=== PATIENT | male | born 1945 | race Caucasian/White ===

== ENCOUNTER → 2020-08-20 | Outpatient (CLI) | payer OTHER ==
[~2020-08-20] MED LIST: BAMLANIVIMAB (EUA) 700 MG, ETESEVIMAB (EUA) 1,400 MG in SODIUM CHLORIDE 0.9% 50 ML IVPB ONE; SODIUM CHLORIDE 0.9% 50 ML IVPB ONE; predniSONE 20 MG TAB PO STA
[2020-08-20 09:00] VITALS: RESP 18
--- NOTE | 2020-08-20 09:52 | XR ---
EXAMINATION TYPE: XR chest 2V DATE OF EXAM: 08/20/2020 COMPARISON: Chest x-ray November 02, 2014 HISTORY: Shortness of breath and fever. TECHNIQUE: Frontal and lateral views of the chest are obtained. FINDINGS: Partial visualization of surgical change in the cervical spine similar to prior. Cardiac s ilhouette size stable and within normal limits. New multifocal opacities bilaterally. IMPRESSION: New bilateral multifocal peripheral opacities suspicious for covid-19 infection in curr ent environment.
--- NOTE | 2020-08-20 11:39 | ED ---
General Adult HPI - General Chief complaint: Upper Respiratory Infection Stated complaint: fever/SOB Source: patient Mode of arrival: ambulatory Limitations: no limitations - History of Present Illness Initial comments: Study 5-year-old male past history of asthma who presents emergency department with reported shortness of breath. Patient states he awoke this morning feeling short of breath with a fever. He attempted to his nebulizer without improvement in his symptoms. 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 Denies any chest pain. No nausea, vomiting or diarrhea. Patient has never been hospitalized for his asthma. No history of heart disease. No lower externally swelling. No history of DVT or PE. 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 ROS Other: All systems not noted in ROS Statement are negative. Past Medical History Past Medical History: Asthma, Hypertension, Prostate Disorder Additional Past Medical History / Comment(s): allergies History of Any Multi-Drug Resistant Organisms: None Reported Past Surgical History: Appendectomy, Back Surgery, Tonsillectomy Additional Past Surgical History / Comment(s): cervical Past Psychological History: No Psychological Hx Reported Smoking Status: Former smoker Past Alcohol Use History: None Reported Past Drug Use History: None Reported General Exam Limitations: no limitations Course Vital Signs 08/20/20 08/20/20 08:55 10:00 Temperature 98.2 F 97.8 F Pulse Rate 97 87 Respiratory 18 18 Rate Blood Pressure 142/80 135/70 O2 Sat by Pulse 94 L 95 Oximetry Medical Decision Making - Medical Decision Making Upon arrival patient is placed into room 30. Thorough history and physical exam was performed. Patient does have mild conversational dyspnea. Saturating 94- 95% on room air. Patient is swabbed for Covid which is positive. Chest x-ray was performed which demonstrates new bilateral multifocal peripheral opacities. Results are discussed with the patient. I did recommend treatment with monoclonal antibodies for which the patient did agree to. Patient was taken up to the infusion center at this time. He was given a dose of steroids in the emergency department due to his history of asthma with active wheezing. Patient will be placed on an additional 5 day course of steroids. He is to use his inhaler every 4 hours. Return to the emergency room for any new or worsening symptoms. Follow up with primary care doctor to 4 days per patient was discharged home in stable condition - Lab Data Lab Results 08/20/20 Range/Units 09:05 Coronavirus (PCR) Detected A (Not Detectd) Disposition Condition: Stable Is patient prescribed a controlled substance at d/c from ED?: No Time of Disposition: 11:39
[2020-08-20 13:11] VITALS: BP 142/67; PULSE 93; TEMP 98
== END ==
LOC: PROCWHC3 08:54 → EC 08:54 → EDSTATUS 12:39
PROVIDERS: ATTEND Emergency Medicine
DX: U07.1 COVID-19 (principal); J45.909 Unspecified asthma, uncomplicated; I10 Essential (primary) hypertension; Z87.891 Personal history of nicotine dependence
CPT/HCPCS: 99285 ×2; 96365; 87635; 71046; J7512; Q0245; M0245

== ENCOUNTER 2021-04-25 09:21 | Inpatient (IN) | payer OTHER, MEDICARE ==
[2021-04-25] MEDS ORDERED: methylPREDNISolone SOD SUCCI 125 MG/2 ML VIAL IV STA (09:41)
[2021-04-25] MEDS ORDERED: ALBUTEROL NEBULIZED 2.5 MG/3 ML INHALATION STA (09:41)
[2021-04-25] MEDS ORDERED: IPRATROPIUM 0.5 MG/2.5 ML NEBU INHALATION STA (09:41)
[2021-04-25 10:02] LABS: Basophils % (A) 0 %; Eosinophils # (A) 0.1 k/uL (0-0.7); Eosinophils % (A) 1 %; HGB 18.2 gm/dL (13.0-17.5); Lymphocytes # (A) 0.6 k/uL (1.0-4.8); Lymphocytes % (A) 3 %; MCHC 33.7 g/dL (31.0-37.0); MCV 86.1 fL (80.0-100.0); Mean Platelet Volume 8.7; Monocytes % (A) 6 %; Neutrophils # (A) 15.8 k/uL (1.3-7.7); Neutrophils % (A) 89 %; Platelet Count 272 k/uL (150-450); RBC 6.27 m/uL (4.30-5.90); RDW 14.6 % (11.5-15.5); WBC 17.7 k/uL (3.8-10.6)
[2021-04-25 10:20] LABS: Partial Thromboplastin Time 23.9 sec (22.0-30.0); Prothrombin Time 11.1 sec (9.0-12.0)
--- NOTE | 2021-04-25 10:28 | XR ---
EXAMINATION TYPE: XR chest 1V portable DATE OF EXAM: 04/25/2021 COMPARISON: 08/20/2020 HISTORY: Cough TECHNIQUE: Single frontal view of the chest is obtained. FINDINGS: There are patchy bilateral infiltrates. Granuloma right upper lobe. Subsegmental bilateral lower lobe infiltrate and small effusion. No pneumothorax. Postsurgical change overlying the cervica l spine. IMPRESSION: Bilateral infiltrate correlate for pneumonia.
--- NOTE | 2021-04-25 10:45 | ED ---
General Adult HPI - General Chief complaint: Shortness of Breath Stated complaint: low O2, weakness, cough Time Seen by Provider: 04/25/21 09:30 Source: patient, RN notes reviewed, old records reviewed Mode of arrival: wheelchair Limitations: no limitations - History of Present Illness Initial comments: 75-year-old male presenting with cough and dyspnea. Patient's symptoms have been present for the past several days. He states he did have coronavirus in the spring of this year. He has not been vaccinated. He had contact with his grandson who had a viral gastrointestinal illness. He denies any vomiting or diarrhea but states that after this contact he did have development of a productive cough, and fever up to 101. - Related Data Previous Rx's Medication Instructions Recorded Dexamethasone [Decadron] 6 mg PO DAILY #5 tablet 08/20/20 Allergies Allergy/AdvReac Type Severity Reaction Status Date / Time Influenza Virus Vaccines Allergy Unknown Verified 04/25/21 09:28 Review of Systems ROS Statement: Those systems with pertinent positive or pertinent negative responses have been documented in the HPI. ROS Other: All systems not noted in ROS Statement are negative. Past Medical History Past Medical History: Asthma, Hypertension, Prostate Disorder Additional Past Medical History / Comment(s): allergies History of Any Multi-Drug Resistant Organisms: None Reported Past Surgical History: Appendectomy, Back Surgery, Tonsillectomy Additional Past Surgical History / Comment(s): cervical Past Psychological History: No Psychological Hx Reported Smoking Status: Former smoker Past Alcohol Use History: None Reported Past Drug Use History: None Reported General Exam Limitations: no limitations General appearance: alert, in no apparent distress Head exam: Present: atraumatic, normocephalic Eye exam: Present: normal appearance, PERRL ENT exam: Present: mucous membranes dry Neck exam: Present: normal inspection. Absent: meningismus Respiratory exam: Present: respiratory distress, wheezes, rhonchi, decreased breath sounds Cardiovascular Exam: Present: normal rhythm, tachycardia GI/Abdominal exam: Present: soft. Absent: distended, tenderness, guarding, rebound Extremities exam: Present: normal inspection, normal capillary refill. Absent: pedal edema Neurological exam: Present: alert, oriented X3, CN II-XII intact. Absent: motor sensory deficit Psychiatric exam: Present: normal affect, normal mood Skin exam: Present: warm, dry, intact. Absent: cyanosis, diaphoretic Course Vital Signs 04/25/21 04/25/21 04/25/21 09:24 09:37 11:12 Temperature 98.8 F Pulse Rate 122 H 118 H Respiratory 20 20 Rate Blood Pressure 131/73 O2 Sat by Pulse 90 L Oximetry 04/25/21 11:30 Temperature Pulse Rate 125 H Respiratory Rate Blood Pressure O2 Sat by Pulse Oximetry EKG Findings - EKG Comments: EKG Findings:: EKG: Sinus tachycardia rate of 123, SD interval 142, QRS duration 86, QTC 432, no ST segment elevation. Medical Decision Making - Medical Decision Making 75-year-old male presenting with cough and fever. Patient has chest x-ray showing bilateral pneumonia. He has previously had coronavirus. He has fever in the emergency department. He has leukocytosis of 17. Normal kidney function, normal lactic acid. He started on antibiotics as well as treatment for COPD exacerbation. He will be admitted to Dr. Cantrell who is aware. - Lab Data Result diagrams: 04/25/21 09:49 04/25/21 11:15 Lab Results 04/25/21 04/25/21 04/25/21 Range/Units 09:49 09:49 10:11 WBC 17.7 H (3.8-10.6) k/uL RBC 6.27 H (4.30-5.90) m/uL Hgb 18.2 H (13.0-17.5) gm/dL Hct 54.0 H (39.0-53.0) % MCV 86.1 (80.0-100.0) fL MCH 29.0 (25.0-35.0) pg MCHC 33.7 (31.0-37.0) g/dL RDW 14.6 (11.5-15.5) % Plt Count 272 (150-450) k/uL MPV 8.7 Neutrophils % 89 % Lymphocytes % 3 % Monocytes % 6 % Eosinophils % 1 % Basophils % 0 % Neutrophils # 15.8 H (1.3-7.7) k/uL Lymphocytes # 0.6 L (1.0-4.8) k/uL Monocytes # 1.0 (0-1.0) k/uL Eosinophils # 0.1 (0-0.7) k/uL Basophils # 0.0 (0-0.2) k/uL PT 11.1 (9.0-12.0) sec INR 1.0 (<1.2) APTT 23.9 (22.0-30.0) sec Sodium (137-145) mmol/L Potassium (3.5-5.1) mmol/L Chloride (98-107) mmol/L Carbon Dioxide (22-30) mmol/L Anion Gap mmol/L BUN (9-20) mg/dL Creatinine (0.66-1.25) mg/dL Est GFR (CKD-EPI)AfAm (>60 ml/min/1.73 sqM) Est GFR (CKD-EPI)NonAf (>60 ml/min/1.73 sqM) Glucose (74-99) mg/dL Plasma Lactic Acid Mello (0.7-2.0) mmol/L Calcium (8.4-10.2) mg/dL Magnesium (1.6-2.3) mg/dL Total Bilirubin (0.2-1.3) mg/dL AST (17-59) U/L ALT (4-49) U/L Alkaline Phosphatase (38-126) U/L Total Protein (6.3-8.2) g/dL Albumin (3.5-5.0) g/dL Coronavirus (PCR) Not Detected (Not Detectd) Influenza Type A RNA (Not Detectd) Influenza Type B (PCR) (Not Detectd) 04/25/21 04/25/21 04/25/21 Range/Units 10:11 11:15 11:15 WBC (3.8-10.6) k/uL RBC (4.30-5.90) m/uL Hgb (13.0-17.5) gm/dL Hct (39.0-53.0) % MCV (80.0-100.0) fL MCH (25.0-35.0) pg MCHC (31.0-37.0) g/dL RDW (11.5-15.5) % Plt Count (150-450) k/uL MPV Neutrophils % % Lymphocytes % % Monocytes % % Eosinophils % % Basophils % % Neutrophils # (1.3-7.7) k/uL Lymphocytes # (1.0-4.8) k/uL Monocytes # (0-1.0) k/uL Eosinophils # (0-0.7) k/uL Basophils # (0-0.2) k/uL PT (9.0-12.0) sec INR (<1.2) APTT (22.0-30.0) sec Sodium 135 L (137-145) mmol/L Potassium 3.9 (3.5-5.1) mmol/L Chloride 97 L (98-107) mmol/L Carbon Dioxide 27 (22-30) mmol/L Anion Gap 11 mmol/L BUN 24 H (9-20) mg/dL Creatinine 0.72 (0.66-1.25) mg/dL Est GFR (CKD-EPI)AfAm >90 (>60 ml/min/1.73 sqM) Est GFR (CKD-EPI)NonAf 90 (>60 ml/min/1.73 sqM) Glucose 175 H (74-99) mg/dL Plasma Lactic Acid Mello 1.3 (0.7-2.0) mmol/L Calcium 8.8 (8.4-10.2) mg/dL Magnesium 2.0 (1.6-2.3) mg/dL Total Bilirubin 2.2 H (0.2-1.3) mg/dL AST 132 H (17-59) U/L ALT 85 H (4-49) U/L Alkaline Phosphatase 70 (38-126) U/L Total Protein 7.5 (6.3-8.2) g/dL Albumin 3.9 (3.5-5.0) g/dL Coronavirus (PCR) (Not Detectd) Influenza Type A RNA Not Detected (Not Detectd) Influenza Type B (PCR) Not Detected (Not Detectd) Disposition Clinical Impression: Community acquired pneumonia, Acute exacerbation of chronic obstructive pulmonary disease Disposition: ADMITTED IP TO THIS [facility] Condition: Stable Is patient prescribed a controlled substance at d/c from ED?: No Referrals: [facility] [Primary Care Provider] - 1-2 days Decision to Admit Reason: Admit from EC Decision Date: 04/18/21 Decision Time: 12:15
[2021-04-25] MEDS ORDERED: cefTRIAXone IN SWFI 1,000 MG/10 ML SYRINGE IVP STA (10:54)
[2021-04-25] MEDS ORDERED: AZITHROMYCIN 500 MG in SODIUM CHLORIDE 0.9% 250 ML IVPB STA (10:54)
[2021-04-25] MEDS ORDERED: SODIUM CHLORIDE 0.9% 500 ML 500 ML IV ONE (11:30)
[2021-04-25 11:49] LABS: ALT 85 U/L (4-49); African American GFR (CKD) >90 (>60 ml/min/1.73 sqM); Anion Gap 11 mmol/L; Blood Urea Nitrogen 24 mg/dL (9-20); Calcium 8.8 mg/dL (8.4-10.2); Carbon Dioxide 27 mmol/L (22-30); Chloride 97 mmol/L (98-107); Glucose 175 mg/dL (74-99); Non-African American GFR(CKD) 90 (>60 ml/min/1.73 sqM); Sodium 135 mmol/L (137-145); Total Bilirubin 2.2 mg/dL (0.2-1.3)
[2021-04-25 11:51] LABS: AST 132 U/L (17-59); Albumin 3.9 g/dL (3.5-5.0); Alkaline Phosphatase 70 U/L (38-126); Potassium 3.9 mmol/L (3.5-5.1); Total Protein 7.5 g/dL (6.3-8.2)
[2021-04-25] MEDS ORDERED: IPRATROPIUM-ALBUTEROL 3 ML NEB INHALATION PRN (12:12)
[2021-04-25] MEDS ORDERED: ASPIRIN 325 MG TAB PO STA (12:28)
[2021-04-25] MEDS ORDERED: HEPARIN SODIUM 1,000 UN/ML (10ML VL) IV ONE (12:28)
--- NOTE | 2021-04-25 13:06 | CT ---
EXAMINATION TYPE: CT angio chest DATE OF EXAM: 04/25/2021 COMPARISON: Chest x-ray from earlier today and told her x-ray August 20, 2020 HISTORY: SOB, cough, pneumonia CT DLP: 209.3 mGycm. Automated Exposure Control for Dose Reduction was Utilized. CONTRAST: CTA scan of the thorax is performed with IV Contrast, patient injected with 78 mL of Isovue 370, pulm onary embolism protocol. MIP Images are created on CT scanner and reviewed. FINDINGS: LUNGS: Exam suboptimal as patient unable to hold breath. Focal consolidation retrocardiac region left lower lobe is present. Smaller focal area of groundglass opacity medial right lower lobe axial image 99. There is 7 mm calcified right lower lobe nodule laterally axial image 74. Mild reticulation or i nterstitial edema. No pleural effusion or pneumothorax seen. MEDIASTINUM: There is a suboptimal study with fecal contrast in the SVC and aorta versus pulmonary ar teries. Some heterogeneity in the periphery but no CT evidence for acute pulmonary embolism. There ar e no greater than 1 cm noncalcified hilar or mediastinal lymph nodes. Prominent calcified subcarinal and right hilar lymph nodes. No cardiomegaly or pericardial effusion is seen. Coronary calcification is present. No thoracic aortic aneurysm or dissection. OTHER: Exaggerated thoracic kyphosis upper thoracic spine. Scoliotic curvature on coronal images. Ant erior fusion plate lower cervical spine partially imaged. IMPRESSION: No CT evidence for acute pulmonary embolism. Masslike consolidation in the left lower lob e suspicious for focal pneumonia. Correlate clinically. Follow-up to resolution advised. Smaller focu s groundglass opacity medial right lower lobe could reflect second acute developing infectious proces s.
--- NOTE | 2021-04-25 13:22 | P.CRDCN ---
History of Present Illness History of present illness: HISTORY OF PRESENTING ILLNESS This is a pleasant 75-year-old male past medical history significant for hypertension, asthma, Covid-19 in July 2020. 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 Ram. We have been asked to see in consultation for elevated troponin. Patient presents to the emergency department with complaints of cough and worsening shortness of breath for the past several days. He was hypoxic on presentation and placed on 5L nasal cannula. He denies any chest pain, palpitations, lightheadedness, dizziness or syncope. On admission, patient's chest xray revealed bilateral infiltrate correlate for pneumonia. EKG revealed sinus tachycardia, rate 123, no significant ST-T wave abnormalities. On telemetry he is in sinus tachycardic HR 120s. Troponin was elevated at 1.1. He denies history of CAD, [place], Stroke, or diabetes. He denies diagnosis of COPD. He is a non-smoker, quit 50+ years ago. DIAGNOSTICS Chest CT revealed no evidence of pulmonary embolism, mass like consolidation in the left lower lobe suspicious for focal pneumonia. Smaller focus groundglass opacities medial right lower lobe Laboratory reviewed, WBC 17, Hgb 18, Plt 272, Sodium 135, K 3.9, BUN 24, sCr 0.72, Mag 2.0, Trop 1.1, covid pcr negative, influenza pcr negative Current home medications include Decadron REVIEW OF SYSTEMS At the time of my exam: CONSTITUTIONAL: Denies fever or chills. CARDIOVASCULAR: +shortness of breath Denies chest pain, orthopnea, PND or palpitations. RESPIRATORY: +cough. GASTROINTESTINAL: Denies abdominal pain, diarrhea, constipation, nausea or vomiting. MUSCULOSKELETAL: Denies myalgias. NEUROLOGIC: Denies numbness, tingling, headacbe or weakness. ENDOCRINE: Denies fatigue, weight change, polydipsia or polyurina. GENITOURINARY: Denies burning, hematuria or urgency with micturation. HEMATOLOGIC: Denies history of anemia or bleeding. PHYSICAL EXAMINATION Blood pressure 131/73 HR 122, afebrile CONSTITUTIONAL: No apparent distress. HEENT: Head is normocephalic. Pupils are equal, round. Sclerae anicteric. Mucous membranes of the mouth are moist. No JVD. No carotid bruit. CHEST EXAMINATION: Lungs are bilateral rhonci with wheezes noted to auscultation. No chest wall tenderness is noted on palpation or with deep breathing. HEART EXAMINATION: Regular tachycardic rate and rhythm. S1, S2 heard. No murmurs, gallops or rub. ABDOMEN: Soft, nontender. Positive bowel sounds. EXTREMITIES: 2+ peripheral pulses, no lower extremity edema and no calf tenderness. NEUROLOGIC EXAMINATION: Patient is awake, alert and oriented x3. ASSESSMENT Shortness of breath, cough Acute asthma/copd exacerbation Elevated troponin, likely related to hypoxia and infection Pneumonia PLAN Recommend consult pulmonary We will start aspirin and continue IV heparin at this time Obtain 2D echocardiogram Based on patient's course further recommendations will be made Nurse Practitioner note has been reviewed, I agree with a documented findings and plan of care. Patient was seen and examined. Past Medical History Past Medical History: Asthma, Hypertension, Prostate Disorder Additional Past Medical History / Comment(s): allergies History of Any Multi-Drug Resistant Organisms: None Reported Past Surgical History: Appendectomy, Back Surgery, Tonsillectomy Additional Past Surgical History / Comment(s): cervical Past Psychological History: No Psychological Hx Reported Smoking Status: Former smoker Past Alcohol Use History: None Reported Past Drug Use History: None Reported Medications and Allergies Home Medications Medication Instructions Recorded Confirmed Type Dexamethasone [Decadron] 6 mg PO DAILY #5 tablet 08/20/20 Rx Allergies Allergy/AdvReac Type Severity Reaction Status Date / Time Influenza Virus Vaccines Allergy Unknown Verified 04/25/21 09:28 Physical Exam Vitals: Vital Signs Temp Pulse Resp BP Pulse Ox 04/25/21 11:30 125 H 04/25/21 11:12 118 H 04/25/21 09:37 20 04/25/21 09:24 98.8 F 122 H 20 131/73 90 L Intake and Output 04/24/21 04/25/21 04/25/21 22:59 06:59 14:59 Other: Weight 63.503 kg Results 04/25/21 09:49 04/25/21 11:15 Cardiac Enzymes 04/25/21 04/25/21 Range/Units 11:15 11:15 AST 132 H (17-59) U/L Troponin I 1.170 H* (0.000-0.034) ng/mL Coagulation 04/25/21 Range/Units 09:49 PT 11.1 (9.0-12.0) sec APTT 23.9 (22.0-30.0) sec CBC 04/25/21 Range/Units 09:49 WBC 17.7 H (3.8-10.6) k/uL RBC 6.27 H (4.30-5.90) m/uL Hgb 18.2 H (13.0-17.5) gm/dL Hct 54.0 H (39.0-53.0) % Plt Count 272 (150-450) k/uL Comprehensive Metabolic Panel 04/25/21 Range/Units 11:15 Sodium 135 L (137-145) mmol/L Potassium 3.9 (3.5-5.1) mmol/L Chloride 97 L (98-107) mmol/L Carbon Dioxide 27 (22-30) mmol/L BUN 24 H (9-20) mg/dL Creatinine 0.72 (0.66-1.25) mg/dL Glucose 175 H (74-99) mg/dL Calcium 8.8 (8.4-10.2) mg/dL AST 132 H (17-59) U/L ALT 85 H (4-49) U/L Alkaline Phosphatase 70 (38-126) U/L Total Protein 7.5 (6.3-8.2) g/dL Albumin 3.9 (3.5-5.0) g/dL Current Medications Generic Name Dose Route Start Last Admin Trade Name Freq PRN Reason Stop Dose Admin Albuterol/Ipratropium 3 ml 04/25/21 12:12 Ipratropium-Albuterol 3 Ml Neb INHALATION RT-Q4H PRN Shortness Of Breath Or Wheezing Albuterol/Ipratropium 3 ml 04/25/21 16:00 Ipratropium-Albuterol 3 Ml Neb INHALATION RT-QID [facility] Heparin Sodium (Porcine) 0 unit 04/25/21 12:28 Heparin Sodium 1,000 Un/Ml (10ml Vl) IV PER PROTOCOL PRN Low PTT Protocol Sodium Chloride 1,000 mls @ 130 mls/hr 04/25/21 11:30 Saline 0.9% IV .[id number] [facility] Heparin Sodium/Sodium Chloride 250 mls @ 7.62 mls/hr 04/25/21 12:30 25,000 unit/ Sodium Chloride IV .Q24H [facility]ART[facility]N Protocol 12 UNITS/KG/HR Methylprednisolone Sodium Succinate 60 mg 04/25/21 18:00 Methylprednisolone Sod Succi 125 Mg/2 Ml Vial IV Q6HR MART[facility]N Intake and Output 04/24/21 04/25/21 04/25/21 22:59 06:59 14:59 Other: Weight 63.503 kg Patient Weight 04/26/21 06:59 Weight 63.503 kg 04/25/21 09:49 04/25/21 11:15
[2021-04-25] MEDS: HEPARIN SOD,PORK IN 0.45% NACL 25,000 UNIT in 0.45% NACL 1 250ML.BAG IV SCH (13:40)
[2021-04-25] MEDS: SODIUM CHLORIDE 0.9% 1,000 ML IV SCH (14:06)
[2021-04-25] MEDS: IPRATROPIUM-ALBUTEROL 3 ML NEB INHALATION SCH ×2 (15:52→18:44)
--- NOTE | 2021-04-25 16:00 | P.CNPUL ---
History of Present Illness Consult date: 04/25/21 Reason for consult: dyspnea, cough, hypoxemia Chief complaint: Shortness of breath with fever started 2 days ago History of present illness: Patient is a 75-year-old with a remote history of smoking prior history of COPD lately have been more short of breath congested recently seen in the office for the first time preliminary workup including PFTs labs and x-rays have been ordered, patient was complaining of shortness of breath and was hypoxic patient has recently placed on home oxygen, chest for the last 2 days started getting more shortness of breath cough congestion and fever up to 101, patient has not vaccinated for COVID-19 pneumonia, prior history of asthma hypertension prostate problem enlargement, on arrival patient was tachypneic. Cardiac with low oxygen saturation of 90% blood pressure was 122/73, heart rate is 120, respiratory rate 20,Shortness breath patient is a 75-year-old male with the history of hypoxic, patient does have a history of Crohn enteritis pneumonia infection before she this admission white cell count 70,700 hemoglobin and hematocrit is 24/7.7 to hemoglobin is 18, influenza A and B both negative: Negative, troponin elevated 1.1, computed tomography scan of the chest negative for pulmonary embolism however masslike consolidation left lower lobe is present consistent with focal pneumonia she infiltrated right lower lobe Review of Systems All systems: negative Past Medical History Past Medical History: Asthma, Hypertension, Prostate Disorder Additional Past Medical History / Comment(s): allergies History of Any Multi-Drug Resistant Organisms: None Reported Past Surgical History: Appendectomy, Back Surgery, Tonsillectomy Additional Past Surgical History / Comment(s): cervical Past Anesthesia/Blood Transfusion Reactions: No Reported Reaction Additional Past Anesthesia/Blood Transfusion Reaction / Comment(s): Pt is clausterphobic. Past Psychological History: No Psychological Hx Reported Smoking Status: Former smoker Past Alcohol Use History: None Reported Past Drug Use History: None Reported - Past Family History Mother Family Medical History: No Reported History Additional Family Medical History / Comment(s): Mother was healthy and lived to be 92 yrs old. Father History Unknown: Yes Additional Family Medical History / Comment(s): Father at the age of 68yrs, pt unable to say from what. Medications and Allergies Home Medications Medication Instructions Recorded Confirmed Type Albuterol Inhaler [Ventolin Hfa 2 puff INHALATION RT-QID PRN 04/25/21 04/25/21 History Inhaler] Albuterol Nebulized [Ventolin 2.5 mg INHALATION RT-Q4H PRN 04/25/21 04/25/21 History Nebulized] Ammonium Lactate Lotion 1 applic TOPICAL DAILY PRN 04/25/21 04/25/21 History [Lac-Hydrin 12% Lotion] Cetirizine HCl [Zyrtec] 10 mg PO DAILY PRN 04/25/21 04/25/21 History Diclofenac 1% Top Gel 1 applic TOPICAL BID 04/25/21 04/25/21 History Finasteride [Proscar] 5 mg PO HS 04/25/21 04/25/21 History Fluticasone Nasal Kimberly [Flonase 2 spray EA NOSTRIL DAILY 04/25/21 04/25/21 History Nasal Kimberly] Fluticasone/Salmeterol [Advair 1 puff INHALATION RT-BID 04/25/21 04/25/21 History 250-50 Diskus] Lidocaine 5% Patch [Lidoderm] 1 patch TOPICAL DAILY 04/25/21 04/25/21 History Meloxicam [Mobic] 7.5 mg PO DAILY PRN 04/25/21 04/25/21 History Polyvinyl Alcohol/Povidone 1 drop BOTH EYES TID 04/25/21 04/25/21 History [Freshkote Eye Drop] Pravastatin Sodium [Pravachol] 20 mg PO HS 04/25/21 04/25/21 History Triamcinolone 0.1% Cream [Kenalog 1 applicatio TOPICAL BID PRN 04/25/21 04/25/21 History 0.1% Cream] amLODIPine [Norvasc] 10 mg PO HS 04/25/21 04/25/21 History hydroCHLOROthiazide [Hydrodiuril] 25 mg PO DAILY 04/25/21 04/25/21 History Allergies Allergy/AdvReac Type Severity Reaction Status Date / Time Influenza Virus Vaccines Allergy Unknown Verified 04/25/21 14:27 Physical Exam Vitals: Vital Signs Temp Pulse Resp BP Pulse Ox 04/25/21 14:00 111 H 18 110/68 90 L 04/25/21 13:31 97.4 F L 122 H 20 126/76 89 L 04/25/21 11:30 125 H 04/25/21 11:12 118 H 04/25/21 09:37 20 04/25/21 09:24 98.8 F 122 H 20 131/73 90 L Intake and Output 04/25/21 04/25/21 04/25/21 06:59 14:59 22:59 Other: Weight 63.503 kg - Constitutional General appearance: average body habitus, cooperative, disheveled, mild distress - EENT Eyes: PERRLA Ears: bilateral: normal - Neck Neck: normal ROM Carotids: bilateral: upstroke normal - Respiratory Respiratory: bilateral: diminished, wheezing - Cardiovascular Rhythm: regular Heart sounds: normal: S1, S2 - Gastrointestinal General gastrointestinal: distended, normal bowel sounds - Integumentary Integumentary: normal turgor - Neurologic Neurologic: CNII-XII intact, focal deficits - Musculoskeletal Musculoskeletal: gait normal, generalized weakness, strength equal bilaterally - Psychiatric Psychiatric: A&O x's 3, appropriate affect, intact judgment & insight Results - Laboratory Findings CBC and BMP: 04/25/21 09:49 04/25/21 11:15 PT/INR, D-dimer PT 11.1 sec (9.0-12.0) 04/25/21 09:49 INR 1.0 (<1.2) 04/25/21 09:49 Abnormal lab findings: Abnormal Labs 04/25/21 04/25/21 04/25/21 09:49 11:15 11:15 WBC 17.7 H RBC 6.27 H Hgb 18.2 H Hct 54.0 H Neutrophils # 15.8 H Lymphocytes # 0.6 L Sodium 135 L Chloride 97 L BUN 24 H Glucose 175 H Total Bilirubin 2.2 H AST 132 H ALT 85 H Troponin I 1.170 H* - Diagnostic Findings Chest x-ray: report reviewed, image reviewed CT scan - chest: report reviewed, image reviewed (Finding as noted above) Assessment and Plan Assessment: Left lower lobe community-acquired pneumonia also involving the right lower lobe Masslike process of the left lower lobe cannot be excluded, patient will need further radiographs to document resolution in 8-12 weeks Acute hypoxic respiratory failure Elevated troponin History of COVID-19 pneumonia History of COPD Plan: Broad-spectrum IV antibiotics with Rocephin and Zithromax Bronchodilators IV steroids Supplemental oxygen with slow tapering IV heparin per cardiovascular services Follow up radiographic studies the outpatient Further plan of care and recommendation as per clinical response of the patient Time with Patient: Greater than 30
[2021-04-25] MEDS ORDERED: LORATADINE 10 MG TAB PO PRN (16:24)
[2021-04-25] MEDS ORDERED: HYDROcodone/APAP 5-325MG 1 EACH TAB PO PRN (16:32)
[2021-04-25] MEDS ORDERED: ALPRAZolam 0.25 MG TAB PO PRN (16:32)
--- NOTE | 2021-04-25 17:35 | ECHOF ---
Referral Reason: MEASUREMENTS -------- HEIGHT: 175.3 cm WEIGHT: 63.5 kg BP: 131/73 RVIDd: 3.7 cm (< 3.3) IVSd: 1.0 cm (0.6 - 1.1) LVIDd: 4.1 cm (3.9 - 5.3) LVPWd: 0.9 cm (0.6 - 1.1) IVSs: 1.4 cm LVIDs: 2.5 cm LVPWs: 1.2 cm LAESV Index (A-L): 25.54 ml/m Ao Diam: 2.7 cm (2.0 - 3.7) AV Cusp: 1.5 cm (1.5 - 2.6) LA Diam: 3.1 cm (2.7 - 3.8) MV EXCURSION: 21.946 mm (> 18.000) MV EF SLOPE: 247 mm/s (70 - 150) EPSS: 0.5 cm RAP: 5.00 mmHg RVSP: 20.52 mmHg FINDINGS -------- This was a technically difficult study with suboptimal views. The left ventricular size is normal. Left ventricular wall thickness is normal. Overall left vent ricular systolic function is moderately impaired with, an EF between 35 - 40 %. Mid anterior LV wal l motion is hypokinetic. Mid lateral LV wall motion is hypokinetic. Mid anteroseptal LV wall mo tion is hypokinetic. Apical anterior LV wall motion is hypokinetic. Apical lateral LV wall aroldo on is hypokinetic. Apical inferior LV wall motion is hypokinetic. Apical septum LV wall motion is hypokinetic. The right ventricle is mildly enlarged. Normal LA size by volume 22+/-6 ml/m2. The right atrial size is normal. 3.0mg of Lumason was utilized for enhancement of images Interatrial and interventricular septum intact. There is no evidence of aortic regurgitation. There is no evidence of aortic stenosis. Mild mitral regurgitation is present. Mild tricuspid regurgitation present. There is no evidence of pulmonary hypertension. The right v entricular systolic pressure, as measured by Doppler, is 20.52mmHg. Trace/mild (physiologic) pulmonic regurgitation. The aortic root size is normal. IVC Not well visulized. There is no pericardial effusion. CONCLUSIONS -------- 1. The left ventricular size is normal. 2. Left ventricular wall thickness is normal. 3. Overall left ventricular systolic function is moderately impaired with, an EF between 35 - 40 %. 4. Mid anterior LV wall motion is hypokinetic. 5. Mid lateral LV wall motion is hypokinetic. 6. Mid anteroseptal LV wall motion is hypokinetic. 7. Apical anterior LV wall motion is hypokinetic. 8. Apical lateral LV wall motion is hypokinetic. 9. Apical inferior LV wall motion is hypokinetic. 10. Apical septum LV wall motion is hypokinetic. 11. The right ventricle is mildly enlarged. 12. Mild mitral regurgitation is present. 13. Mild tricuspid regurgitation present. 14. Trace/mild (physiologic) pulmonic regurgitation. ANESTHESIA ASSISTANT: Sherrill Deras RDCS
--- NOTE | 2021-04-25 18:24 | HP ---
HISTORY AND PHYSICAL DATE OF SERVICE: 04/25/2021 CHIEF COMPLAINTS: Shortness of breath and weakness and cough. HISTORY OF PRESENT ILLNESS: This 75-year-old gentleman with a past medical history of asthma, hypertension, history of prostate disorder, history of appendectomy, back surgery, being followed by [facility] and Dr. Lizama in the outpatient setting, was complaining of weakness and shortness of breath for the past several days. The patient had a COVID-19 infection earlier this year in August, from which the patient improved significantly, but the patient had contact with his grandson, who has viral gastrointestinal illness, and the patient was admitted for evaluation and treatment. Chest x-ray showed bilateral pneumonia which was confirmed by CTA chest also. CTA is reported as showing no evidence of pulmonary embolism; masslike consolidation in the left lower lobe suspicious for focal pneumonia was considered, and pulmonary consultation with Dr. Ram is in progress at this time. There is no history of any rigors or chills at this time. PAST MEDICAL HISTORY: History of asthma, hypertension, history of prostate disorder, appendectomy. HOME MEDICATIONS: HydroDIURIL, Norvasc, Kenalog, Pravachol, Mobic, Advair, Flonase. Doses and other medications are reviewed. ALLERGIES: INFLUENZA VIRUS VACCINE. FAMILY HISTORY: No history of heart disease or strokes in the family. SOCIAL HISTORY: Previous history of smoking. No history of alcohol intake. REVIEW OF SYSTEMS: ENT: Diminished hearing. Diminished vision. CARDIOVASCULAR SYSTEM: As mentioned earlier. RESPIRATORY SYSTEM: As mentioned earlier. GI: No nausea, vomiting, diarrhea. : No dysuria. NERVOUS SYSTEM: No numbness, weakness. ALLERGY/IMMUNOLOGY: No asthma or hay fever. MUSCULOSKELETAL: As mentioned earlier. HEMATOLOGY/ONCOLOGY: No history of anemia. ENDOCRINE: No history of diabetes or hypothyroidism. CONSTITUTIONAL: As mentioned earlier. DERMATOLOGY: Negative. RHEUMATOLOGY: Negative. PSYCHIATRY: As mentioned earlier. PHYSICAL EXAMINATION: Patient is alert, oriented x3. Pulse is 113, blood pressure 110/60, respiration 18, temperature 97.4, pulse ox 89% on 5 L. HEENT: Conjunctivae normal. NECK: No jugular venous distention. CARDIOVASCULAR: S1, S2 muffled. RESPIRATION: Breath sounds diminished at the bases. A few scattered rhonchi and crackles. ABDOMEN: Soft, nontender. No mass palpable. LEGS: No edema. No swelling. NERVOUS SYSTEM: Higher functions as mentioned earlier. Moves all 4 limbs. No focal motor or sensory deficit. LYMPHATICS: No lymph node palpable in neck, axillae or groin. SKIN: No ulcer, rash, bleeding. JOINTS: No active deforming arthropathy. LABS: Labs at this time show WBC , hemoglobin is 8.2, sodium 134, potassium 3.8. Other labs are noted. ASSESSMENT: 1. Acute bilateral pneumonia, left more than the right, possibly community- acquired, possibly Gram-negative with sepsis and acute hypoxic respiratory failure, present on admission. 2. Asthma, chronic obstructive pulmonary disease, acute exacerbation. 3. Increased white count. 4. Hyponatremia. 5. Elevated random glucose. 6. Elevated bilirubin, AST, ALT, possibly hepatitis of undetermined etiology. 7. Troponin 1.170, possible type 2 myocardial infarction. 8. Hypertension. 9. History of prostate disorder. 10.History of appendectomy. 11.History of back surgery, degenerative joint disease. 12.FULL CODE. RECOMMENDATIONS AND DISCUSSION: In this 75-year-old gentleman who presented with multiple complex medical issues, we will monitor the patient closely, continue the current medications, continue symptomatic treatment. Will initiate empiric antibiotics, broad-spectrum antibiotics cardiology and pulmonology consultations. IV steroids. Prognosis guarded because of multiple complex medical issues. Further recommendations to follow. A copy of this dictation is being forwarded to Dr. Lizama in [facility]. CHARLI / ASIM: [id number] / MTDD
[2021-04-25] MEDS: FORMOTEROL FUMARATE 20 MCG/2 ML NEBU INHALATION SCH (18:44)
[2021-04-25] MEDS: BUDESONIDE 1 MG/2 ML NEBU INHALATION SCH (18:44)
[2021-04-25 18:57] LABS: Glucose,Whole Blood 204 mg/dL (75-99)
[2021-04-25] MEDS: INSULIN ASPART (NovoLOG) 100 UNIT/ML VIAL SQ SCH ×2 (19:04→21:48)
[2021-04-25] MEDS: methylPREDNISolone SOD SUCCI 125 MG/2 ML VIAL IV SCH (20:20)
[2021-04-25] MEDS: FINASTERIDE 5 MG TAB PO SCH (20:21)
[2021-04-25] MEDS: PRAVASTATIN SODIUM 20 MG TAB PO SCH (20:21)
[2021-04-25] MEDS: amLODIPine 10 MG TAB PO SCH (20:21)
[2021-04-25] MEDS: DOXYCYCLINE 100 MG CAP PO SCH (20:21)
[2021-04-25] MEDS: HEPARIN SODIUM 1,000 UN/ML (10ML VL) IV PRN (20:31)
[2021-04-25 21:11] LABS: Glucose,Whole Blood 252 mg/dL (75-99)
[2021-04-26] MEDS: ARTIFICIAL TEARS-HYPROMELLOSE DROPS 15 ML BTL BOTH EYES SCH ×4 (00:33→22:33)
[2021-04-26] MEDS: DICLOFENAC SODIUM GEL 100 GM TUBE TOPICAL SCH ×3 (00:33→22:33)
[2021-04-26] MEDS: methylPREDNISolone SOD SUCCI 125 MG/2 ML VIAL IV SCH ×4 (00:46→17:57)
[2021-04-26] MEDS: SODIUM CHLORIDE 0.9% 1,000 ML IV SCH ×4 (00:46→18:02)
[2021-04-26 05:50] LABS: Basophils % (A) 0 %; Eosinophils % (A) 0 %; HCT 51.4 % (39.0-53.0); HGB 16.6 gm/dL (13.0-17.5); Lymphocytes # (A) 0.4 k/uL (1.0-4.8); Lymphocytes % (A) 3 %; MCH 28.1 pg (25.0-35.0); MCHC 32.3 g/dL (31.0-37.0); MCV 87.1 fL (80.0-100.0); Mean Platelet Volume 8.7; Monocytes # (A) 0.6 k/uL (0-1.0); Monocytes % (A) 4 %; Neutrophils # (A) 15.3 k/uL (1.3-7.7); Neutrophils % (A) 93 %; Platelet Count 267 k/uL (150-450); RDW 14.7 % (11.5-15.5); WBC 16.4 k/uL (3.8-10.6)
[2021-04-26 06:36] LABS: Partial Thromboplastin Time 28.9 sec (22.0-30.0); Prothrombin Time 11.1 sec (9.0-12.0)
[2021-04-26 07:26] LABS: Mycoplasma IgG Antibody (EIA) 1.65 INDEX (<=0.90); Mycoplasma IgM Antibody 0.43 INDEX (<=0.90)
[2021-04-26 07:29] LABS: Glucose,Whole Blood 173 mg/dL (75-99)
[2021-04-26] MEDS: BUDESONIDE 1 MG/2 ML NEBU INHALATION SCH ×2 (08:56→19:50)
[2021-04-26] MEDS: FORMOTEROL FUMARATE 20 MCG/2 ML NEBU INHALATION SCH ×2 (08:56→19:50)
[2021-04-26] MEDS: IPRATROPIUM-ALBUTEROL 3 ML NEB INHALATION SCH ×4 (08:56→19:50)
[2021-04-26] MEDS: HEPARIN SODIUM 1,000 UN/ML (10ML VL) IV PRN ×3 (09:41→23:59)
[2021-04-26] MEDS: MULTIVITAMINS, THERA 1 EACH TAB PO SCH (09:43)
[2021-04-26] MEDS: DOXYCYCLINE 100 MG CAP PO SCH ×2 (09:43→22:30)
[2021-04-26] MEDS: hydroCHLOROthiazide 25 MG TAB PO SCH (09:43)
[2021-04-26] MEDS: ASPIRIN 81 MG PO SCH (09:43)
[2021-04-26] MEDS: THIAMINE 100 MG TAB PO SCH (09:43)
[2021-04-26] MEDS: FOLIC ACID 1 MG TAB PO SCH (09:43)
[2021-04-26] MEDS: INSULIN ASPART (NovoLOG) 100 UNIT/ML VIAL SQ SCH ×4 (09:44→22:32)
[2021-04-26] MEDS: AZITHROMYCIN 500 MG in SODIUM CHLORIDE 0.9% 250 ML IVPB SCH (09:59)
[2021-04-26 10:14] LABS: African American GFR (CKD) 99.9 (60.0-200.0); Anion Gap 15.8 mmol/L (10.00-18.00); BUN/Creat Ratio 22.5 Ratio (12.00-20.00); Calcium 8.2 mg/dL (8.7-10.3); Carbon Dioxide 21.2 mmol/L (20.0-27.5); Non-African American GFR(CKD) 86.2 (60.0-200.0); Potassium 3.3 mmol/L (3.5-5.5)
[2021-04-26] MEDS: MELOXICAM 7.5 MG TAB PO PRN (10:19)
--- NOTE | 2021-04-26 11:33 | P.PN ---
Subjective Progress Note Date: 04/26/21 HISTORY OF PRESENT ILLNESS: This is a pleasant 75-year-old male past medical history significant for hypertension, asthma, Covid-19 in July 2020. He does not follow with a cardiolo gist. 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 Ram. We have been asked to see in consultation for elevated troponin. Patient presents to the emergency department with complaints of cough and worsening shortness of breath for the past several days. He was hypoxic on presentation and placed on 5L nasal cannula. He denies any chest pain, palpitations, lightheadedness, dizziness or syncope. On admission, patient's chest xray revealed bilateral infiltrate correlate for pneumonia. EKG revealed sinus tachycardia, rate 123, no significant ST-T wave abnormalities. On telemetry he is in sinus tachycardic HR 120s. Troponin was elevated at 1.1. He denies history of CAD, NH, Stroke, or diabetes. He denies diagnosis of COPD. He is a non-smoker, quit 50+ years ago. DIAGNOSTICS Chest CT revealed no evidence of pulmonary embolism, mass like consolidation in the left lower lobe suspicious for focal pneumonia. Smaller focus groundglass opacities medial right lower lobe Laboratory reviewed, WBC 17, Hgb 18, Plt 272, Sodium 135, K 3.9, BUN 24, sCr 0.72, Mag 2.0, Trop 1.1, covid pcr negative, influenza pcr negative Current home medications include Decadron 04/26/2021 Patient examined this morning at the bedside. Patient denies any chest pain or pressure. Patient denies having any chest pain prior to coming to the hospital. He does report mild shortness of breath. He remains on 5 L nasal cannula. Patient is tachycardic this morning with a heart rate around 110. Blood pressure 125/75. Echocardiogram completed revealing ejection fraction 35-40%, mid anterior, mid lateral, mid anterior septal, apical anterior, apical lateral, apical inferior, and apical septal LV wall hypokinesis, mild mitral regurgitation, and mild tricuspid regurgitation. There is no prior echocardiogram available for review. Upon questioning the patient further, he denies any known history of cardiomyopathy. PHYSICAL EXAM: VITAL SIGNS: Reviewed. GENERAL: Well-developed in no acute distress. NECK: Supple. No JVD or thyromegaly LUNGS: Respirations even and unlabored. Lungs diminished with wheezing and rhonchi noted. HEART: Regular rate and rhythm. S1 and S2 heard. EXTREMITIES: Normal range of motion. No clubbing or cyanosis. Peripheral pulses intact. No lower extremity edema ASSESSMENT: Shortness of breath Acute asthma/COPD exacerbation Non-STEMI Pneumonia New onset cardiomyopathy, etiology unclear Former nicotine dependence PLAN: Continue IV heparin for an additional 24 hours Continue aspirin and statin Begin lisinopril 5mg daily Begin Metoprolol succinate 25mg daily Patient will require cardiac cath in the future when his acute pulmonary conditions have resolved and he is able to lay flat due to new onset cardiom yopathy to rule out CAD Further recommendations pending patient's course Nurse practitioner note has been reviewed by physician. Signing provider agrees with the documented findings, assessment, and plan of care. Objective - Vital Signs Vital signs: Vital Signs Temp 98.5 F 04/26/21 05:00 Pulse 114 H 04/26/21 09:19 Resp 18 04/26/21 05:00 BP 125/75 04/26/21 05:00 Pulse Ox 93 L 04/26/21 05:00 Intake & Output 04/25/21 04/26/21 04/26/21 18:59 06:59 18:59 Intake Total 52.197 116.163 Balance 52.197 116.163 Weight 63.503 kg Intake: Intake, IV Titration 52.197 116.163 Amount Heparin Sod,Pork in 0.45% 52.197 116.163 NaCl 25,000 unit In 0.45 % NaCl 1 250ml.bag @ 12 UNITS/KG/HR 7.62 mls/hr IV .Q24H MARTÍN Rx#: [id number] Other: Voiding Method Urinal # Voids 3 - Labs CBC & Chem 7: 04/26/21 04:55 04/26/21 04:55 Labs: Abnormal Lab Results - Last 24 Hours (Table) 04/25/21 04/25/21 04/25/21 Range/Units 11:15 11:15 17:29 WBC (3.8-10.6) k/uL Neutrophils # (1.3-7.7) k/uL Lymphocytes # (1.0-4.8) k/uL APTT 35.6 H (22.0-30.0) sec Sodium 135 L (137-145) mmol/L Potassium (3.5-5.5) mmol/L Chloride 97 L (98-107) mmol/L BUN 24 H (9-20) mg/dL BUN/Creatinine Ratio (12.00-20.00) Ratio Glucose 175 H (74-99) mg/dL POC Glucose (mg/dL) (75-99) mg/dL Calcium (8.7-10.3) mg/dL Total Bilirubin 2.2 H (0.2-1.3) mg/dL AST 132 H (17-59) U/L ALT 85 H (4-49) U/L Troponin I 1.170 H* (0.000-0.034) ng/mL Mycoplasma pneumon IgG (<=0.90) INDEX 04/25/21 04/25/21 04/25/21 Range/Units 17:29 18:54 20:10 WBC (3.8-10.6) k/uL Neutrophils # (1.3-7.7) k/uL Lymphocytes # (1.0-4.8) k/uL APTT (22.0-30.0) sec Sodium (137-145) mmol/L Potassium (3.5-5.5) mmol/L Chloride (98-107) mmol/L BUN (9-20) mg/dL BUN/Creatinine Ratio (12.00-20.00) Ratio Glucose (74-99) mg/dL POC Glucose (mg/dL) 204 H (75-99) mg/dL Calcium (8.7-10.3) mg/dL Total Bilirubin (0.2-1.3) mg/dL AST (17-59) U/L ALT (4-49) U/L Troponin I 3.240 H* (0.000-0.034) ng/mL Mycoplasma pneumon IgG 1.65 H (<=0.90) INDEX 04/25/21 04/25/21 04/26/21 Range/Units 21:09 22:38 04:55 WBC 16.4 H (3.8-10.6) k/uL Neutrophils # 15.3 H (1.3-7.7) k/uL Lymphocytes # 0.4 L (1.0-4.8) k/uL APTT 42.3 H (22.0-30.0) sec Sodium (137-145) mmol/L Potassium (3.5-5.5) mmol/L Chloride (98-107) mmol/L BUN (9-20) mg/dL BUN/Creatinine Ratio (12.00-20.00) Ratio Glucose (74-99) mg/dL POC Glucose (mg/dL) 252 H (75-99) mg/dL Calcium (8.7-10.3) mg/dL Total Bilirubin (0.2-1.3) mg/dL AST (17-59) U/L ALT (4-49) U/L Troponin I (0.000-0.034) ng/mL Mycoplasma pneumon IgG (<=0.90) INDEX 04/26/21 04/26/21 Range/Units 04:55 07:28 WBC (3.8-10.6) k/uL Neutrophils # (1.3-7.7) k/uL Lymphocytes # (1.0-4.8) k/uL APTT (22.0-30.0) sec Sodium (137-145) mmol/L Potassium 3.3 L (3.5-5.5) mmol/L Chloride (98-107) mmol/L BUN (9-20) mg/dL BUN/Creatinine Ratio 22.50 H (12.00-20.00) Ratio Glucose 181 H (74-99) mg/dL POC Glucose (mg/dL) 173 H (75-99) mg/dL Calcium 8.2 L (8.7-10.3) mg/dL Total Bilirubin (0.2-1.3) mg/dL AST (17-59) U/L ALT (4-49) U/L Troponin I (0.000-0.034) ng/mL Mycoplasma pneumon IgG (<=0.90) INDEX
[2021-04-26 12:38] LABS: Glucose,Whole Blood 170 mg/dL (75-99)
[2021-04-26] MEDS: FLUTICASONE 50MCG/SPRAY NASAL 16GM EA NOSTRIL SCH (14:43)
[2021-04-26] MEDS: METOPROLOL SUCCINATE (ER) 25 MG TAB.ER.24H PO SCH (14:43)
[2021-04-26] MEDS: lisinopriL 5 MG TAB PO SCH (14:43)
[2021-04-26] MEDS: HEPARIN SOD,PORK IN 0.45% NACL 25,000 UNIT in 0.45% NACL 1 250ML.BAG IV SCH (16:08)
[2021-04-26 17:44] LABS: Glucose,Whole Blood 222 mg/dL (75-99)
[2021-04-26 20:10] LABS: Glucose,Whole Blood 221 mg/dL (75-99)
--- NOTE | 2021-04-26 21:19 | PN ---
PROGRESS NOTE DATE OF SERVICE: 04/26/2021 This 75-year-old gentleman who was admitted with acute bilateral pneumonia, left more than the right with possible community-acquired also had a gram-negative pneumonia with possible sepsis. The patient is on antibiotics, steroids, bronchodilators, multiple consultants are following the patient closely. No chest pain. No palpitations. No fever. A 2D echo with Doppler was done which showed ejection fraction about 35-40 percent and multiple wall abnormalities as well indicating possibly new onset cardiomyopathy. Past medical history reviewed. REVIEW OF SYSTEMS: CARDIOVASCULAR system is as mentioned earlier. Respiratory: As mentioned earlier. GI: As mentioned earlier. : No dysuria. Nervous system: No focal deficits. CURRENT MEDICATIONS: Reviewed and include: [place], DuoNeb, Xanax Pulmicort, folic acid, rest of medications noted. PHYSICAL EXAMINATION: Patient is alert, oriented x2. Pulse is 110, blood pressure is 118/60, respiration 18, temperature 98.4, pulse ox 98% on 6 L. HEENT: Conjunctivae normal. NECK: No JVD. CARDIOVASCULAR: S1, S2 muffled. RESPIRATORY: Breath sounds diminished in the bases. A few scattered rhonchi. ABDOMEN: Soft, nontender. LEGS: No edema. No swelling. NERVOUS SYSTEM: No focal deficits. LABS: Accu-Cheks noted. Other labs are noted. ASSESSMENT: 1. Acute bilateral pneumonia, left more than the right, possibly community-acquired, with possibly gram-negative with sepsis with acute hypoxic respiratory failure, present on admission. 2. Asthma, chronic obstructive pulmonary disease acute exacerbation, present on admission. 3. Possible congestive heart failure, acute exacerbation, acute on chronic systolic dysfunction, ejection fraction 35-40 percent. 4. Increased WBC. 5. Hyponatremia. 6. Elevated random glucose. 7. Elevated bilirubin, AST, ALT, possibly hepatitis of undetermined etiology. 8. Troponin 1.170, possible type 2 myocardial infarction. 9. Hypertension. 10.History of prostate disorder. 11.History of appendectomy. 12.History of back surgery, degenerative joint disease. 13.FULL CODE. RECOMMENDATIONS AND DISCUSSION: Recommend to continue current medications, monitor and symptomatic treatment. Otherwise the Covid 19 is negative. Mycoplasma IgM is also negative. I would recommend Covid 19 send out also to complete the workup. Repeat labs will be ordered. Overall prognosis guarded because of multiple complex medical issues. We will initiate a small dose of diuretics. Further recommendations to follow. MMODL / IJN: [id number] /
[2021-04-26] MEDS: amLODIPine 10 MG TAB PO SCH (21:35)
[2021-04-26] MEDS: FINASTERIDE 5 MG TAB PO SCH (22:31)
[2021-04-26] MEDS: PRAVASTATIN SODIUM 20 MG TAB PO SCH (22:31)
[2021-04-26] MEDS: FUROSEMIDE 10 MG/ML 4 ML VIAL IV SCH (22:34)
[2021-04-27] MEDS: methylPREDNISolone SOD SUCCI 125 MG/2 ML VIAL IV SCH ×5 (00:01→23:17)
[2021-04-27] MEDS: SODIUM CHLORIDE 0.9% 1,000 ML IV SCH ×3 (01:00→17:04)
[2021-04-27 06:34] LABS: Basophils % (A) 0 %; Eosinophils % (A) 0 %; HCT 50.9 % (39.0-53.0); HGB 16.4 gm/dL (13.0-17.5); Lymphocytes # (A) 0.3 k/uL (1.0-4.8); Lymphocytes % (A) 2 %; MCH 27.8 pg (25.0-35.0); MCHC 32.3 g/dL (31.0-37.0); MCV 86.2 fL (80.0-100.0); Mean Platelet Volume 9.8; Monocytes # (A) 0.9 k/uL (0-1.0); Monocytes % (A) 5 %; Neutrophils # (A) 17.5 k/uL (1.3-7.7); Neutrophils % (A) 93 %; Platelet Count 280 k/uL (150-450); RBC 5.91 m/uL (4.30-5.90); RDW 14.6 % (11.5-15.5); WBC 18.8 k/uL (3.8-10.6)
--- NOTE | 2021-04-27 06:50 | XR ---
EXAMINATION TYPE: XR chest 1V portable DATE OF EXAM: 04/27/2021 COMPARISON: 04/25/2021 HISTORY: CHF. TECHNIQUE: Single frontal view of the chest is obtained. FINDINGS: There is persistent mild to moderate prominence of the interstitial markings. There is bee n interval worsening in the retrocardiac opacity consistent with atelectasis or alveolar infiltrate. There is no pneumothorax. Heart size normal. The osseous structures are intact IMPRESSION: No change in the mild to moderate diffuse interstitial infiltrates and worsening of the infiltrate in the retrocardiac opacity as described above.
[2021-04-27 07:24] LABS: Glucose,Whole Blood 188 mg/dL (75-99)
[2021-04-27] MEDS: BUDESONIDE 1 MG/2 ML NEBU INHALATION SCH ×2 (08:45→19:52)
[2021-04-27] MEDS: IPRATROPIUM-ALBUTEROL 3 ML NEB INHALATION SCH ×4 (08:45→19:52)
[2021-04-27] MEDS: FORMOTEROL FUMARATE 20 MCG/2 ML NEBU INHALATION SCH ×2 (08:45→19:52)
[2021-04-27] MEDS: INSULIN ASPART (NovoLOG) 100 UNIT/ML VIAL SQ SCH ×4 (08:52→20:51)
[2021-04-27] MEDS: DOXYCYCLINE 100 MG CAP PO SCH ×2 (09:34→20:51)
[2021-04-27] MEDS: lisinopriL 5 MG TAB PO SCH ×2 (09:34→20:51)
[2021-04-27] MEDS: AZITHROMYCIN 500 MG in SODIUM CHLORIDE 0.9% 250 ML IVPB SCH (09:34)
[2021-04-27] MEDS: ASPIRIN 81 MG PO SCH (09:35)
[2021-04-27] MEDS: FLUTICASONE 50MCG/SPRAY NASAL 16GM EA NOSTRIL SCH (09:35)
[2021-04-27] MEDS: hydroCHLOROthiazide 25 MG TAB PO SCH (09:35)
[2021-04-27] MEDS: DICLOFENAC SODIUM GEL 100 GM TUBE TOPICAL SCH ×2 (09:35→20:55)
[2021-04-27] MEDS: ARTIFICIAL TEARS-HYPROMELLOSE DROPS 15 ML BTL BOTH EYES SCH ×3 (09:36→20:50)
[2021-04-27] MEDS: METOPROLOL SUCCINATE (ER) 25 MG TAB.ER.24H PO SCH ×2 (09:37→20:51)
[2021-04-27] MEDS: MELOXICAM 7.5 MG TAB PO PRN (09:46)
[2021-04-27] MEDS: FUROSEMIDE 10 MG/ML 4 ML VIAL IV SCH (09:47)
[2021-04-27 11:02] LABS: African American GFR (CKD) 95.1 (60.0-200.0); Anion Gap 17.8 mmol/L (10.00-18.00); BUN/Creat Ratio 24.11 Ratio (12.00-20.00); Blood Urea Nitrogen 21.7 mg/dL (9.0-27.0); Calcium 8.4 mg/dL (8.7-10.3); Carbon Dioxide 26.2 mmol/L (20.0-27.5); Non-African American GFR(CKD) 82.1 (60.0-200.0); Potassium 2.8 mmol/L (3.5-5.5)
[2021-04-27] MEDS: HEPARIN SOD,PORK IN 0.45% NACL 25,000 UNIT in 0.45% NACL 1 250ML.BAG IV SCH (12:28)
[2021-04-27 12:53] LABS: Glucose,Whole Blood 220 mg/dL (75-99)
[2021-04-27] MEDS: THIAMINE 100 MG TAB PO SCH (13:19)
[2021-04-27] MEDS: MULTIVITAMINS, THERA 1 EACH TAB PO SCH (13:19)
[2021-04-27] MEDS: FOLIC ACID 1 MG TAB PO SCH (13:19)
--- NOTE | 2021-04-27 13:54 | P.PN ---
Subjective Progress Note Date: 04/27/21 The pleasant 75-year-old gentleman with past medical history significant for hypertension, asthma, COVID-19 in July 2020. Previously followed with Dr. Zamorano but has not followed with paramedic in many years. Presented to the emergency department with complaints of cough and worsening shortness of breath the past several days. He was hypoxic on presentation and found to have left lower lobe pneumonia on top of his underlying COPD. Rest the patient in consultation for elevation of troponins. The troponin peaked at 3.240. Echocardiogram with Doppler study showed impaired LV systolic function with ejection fraction of 35-40% with evidence of segmental wall motion abnormalities. He's been initiated on aspirin, statin, beta skyler and JULIO CESAR inhibitor. Currently continues to be on IV Lasix. He continues on IV antibiotics. Overall he is feeling a bit better today. Continues to have some shortness of breath. Continues to have orthopnea which he feels he's had for the last 10 years. Objective - Vital Signs Vital signs: Vital Signs Temp 98.0 F 04/27/21 12:56 Pulse 99 04/27/21 12:56 Resp 16 04/27/21 12:56 BP 118/72 04/27/21 12:56 Pulse Ox 91 L 04/27/21 12:56 Intake & Output 04/26/21 04/27/21 04/27/21 18:59 06:59 18:59 Intake Total 434.434 85.87 276.573 Output Total 200 1650 700 Balance 234.434 -1564.13 -423.427 Intake: Intake, IV Titration 194.434 85.87 156.573 Amount Heparin Sod,Pork in 0.45% 194.434 85.87 156.573 NaCl 25,000 unit In 0.45 % NaCl 1 250ml.bag @ 12 UNITS/KG/HR 7.62 mls/hr IV .Q24H [facility] Rx#: [id number] Oral 240 120 Output: Urine 200 1650 700 Other: Voiding Method Urinal Urinal # Voids 7 - Exam PHYSICAL EXAMINATION: HEENT: Head is atraumatic, normocephalic. Pupils equal, round. Neck is supple. There is no elevated jugular venous pressure. HEART EXAMINATION: Heart sounds regular, S1 and S2 normal. No murmur or gallop heard. CHEST EXAMINATION: Lungs reveal diminished air entry bilaterally with crackles noted left lower lobe. No chest wall tenderness is noted on palpation or with deep breathing. ABDOMEN: Soft, nontender. Bowel sounds are heard. No organomegaly noted. EXTREMITIES: 2+ peripheral pulses with evidence of mild peripheral edema and no calf tenderness noted. NEUROLOGIC patient is awake, alert and oriented x3. . - Labs CBC & Chem 7: 04/27/21 05:02 04/27/21 05:02 Labs: Abnormal Lab Results - Last 24 Hours (Table) 04/26/21 04/26/21 04/26/21 Range/Units 15:57 17:43 20:08 WBC (3.8-10.6) k/uL RBC (4.30-5.90) m/uL Neutrophils # (1.3-7.7) k/uL Lymphocytes # (1.0-4.8) k/uL APTT 40.7 H (22.0-30.0) sec Potassium (3.5-5.5) mmol/L BUN/Creatinine Ratio (12.00-20.00) Ratio Glucose (70-110) mg/dL POC Glucose (mg/dL) 222 H 221 H (75-99) mg/dL Calcium (8.7-10.3) mg/dL 04/26/21 04/27/21 04/27/21 Range/Units 22:40 05:02 05:02 WBC 18.8 H (3.8-10.6) k/uL RBC 5.91 H (4.30-5.90) m/uL Neutrophils # 17.5 H (1.3-7.7) k/uL Lymphocytes # 0.3 L (1.0-4.8) k/uL APTT 38.8 H (22.0-30.0) sec Potassium 2.8 L (3.5-5.5) mmol/L BUN/Creatinine Ratio 24.11 H (12.00-20.00) Ratio Glucose 195 H (70-110) mg/dL POC Glucose (mg/dL) (75-99) mg/dL Calcium 8.4 L (8.7-10.3) mg/dL 04/27/21 04/27/21 04/27/21 Range/Units 05:02 07:21 12:52 WBC (3.8-10.6) k/uL RBC (4.30-5.90) m/uL Neutrophils # (1.3-7.7) k/uL Lymphocytes # (1.0-4.8) k/uL APTT 43.6 H (22.0-30.0) sec Potassium (3.5-5.5) mmol/L BUN/Creatinine Ratio (12.00-20.00) Ratio Glucose (70-110) mg/dL POC Glucose (mg/dL) 188 H 220 H (75-99) mg/dL Calcium (8.7-10.3) mg/dL Microbiology - Last 24 Hours (Table) 04/25/21 10:55 Blood Culture - Preliminary Blood No Growth after 48 hours 04/25/21 11:10 Blood Culture - Preliminary Blood No Growth after 48 hours Assessment and Plan Assessment: #1 non-ST elevation WI #2 pneumonia #3 acute extubation COPD #4 cardiomyopathy, etiology unclear at this time #5 former nicotine dependence Plan: From cardiology's perspective we will stop the amlodipine and increase lisinopril. Will increase the statin dose. Switch the patient to by mouth Lasix. Patient will require cardiac catheterization in the future when his acute pulmonary condition have resolved and he is able to be lying flat to assess etiology of the cardiomyopathy and rule out CAD. We will continue to follow the patient provide further recommendations accordingly. Penile
[2021-04-27 17:10] LABS: Glucose,Whole Blood 183 mg/dL (75-99)
[2021-04-27 20:00] LABS: Glucose,Whole Blood 216 mg/dL (75-99)
[2021-04-27] MEDS: FINASTERIDE 5 MG TAB PO SCH (20:51)
[2021-04-27] MEDS: FUROSEMIDE 20 MG TAB PO SCH (20:52)
[2021-04-27] MEDS: PRAVASTATIN SODIUM 80 MG TAB PO SCH (20:52)
[2021-04-28] MEDS: SODIUM CHLORIDE 0.9% 1,000 ML IV SCH ×3 (01:52→17:33)
[2021-04-28] MEDS: methylPREDNISolone SOD SUCCI 125 MG/2 ML VIAL IV SCH ×4 (05:03→23:11)
[2021-04-28 05:49] LABS: African American GFR (CKD) >90 (>60 ml/min/1.73 sqM); Anion Gap 10 mmol/L; Blood Urea Nitrogen 25 mg/dL (9-20); Calcium 8.4 mg/dL (8.4-10.2); Carbon Dioxide 37 mmol/L (22-30); Chloride 93 mmol/L (98-107); Glucose 224 mg/dL (74-99); Non-African American GFR(CKD) 85 (>60 ml/min/1.73 sqM); Sodium 140 mmol/L (137-145)
[2021-04-28 05:50] LABS: Potassium 2.4 mmol/L (3.5-5.1)
[2021-04-28] MEDS ORDERED: Potassium Replacement Protocol 1 EACH MISC MISCELLANE PRN (05:56)
[2021-04-28] MEDS: POTASSIUM CHLORIDE ER 20 MEQ TAB.ER PO SCH ×8 (06:05→21:45)
[2021-04-28 07:32] LABS: Glucose,Whole Blood 192 mg/dL (75-99)
[2021-04-28] MEDS: FORMOTEROL FUMARATE 20 MCG/2 ML NEBU INHALATION SCH ×2 (08:19→21:01)
[2021-04-28] MEDS: BUDESONIDE 1 MG/2 ML NEBU INHALATION SCH ×2 (08:19→21:14)
[2021-04-28] MEDS: IPRATROPIUM-ALBUTEROL 3 ML NEB INHALATION SCH ×4 (08:19→21:01)
--- NOTE | 2021-04-28 08:27 | P.PN ---
Subjective Progress Note Date: 04/27/21 This is a 75 year old male who was recently admitted with acute bilateral pneumonia left more than right with possible community-acquired and also gram- negative pneumonia with possible sepsis and is being closely monitored. cardiology following and patient is maintained on Lasix along with IV heparin and will continue. Chest x-ray today shows no change in the mild to moderate diffuse interstitial infiltrates and worsening of the infiltrate in the retrocardiac opacity consistent with atelectasis or alveolar infiltrate area did patient continues on 6 L of oxygen via nasal cannula and states he feels his breathing is somewhat improved although maintaining 90% on 6 L. Patient is extremely weak and will have PT/OT evaluate the patient. Pulmonary is also following the patient is maintained on antibiotics along with breathing inhalational treatments and will continue. Labs: WBC is 18.8, hemoglobin is 16.4, platelets are 280, APTT is 43.6, sodium is 144, potassium 2.8, BUN 21.7, creatinine 0.9, calcium 8.4 Review of systems: Constitutional: reports of fatigue,no reports of fever, or chills Cardiovascular: No reports of chest pain or palpitations Respiratory: reports of shortness of breath or cough GI: No reports of nausea, vomiting, or diarrhea, patient reports to passing gas but no bowel movement abdominal pain improved : No reports of dysuria or retention Neurovascular: no reports of weakness All medications have been reviewed Active Medications Hydrocodone Bitart/Acetaminophen (Hydrocodone/Apap 5-325mg 1 Each Tab) 1 each PO Q6HR PRN PRN Reason: Pain Albuterol/Ipratropium (Ipratropium-Albuterol 3 Ml Neb) 3 ml INHALATION RT-Q4H PRN PRN Reason: Shortness Of Breath Or Wheezing Albuterol/Ipratropium (Ipratropium-Albuterol 3 Ml Neb) 3 ml INHALATION RT-QID [facility] Last Admin: 04/27/21 19:52 Dose: 3 ml Documented by: Alprazolam (Alprazolam 0.25 Mg Tab) 0.25 mg PO TID PRN PRN Reason: Anxiety Artificial Tears (Artificial Tears-Hypromellose Drops 15 Ml Btl) 1 drops BOTH EYES TID [facility] Last Admin: 04/27/21 20:50 Dose: 1 drops Documented by: Aspirin (Aspirin 81 Mg) 81 mg PO DAILY [facility] Last Admin: 04/27/21 09:35 Dose: 81 mg Documented by: Budesonide (Budesonide 1 Mg/2 Ml Nebu) 1 mg INHALATION RT-BID [facility] Last Admin: 04/27/21 19:52 Dose: 1 mg Documented by: Diclofenac Sodium (Diclofenac Sodium Gel 100 Gm Tube) 1 gm TOPICAL BID [facility] Last Admin: 04/27/21 20:55 Dose: Not Given Documented by: Doxycycline Monohydrate (Doxycycline 100 Mg Cap) 100 mg PO BID [facility] Last Admin: 04/27/21 20:51 Dose: 100 mg Documented by: Finasteride (Finasteride 5 Mg Tab) 5 mg PO HS [facility] Last Admin: 04/27/21 20:51 Dose: 5 mg Documented by: Fluticasone Propionate (Fluticasone 50mcg/[place] Nasal 16gm) 2 spray EA NOSTRIL DAILY [facility] Last Admin: 04/27/21 09:35 Dose: 2 spray Documented by: Folic Acid (Folic Acid 1 Mg Tab) 1 mg PO DAILY@1200 [facility] Last Admin: 04/27/21 13:19 Dose: 1 mg Documented by: Formoterol Fumarate (Formoterol Fumarate 20 Mcg/2 Ml Nebu) 20 mcg INHALATION RT-BID [facility] Last Admin: 04/27/21 19:52 Dose: 20 mcg Documented by: Furosemide (Furosemide 20 Mg Tab) 20 mg PO BID [facility] Last Admin: 04/27/21 20:52 Dose: 20 mg Documented by: Heparin Sodium (Porcine) (Heparin Sodium 1,000 Un/Ml (10ml Vl)) 0 unit IV PER PROTOCOL PRN; Protocol PRN Reason: Low PTT Last Admin: 04/26/21 23:59 Dose: 1,587 unit Documented by: Hydrochlorothiazide (Hydrochlorothiazide 25 Mg Tab) 25 mg PO DAILY [facility] Last Admin: 04/27/21 09:35 Dose: 25 mg Documented by: Sodium Chloride (Saline 0.9%) 1,000 mls @ 130 mls/hr IV .Q7H42M [facility] Last Admin: 04/28/21 01:52 Dose: Not Given Documented by: Heparin Sodium/Sodium Chloride (25,000 unit/ Sodium Chloride) 250 mls @ 7.62 mls/hr IV .Q24H [facility]; Protocol Last Admin: 04/27/21 12:28 Dose: 21 units/kg/hr, 13.336 mls/hr Documented by: Ceftriaxone Sodium 1 gm/ (Sodium Chloride) 50 mls @ 100 mls/hr IVPB Q24HR [facility] Last Admin: 04/27/21 09:34 Dose: 100 mls/hr Documented by: Azithromycin 500 mg/ Sodium (Chloride) 250 mls @ 250 mls/hr IVPB DAILY [facility] Last Admin: 04/27/21 09:34 Dose: 250 mls/hr Documented by: Insulin Aspart (Insulin Aspart (Novolog) 100 Unit/Ml Vial) 0 unit SQ ACHS [facility]; Protocol Last Admin: 04/27/21 20:51 Dose: 3 unit Documented by: Lisinopril (Lisinopril 5 Mg Tab) 5 mg PO BID [facility] Last Admin: 04/27/21 20:51 Dose: 5 mg Documented by: Loratadine (Loratadine 10 Mg Tab) 10 mg PO DAILY PRN PRN Reason: Allergy Symptoms Meloxicam (Meloxicam 7.5 Mg Tab) 7.5 mg PO DAILY PRN PRN Reason: Pain Last Admin: 04/27/21 09:46 Dose: 7.5 mg Documented by: Methylprednisolone Sodium Succinate (Methylprednisolone Sod Succi 125 Mg/2 Ml Vial) 60 mg IV Q6HR [facility] Last Admin: 04/28/21 05:03 Dose: 60 mg Documented by: Metoprolol Succinate (Metoprolol Succinate (Er) 25 Mg Tab.Er.24h) 25 mg PO BID [facility] Last Admin: 04/27/21 20:51 Dose: 25 mg Documented by: Miscellaneous Information (Potassium Replacement Protocol 1 Each Misc) 1 each MISCELLANE DAILY PRN; Protocol PRN Reason: Per Protocol Multivitamins (Multivitamins, Thera 1 Each Tab) 1 each PO DAILY@1200 [facility] Last Admin: 04/27/21 13:19 Dose: 1 each Documented by: Pravastatin Sodium (Pravastatin Sodium 80 Mg Tab) 80 mg PO HS [facility] Last Admin: 04/27/21 20:52 Dose: 80 mg Documented by: Thiamine HCl (Thiamine 100 Mg Tab) 100 mg PO DAILY@1200 [facility] Last Admin: 04/27/21 13:19 Dose: 100 mg Documented by: Physical exam: Gen: This is a 75-year-old male awake, alert and oriented 3, well-developed, well-nourished, ill appearing. Temp is 98.0 F, pulse is 99, respirations are 16, blood pressure is 118/72, oxygen saturation is 91% on 6 L via nasal cannula HEENT: Head is atraumatic, normocephalic. Pupils equal, round. Sclerae is anicteric. NECK: Supple. No JVD. No lymphadenopathy. No thyromegaly. LUNGS: Diminished breath sounds bilaterally with some crackles and rhonchi noted.. No intercostal retractions. HEART: S1, S2 are muffled. ABDOMEN: Soft. Bowel sounds are present. No masses. No tenderness. EXTREMITIES: No pedal edema. No calf tenderness. NEUROLOGICAL: Patient is awake, alert and oriented x3. no focal deficits. diffusely weak Assessment: Acute bilateral pneumonia left more than right possibly community-acquired, with possible gram-negative sepsis with acute hypoxic respiratory failure, present on admission Asthma, chronic obstructive pulmonary disease acute exacerbation, present on admission Possible congestive heart failure acute exacerbation acute on chronic systolic dysfunction, ejection fraction 35-40% Increased WBC Hyponatremia Elevated random glucose Elevated bilirubin, AST, ALT possibly hepatitis of undetermined etiology Troponin 1.170, possible type II myocardial infarction Hypertension History of prostate disorder history of appendectomy History back surgery, degenerative joint disease Full code Plan: Recommend to continue current medications and management. Cardiology following the patient and patient maintained on IV Lasix eating transitioned to oral. Patient also receiving fluids at 130 mL per hour along with IV steroids, IV heparin, IV ceftriaxone and Zithromax along with doxycycline. Pulmonary Dr. Ram following as well. Patient continues to be extremely weak and will have PT/OT evaluate the patient. Patient is on 6 L of oxygen via nasal cannula with oxygen saturation of 90% and will continue to wean as tolerated. Continue with breathing inhalational treatments as well. Repeat am labs. Due to multiple complex medical issues, prognosis is guarded. Objective - Vital Signs Vital signs: Vital Signs Temp 98.2 F 04/28/21 05:00 Pulse 91 04/28/21 05:00 Resp 20 04/28/21 05:00 BP 144/79 04/28/21 05:00 Pulse Ox 96 04/28/21 05:00 Intake & Output 04/27/21 04/28/21 04/28/21 18:59 06:59 18:59 Intake Total 1246.573 590 Output Total 2000 600 Balance -753.427 -10 Intake: Intake, IV Titration 1006.573 Amount Azithromycin 500 mg In 250 Sodium Chloride 0.9% 250 ml @ 250 mls/hr IVPB DAILY [facility] Rx#:[id number] Heparin Sod,Pork in 0.45% 156.573 NaCl 25,000 unit In 0.45 % NaCl 1 250ml.bag @ 12 UNITS/KG/HR 7.62 mls/hr IV .Q24H [facility] Rx#: [id number] Sodium Chloride 0.9% 1, 500 000 ml @ 130 mls/hr IV . Q7H42M [facility] Rx#:[id number] cefTRIAXone 1 gm In 100 Sodium Chloride 0.9% 50 ml @ 100 mls/hr IVPB Q24HR [facility] Rx#:[id number] Oral 240 590 Output: Urine 2000 600 Other: # Voids 1 - Labs CBC & Chem 7: 04/27/21 05:02 04/28/21 04:58 Labs: Abnormal Lab Results - Last 24 Hours (Table) 04/27/21 04/27/21 04/27/21 Range/Units 05:02 12:52 17:09 APTT (22.0-30.0) sec Potassium 2.8 L (3.5-5.5) mmol/L Chloride (98-107) mmol/L Carbon Dioxide (22-30) mmol/L BUN (9-20) mg/dL BUN/Creatinine Ratio 24.11 H (12.00-20.00) Ratio Glucose 195 H (70-110) mg/dL POC Glucose (mg/dL) 220 H 183 H (75-99) mg/dL Calcium 8.4 L (8.7-10.3) mg/dL 04/27/21 04/28/21 04/28/21 Range/Units 19:59 04:58 04:58 APTT 54.4 H (22.0-30.0) sec Potassium 2.4 L* (3.5-5.5) mmol/L Chloride 93 L (98-107) mmol/L Carbon Dioxide 37 H (22-30) mmol/L BUN 25 H (9-20) mg/dL BUN/Creatinine Ratio (12.00-20.00) Ratio Glucose 224 H (70-110) mg/dL POC Glucose (mg/dL) 216 H (75-99) mg/dL Calcium (8.7-10.3) mg/dL 04/28/21 Range/Units 07:30 APTT (22.0-30.0) sec Potassium (3.5-5.5) mmol/L Chloride (98-107) mmol/L Carbon Dioxide (22-30) mmol/L BUN (9-20) mg/dL BUN/Creatinine Ratio (12.00-20.00) Ratio Glucose (70-110) mg/dL POC Glucose (mg/dL) 192 H (75-99) mg/dL Calcium (8.7-10.3) mg/dL Microbiology - Last 24 Hours (Table) 04/25/21 10:55 Blood Culture - Preliminary Blood No Growth after 48 hours 04/25/21 11:10 Blood Culture - Preliminary Blood No Growth after 48 hours
[2021-04-28] MEDS: INSULIN ASPART (NovoLOG) 100 UNIT/ML VIAL SQ SCH ×4 (09:08→21:47)
[2021-04-28] MEDS: ASPIRIN 81 MG PO SCH (09:11)
[2021-04-28] MEDS: HEPARIN SOD,PORK IN 0.45% NACL 25,000 UNIT in 0.45% NACL 1 250ML.BAG IV SCH (09:14)
[2021-04-28] MEDS: ARTIFICIAL TEARS-HYPROMELLOSE DROPS 15 ML BTL BOTH EYES SCH ×3 (09:21→21:47)
[2021-04-28] MEDS: DICLOFENAC SODIUM GEL 100 GM TUBE TOPICAL SCH ×2 (09:22→21:45)
[2021-04-28] MEDS: DOXYCYCLINE 100 MG CAP PO SCH ×2 (09:23→21:44)
[2021-04-28] MEDS: FLUTICASONE 50MCG/SPRAY NASAL 16GM EA NOSTRIL SCH (09:24)
[2021-04-28] MEDS: THIAMINE 100 MG TAB PO SCH (09:27)
[2021-04-28] MEDS: METOPROLOL SUCCINATE (ER) 25 MG TAB.ER.24H PO SCH ×2 (09:27→21:44)
[2021-04-28] MEDS: lisinopriL 5 MG TAB PO SCH ×2 (09:27→21:44)
[2021-04-28] MEDS: hydroCHLOROthiazide 25 MG TAB PO SCH (09:27)
[2021-04-28] MEDS: FUROSEMIDE 20 MG TAB PO SCH ×2 (09:27→21:44)
[2021-04-28] MEDS: MULTIVITAMINS, THERA 1 EACH TAB PO SCH (09:27)
[2021-04-28] MEDS: FOLIC ACID 1 MG TAB PO SCH (09:28)
--- NOTE | 2021-04-28 09:46 | P.PN ---
Subjective Progress Note Date: 04/28/21 Principal diagnosis: Left lower lobe community-acquired pneumonia also involving the right lower lobe Mass like process of the left lower lobe cannot be excluded, patient will need further radiographs to document resolution in 8-12 weeks Acute hypoxic respiratory failure Elevated troponin History of COVID-19 pneumonia History of COPD 04/28/2021, patient seen eval examined during the rounds labs reviewed medications reviewed care plan discussed, patient remains on 6 L oxygen, oxygen saturation is 96%, labs reviewed sodium is 140 potassium is 2.4 BUN/creatinine 25/0.84, glucose 224, currently patient remains on bronchodilators and antibiotics Zithromax and Rocephin, heparin drip, and Solu-Medrol 60 IV every 6, patient is still complaining of shortness of breath and intermittent wheezing Patient is a 75-year-old with a remote history of smoking prior history of COPD lately have been more short of breath congested recently seen in the office for the first time preliminary workup including PFTs labs and x-rays have been ordered, patient was complaining of shortness of breath and was hypoxic patient has recently placed on home oxygen, chest for the last 2 days started getting more shortness of breath cough congestion and fever up to 101, patient has not vaccinated for COVID-19 pneumonia, prior history of asthma hypertension prostate problem enlargement, on arrival patient was tachypneic. Cardiac with low oxygen saturation of 90% blood pressure was 122/73, heart rate is 120, respiratory rate 20,Shortness breath patient is a 75-year-old male with the history of hypoxic, patient does have a history of Crohn enteritis pneumonia infection before she this admission white cell count 70,700 hemoglobin and hematocrit is 24/7.7 to hemoglobin is 18, influenza A and B both negative: Negative, troponin elevated 1.1, computed tomography scan of the chest negative for pulmonary embolism however masslike consolidation left lower lobe is present consistent with focal pneumonia she infiltrated right lower lobe Objective - Vital Signs Vital signs: Vital Signs Temp 98.2 F 04/28/21 05:00 Pulse 89 04/28/21 08:39 Resp 20 04/28/21 05:00 BP 144/79 04/28/21 05:00 Pulse Ox 96 04/28/21 05:00 Intake & Output 04/27/21 04/28/21 04/28/21 18:59 06:59 18:59 Intake Total 1246.573 590 430 Output Total 2000 600 Balance -753.427 -10 430 Intake: Intake, IV Titration 1006.573 250 Amount Azithromycin 500 mg In 250 Sodium Chloride 0.9% 250 ml @ 250 mls/hr IVPB DAILY [facility] Rx#:[id number] Heparin Sod,Pork in 0.45% 156.573 250 NaCl 25,000 unit In 0.45 % NaCl 1 250ml.bag @ 12 UNITS/KG/HR 7.62 mls/hr IV .Q24H [facility] Rx#: [id number] Sodium Chloride 0.9% 1, 500 000 ml @ 130 mls/hr IV . Q7H42M [facility] Rx#:[id number] cefTRIAXone 1 gm In 100 Sodium Chloride 0.9% 50 ml @ 100 mls/hr IVPB Q24HR [facility] Rx#:[id number] Oral 240 590 180 Output: Urine 2000 600 Other: # Voids 1 - Exam - Constitutional General appearance: average body habitus, cooperative, disheveled, mild distress - EENT Eyes: PERRLA Ears: bilateral: normal - Neck Neck: normal ROM Carotids: bilateral: upstroke normal - Respiratory Respiratory: bilateral: diminished, wheezing - Cardiovascular Rhythm: regular Heart sounds: normal: S1, S2 - Gastrointestinal General gastrointestinal: distended, normal bowel sounds - Integumentary Integumentary: normal turgor - Neurologic Neurologic: CNII-XII intact, focal deficits - Musculoskeletal Musculoskeletal: gait normal, generalized weakness, strength equal bilaterally - Psychiatric Psychiatric: A&O x's 3, appropriate affect, intact judgment & insight - Labs CBC & Chem 7: 04/27/21 05:02 04/28/21 04:58 Labs: Abnormal Lab Results - Last 24 Hours (Table) 04/27/21 04/27/21 04/27/21 Range/Units 05:02 12:52 17:09 APTT (22.0-30.0) sec Potassium 2.8 L (3.5-5.5) mmol/L Chloride (98-107) mmol/L Carbon Dioxide (22-30) mmol/L BUN (9-20) mg/dL BUN/Creatinine Ratio 24.11 H (12.00-20.00) Ratio Glucose 195 H (70-110) mg/dL POC Glucose (mg/dL) 220 H 183 H (75-99) mg/dL Calcium 8.4 L (8.7-10.3) mg/dL 04/27/21 04/28/21 04/28/21 Range/Units 19:59 04:58 04:58 APTT 54.4 H (22.0-30.0) sec Potassium 2.4 L* (3.5-5.5) mmol/L Chloride 93 L (98-107) mmol/L Carbon Dioxide 37 H (22-30) mmol/L BUN 25 H (9-20) mg/dL BUN/Creatinine Ratio (12.00-20.00) Ratio Glucose 224 H (70-110) mg/dL POC Glucose (mg/dL) 216 H (75-99) mg/dL Calcium (8.7-10.3) mg/dL 04/28/21 Range/Units 07:30 APTT (22.0-30.0) sec Potassium (3.5-5.5) mmol/L Chloride (98-107) mmol/L Carbon Dioxide (22-30) mmol/L BUN (9-20) mg/dL BUN/Creatinine Ratio (12.00-20.00) Ratio Glucose (70-110) mg/dL POC Glucose (mg/dL) 192 H (75-99) mg/dL Calcium (8.7-10.3) mg/dL Microbiology - Last 24 Hours (Table) 04/25/21 10:55 Blood Culture - Preliminary Blood No Growth after 48 hours 04/25/21 11:10 Blood Culture - Preliminary Blood No Growth after 48 hours Assessment and Plan Assessment: Severe hypokalemia Left lower lobe community-acquired pneumonia also involving the right lower lobe Masslike process of the left lower lobe cannot be excluded, patient will need further radiographs to document resolution in 8-12 weeks Acute hypoxic respiratory failure Elevated troponin History of COVID-19 pneumonia History of COPD Plan: Replace potassium Broad-spectrum IV antibiotics with Rocephin and Zithromax Bronchodilators IV steroids Supplemental oxygen with slow tapering IV heparin per cardiovascular services Follow up radiographic studies the outpatient Further plan of care and recommendation as per clinical response of the patient Time with Patient: Greater than 30
[2021-04-28] MEDS: MELOXICAM 7.5 MG TAB PO PRN (09:47)
[2021-04-28] MEDS: AZITHROMYCIN 500 MG in SODIUM CHLORIDE 0.9% 250 ML IVPB SCH (09:49)
[2021-04-28 12:31] LABS: Glucose,Whole Blood 211 mg/dL (75-99)
[2021-04-28] MEDS: OXYMETAZOLINE 0.05% NASL SPRAY 1 SPRAY BOTTLE NASAL SCH ×2 (13:07→21:46)
--- NOTE | 2021-04-28 14:01 | P.PN ---
Subjective Progress Note Date: 04/28/21 The pleasant 75-year-old gentleman with past medical history significant for hypertension, asthma, COVID-19 in July 2020. Previously followed with Dr. Zamorano but has not followed with pediatrics hospitalist in many years. Presented to the emergency department with complaints of cough and worsening shortness of breath the past several days. He was hypoxic on presentation and found to have left lower lobe pneumonia on top of his underlying COPD. Rest the patient in consultation for elevation of troponins. The troponin peaked at 3.240. Echocardiogram with Doppler study showed impaired LV systolic function with ejection fraction of 35-40% with evidence of segmental wall motion abnormalities. He's been initiated on aspirin, statin, beta skyler and JULIO CESAR inhibitor. Currently continues to be on IV Lasix. He continues on IV antibiotics. Overall he is feeling a bit better today. Continues to have some shortness of breath. Continues to have orthopnea which he feels he's had for the last 10 years. 04/28/21 Patient was seen and examined resting comfortably in bed with head of bed up. He feels his breathing has improved. Continues on 6 L oxygen via nasal cannula. Potassium was low this morning of 2.4 and is being replaced. Chest x-ray yesterday showed no change in the mild to moderate diffuse interstitial infiltrates and worsening of infiltrate retrocardiac opacity. Objective - Vital Signs Vital signs: Vital Signs Temp 97.7 F 04/28/21 12:30 Pulse 81 04/28/21 12:30 Resp 14 04/28/21 12:30 BP 99/59 04/28/21 12:30 Pulse Ox 96 04/28/21 12:30 Intake & Output 04/27/21 04/28/21 04/28/21 18:59 06:59 18:59 Intake Total 1246.573 590 430 Output Total 2000 600 Balance -753.427 -10 430 Intake: Intake, IV Titration 1006.573 250 Amount Azithromycin 500 mg In 250 Sodium Chloride 0.9% 250 ml @ 250 mls/hr IVPB DAILY [facility] Rx#:[id number] Heparin Sod,Pork in 0.45% 156.573 250 NaCl 25,000 unit In 0.45 % NaCl 1 250ml.bag @ 12 UNITS/KG/HR 7.62 mls/hr IV .Q24H [facility] Rx#: [id number] Sodium Chloride 0.9% 1, 500 000 ml @ 130 mls/hr IV . Q7H42M [facility] Rx#:[id number] cefTRIAXone 1 gm In 100 Sodium Chloride 0.9% 50 ml @ 100 mls/hr IVPB Q24HR [facility] Rx#:[id number] Oral 240 590 180 Output: Urine 2000 600 Other: # Voids 1 - Exam PHYSICAL EXAMINATION: HEENT: Head is atraumatic, normocephalic. Pupils equal, round. Neck is supple. There is no elevated jugular venous pressure. HEART EXAMINATION: Heart sounds regular, S1 and S2 normal. No murmur or gallop heard. CHEST EXAMINATION: Lungs reveal diminished air entry bilaterally with crackles noted left lower lobe. No chest wall tenderness is noted on palpation or with deep breathing. ABDOMEN: Soft, nontender. Bowel sounds are heard. No organomegaly noted. EXTREMITIES: 2+ peripheral pulses with evidence of mild peripheral edema and no calf tenderness noted. NEUROLOGIC patient is awake, alert and oriented x3. . - Labs CBC & Chem 7: 04/27/21 05:02 04/28/21 11:22 Labs: Abnormal Lab Results - Last 24 Hours (Table) 04/27/21 04/27/21 04/28/21 Range/Units 17:09 19:59 04:58 APTT 54.4 H (22.0-30.0) sec Potassium (3.5-5.1) mmol/L Chloride (98-107) mmol/L Carbon Dioxide (22-30) mmol/L BUN (9-20) mg/dL Glucose (74-99) mg/dL POC Glucose (mg/dL) 183 H 216 H (75-99) mg/dL 04/28/21 04/28/21 04/28/21 Range/Units 04:58 07:30 11:22 APTT (22.0-30.0) sec Potassium 2.4 L* 2.7 L* (3.5-5.1) mmol/L Chloride 93 L (98-107) mmol/L Carbon Dioxide 37 H (22-30) mmol/L BUN 25 H (9-20) mg/dL Glucose 224 H (74-99) mg/dL POC Glucose (mg/dL) 192 H (75-99) mg/dL 04/28/21 Range/Units 12:30 APTT (22.0-30.0) sec Potassium (3.5-5.1) mmol/L Chloride (98-107) mmol/L Carbon Dioxide (22-30) mmol/L BUN (9-20) mg/dL Glucose (74-99) mg/dL POC Glucose (mg/dL) 211 H (75-99) mg/dL Microbiology - Last 24 Hours (Table) 04/25/21 10:55 Blood Culture - Preliminary Blood No Growth after 72 hours 04/25/21 11:10 Blood Culture - Preliminary Blood No Growth after 72 hours Assessment and Plan Assessment: #1 non-ST elevation KS #2 pneumonia #3 acute extubation COPD #4 cardiomyopathy, etiology unclear at this time #5 former nicotine dependence Plan: From cardiology's perspective we will continue IV heparin. Will continue to optimize medical therapy. Patient will require cardiac catheterization in the future when his acute pulmonary condition have resolved and he is able to be lying flat to assess etiology of the cardiomyopathy and rule out CAD. We will continue to follow the patient provide further recommendations accordingly. SERVICE REPRESENTATIVE note has been reviewed, I agree with a documented findings and plan of care. Patient was seen and examined.
[2021-04-28 17:24] LABS: Glucose,Whole Blood 225 mg/dL (75-99)
[2021-04-28] MEDS ORDERED: lisinopriL 10 MG TAB PO SCH (21:00)
[2021-04-28 21:29] LABS: Glucose,Whole Blood 215 mg/dL (75-99)
[2021-04-28] MEDS: FINASTERIDE 5 MG TAB PO SCH (21:45)
[2021-04-28] MEDS: PRAVASTATIN SODIUM 80 MG TAB PO SCH (21:46)
[2021-04-29] MEDS: SODIUM CHLORIDE 0.9% 1,000 ML IV SCH (01:29)
--- NOTE | 2021-04-29 03:40 | P.PN ---
Subjective Progress Note Date: 04/28/21 This is a 75 year old male who was recently admitted with acute bilateral pneumonia left more than right with possible community-acquired and also gram- negative pneumonia with possible sepsis and is being closely monitored. cardiology following and patient is maintained on Lasix along with IV heparin and will continue. Chest x-ray today shows no change in the mild to moderate diffuse interstitial infiltrates and worsening of the infiltrate in the retrocardiac opacity consistent with atelectasis or alveolar infiltrate area did patient continues on 6 L of oxygen via nasal cannula and states he feels his breathing is somewhat improved although maintaining 90% on 6 L. Patient is extremely weak and will have PT/OT evaluate the patient. Pulmonary is also following the patient is maintained on antibiotics along with breathing inhalational treatments and will continue. 04/28/2021 Patient is seen this morning and continues with shortness of breath and being followed by cardiology and pulmonary Dr. Ram. Patient continues on 6L via NC and states his breathing is improving slowly. Patient continued on bronchodilators and will continue. Patient also continues on IV heparin and cardiology following and recommending to continue for now. Patient potassium is 2.7 and will continue to replace and repeat labs later this afternoon. Recommend follow up labs in the am as well. Patient having some congestion and continues to blow his nose and is having a mild nose bleed. Encouraged the patient to avoid excessive blowing of nose and will add afrin. Patient is on IV heparin. No reports of chest pain or palpitations. Labs: AP TTT is 54.4, sodium is 140, potassium 2.4 with replacement still 2.7 and will continue to replace, BUN is 25, creatinine 0.84, calcium 8.4 Review of systems: Constitutional: reports of fatigue,no reports of fever, or chills Cardiovascular: No reports of chest pain or palpitations Respiratory: reports of shortness of breath GI: No reports of nausea, vomiting, or diarrhea : No reports of dysuria or retention Neurovascular: no reports of weakness All medications have been reviewed Active Medications Hydrocodone Bitart/Acetaminophen (Hydrocodone/Apap 5-325mg 1 Each Tab) 1 each PO Q6HR PRN PRN Reason: Pain Albuterol/Ipratropium (Ipratropium-Albuterol 3 Ml Neb) 3 ml INHALATION RT-Q4H PRN PRN Reason: Shortness Of Breath Or Wheezing Albuterol/Ipratropium (Ipratropium-Albuterol 3 Ml Neb) 3 ml INHALATION RT-QID [facility] Last Admin: 04/28/21 11:39 Dose: 3 ml Documented by: Alprazolam (Alprazolam 0.25 Mg Tab) 0.25 mg PO TID PRN PRN Reason: Anxiety Artificial Tears (Artificial Tears-Hypromellose Drops 15 Ml Btl) 1 drops BOTH EYES TID [facility] Last Admin: 04/28/21 09:21 Dose: 1 drops Documented by: Aspirin (Aspirin 81 Mg) 81 mg PO DAILY [facility] Last Admin: 04/28/21 09:11 Dose: 81 mg Documented by: Budesonide (Budesonide 1 Mg/2 Ml Nebu) 1 mg INHALATION RT-BID [facility] Last Admin: 04/28/21 08:19 Dose: 1 mg Documented by: Diclofenac Sodium (Diclofenac Sodium Gel 100 Gm Tube) 1 gm TOPICAL BID [facility] Last Admin: 04/28/21 09:22 Dose: 1 gm Documented by: Doxycycline Monohydrate (Doxycycline 100 Mg Cap) 100 mg PO BID [facility] Last Admin: 04/28/21 09:23 Dose: 100 mg Documented by: Finasteride (Finasteride 5 Mg Tab) 5 mg PO HS [facility] Last Admin: 04/27/21 20:51 Dose: 5 mg Documented by: Fluticasone Propionate (Fluticasone 50mcg/[place] Nasal 16gm) 2 spray EA NOSTRIL DAILY [facility] Last Admin: 04/28/21 09:24 Dose: 2 spray Documented by: Folic Acid (Folic Acid 1 Mg Tab) 1 mg PO DAILY@1200 [facility] Last Admin: 04/28/21 09:28 Dose: 1 mg Documented by: Formoterol Fumarate (Formoterol Fumarate 20 Mcg/2 Ml Nebu) 20 mcg INHALATION RT-BID [facility] Last Admin: 04/28/21 08:19 Dose: 20 mcg Documented by: Furosemide (Furosemide 20 Mg Tab) 20 mg PO BID [facility] Last Admin: 04/28/21 09:27 Dose: 20 mg Documented by: Sodium Chloride (Saline 0.9%) 1,000 mls @ 130 mls/hr IV .Q7H42M [facility] Last Admin: 04/28/21 09:53 Dose: Not Given Documented by: Ceftriaxone Sodium 1 gm/ (Sodium Chloride) 50 mls @ 100 mls/hr IVPB Q24HR [facility] Last Admin: 04/28/21 09:14 Dose: 100 mls/hr Documented by: Azithromycin 500 mg/ Sodium (Chloride) 250 mls @ 250 mls/hr IVPB DAILY [facility] Last Admin: 04/28/21 09:49 Dose: 250 mls/hr Documented by: Insulin Aspart (Insulin Aspart (Novolog) 100 Unit/Ml Vial) 0 unit SQ ACHS [facility]; Protocol Last Admin: 04/28/21 13:07 Dose: 3 unit Documented by: Lisinopril (Lisinopril 10 Mg Tab) 5 mg PO BID [facility] Loratadine (Loratadine 10 Mg Tab) 10 mg PO DAILY PRN PRN Reason: Allergy Symptoms Meloxicam (Meloxicam 7.5 Mg Tab) 7.5 mg PO DAILY PRN PRN Reason: Pain Last Admin: 04/28/21 09:47 Dose: 7.5 mg Documented by: Methylprednisolone Sodium Succinate (Methylprednisolone Sod Succi 125 Mg/2 Ml Vial) 60 mg IV Q6HR [facility] Last Admin: 04/28/21 13:06 Dose: 60 mg Documented by: Metoprolol Succinate (Metoprolol Succinate (Er) 25 Mg Tab.Er.24h) 25 mg PO BID [facility] Last Admin: 04/28/21 09:27 Dose: 25 mg Documented by: Miscellaneous Information (Potassium Replacement Protocol 1 Each Misc) 1 each M ISCELLANE DAILY PRN; Protocol PRN Reason: Per Protocol Multivitamins (Multivitamins, Thera 1 Each Tab) 1 each PO DAILY@1200 [facility] Last Admin: 04/28/21 09:27 Dose: 1 each Documented by: Oxymetazoline HCl (Oxymetazoline 0.05% Nasl [place] 1 [place] Bottle) 2 spray NASAL BID [facility] Last Admin: 04/28/21 13:07 Dose: 2 spray Documented by: Potassium Chloride (Potassium Chloride Er 20 Meq Tab.Er) 20 meq PO Q1HR [facility]; Protocol Stop: 04/28/21 15:01 Last Admin: 04/28/21 14:03 Dose: 20 meq Documented by: Pravastatin Sodium (Pravastatin Sodium 80 Mg Tab) 80 mg PO HS [facility] Last Admin: 04/27/21 20:52 Dose: 80 mg Documented by: Thiamine HCl (Thiamine 100 Mg Tab) 100 mg PO DAILY@1200 [facility] Last Admin: 04/28/21 09:27 Dose: 100 mg Documented by: Physical exam: Gen: This is a 75-year-old male awake, alert and oriented 3, well-developed, well-nourished, ill appearing. Temp is 97.7 F, pulse is 81, respirations are 14, blood pressure is 99/59, oxygen saturation is 96% on 6 L via nasal cannula HEENT: Head is atraumatic, normocephalic. Pupils equal, round. Sclerae is anicteric. left nare nose bleed as patient is blowing nose currently on exam NECK: Supple. No JVD. No lymphadenopathy. No thyromegaly. LUNGS: Diminished breath sounds bilaterally with some crackles and rhonchi noted.. No intercostal retractions. HEART: S1, S2 are muffled. ABDOMEN: Soft. Bowel sounds are present. No masses. No tenderness. EXTREMITIES: No pedal edema. No calf tenderness. NEUROLOGICAL: Patient is awake, alert and oriented x3. no focal deficits. diffusely weak Assessment: Acute bilateral pneumonia left more than right possibly community-acquired, with possible gram-negative sepsis with acute hypoxic respiratory failure, present on admission Asthma, chronic obstructive pulmonary disease acute exacerbation, present on admission Possible congestive heart failure acute exacerbation acute on chronic systolic dysfunction, ejection fraction 35-40% mild epistaxis heparin monitoring Increased WBC Hyponatremia Elevated random glucose Elevated bilirubin, AST, ALT possibly hepatitis of undetermined etiology Troponin 1.170, possible type II myocardial infarction Hypertension History of prostate disorder history of appendectomy History back surgery, degenerative joint disease Full code Plan: Recommend to continue current medications and management. Cardiology following the patient and patient maintained on oral Lasix and IV fluids. IV heparin infusing. Patient having a mild nose bleed status post continued nose blowing for congestion. Encouraged the patient to wipe the nose and avoid nose blowing and will add afrin and monitor closely as patient is on IV heparin. Will discuss with cardiology about oral anticoagulant or treatment plan moving forward. Continue with IV steroids, IV ceftriaxone and Zithromax along with doxycycline. Pulmonary Dr. Ram following as well. Patient continues to be extremely weak and will have PT/OT evaluate the patient. Patient is on 6 L of oxygen via nasal cannula with oxygen saturation of 96% and will continue to wean as tolerated. Continue with breathing inhalational treatments as well. Repeat am labs. Due to multiple complex medical issues, prognosis is guarded. Objective - Vital Signs Vital signs: Vital Signs Temp 98.2 F 04/28/21 05:00 Pulse 88 04/28/21 08:19 Resp 20 04/28/21 05:00 BP 144/79 04/28/21 05:00 Pulse Ox 96 04/28/21 05:00 Intake & Output 04/27/21 04/28/21 04/28/21 18:59 06:59 18:59 Intake Total 1246.573 590 Output Total 2000 600 Balance -753.427 -10 Intake: Intake, IV Titration 1006.573 Amount Azithromycin 500 mg In 250 Sodium Chloride 0.9% 250 ml @ 250 mls/hr IVPB DAILY [facility] Rx#:[id number] Heparin Sod,Pork in 0.45% 156.573 NaCl 25,000 unit In 0.45 % NaCl 1 250ml.bag @ 12 UNITS/KG/HR 7.62 mls/hr IV .Q24H [facility] Rx#: [id number] Sodium Chloride 0.9% 1, 500 000 ml @ 130 mls/hr IV . Q7H42M [facility] Rx#:[id number] cefTRIAXone 1 gm In 100 Sodium Chloride 0.9% 50 ml @ 100 mls/hr IVPB Q24HR [facility] Rx#:[id number] Oral 240 590 Output: Urine 2000 600 Other: # Voids 1 - Labs CBC & Chem 7: 04/27/21 05:02 04/28/21 23:22 Labs: Abnormal Lab Results - Last 24 Hours (Table) 04/27/21 04/27/21 04/27/21 Range/Units 05:02 12:52 17:09 APTT (22.0-30.0) sec Potassium 2.8 L (3.5-5.5) mmol/L Chloride (98-107) mmol/L Carbon Dioxide (22-30) mmol/L BUN (9-20) mg/dL BUN/Creatinine Ratio 24.11 H (12.00-20.00) Ratio Glucose 195 H (70-110) mg/dL POC Glucose (mg/dL) 220 H 183 H (75-99) mg/dL Calcium 8.4 L (8.7-10.3) mg/dL 04/27/21 04/28/21 04/28/21 Range/Units 19:59 04:58 04:58 APTT 54.4 H (22.0-30.0) sec Potassium 2.4 L* (3.5-5.5) mmol/L Chloride 93 L (98-107) mmol/L Carbon Dioxide 37 H (22-30) mmol/L BUN 25 H (9-20) mg/dL BUN/Creatinine Ratio (12.00-20.00) Ratio Glucose 224 H (70-110) mg/dL POC Glucose (mg/dL) 216 H (75-99) mg/dL Calcium (8.7-10.3) mg/dL 04/28/21 Range/Units 07:30 APTT (22.0-30.0) sec Potassium (3.5-5.5) mmol/L Chloride (98-107) mmol/L Carbon Dioxide (22-30) mmol/L BUN (9-20) mg/dL BUN/Creatinine Ratio (12.00-20.00) Ratio Glucose (70-110) mg/dL POC Glucose (mg/dL) 192 H (75-99) mg/dL Calcium (8.7-10.3) mg/dL Microbiology - Last 24 Hours (Table) 04/25/21 10:55 Blood Culture - Preliminary Blood No Growth after 48 hours 04/25/21 11:10 Blood Culture - Preliminary Blood No Growth after 48 hours
[2021-04-29] MEDS: methylPREDNISolone SOD SUCCI 125 MG/2 ML VIAL IV SCH ×2 (05:24→12:45)
[2021-04-29 07:08] LABS: Basophils % (A) 0 %; Eosinophils # (A) 0.1 k/uL (0-0.7); Eosinophils % (A) 1 %; HCT 53.5 % (39.0-53.0); HGB 17.1 gm/dL (13.0-17.5); Hypochromasia Slight; Lymphocytes # (A) 0.3 k/uL (1.0-4.8); Lymphocytes % (A) 2 %; MCH 28.3 pg (25.0-35.0); MCV 88.5 fL (80.0-100.0); Mean Platelet Volume 8.9; Monocytes # (A) 0.6 k/uL (0-1.0); Monocytes % (A) 5 %; Neutrophils # (A) 11.7 k/uL (1.3-7.7); Neutrophils % (A) 92 %; Platelet Count 258 k/uL (150-450); RBC 6.04 m/uL (4.30-5.90); RDW 14.2 % (11.5-15.5); WBC 12.8 k/uL (3.8-10.6)
[2021-04-29 07:20] LABS: African American GFR (CKD) >90 (>60 ml/min/1.73 sqM); Anion Gap 7 mmol/L; Blood Urea Nitrogen 25 mg/dL (9-20); Calcium 8.4 mg/dL (8.4-10.2); Carbon Dioxide 36 mmol/L (22-30); Chloride 97 mmol/L (98-107); Glucose 202 mg/dL (74-99); Non-African American GFR(CKD) >90 (>60 ml/min/1.73 sqM); Sodium 140 mmol/L (137-145)
[2021-04-29 07:28] LABS: Glucose,Whole Blood 189 mg/dL (75-99)
[2021-04-29 07:29] LABS: Potassium 3.9 mmol/L (3.5-5.1)
--- NOTE | 2021-04-29 08:58 | P.PN ---
Subjective Progress Note Date: 04/29/21 Principal diagnosis: Left lower lobe community-acquired pneumonia also involving the right lower lobe Mass like process of the left lower lobe cannot be excluded, patient will need further radiographs to document resolution in 8-12 weeks Acute hypoxic respiratory failure Elevated troponin History of COVID-19 pneumonia History of COPD 01/28/2021, patient seen eval examined during the rounds labs reviewed medications reviewed care plan discussed, respiratory status remains stable, however still cough congestion shortness of breath going on but severity has improved patient remains on 6 L nasal cannula, afebrile with stable hemodynamics respiratory rate is 20, saturation 95%, labs reviewed potassium is 3.9 improved significantly as well chemistry is stable BUN/creatinine 25/.64 recommend to titrate oxygen down to bring it to 3 or 2 L 04/28/2021, patient seen eval examined during the rounds labs reviewed medications reviewed care plan discussed, patient remains on 6 L oxygen, oxygen saturation is 96%, labs reviewed sodium is 140 potassium is 2.4 BUN/creatinine 2 5/0.84, glucose 224, currently patient remains on bronchodilators and antibiotics Zithromax and Rocephin, heparin drip, and Solu-Medrol 60 IV every 6, patient is still complaining of shortness of breath and intermittent wheezing Patient is a 75-year-old with a remote history of smoking prior history of COPD lately have been more short of breath congested recently seen in the office for the first time preliminary workup including PFTs labs and x-rays have been ordered, patient was complaining of shortness of breath and was hypoxic patient has recently placed on home oxygen, chest for the last 2 days started getting more shortness of breath cough congestion and fever up to 101, patient has not vaccinated for COVID-19 pneumonia, prior history of asthma hypertension prostate problem enlargement, on arrival patient was tachypneic. Cardiac with low oxygen saturation of 90% blood pressure was 122/73, heart rate is 120, respiratory rate 20,Shortness breath patient is a 75-year-old male with the history of hypoxic, patient does have a history of Crohn enteritis pneumonia infection before she this admission white cell count 70,700 hemoglobin and hematocrit is 24/7.7 to hemoglobin is 18, influenza A and B both negative: Negative, troponin elevated 1.1, computed tomography scan of the chest negative for pulmonary embolism however masslike consolidation left lower lobe is present consistent with focal pneumonia she infiltrated right lower lobe Objective - Vital Signs Vital signs: Vital Signs Temp 97.7 F 04/29/21 05:00 Pulse 91 04/29/21 05:00 Resp 20 04/29/21 05:00 BP 145/81 04/29/21 05:00 Pulse Ox 95 04/29/21 05:00 Intake & Output 04/28/21 04/29/21 04/29/21 18:59 06:59 18:59 Intake Total 430 590 Output Total 750 1120 Balance -320 -530 Intake: Intake, IV Titration 250 Amount Heparin Sod,Pork in 0.45% 250 NaCl 25,000 unit In 0.45 % NaCl 1 250ml.bag @ 12 UNITS/KG/HR 7.62 mls/hr IV .Q24H [facility] Rx#: [id number] Oral 180 590 Output: Urine 750 1120 Other: Voiding Method Urinal Urinal # Voids 1 # Bowel Movements 2 - Exam - Constitutional General appearance: average body habitus, cooperative, disheveled, mild distress - EENT Eyes: PERRLA Ears: bilateral: normal - Neck Neck: normal ROM Carotids: bilateral: upstroke normal - Respiratory Respiratory: bilateral: diminished, wheezing - Cardiovascular Rhythm: regular Heart sounds: normal: S1, S2 - Gastrointestinal General gastrointestinal: distended, normal bowel sounds - Integumentary Integumentary: normal turgor - Neurologic Neurologic: CNII-XII intact, focal deficits - Musculoskeletal Musculoskeletal: gait normal, generalized weakness, strength equal bilaterally - Psychiatric Psychiatric: A&O x's 3, appropriate affect, intact judgment & insight - Labs CBC & Chem 7: 04/29/21 06:22 04/29/21 06:22 Labs: Abnormal Lab Results - Last 24 Hours (Table) 04/28/21 04/28/21 04/28/21 Range/Units 11:22 12:30 16:57 WBC (3.8-10.6) k/uL RBC (4.30-5.90) m/uL Hct (39.0-53.0) % Neutrophils # (1.3-7.7) k/uL Lymphocytes # (1.0-4.8) k/uL Potassium 2.7 L* 3.0 L (3.5-5.1) mmol/L Chloride (98-107) mmol/L Carbon Dioxide (22-30) mmol/L BUN (9-20) mg/dL Creatinine (0.66-1.25) mg/dL Glucose (74-99) mg/dL POC Glucose (mg/dL) 211 H (75-99) mg/dL 04/28/21 04/28/21 04/28/21 Range/Units 17:22 21:28 23:22 WBC (3.8-10.6) k/uL RBC (4.30-5.90) m/uL Hct (39.0-53.0) % Neutrophils # (1.3-7.7) k/uL Lymphocytes # (1.0-4.8) k/uL Potassium 3.4 L (3.5-5.1) mmol/L Chloride (98-107) mmol/L Carbon Dioxide (22-30) mmol/L BUN (9-20) mg/dL Creatinine (0.66-1.25) mg/dL Glucose (74-99) mg/dL POC Glucose (mg/dL) 225 H 215 H (75-99) mg/dL 04/29/21 04/29/21 04/29/21 Range/Units 06:22 06:22 07:26 WBC 12.8 H (3.8-10.6) k/uL RBC 6.04 H (4.30-5.90) m/uL Hct 53.5 H (39.0-53.0) % Neutrophils # 11.7 H (1.3-7.7) k/uL Lymphocytes # 0.3 L (1.0-4.8) k/uL Potassium (3.5-5.1) mmol/L Chloride 97 L (98-107) mmol/L Carbon Dioxide 36 H (22-30) mmol/L BUN 25 H (9-20) mg/dL Creatinine 0.64 L (0.66-1.25) mg/dL Glucose 202 H (74-99) mg/dL POC Glucose (mg/dL) 189 H (75-99) mg/dL Microbiology - Last 24 Hours (Table) 04/25/21 10:55 Blood Culture - Preliminary Blood No Growth after 72 hours 04/25/21 11:10 Blood Culture - Preliminary Blood No Growth after 72 hours Assessment and Plan Assessment: Non-STEMI Severe hypokalemia Left lower lobe community-acquired pneumonia also involving the right lower lobe Masslike process of the left lower lobe cannot be excluded, patient will need further radiographs to document resolution in 8-12 weeks Acute hypoxic respiratory failure Elevated troponin History of COVID-19 pneumonia History of COPD Plan: Replace potassium Broad-spectrum IV antibiotics with Rocephin and Zithromax Bronchodilators IV steroids, can be switched to oral at time of discharge Supplemental oxygen with slow tapering IV heparin per cardiovascular services Follow up radiographic studies the outpatient Further plan of care and recommendation as per clinical response of the patient Patient will need cardiac cath and angiogram cardiovascular services following Time with Patient: Greater than 30
[2021-04-29] MEDS: ASPIRIN 81 MG PO SCH (09:01)
[2021-04-29] MEDS: POTASSIUM CHLORIDE ER 20 MEQ TAB.ER PO SCH ×2 (09:01→10:28)
[2021-04-29] MEDS: METOPROLOL SUCCINATE (ER) 25 MG TAB.ER.24H PO SCH ×2 (09:01→21:52)
[2021-04-29] MEDS: INSULIN ASPART (NovoLOG) 100 UNIT/ML VIAL SQ SCH ×4 (09:02→21:54)
[2021-04-29] MEDS: DOXYCYCLINE 100 MG CAP PO SCH ×2 (09:02→21:53)
[2021-04-29] MEDS: OXYMETAZOLINE 0.05% NASL SPRAY 1 SPRAY BOTTLE NASAL SCH ×2 (09:03→21:55)
[2021-04-29] MEDS: FLUTICASONE 50MCG/SPRAY NASAL 16GM EA NOSTRIL SCH (09:03)
[2021-04-29] MEDS: lisinopriL 5 MG TAB PO SCH ×2 (09:05→21:53)
[2021-04-29] MEDS: FUROSEMIDE 10 MG/ML 4 ML VIAL IV SCH ×2 (09:05→21:54)
[2021-04-29] MEDS: ARTIFICIAL TEARS-HYPROMELLOSE DROPS 15 ML BTL BOTH EYES SCH ×3 (09:11→21:55)
[2021-04-29] MEDS: AZITHROMYCIN 500 MG in SODIUM CHLORIDE 0.9% 250 ML IVPB SCH (09:11)
[2021-04-29] MEDS: FORMOTEROL FUMARATE 20 MCG/2 ML NEBU INHALATION SCH ×2 (09:13→20:06)
[2021-04-29] MEDS: IPRATROPIUM-ALBUTEROL 3 ML NEB INHALATION SCH ×4 (09:13→20:06)
[2021-04-29] MEDS: BUDESONIDE 1 MG/2 ML NEBU INHALATION SCH ×2 (09:13→20:06)
[2021-04-29] MEDS: DICLOFENAC SODIUM GEL 100 GM TUBE TOPICAL SCH ×3 (10:27→21:54)
[2021-04-29] MEDS ORDERED: POTASSIUM CHLORIDE ER 20 MEQ TAB.ER PO STA (10:41)
--- NOTE | 2021-04-29 10:42 | P.PN ---
Subjective Progress Note Date: 04/29/21 HISTORY OF PRESENT ILLNESS: This is a pleasant 75-year-old male past medical history significant for hypertension, asthma, Covid-19 in July 2020. He does not follow with a cardiolo gist. 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 Ram. We have been asked to see in consultation for elevated troponin. Patient presents to the emergency department with complaints of cough and worsening shortness of breath for the past several days. He was hypoxic on presentation and placed on 5L nasal cannula. He denies any chest pain, palpitations, lightheadedness, dizziness or syncope. On admission, patient's chest xray revealed bilateral infiltrate correlate for pneumonia. EKG revealed sinus tachycardia, rate 123, no significant ST-T wave abnormalities. On telemetry he is in sinus tachycardic HR 120s. Troponin was elevated at 1.1. He denies history of CAD, [place], Stroke, or diabetes. He denies diagnosis of COPD. He is a non-smoker, quit 50+ years ago. DIAGNOSTICS Chest CT revealed no evidence of pulmonary embolism, mass like consolidation in the left lower lobe suspicious for focal pneumonia. Smaller focus groundglass opacities medial right lower lobe Laboratory reviewed, WBC 17, Hgb 18, Plt 272, Sodium 135, K 3.9, BUN 24, sCr 0.72, Mag 2.0, Trop 1.1, covid pcr negative, influenza pcr negative Current home medications include Decadron 04/26/2021 Patient examined this morning at the bedside. Patient denies any chest pain or pressure. Patient denies having any chest pain prior to coming to the hospital. He does report mild shortness of breath. He remains on 5 L nasal cannula. Patient is tachycardic this morning with a heart rate around 110. Blood pressure 125/75. Echocardiogram completed revealing ejection fraction 35-40%, mid anterior, mid lateral, mid anterior septal, apical anterior, apical lateral, apical inferior, and apical septal LV wall hypokinesis, mild mitral regurgitation, and mild tricuspid regurgitation. There is no prior echocardiogram available for review. Upon questioning the patient further, he denies any known history of cardiomyopathy. 04/29/2021 Patient examined this morning at the bedside. Patient denies chest pain or pressure. He remains on 6L NC. He is eager to go home. However, he continues to report SOB at times. He states he is unable to lay flat in bed due to SOB. PHYSICAL EXAM: VITAL SIGNS: Reviewed. GENERAL: Well-developed in no acute distress. NECK: Supple. No JVD or thyromegaly LUNGS: Respirations even and unlabored. Lungs diminished with crackles noted. HEART: Regular rate and rhythm. S1 and S2 heard. EXTREMITIES: Normal range of motion. No clubbing or cyanosis. Peripheral puls es intact. No lower extremity edema ASSESSMENT: Shortness of breath Acute asthma/COPD exacerbation Non-STEMI Pneumonia New onset cardiomyopathy, etiology unclear Former nicotine dependence PLAN: Continue current cardiac medications Discontinue oral lasix. Begin IV lasix 40mg Q12 hours for 24 hours. Will re- assess tomorrow. Patient will require cardiac cath in the future when his acute pulmonary conditions have resolved and he is able to lay flat due to new onset cardiomyopathy to rule out CAD Further recommendations pending patient's course Nurse practitioner note has been reviewed by physician. Signing provider agrees with the documented findings, assessment, and plan of care. Objective - Vital Signs Vital signs: Vital Signs Temp 97.7 F 04/29/21 05:00 Pulse 82 04/29/21 09:32 Resp 20 04/29/21 05:00 BP 146/94 04/29/21 09:18 Pulse Ox 95 04/29/21 05:00 Intake & Output 04/28/21 04/29/21 04/29/21 18:59 06:59 18:59 Intake Total 430 590 Output Total 750 1120 Balance -320 -530 Intake: Intake, IV Titration 250 Amount Heparin Sod,Pork in 0.45% 250 NaCl 25,000 unit In 0.45 % NaCl 1 250ml.bag @ 12 UNITS/KG/HR 7.62 mls/hr IV .Q24H [facility] Rx#: [id number] Oral 180 590 Output: Urine 750 1120 Other: Voiding Method Urinal Urinal # Voids 1 # Bowel Movements 2 - Labs CBC & Chem 7: 04/29/21 06:22 04/29/21 06:22 Labs: Abnormal Lab Results - Last 24 Hours (Table) 04/28/21 04/28/21 04/28/21 Range/Units 11:22 12:30 16:57 WBC (3.8-10.6) k/uL RBC (4.30-5.90) m/uL Hct (39.0-53.0) % Neutrophils # (1.3-7.7) k/uL Lymphocytes # (1.0-4.8) k/uL Potassium 2.7 L* 3.0 L (3.5-5.1) mmol/L Chloride (98-107) mmol/L Carbon Dioxide (22-30) mmol/L BUN (9-20) mg/dL Creatinine (0.66-1.25) mg/dL Glucose (74-99) mg/dL POC Glucose (mg/dL) 211 H (75-99) mg/dL 04/28/21 04/28/21 04/28/21 Range/Units 17:22 21:28 23:22 WBC (3.8-10.6) k/uL RBC (4.30-5.90) m/uL Hct (39.0-53.0) % Neutrophils # (1.3-7.7) k/uL Lymphocytes # (1.0-4.8) k/uL Potassium 3.4 L (3.5-5.1) mmol/L Chloride (98-107) mmol/L Carbon Dioxide (22-30) mmol/L BUN (9-20) mg/dL Creatinine (0.66-1.25) mg/dL Glucose (74-99) mg/dL POC Glucose (mg/dL) 225 H 215 H (75-99) mg/dL 04/29/21 04/29/21 04/29/21 Range/Units 06:22 06:22 07:26 WBC 12.8 H (3.8-10.6) k/uL RBC 6.04 H (4.30-5.90) m/uL Hct 53.5 H (39.0-53.0) % Neutrophils # 11.7 H (1.3-7.7) k/uL Lymphocytes # 0.3 L (1.0-4.8) k/uL Potassium (3.5-5.1) mmol/L Chloride 97 L (98-107) mmol/L Carbon Dioxide 36 H (22-30) mmol/L BUN 25 H (9-20) mg/dL Creatinine 0.64 L (0.66-1.25) mg/dL Glucose 202 H (74-99) mg/dL POC Glucose (mg/dL) 189 H (75-99) mg/dL Microbiology - Last 24 Hours (Table) 04/25/21 10:55 Blood Culture - Preliminary Blood No Growth after 72 hours 04/25/21 11:10 Blood Culture - Preliminary Blood No Growth after 72 hours
[2021-04-29 12:40] LABS: Glucose,Whole Blood 144 mg/dL (75-99)
[2021-04-29] MEDS: FOLIC ACID 1 MG TAB PO SCH (12:45)
[2021-04-29] MEDS: THIAMINE 100 MG TAB PO SCH (12:45)
[2021-04-29] MEDS: MULTIVITAMINS, THERA 1 EACH TAB PO SCH (12:45)
[2021-04-29 17:28] LABS: Glucose,Whole Blood 203 mg/dL (75-99)
[2021-04-29 21:01] LABS: Glucose,Whole Blood 205 mg/dL (75-99)
[2021-04-29] MEDS: FINASTERIDE 5 MG TAB PO SCH (21:53)
[2021-04-29] MEDS: PRAVASTATIN SODIUM 80 MG TAB PO SCH (21:53)
[2021-04-29] MEDS: methylPREDNISolone SOD SUCCI 40 MG/ML 1 ML VIAL IV SCH (21:55)
--- NOTE | 2021-04-30 00:46 | P.PN ---
Subjective Progress Note Date: 04/29/21 This is a 75 year old male who was recently admitted with acute bilateral pneumonia left more than right with possible community-acquired and also gram- negative pneumonia with possible sepsis and is being closely monitored. cardiology following and patient is maintained on Lasix along with IV heparin and will continue. Chest x-ray today shows no change in the mild to moderate diffuse interstitial infiltrates and worsening of the infiltrate in the retrocardiac opacity consistent with atelectasis or alveolar infiltrate area did patient continues on 6 L of oxygen via nasal cannula and states he feels his breathing is somewhat improved although maintaining 90% on 6 L. Patient is extremely weak and will have PT/OT evaluate the patient. Pulmonary is also following the patient is maintained on antibiotics along with breathing inhalational treatments and will continue. 04/28/2021 Patient is seen this morning and continues with shortness of breath and being followed by cardiology and pulmonary Dr. Ram. Patient continues on 6L via NC and states his breathing is improving slowly. Patient continued on bronchodilators and will continue. Patient also continues on IV heparin and cardiology following and recommending to continue for now. Patient potassium is 2.7 and will continue to replace and repeat labs later this afternoon. Recommend follow up labs in the am as well. Patient having some congestion and continues to blow his nose and is having a mild nose bleed. Encouraged the patient to avoid excessive blowing of nose and will add afrin. Patient is on IV heparin. No reports of chest pain or palpitations. 04/29/2021 Patient is seen in follow up this morning and continues with shortness of breath and weakness although feels is improving. Cardiology following for CHF and patient to continue on IV lasix and will follow up with repeat am labs to monitor electrolytes and kidney functions. IV heparin being discontinued. Dr. Ram also following and will decrease IV steroids and continue with breathing treatments. Patient is tolerating diet with no vomiting noted. PT to reevaluate the patient and work with for continued weakness. Continue on 6L via NC and wean as tolerated. Continue electrolyte replacement per protocol. Review of systems: Constitutional: reports of fatigue,no reports of fever, or chills Cardiovascular: No reports of chest pain or palpitations Respiratory: reports of shortness of breath GI: No reports of nausea, vomiting, or diarrhea : No reports of dysuria or retention Neurovascular: no reports of weakness All medications have been reviewed Active Medications Hydrocodone Bitart/Acetaminophen (Hydrocodone/Apap 5-325mg 1 Each Tab) 1 each PO Q6HR PRN PRN Reason: Pain Albuterol/Ipratropium (Ipratropium-Albuterol 3 Ml Neb) 3 ml INHALATION RT-Q4H PRN PRN Reason: Shortness Of Breath Or Wheezing Albuterol/Ipratropium (Ipratropium-Albuterol 3 Ml Neb) 3 ml INHALATION RT-QID [facility] Last Admin: 04/29/21 20:06 Dose: 3 ml Documented by: Alprazolam (Alprazolam 0.25 Mg Tab) 0.25 mg PO TID PRN PRN Reason: Anxiety Artificial Tears (Artificial Tears-Hypromellose Drops 15 Ml Btl) 1 drops BOTH EYES TID [facility] Last Admin: 04/29/21 21:55 Dose: Not Given Documented by: Aspirin (Aspirin 81 Mg) 81 mg PO DAILY [facility] Last Admin: 04/29/21 09:01 Dose: 81 mg Documented by: Budesonide (Budesonide 1 Mg/2 Ml Nebu) 1 mg INHALATION RT-BID [facility] Last Admin: 04/29/21 20:06 Dose: 1 mg Documented by: Diclofenac Sodium (Diclofenac Sodium Gel 100 Gm Tube) 1 gm TOPICAL BID [facility] Last Admin: 04/29/21 21:54 Dose: Not Given Documented by: Doxycycline Monohydrate (Doxycycline 100 Mg Cap) 100 mg PO BID [facility] Last Admin: 04/29/21 21:53 Dose: 100 mg Documented by: Finasteride (Finasteride 5 Mg Tab) 5 mg PO HS [facility] Last Admin: 04/29/21 21:53 Dose: 5 mg Documented by: Fluticasone Propionate (Fluticasone 50mcg/[place] Nasal 16gm) 2 spray EA NOSTRIL DAILY [facility] Last Admin: 04/29/21 09:03 Dose: 2 spray Documented by: Folic Acid (Folic Acid 1 Mg Tab) 1 mg PO DAILY@1200 [facility] Last Admin: 04/29/21 12:45 Dose: 1 mg Documented by: Formoterol Fumarate (Formoterol Fumarate 20 Mcg/2 Ml Nebu) 20 mcg INHALATION RT-BID [facility] Last Admin: 04/29/21 20:06 Dose: 20 mcg Documented by: Furosemide (Furosemide 10 Mg/Ml 4 Ml Vial) 40 mg IV Q12HR [facility] Last Admin: 04/29/21 21:54 Dose: 40 mg Documented by: Ceftriaxone Sodium 1 gm/ (Sodium Chloride) 50 mls @ 100 mls/hr IVPB Q24HR [facility] Last Admin: 04/29/21 10:28 Dose: 100 mls/hr Documented by: Azithromycin 500 mg/ Sodium (Chloride) 250 mls @ 250 mls/hr IVPB DAILY [facility] Last Admin: 04/29/21 09:11 Dose: 250 mls/hr Documented by: Insulin Aspart (Insulin Aspart (Novolog) 100 Unit/Ml Vial) 0 unit SQ ACHS [facility]; Protocol Last Admin: 04/29/21 21:54 Dose: 2 unit Documented by: Lisinopril (Lisinopril 5 Mg Tab) 5 mg PO BID [facility] Last Admin: 04/29/21 21:53 Dose: 5 mg Documented by: Loratadine (Loratadine 10 Mg Tab) 10 mg PO DAILY PRN PRN Reason: Allergy Symptoms Meloxicam (Meloxicam 7.5 Mg Tab) 7.5 mg PO DAILY PRN PRN Reason: Pain Last Admin: 04/28/21 09:47 Dose: 7.5 mg Documented by: Methylprednisolone Sodium Succinate (Methylprednisolone Sod Succi 40 Mg/Ml 1 Ml Vial) 40 mg IV BID [facility] Last Admin: 04/29/21 21:55 Dose: 40 mg Documented by: Metoprolol Succinate (Metoprolol Succinate (Er) 25 Mg Tab.Er.24h) 25 mg PO BID [facility] Last Admin: 04/29/21 21:52 Dose: 25 mg Documented by: Miscellaneous Information (Potassium Replacement Protocol 1 Each Misc) 1 each MISCELLANE DAILY PRN; Protocol PRN Reason: Per Protocol Multivitamins (Multivitamins, Thera 1 Each Tab) 1 each PO DAILY@1200 [facility] Last Admin: 04/29/21 12:45 Dose: 1 each Documented by: Oxymetazoline HCl (Oxymetazoline 0.05% Nasl [place] 1 [place] Bottle) 2 spray NASAL BID [facility] Last Admin: 04/29/21 21:55 Dose: 2 spray Documented by: Pravastatin Sodium (Pravastatin Sodium 80 Mg Tab) 80 mg PO HS [facility] Last Admin: 04/29/21 21:53 Dose: 80 mg Documented by: Thiamine HCl (Thiamine 100 Mg Tab) 100 mg PO DAILY@1200 [facility] Last Admin: 04/29/21 12:45 Dose: 100 mg Documented by: Physical exam: Gen: This is a 75-year-old male awake, alert and oriented 3, well-developed, well-nourished, ill appearing. on 6 L via nasal cannula HEENT: Head is atraumatic, normocephalic. Pupils equal, round. Sclerae is anicteric. left nare nose bleed as patient is blowing nose currently on exam NECK: Supple. No JVD. No lymphadenopathy. No thyromegaly. LUNGS: Diminished breath sounds bilaterally with some crackles and rhonchi noted.. No intercostal retractions. HEART: S1, S2 are muffled. ABDOMEN: Soft. Bowel sounds are present. No masses. No tenderness. EXTREMITIES: No pedal edema. No calf tenderness. NEUROLOGICAL: Patient is awake, alert and oriented x3. no focal deficits. di ffusely weak Assessment: Acute bilateral pneumonia left more than right possibly community-acquired, with possible gram-negative sepsis with acute hypoxic respiratory failure, present on admission Asthma, chronic obstructive pulmonary disease acute exacerbation, present on admission Possible congestive heart failure acute exacerbation acute on chronic systolic dysfunction, ejection fraction 35-40% mild epistaxis, resolved Increased WBC Hyponatremia Elevated random glucose Elevated bilirubin, AST, ALT possibly hepatitis of undetermined etiology Troponin 1.170, possible type II myocardial infarction Hypertension History of prostate disorder history of appendectomy History back surgery, degenerative joint disease Full code Plan: Recommend to continue current medications and management. Cardiology following the patient and patient maintained on IV Lasix. IV heparin discontinued. Continu e with IV steroids, IV ceftriaxone and Zithromax along with doxycycline. Pulmonary Dr. Ram following as well. Patient continues to be extremely weak and will have PT/OT evaluate the patient. Patient is on 6 L of oxygen via nasal cannula will continue to wean as tolerated. Continue with breathing inhalational treatments as well. Repeat am labs. Due to multiple complex medical issues, prognosis is guarded. Objective - Vital Signs Vital signs: Vital Signs Temp 97.7 F 04/29/21 05:00 Pulse 82 04/29/21 09:32 Resp 20 04/29/21 05:00 BP 146/94 04/29/21 09:18 Pulse Ox 95 04/29/21 05:00 Intake & Output 12/19/21 12/20/21 12/20/21 18:59 06:59 18:59 Intake Total 430 590 Output Total 750 1120 Balance -320 -530 Intake: Intake, IV Titration 250 Amount Heparin Sod,Pork in 0.45% 250 NaCl 25,000 unit In 0.45 % NaCl 1 250ml.bag @ 12 UNITS/KG/HR 7.62 mls/hr IV .Q24H [facility] Rx#: [id number] Oral 180 590 Output: Urine 750 1120 Other: Voiding Method Urinal Urinal # Voids 1 # Bowel Movements 2 - Labs CBC & Chem 7: 04/29/21 06:22 04/29/21 06:22 Labs: Abnormal Lab Results - Last 24 Hours (Table) 04/28/21 04/28/21 04/28/21 Range/Units 11:22 12:30 16:57 WBC (3.8-10.6) k/uL RBC (4.30-5.90) m/uL Hct (39.0-53.0) % Neutrophils # (1.3-7.7) k/uL Lymphocytes # (1.0-4.8) k/uL Potassium 2.7 L* 3.0 L (3.5-5.1) mmol/L Chloride (98-107) mmol/L Carbon Dioxide (22-30) mmol/L BUN (9-20) mg/dL Creatinine (0.66-1.25) mg/dL Glucose (74-99) mg/dL POC Glucose (mg/dL) 211 H (75-99) mg/dL 04/28/21 04/28/21 04/28/21 Range/Units 17:22 21:28 23:22 WBC (3.8-10.6) k/uL RBC (4.30-5.90) m/uL Hct (39.0-53.0) % Neutrophils # (1.3-7.7) k/uL Lymphocytes # (1.0-4.8) k/uL Potassium 3.4 L (3.5-5.1) mmol/L Chloride (98-107) mmol/L Carbon Dioxide (22-30) mmol/L BUN (9-20) mg/dL Creatinine (0.66-1.25) mg/dL Glucose (74-99) mg/dL POC Glucose (mg/dL) 225 H 215 H (75-99) mg/dL 04/29/21 04/29/21 04/29/21 Range/Units 06:22 06:22 07:26 WBC 12.8 H (3.8-10.6) k/uL RBC 6.04 H (4.30-5.90) m/uL Hct 53.5 H (39.0-53.0) % Neutrophils # 11.7 H (1.3-7.7) k/uL Lymphocytes # 0.3 L (1.0-4.8) k/uL Potassium (3.5-5.1) mmol/L Chloride 97 L (98-107) mmol/L Carbon Dioxide 36 H (22-30) mmol/L BUN 25 H (9-20) mg/dL Creatinine 0.64 L (0.66-1.25) mg/dL Glucose 202 H (74-99) mg/dL POC Glucose (mg/dL) 189 H (75-99) mg/dL Microbiology - Last 24 Hours (Table) 04/25/21 10:55 Blood Culture - Preliminary Blood No Growth after 72 hours 04/25/21 11:10 Blood Culture - Preliminary Blood No Growth after 72 hours
[2021-04-30 07:24] LABS: Glucose,Whole Blood 139 mg/dL (75-99)
[2021-04-30] MEDS: BUDESONIDE 1 MG/2 ML NEBU INHALATION SCH ×2 (07:33→20:43)
[2021-04-30] MEDS: IPRATROPIUM-ALBUTEROL 3 ML NEB INHALATION SCH ×4 (07:33→20:43)
[2021-04-30] MEDS: FORMOTEROL FUMARATE 20 MCG/2 ML NEBU INHALATION SCH ×2 (07:33→20:43)
[2021-04-30] MEDS: INSULIN ASPART (NovoLOG) 100 UNIT/ML VIAL SQ SCH ×4 (07:54→21:32)
--- NOTE | 2021-04-30 08:49 | P.PN ---
Subjective Progress Note Date: 04/30/21 Principal diagnosis: Left lower lobe community-acquired pneumonia also involving the right lower lobe Mass like process of the left lower lobe cannot be excluded, patient will need further radiographs to document resolution in 8-12 weeks Acute hypoxic respiratory failure Elevated troponin History of COVID-19 pneumonia History of COPD 01/29/2021, patient seen eval examined during the rounds labs reviewed medications reviewed, respiratory rate remained stable in low 20s, patient has been ambulating, remains on 6 L oxygen, oxygen saturation 100%, blood pressure 160/93 respiratory 18 pulse 89 temperature 90.8, 01/28/2021, patient seen eval examined during the rounds labs reviewed medications reviewed care plan discussed, respiratory status remains stable, however still cough congestion shortness of breath going on but severity has improved patient remains on 6 L nasal cannula, afebrile with stable hemodynamics respiratory rate is 20, saturation 95%, labs reviewed potassium is 3.9 improved significantly as well chemistry is stable BUN/creatinine 25/.64 recommend to titrate oxygen down to bring it to 3 or 2 L 04/28/2021, patient seen eval examined during the rounds labs reviewed medications reviewed care plan discussed, patient remains on 6 L oxygen, oxygen saturation is 96%, labs reviewed sodium is 140 potassium is 2.4 BUN/creatinine 25/0.84, glucose 224, currently patient remains on bronchodilators and antibiotics Zithromax and Rocephin, heparin drip, and Solu-Medrol 60 IV every 6, patient is still complaining of shortness of breath and intermittent wheezing Patient is a 75-year-old with a remote history of smoking prior history of COPD lately have been more short of breath congested recently seen in the office for the first time preliminary workup including PFTs labs and x-rays have been ordered, patient was complaining of shortness of breath and was hypoxic patient has recently placed on home oxygen, chest for the last 2 days started getting more shortness of breath cough congestion and fever up to 101, patient has not vaccinated for COVID-19 pneumonia, prior history of asthma hypertension prostate problem enlargement, on arrival patient was tachypneic. Cardiac with low oxygen saturation of 90% blood pressure was 122/73, heart rate is 120, respiratory rate 20,Shortness breath patient is a 75-year-old male with the history of hypoxic, patient does have a history of Crohn enteritis pneumonia infection before she this admission white cell count 70,700 hemoglobin and hematocrit is 24/7.7 to hemoglobin is 18, influenza A and B both negative: Negative, troponin elevated 1.1, computed tomography scan of the chest negative for pulmonary embolism however masslike consolidation left lower lobe is present consistent with focal pneumonia she infiltrated right lower lobe Objective - Vital Signs Vital signs: Vital Signs Temp 98.0 F 04/30/21 05:00 Pulse 92 04/30/21 07:54 Resp 18 04/30/21 05:00 BP 160/93 04/30/21 05:00 Pulse Ox 100 04/30/21 05:00 Intake & Output 04/29/21 04/30/21 04/30/21 18:59 06:59 18:59 Weight 65.5 kg Other: Voiding Method Urinal Urinal Diaper # Bowel Movements 1 - Exam - Constitutional General appearance: average body habitus, cooperative, disheveled, mild distress - EENT Eyes: PERRLA Ears: bilateral: normal - Neck Neck: normal ROM Carotids: bilateral: upstroke normal - Respiratory Respiratory: bilateral: diminished, wheezing - Cardiovascular Rhythm: regular Heart sounds: normal: S1, S2 - Gastrointestinal General gastrointestinal: distended, normal bowel sounds - Integumentary Integumentary: normal turgor - Neurologic Neurologic: CNII-XII intact, focal deficits - Musculoskeletal Musculoskeletal: gait normal, generalized weakness, strength equal bilaterally - Psychiatric Psychiatric: A&O x's 3, appropriate affect, intact judgment & insight - Labs CBC & Chem 7: 04/29/21 06:22 04/29/21 06:22 Labs: Abnormal Lab Results - Last 24 Hours (Table) 04/29/21 04/29/21 04/29/21 Range/Units 12:39 17:26 21:00 POC Glucose (mg/dL) 144 H 203 H 205 H (75-99) mg/dL 04/30/21 Range/Units 07:23 POC Glucose (mg/dL) 139 H (75-99) mg/dL Microbiology - Last 24 Hours (Table) 04/25/21 10:55 Blood Culture - Preliminary Blood No Growth after 96 hours 04/25/21 11:10 Blood Culture - Preliminary Blood No Growth after 96 hours Assessment and Plan Assessment: Non-STEMI Severe hypokalemia Left lower lobe community-acquired pneumonia also involving the right lower lobe Masslike process of the left lower lobe cannot be excluded, patient will need further radiographs to document resolution in 8-12 weeks Acute hypoxic respiratory failure Elevated troponin History of COVID-19 pneumonia History of COPD Plan: Broad-spectrum IV antibiotics with Rocephin and Zithromax him a condition changed to simple Zithromax to complete 7-10 day therapy Bronchodilators IV steroids, can be switched to oral at time of discharge Supplemental oxygen with slow tapering patient can be safely turned down to 2-4 L oxygen HEENT saturation around 90% and above Follow up radiographic studies the outpatient Further plan of care and recommendation as per clinical response of the patient Patient will need cardiac cath and angiogram cardiovascular services following Time with Patient: Greater than 30
[2021-04-30] MEDS: ASPIRIN 81 MG PO SCH (09:10)
[2021-04-30] MEDS: AZITHROMYCIN 500 MG in SODIUM CHLORIDE 0.9% 250 ML IVPB SCH (09:10)
[2021-04-30] MEDS: lisinopriL 5 MG TAB PO SCH ×2 (09:10→21:32)
[2021-04-30] MEDS: DOXYCYCLINE 100 MG CAP PO SCH ×2 (09:10→21:32)
[2021-04-30] MEDS: FUROSEMIDE 10 MG/ML 4 ML VIAL IV SCH ×2 (09:11→21:32)
[2021-04-30] MEDS: methylPREDNISolone SOD SUCCI 40 MG/ML 1 ML VIAL IV SCH ×2 (09:11→21:33)
[2021-04-30] MEDS: METOPROLOL SUCCINATE (ER) 25 MG TAB.ER.24H PO SCH ×2 (09:11→21:32)
[2021-04-30] MEDS: ARTIFICIAL TEARS-HYPROMELLOSE DROPS 15 ML BTL BOTH EYES SCH ×3 (09:11→21:33)
[2021-04-30] MEDS: DICLOFENAC SODIUM GEL 100 GM TUBE TOPICAL SCH ×2 (09:11→21:31)
[2021-04-30] MEDS: FLUTICASONE 50MCG/SPRAY NASAL 16GM EA NOSTRIL SCH (09:12)
[2021-04-30] MEDS: OXYMETAZOLINE 0.05% NASL SPRAY 1 SPRAY BOTTLE NASAL SCH ×2 (09:12→21:33)
[2021-04-30 10:04] LABS: African American GFR (CKD) 105.5 (60.0-200.0); Anion Gap 12.4 mmol/L (10.00-18.00); BUN/Creat Ratio 30.86 Ratio (12.00-20.00); Blood Urea Nitrogen 21.6 mg/dL (9.0-27.0); Calcium 8.6 mg/dL (8.7-10.3); Carbon Dioxide 34.6 mmol/L (20.0-27.5); Potassium 3.9 mmol/L (3.5-5.5)
[2021-04-30 12:01] LABS: Glucose,Whole Blood 169 mg/dL (75-99)
[2021-04-30] MEDS: FOLIC ACID 1 MG TAB PO SCH (12:19)
[2021-04-30] MEDS: THIAMINE 100 MG TAB PO SCH (12:19)
[2021-04-30] MEDS: MULTIVITAMINS, THERA 1 EACH TAB PO SCH (12:19)
--- NOTE | 2021-04-30 12:42 | P.PN ---
Progress Note - Text Progress Note Date: 04/30/21 The patient is a very pleasant 75-year-old gentleman with hypertension and dyslipidemia who was admitted to the hospital with shortness of breath and ruled in for acute coronary syndrome. The acute coronary syndrome was treated medically. The patient was also experiencing exacerbation of asthma/COPD as well as he does have underlying pneumonia. He underwent an echo which showed cardiomyopathy as well. The patient was started yesterday on Lasix IV because we felt he was in heart failure. He was seen this morning. He stated "I feel better". On examination he does have bilateral lower extremities edema and crackles/decreased breathing sounds in both lung gallegos. We advised continue the IV Lasix for additional 24 hours and continue monitor the kidney function as well as electrolytes. He is on antiplatelet which we will continue. Beside that we would consider up titrating his anti-ischemic medications as well as cardiomyopathy medications and also add Plavix to the current medical regimen in the next 24-48 hours. We'll continue following up with
[2021-04-30 13:54] VITALS: BMI 21.3
--- NOTE | 2021-04-30 14:29 | P.PN ---
Subjective Progress Note Date: 04/30/21 This is a 75 year old male who was recently admitted with acute bilateral pneumonia left more than right with possible community-acquired and also gram- negative pneumonia with possible sepsis and is being closely monitored. cardiology following and patient is maintained on Lasix along with IV heparin and will continue. Chest x-ray today shows no change in the mild to moderate diffuse interstitial infiltrates and worsening of the infiltrate in the retrocardiac opacity consistent with atelectasis or alveolar infiltrate area did patient continues on 6 L of oxygen via nasal cannula and states he feels his breathing is somewhat improved although maintaining 90% on 6 L. Patient is extremely weak and will have PT/OT evaluate the patient. Pulmonary is also following the patient is maintained on antibiotics along with breathing inhalational treatments and will continue. 04/28/2021 Patient is seen this morning and continues with shortness of breath and being followed by cardiology and pulmonary Dr. Ram. Patient continues on 6L via NC and states his breathing is improving slowly. Patient continued on bronchodilators and will continue. Patient also continues on IV heparin and cardiology following and recommending to continue for now. Patient potassium is 2.7 and will continue to replace and repeat labs later this afternoon. Recommend follow up labs in the am as well. Patient having some congestion and continues to blow his nose and is having a mild nose bleed. Encouraged the patient to avoid excessive blowing of nose and will add afrin. Patient is on IV heparin. No reports of chest pain or palpitations. 04/29/2021 Patient is seen in follow up this morning and continues with shortness of breath and weakness although feels is improving. Cardiology following for CHF and patient to continue on IV lasix and will follow up with repeat am labs to monitor electrolytes and kidney functions. IV heparin being discontinued. Dr. Ram also following and will decrease IV steroids and continue with breathing treatments. Patient is tolerating diet with no vomiting noted. PT to reevaluate the patient and work with for continued weakness. Continue on 6L via NC and wean as tolerated. Continue electrolyte replacement per protocol. 04/30/2021 Patient is evaluated today sitting at the bedside asking if he can go home. Patient remains on IV Lasix and discuss with cardiology recommending continuing IV Lasix for 24 more hours and reevaluation along with labs in the morning. Patient is also on [address] Ram pulmonary following closely. Patient has not had oxygen in the outpatient setting prior to admission. Case management following and [facility]. Patient was also continued on Zithromax and ceftriaxone along with doxycycline and will continue. Patient is also on IV steroids along with breathing inhalational treatments. Patient denies any worsening shortness of breath or chest pains. Patient is afebrile. Review of systems: Constitutional: No reports of fatigue,no reports of fever, or chills Cardiovascular: No reports of chest pain or palpitations Respiratory: reports of shortness of breath although feels is improved GI: No reports of nausea, vomiting, or diarrhea : No reports of dysuria or retention Neurovascular: no reports of weakness All medications have been reviewed Active Medications Hydrocodone Bitart/Acetaminophen (Hydrocodone/Apap 5-325mg 1 Each Tab) 1 each PO Q6HR PRN PRN Reason: Pain Albuterol/Ipratropium (Ipratropium-Albuterol 3 Ml Neb) 3 ml INHALATION RT-Q4H PRN PRN Reason: Shortness Of Breath Or Wheezing Albuterol/Ipratropium (Ipratropium-Albuterol 3 Ml Neb) 3 ml INHALATION RT-QID [facility] Last Admin: 04/30/21 11:13 Dose: 3 ml Documented by: Alprazolam (Alprazolam 0.25 Mg Tab) 0.25 mg PO TID PRN PRN Reason: Anxiety Artificial Tears (Artificial Tears-Hypromellose Drops 15 Ml Btl) 1 drops BOTH EYES TID [facility] Last Admin: 04/30/21 12:19 Dose: Not Given Documented by: Aspirin (Aspirin 81 Mg) 81 mg PO DAILY [facility] Last Admin: 04/30/21 09:10 Dose: 81 mg Documented by: Budesonide (Budesonide 1 Mg/2 Ml Nebu) 1 mg INHALATION RT-BID [facility] Last Admin: 04/30/21 07:33 Dose: 1 mg Documented by: Diclofenac Sodium (Diclofenac Sodium Gel 100 Gm Tube) 1 gm TOPICAL BID [facility] Last Admin: 04/30/21 09:11 Dose: Not Given Documented by: Doxycycline Monohydrate (Doxycycline 100 Mg Cap) 100 mg PO BID [facility] Last Admin: 04/30/21 09:10 Dose: 100 mg Documented by: Finasteride (Finasteride 5 Mg Tab) 5 mg PO HS [facility] Last Admin: 04/29/21 21:53 Dose: 5 mg Documented by: Fluticasone Propionate (Fluticasone 50mcg/Darby Nasal 16gm) 2 spray EA NOSTRIL DAILY [facility] Last Admin: 04/30/21 09:12 Dose: Not Given Documented by: Folic Acid (Folic Acid 1 Mg Tab) 1 mg PO DAILY@1200 [facility] Last Admin: 04/30/21 12:19 Dose: 1 mg Documented by: Formoterol Fumarate (Formoterol Fumarate 20 Mcg/2 Ml Nebu) 20 mcg INHALATION RT-BID [facility] Last Admin: 04/30/21 07:33 Dose: 20 mcg Documented by: Furosemide (Furosemide 10 Mg/Ml 4 Ml Vial) 40 mg IV Q12HR [facility] Last Admin: 04/30/21 09:11 Dose: 40 mg Documented by: Ceftriaxone Sodium 1 gm/ (Sodium Chloride) 50 mls @ 100 mls/hr IVPB Q24HR [facility] Last Admin: 04/30/21 11:01 Dose: 100 mls/hr Documented by: Azithromycin 500 mg/ Sodium (Chloride) 250 mls @ 250 mls/hr IVPB DAILY [facility] Last Admin: 04/30/21 09:10 Dose: 250 mls/hr Documented by: Insulin Aspart (Insulin Aspart (Novolog) 100 Unit/Ml Vial) 0 unit SQ ACHS [facility]; Protocol Last Admin: 04/30/21 12:19 Dose: 2 unit Documented by: Lisinopril (Lisinopril 5 Mg Tab) 5 mg PO BID [facility] Last Admin: 04/30/21 09:10 Dose: 5 mg Documented by: Loratadine (Loratadine 10 Mg Tab) 10 mg PO DAILY PRN PRN Reason: Allergy Symptoms Meloxicam (Meloxicam 7.5 Mg Tab) 7.5 mg PO DAILY PRN PRN Reason: Pain Last Admin: 04/28/21 09:47 Dose: 7.5 mg Documented by: Methylprednisolone Sodium Succinate (Methylprednisolone Sod Succi 40 Mg/Ml 1 Ml Vial) 40 mg IV BID [facility] Last Admin: 04/30/21 09:11 Dose: 40 mg Documented by: Metoprolol Succinate (Metoprolol Succinate (Er) 25 Mg Tab.Er.24h) 25 mg PO BID [facility] Last Admin: 04/30/21 09:11 Dose: 25 mg Documented by: Miscellaneous Information (Potassium Replacement Protocol 1 Each Misc) 1 each MISCELLANE DAILY PRN; Protocol PRN Reason: Per Protocol Multivitamins (Multivitamins, Thera 1 Each Tab) 1 each PO DAILY@1200 [facility] Last Admin: 04/30/21 12:19 Dose: 1 each Documented by: Oxymetazoline HCl (Oxymetazoline 0.05% Nasl Darby 1 Darby Bottle) 2 spray NASAL BID [facility] Last Admin: 04/30/21 09:12 Dose: 2 spray Documented by: Pravastatin Sodium (Pravastatin Sodium 80 Mg Tab) 80 mg PO HS [facility] Last Admin: 04/29/21 21:53 Dose: 80 mg Documented by: Thiamine HCl (Thiamine 100 Mg Tab) 100 mg PO DAILY@1200 [facility] Last Admin: 04/30/21 12:19 Dose: 100 mg Documented by: Physical exam: Gen: This is a 75-year-old male awake, alert and oriented 3, well-developed, well-nourished, ill appearing. on 4 L via nasal cannula HEENT: Head is atraumatic, normocephalic. Pupils equal, round. Sclerae is anicteric. left nare nose bleed as patient is blowing nose currently on exam NECK: Supple. No JVD. No lymphadenopathy. No thyromegaly. LUNGS: Diminished breath sounds bilaterally with some crackles at the bases and rhonchi noted.. No intercostal retractions. HEART: S1, S2 are muffled. ABDOMEN: Soft. Bowel sounds are present. No masses. No tenderness. EXTREMITIES: No pedal edema. No calf tenderness. NEUROLOGICAL: Patient is awake, alert and oriented x3. no focal deficits. di ffusely weak Assessment: Acute bilateral pneumonia left more than right possibly community-acquired, with possible gram-negative sepsis with acute hypoxic respiratory failure, present on admission Asthma, chronic obstructive pulmonary disease acute exacerbation, present on admission congestive heart failure acute exacerbation acute on chronic systolic dysfunction, ejection fraction 35-40% mild epistaxis, resolved Increased WBC Hyponatremia Elevated random glucose Elevated bilirubin, AST, ALT possibly hepatitis of undetermined etiology Troponin 1.170, possible type II myocardial infarction Hypertension History of prostate disorder history of appendectomy History back surgery, degenerative joint disease Full code Plan: Recommend to continue current medications and management. Cardiology following the patient and patient maintained on IV Lasix. discussed with cardiology and would like to continue with the patient on 24 more hours of IV Lasix and follow- up labs and evaluation. Patient also continues with IV steroids, IV ceftriaxone and Zithromax along with doxycycline. Pulmonary Dr. Ram following as well. she currently on 4 L via nasal cannula and discuss with nursing staff about weaning FiO2 as tolerated and case management following [facility] as this is new this admission. Continue with breathing inhalational treatments as well. Repeat am labs. Due to multiple complex medical issues, prognosis is guarded. possible discharge in 24-48 hours. Objective - Vital Signs Vital signs: Vital Signs Temp 98.0 F 04/30/21 05:00 Pulse 92 04/30/21 07:54 Resp 18 04/30/21 05:00 BP 160/93 04/30/21 05:00 Pulse Ox 100 04/30/21 05:00 Intake & Output 04/29/21 04/30/21 04/30/21 18:59 06:59 18:59 Weight 65.5 kg Other: Voiding Method Urinal Urinal Diaper # Bowel Movements 1 - Labs CBC & Chem 7: 04/29/21 06:22 04/30/21 05:22 Labs: Abnormal Lab Results - Last 24 Hours (Table) 04/29/21 04/29/21 04/29/21 Range/Units 12:39 17:26 21:00 POC Glucose (mg/dL) 144 H 203 H 205 H (75-99) mg/dL 04/30/21 Range/Units 07:23 POC Glucose (mg/dL) 139 H (75-99) mg/dL Microbiology - Last 24 Hours (Table) 04/25/21 10:55 Blood Culture - Preliminary Blood No Growth after 96 hours 04/25/21 11:10 Blood Culture - Preliminary Blood No Growth after 96 hours
[2021-04-30 17:45] LABS: Glucose,Whole Blood 181 mg/dL (75-99)
[2021-04-30 20:13] LABS: Glucose,Whole Blood 163 mg/dL (75-99)
[2021-04-30] MEDS: FINASTERIDE 5 MG TAB PO SCH (21:32)
[2021-04-30] MEDS: PRAVASTATIN SODIUM 80 MG TAB PO SCH (21:32)
[2021-05-01 07:28] LABS: Glucose,Whole Blood 167 mg/dL (75-99)
[2021-05-01] MEDS: BUDESONIDE 1 MG/2 ML NEBU INHALATION SCH ×2 (07:46→20:18)
[2021-05-01] MEDS: FORMOTEROL FUMARATE 20 MCG/2 ML NEBU INHALATION SCH ×2 (07:46→20:18)
[2021-05-01] MEDS: IPRATROPIUM-ALBUTEROL 3 ML NEB INHALATION SCH ×4 (07:47→20:18)
[2021-05-01] MEDS: METOPROLOL SUCCINATE (ER) 25 MG TAB.ER.24H PO SCH (07:56)
[2021-05-01] MEDS: INSULIN ASPART (NovoLOG) 100 UNIT/ML VIAL SQ SCH ×4 (07:56→21:12)
[2021-05-01] MEDS: AZITHROMYCIN 500 MG in SODIUM CHLORIDE 0.9% 250 ML IVPB SCH (07:56)
[2021-05-01] MEDS: lisinopriL 5 MG TAB PO SCH ×2 (07:57→21:12)
[2021-05-01] MEDS: ASPIRIN 81 MG PO SCH (07:57)
[2021-05-01] MEDS: FOLIC ACID 1 MG TAB PO SCH (07:57)
[2021-05-01] MEDS: MULTIVITAMINS, THERA 1 EACH TAB PO SCH (07:57)
[2021-05-01] MEDS: methylPREDNISolone SOD SUCCI 40 MG/ML 1 ML VIAL IV SCH ×2 (07:57→21:12)
[2021-05-01] MEDS: FUROSEMIDE 10 MG/ML 4 ML VIAL IV SCH ×2 (07:57→21:11)
[2021-05-01] MEDS: OXYMETAZOLINE 0.05% NASL SPRAY 1 SPRAY BOTTLE NASAL SCH ×2 (07:58→21:31)
[2021-05-01] MEDS: FLUTICASONE 50MCG/SPRAY NASAL 16GM EA NOSTRIL SCH (07:58)
[2021-05-01] MEDS: DICLOFENAC SODIUM GEL 100 GM TUBE TOPICAL SCH ×2 (07:58→21:11)
[2021-05-01] MEDS: ARTIFICIAL TEARS-HYPROMELLOSE DROPS 15 ML BTL BOTH EYES SCH ×3 (07:58→21:13)
[2021-05-01] MEDS: DOXYCYCLINE 100 MG CAP PO SCH ×2 (07:58→21:11)
[2021-05-01 12:37] LABS: Glucose,Whole Blood 165 mg/dL (75-99)
[2021-05-01] MEDS: THIAMINE 100 MG TAB PO SCH (13:34)
[2021-05-01 15:28] LABS: African American GFR (CKD) >90 (>60 ml/min/1.73 sqM); Blood Urea Nitrogen 35 mg/dL (9-20); Calcium 8.6 mg/dL (8.4-10.2); Chloride 90 mmol/L (98-107); Glucose 272 mg/dL (74-99); Non-African American GFR(CKD) 90 (>60 ml/min/1.73 sqM); Sodium 137 mmol/L (137-145)
[2021-05-01 15:35] LABS: Anion Gap 6 mmol/L
[2021-05-01 15:36] LABS: Carbon Dioxide 41 mmol/L (22-30)
--- NOTE | 2021-05-01 15:50 | P.PN ---
Subjective Progress Note Date: 05/01/21 Principal diagnosis: Acute coronary syndrome/heart failure The patient is a 75-year-old gentleman who was admitted to the hospital with acute coronary syndrome complicated by heart failure. He was seen this morning. He remains not having any symptoms of chest pain or chest discomfort and he stated that the shortness of breath has improved. On examination he continues to have diminished breathing sounds bilaterally and crackles are better overall. He does have mild bilateral lower except his edema. He continues to be hypertensive and tachycardic. I'm going to increase the dose of Toprol-XL along with continue IV Lasix for additional 24 hours and add Plavix to the current medical regimen. Objective - Vital Signs Vital signs: Vital Signs Temp 97.4 F L 05/01/21 12:32 Pulse 87 05/01/21 12:32 Resp 16 05/01/21 12:32 BP 152/81 05/01/21 12:32 Pulse Ox 95 05/01/21 12:32 Intake & Output 04/30/21 05/01/21 05/01/21 18:59 06:59 18:59 Output Total 300 Balance -300 Weight 65.5 kg 66 kg Output: Urine 300 Other: Voiding Method Urinal Diaper - Constitutional General appearance: Present: no acute distress - Respiratory Respiratory: bilateral: diminished - Cardiovascular Rhythm: regular Heart sounds: normal: S1, S2 - Labs CBC & Chem 7: 04/29/21 06:22 05/01/21 14:57 Labs: Abnormal Lab Results - Last 24 Hours (Table) 04/30/21 04/30/21 05/01/21 Range/Units 17:43 20:11 07:25 Chloride (98-107) mmol/L Carbon Dioxide (22-30) mmol/L BUN (9-20) mg/dL Glucose (74-99) mg/dL POC Glucose (mg/dL) 181 H 163 H 167 H (75-99) mg/dL 05/01/21 05/01/21 Range/Units 12:29 14:57 Chloride 90 L (98-107) mmol/L Carbon Dioxide 41 H* (22-30) mmol/L BUN 35 H (9-20) mg/dL Glucose 272 H (74-99) mg/dL POC Glucose (mg/dL) 165 H (75-99) mg/dL Microbiology - Last 24 Hours (Table) 04/25/21 11:10 Blood Culture - Final Blood No Growth after 144 hours 04/25/21 10:55 Blood Culture - Final Blood No Growth after 144 hours Assessment and Plan Assessment: Assessment #1 acute non-ST deviation myocardial infarction #2 heart failure exacerbation related to heart failure with reduced ejection fraction #3 cardiomyopathy, ischemic #4 multiple comorbid conditions Plan #1 increase the dose of Toprol-XL #2 continue IV Lasix for additional 24 hours #3 add Plavix to current medical regimen
--- NOTE | 2021-05-01 16:28 | P.PN ---
Subjective Progress Note Date: 05/01/21 This is a 75 year old male who was recently admitted with acute bilateral pneumonia left more than right with possible community-acquired and also gram- negative pneumonia with possible sepsis and is being closely monitored. cardiology following and patient is maintained on Lasix along with IV heparin and will continue. Chest x-ray today shows no change in the mild to moderate diffuse interstitial infiltrates and worsening of the infiltrate in the retrocardiac opacity consistent with atelectasis or alveolar infiltrate area did patient continues on 6 L of oxygen via nasal cannula and states he feels his breathing is somewhat improved although maintaining 90% on 6 L. Patient is extremely weak and will have PT/OT evaluate the patient. Pulmonary is also following the patient is maintained on antibiotics along with breathing inhalational treatments and will continue. 04/28/2021 Patient is seen this morning and continues with shortness of breath and being followed by cardiology and pulmonary Dr. Ram. Patient continues on 6L via NC and states his breathing is improving slowly. Patient continued on bronchodilators and will continue. Patient also continues on IV heparin and cardiology following and recommending to continue for now. Patient potassium is 2.7 and will continue to replace and repeat labs later this afternoon. Recommend follow up labs in the am as well. Patient having some congestion and continues to blow his nose and is having a mild nose bleed. Encouraged the patient to avoid excessive blowing of nose and will add afrin. Patient is on IV heparin. No reports of chest pain or palpitations. 04/29/2021 Patient is seen in follow up this morning and continues with shortness of breath and weakness although feels is improving. Cardiology following for CHF and patient to continue on IV lasix and will follow up with repeat am labs to monitor electrolytes and kidney functions. IV heparin being discontinued. Dr. Ram also following and will decrease IV steroids and continue with breathing treatments. Patient is tolerating diet with no vomiting noted. PT to reevaluate the patient and work with for continued weakness. Continue on 6L via NC and wean as tolerated. Continue electrolyte replacement per protocol. 04/30/2021 Patient is evaluated today sitting at the bedside asking if he can go home. Patient remains on IV Lasix and discuss with cardiology recommending continuing IV Lasix for 24 more hours and reevaluation along with labs in the morning. Patient is also on [address] Ram pulmonary following closely. Patient has not had oxygen in the outpatient setting prior to admission. Case management following and arranging through the [place] for oxygen in the outpatient setting. Patient was also continued on Zithromax and ceftriaxone along with doxycycline and will continue. Patient is also on IV steroids along with breathing inhalational treatments. Patient denies any worsening shortness of breath or chest pains. Patient is afebrile. 05/01/2021 Patient is seen in follow-up continues on 4 L via nasal cannula and case management working [facility] Cardiology and pulmonary following and patient is continued on IV steroids along with IV Lasix and cardiology evaluated the patient recommending an additional 24 hours with close monitoring of IV Lasix and follow-up with repeat labs tomorrow. Patient continues to request to go home although agreeable to one more day. Patient will need a prednisone taper on discharge. Review of systems: Constitutional: No reports of fatigue,no reports of fever, or chills Cardiovascular: No reports of chest pain or palpitations Respiratory: reports of shortness of breath although feels is improved GI: No reports of nausea, vomiting, or diarrhea : No reports of dysuria or retention Neurovascular: no reports of weakness All medications have been reviewed Active Medications Hydrocodone Bitart/Acetaminophen (Hydrocodone/Apap 5-325mg 1 Each Tab) 1 each PO Q6HR PRN PRN Reason: Pain Albuterol/Ipratropium (Ipratropium-Albuterol 3 Ml Neb) 3 ml INHALATION RT-Q4H PRN PRN Reason: Shortness Of Breath Or Wheezing Albuterol/Ipratropium (Ipratropium-Albuterol 3 Ml Neb) 3 ml INHALATION RT-QID PENDING SALE TO [facility] Last Admin: 05/01/21 16:00 Dose: 3 ml Documented by: Alprazolam (Alprazolam 0.25 Mg Tab) 0.25 mg PO TID PRN PRN Reason: Anxiety Artificial Tears (Artificial Tears-Hypromellose Drops 15 Ml Btl) 1 drops BOTH EYES TID PENDING SALE TO [facility] Last Admin: 05/01/21 11:50 Dose: Not Given Documented by: Aspirin (Aspirin 81 Mg) 81 mg PO DAILY PENDING SALE TO [facility] Last Admin: 05/01/21 07:57 Dose: 81 mg Documented by: Budesonide (Budesonide 1 Mg/2 Ml Nebu) 1 mg INHALATION RT-BID PENDING SALE TO [facility] Last Admin: 05/01/21 07:46 Dose: 1 mg Documented by: Clopidogrel Bisulfate (Clopidogrel 75 Mg Tab) 75 mg PO DAILY PENDING SALE TO [facility] Diclofenac Sodium (Diclofenac Sodium Gel 100 Gm Tube) 1 gm TOPICAL BID PENDING SALE TO [facility] Last Admin: 05/01/21 07:58 Dose: Not Given Documented by: Doxycycline Monohydrate (Doxycycline 100 Mg Cap) 100 mg PO BID PENDING SALE TO [facility] Last Admin: 05/01/21 07:58 Dose: 100 mg Documented by: Finasteride (Finasteride 5 Mg Tab) 5 mg PO HS PENDING SALE TO [facility] Last Admin: 04/30/21 21:32 Dose: 5 mg Documented by: Fluticasone Propionate (Fluticasone 50mcg/[place] Nasal 16gm) 2 spray EA NOSTRIL DAILY PENDING SALE TO [facility] Last Admin: 05/01/21 07:58 Dose: Not Given Documented by: Folic Acid (Folic Acid 1 Mg Tab) 1 mg PO DAILY@1200 PENDING SALE TO [facility] Last Admin: 05/01/21 07:57 Dose: 1 mg Documented by: Formoterol Fumarate (Formoterol Fumarate 20 Mcg/2 Ml Nebu) 20 mcg INHALATION RT-BID PENDING SALE TO [facility] Last Admin: 05/01/21 07:46 Dose: 20 mcg Documented by: Furosemide (Furosemide 10 Mg/Ml 4 Ml Vial) 40 mg IV Q12HR PENDING SALE TO [facility] Last Admin: 05/01/21 07:57 Dose: 40 mg Documented by: Ceftriaxone Sodium 1 gm/ (Sodium Chloride) 50 mls @ 100 mls/hr IVPB Q24HR PENDING SALE TO [facility] Last Admin: 05/01/21 10:06 Dose: 100 mls/hr Documented by: Azithromycin 500 mg/ Sodium (Chloride) 250 mls @ 250 mls/hr IVPB DAILY PENDING SALE TO [facility] Last Admin: 05/01/21 07:56 Dose: 250 mls/hr Documented by: Insulin Aspart (Insulin Aspart (Novolog) 100 Unit/Ml Vial) 0 unit SQ ACHS PENDING SALE TO [facility]; Protocol Last Admin: 05/01/21 13:33 Dose: 1 unit Documented by: Lisinopril (Lisinopril 5 Mg Tab) 5 mg PO BID PENDING SALE TO [facility] Last Admin: 05/01/21 07:57 Dose: 5 mg Documented by: Loratadine (Loratadine 10 Mg Tab) 10 mg PO DAILY PRN PRN Reason: Allergy Symptoms Meloxicam (Meloxicam 7.5 Mg Tab) 7.5 mg PO DAILY PRN PRN Reason: Pain Last Admin: 04/28/21 09:47 Dose: 7.5 mg Documented by: Methylprednisolone Sodium Succinate (Methylprednisolone Sod Succi 40 Mg/Ml 1 Ml Vial) 40 mg IV BID PENDING SALE TO [facility] Last Admin: 05/01/21 07:57 Dose: 40 mg Documented by: Metoprolol Succinate (Metoprolol Succinate (Er) 50 Mg Tab.Er.24h) 50 mg PO BID PENDING SALE TO [facility] Miscellaneous Information (Potassium Replacement Protocol 1 Each Misc) 1 each MISCELLANE DAILY PRN; Protocol PRN Reason: Per Protocol Multivitamins (Multivitamins, Thera 1 Each Tab) 1 each PO DAILY@1200 PENDING SALE TO [facility] Last Admin: 05/01/21 07:57 Dose: 1 each Documented by: Oxymetazoline HCl (Oxymetazoline 0.05% Nasl [place] 1 [place] Bottle) 2 spray NASAL BID PENDING SALE TO [facility] Last Admin: 05/01/21 07:58 Dose: 2 spray Documented by: Pravastatin Sodium (Pravastatin Sodium 80 Mg Tab) 80 mg PO HS PENDING SALE TO [facility] Last Admin: 04/30/21 21:32 Dose: 80 mg Documented by: Thiamine HCl (Thiamine 100 Mg Tab) 100 mg PO DAILY@1200 PENDING SALE TO [facility] Last Admin: 05/01/21 13:34 Dose: 100 mg Documented by: Physical exam: Gen: This is a 75-year-old male awake, alert and oriented 3, well-developed, well-nourished, ill appearing. on 4 L via nasal cannula HEENT: Head is atraumatic, normocephalic. Pupils equal, round. Sclerae is anicteric. left nare nose bleed as patient is blowing nose currently on exam NECK: Supple. No JVD. No lymphadenopathy. No thyromegaly. LUNGS: Diminished breath sounds bilaterally with some crackles at the bases and rhonchi noted.. No intercostal retractions. HEART: S1, S2 are muffled. ABDOMEN: Soft. Bowel sounds are present. No masses. No tenderness. EXTREMITIES: No pedal edema. No calf tenderness. NEUROLOGICAL: Patient is awake, alert and oriented x3. no focal deficits. diffusely weak Assessment: Acute bilateral pneumonia left more than right possibly community-acquired, with possible gram-negative sepsis with acute hypoxic respiratory failure, present on admission Asthma, chronic obstructive pulmonary disease acute exacerbation, present on admission congestive heart failure acute exacerbation acute on chronic systolic dysfunction, ejection fraction 35-40% mild epistaxis, resolved Increased WBC Hyponatremia Elevated random glucose Elevated bilirubin, AST, ALT possibly hepatitis of undetermined etiology Troponin 1.170, possible type II myocardial infarction Hypertension History of prostate disorder history of appendectomy History back surgery, degenerative joint disease Full code Plan: Recommend to continue current medications and management. Cardiology following the patient and patient maintained on IV Lasix. discussed with cardiology and would like to continue with the patient on 24 more hours of IV Lasix and follow-up labs and evaluation. Patient also continues with IV steroids, IV ceftriaxone and Zithromax along with doxycycline. Pulmonary Dr. Ram following as well. Patient is currently on 4 L via nasal cannula and discuss with nursing staff about weaning FiO2 as tolerated and case management following [facility] this is [facility] this [facility]. Continue with breathing inhalational treatments as well. Repeat am labs. Due to multiple complex medical issues, prognosis is guarded. possible discharge in 24 hours. Objective - Vital Signs Vital signs: Vital Signs Temp 98.1 F 05/01/21 04:36 Pulse 92 05/01/21 08:09 Resp 18 05/01/21 04:36 BP 132/84 05/01/21 08:00 Pulse Ox 95 05/01/21 04:36 Intake & Output 04/30/21 05/01/21 05/01/21 18:59 06:59 18:59 Weight 65.5 kg 66 kg Other: Voiding Method Urinal Diaper - Labs CBC & Chem 7: 04/29/21 06:22 05/01/21 14:57 Labs: Abnormal Lab Results - Last 24 Hours (Table) 04/30/21 04/30/21 04/30/21 Range/Units 05:22 11:59 17:43 Carbon Dioxide 34.6 H (20.0-27.5) mmol/L BUN/Creatinine Ratio 30.86 H (12.00-20.00) Ratio Glucose 171 H (70-110) mg/dL POC Glucose (mg/dL) 169 H 181 H (75-99) mg/dL Calcium 8.6 L (8.7-10.3) mg/dL 04/30/21 05/01/21 Range/Units 20:11 07:25 Carbon Dioxide (20.0-27.5) mmol/L BUN/Creatinine Ratio (12.00-20.00) Ratio Glucose (70-110) mg/dL POC Glucose (mg/dL) 163 H 167 H (75-99) mg/dL Calcium (8.7-10.3) mg/dL Microbiology - Last 24 Hours (Table) 04/25/21 11:10 Blood Culture - Preliminary Blood No Growth after 120 hours 04/25/21 10:55 Blood Culture - Preliminary Blood No Growth after 120 hours
[2021-05-01 17:50] LABS: Glucose,Whole Blood 198 mg/dL (75-99)
[2021-05-01 20:10] VITALS: RESP 18
[2021-05-01 20:19] LABS: Glucose,Whole Blood 201 mg/dL (75-99)
[2021-05-01] MEDS: FINASTERIDE 5 MG TAB PO SCH (21:11)
[2021-05-01] MEDS: METOPROLOL SUCCINATE (ER) 50 MG TAB.ER.24H PO SCH (21:12)
[2021-05-01] MEDS: PRAVASTATIN SODIUM 80 MG TAB PO SCH (21:13)
[2021-05-02 07:27] LABS: Glucose,Whole Blood 170 mg/dL (75-99)
[2021-05-02] MEDS: BUDESONIDE 1 MG/2 ML NEBU INHALATION SCH ×2 (08:21→20:00)
[2021-05-02] MEDS: IPRATROPIUM-ALBUTEROL 3 ML NEB INHALATION SCH ×4 (08:21→20:00)
[2021-05-02] MEDS: FORMOTEROL FUMARATE 20 MCG/2 ML NEBU INHALATION SCH ×2 (08:21→20:00)
[2021-05-02] MEDS: INSULIN ASPART (NovoLOG) 100 UNIT/ML VIAL SQ SCH ×3 (08:40→17:39)
[2021-05-02] MEDS: MULTIVITAMINS, THERA 1 EACH TAB PO SCH (08:42)
[2021-05-02] MEDS: THIAMINE 100 MG TAB PO SCH (08:42)
[2021-05-02] MEDS: FOLIC ACID 1 MG TAB PO SCH (08:42)
[2021-05-02] MEDS: lisinopriL 5 MG TAB PO SCH (08:42)
[2021-05-02] MEDS: ASPIRIN 81 MG PO SCH (08:42)
[2021-05-02] MEDS: METOPROLOL SUCCINATE (ER) 50 MG TAB.ER.24H PO SCH (08:42)
[2021-05-02] MEDS: OXYMETAZOLINE 0.05% NASL SPRAY 1 SPRAY BOTTLE NASAL SCH (08:43)
[2021-05-02] MEDS: methylPREDNISolone SOD SUCCI 40 MG/ML 1 ML VIAL IV SCH (08:43)
[2021-05-02] MEDS: DICLOFENAC SODIUM GEL 100 GM TUBE TOPICAL SCH (08:44)
[2021-05-02] MEDS: ARTIFICIAL TEARS-HYPROMELLOSE DROPS 15 ML BTL BOTH EYES SCH ×2 (08:44→16:36)
[2021-05-02] MEDS: FUROSEMIDE 10 MG/ML 4 ML VIAL IV SCH (08:45)
[2021-05-02] MEDS: FLUTICASONE 50MCG/SPRAY NASAL 16GM EA NOSTRIL SCH (08:45)
[2021-05-02] MEDS: DOXYCYCLINE 100 MG CAP PO SCH (08:45)
[2021-05-02] MEDS ORDERED: CLOPIDOGREL 75 MG TAB PO SCH (09:00)
--- NOTE | 2021-05-02 09:52 | P.PN ---
Subjective Progress Note Date: 05/01/21 Principal diagnosis: Left lower lobe community-acquired pneumonia also involving the right lower lobe Mass like process of the left lower lobe cannot be excluded, patient will need further radiographs to document resolution in 8-12 weeks Acute hypoxic respiratory failure Elevated troponin History of COVID-19 pneumonia History of COPD 05/01/2021, patient seen and evaluated examined remains on 4 L nasal cannula oxygen slowly being Titrated down, patient remains on IV steroids breathing treatment and IV diuretics, respiratory status continued to improve, once ready for discharge can be switched to oral 04/30/2021, patient seen eval examined during the rounds labs reviewed medications reviewed, respiratory rate remained stable in low 20s, patient has been ambulating, remains on 6 L oxygen, oxygen saturation 100%, blood pressure 160/93 respiratory 18 pulse 89 temperature 90.8, 04/29/2021, patient seen eval examined during the rounds labs reviewed medications reviewed care plan discussed, respiratory status remains stable, however still cough congestion shortness of breath going on but severity has improved patient remains on 6 L nasal cannula, afebrile with stable hemodynamics respiratory rate is 20, saturation 95%, labs reviewed potassium is 3.9 improved significantly as well chemistry is stable BUN/creatinine 25/.64 recommend to titrate oxygen down to bring it to 3 or 2 L 04/28/2021, patient seen eval examined during the rounds labs reviewed medicatio ns reviewed care plan discussed, patient remains on 6 L oxygen, oxygen saturation is 96%, labs reviewed sodium is 140 potassium is 2.4 BUN/creatinine 25/0.84, glucose 224, currently patient remains on bronchodilators and antibiotics Zithromax and Rocephin, heparin drip, and Solu-Medrol 60 IV every 6, patient is still complaining of shortness of breath and intermittent wheezing Patient is a 75-year-old with a remote history of smoking prior history of COPD lately have been more short of breath congested recently seen in the office for the first time preliminary workup including PFTs labs and x-rays have been ordered, patient was complaining of shortness of breath and was hypoxic patient has recently placed on home oxygen, chest for the last 2 days started getting more shortness of breath cough congestion and fever up to 101, patient has not vaccinated for COVID-19 pneumonia, prior history of asthma hypertension prostate problem enlargement, on arrival patient was tachypneic. Cardiac with low oxygen saturation of 90% blood pressure was 122/73, heart rate is 120, respiratory rate 20,Shortness breath patient is a 75-year-old male with the history of hypoxic, patient does have a history of Crohn enteritis pneumonia infection before she this admission white cell count 70,700 hemoglobin and hematocrit is 24/7.7 to hemoglobin is 18, influenza A and B both negative: Negative, troponin elevated 1.1, computed tomography scan of the chest negative for pulmonary embolism however masslike consolidation left lower lobe is present consistent with focal pneumonia she infiltrated right lower lobe Objective - Vital Signs Vital signs: Vital Signs Temp 97.4 F L 05/01/21 12:32 Pulse 92 05/01/21 16:11 Resp 16 05/01/21 12:32 BP 152/81 05/01/21 12:32 Pulse Ox 95 05/01/21 15:45 Intake & Output 04/30/21 05/01/21 05/01/21 18:59 06:59 18:59 Output Total 300 Balance -300 Weight 65.5 kg 66 kg Output: Urine 300 Other: Voiding Method Urinal Diaper - Exam - Constitutional General appearance: average body habitus, cooperative, disheveled, mild distress - EENT Eyes: PERRLA Ears: bilateral: normal - Neck Neck: normal ROM Carotids: bilateral: upstroke normal - Respiratory Respiratory: bilateral: diminished, wheezing - Cardiovascular Rhythm: regular Heart sounds: normal: S1, S2 - Gastrointestinal General gastrointestinal: distended, normal bowel sounds - Integumentary Integumentary: normal turgor - Neurologic Neurologic: CNII-XII intact, focal deficits - Musculoskeletal Musculoskeletal: gait normal, generalized weakness, strength equal bilaterally - Psychiatric Psychiatric: A&O x's 3, appropriate affect, intact judgment & insight - Labs CBC & Chem 7: 04/29/21 06:22 05/01/21 14:57 Labs: Abnormal Lab Results - Last 24 Hours (Table) 04/30/21 04/30/21 05/01/21 Range/Units 17:43 20:11 07:25 Chloride (98-107) mmol/L Carbon Dioxide (22-30) mmol/L BUN (9-20) mg/dL Glucose (74-99) mg/dL POC Glucose (mg/dL) 181 H 163 H 167 H (75-99) mg/dL 05/01/21 05/01/21 Range/Units 12:29 14:57 Chloride 90 L (98-107) mmol/L Carbon Dioxide 41 H* (22-30) mmol/L BUN 35 H (9-20) mg/dL Glucose 272 H (74-99) mg/dL POC Glucose (mg/dL) 165 H (75-99) mg/dL Microbiology - Last 24 Hours (Table) 04/25/21 11:10 Blood Culture - Final Blood No Growth after 144 hours 04/25/21 10:55 Blood Culture - Final Blood No Growth after 144 hours Assessment and Plan Assessment: Non-STEMI Severe hypokalemia Left lower lobe community-acquired pneumonia also involving the right lower lobe Masslike process of the left lower lobe cannot be excluded, patient will need further radiographs to document resolution in 8-12 weeks Acute hypoxic respiratory failure Elevated troponin History of COVID-19 pneumonia History of COPD Plan: Broad-spectrum IV antibiotics with Rocephin and Zithromax him a condition changed to simple Zithromax to complete 7-10 day therapy Bronchodilators IV steroids, can be switched to oral at time of discharge Supplemental oxygen with slow tapering patient can be safely turned down to 2-4 L oxygen HEENT saturation around 90% and above Follow up radiographic studies the outpatient Further plan of care and recommendation as per clinical response of the patient Patient will need cardiac cath and angiogram cardiovascular services following Time with Patient: Greater than 30
--- NOTE | 2021-05-02 09:53 | P.PN ---
Subjective Progress Note Date: 05/02/21 Principal diagnosis: Left lower lobe community-acquired pneumonia also involving the right lower lobe Mass like process of the left lower lobe cannot be excluded, patient will need further radiographs to document resolution in 8-12 weeks Acute hypoxic respiratory failure Elevated troponin History of COVID-19 pneumonia History of COPD 05/02/2021, patient seen eval examined during the rounds labs reviewed medications reviewed care plan discussed, patient is now down to 2 L nasal cannula, while getting nebulizer treatment high flow oxygen, respirator status significantly improved denies any sputum production, noted elevated CO2 in the serum chemistry consistent with contraction alkalosis 05/01/2021, patient seen and evaluated examined remains on 4 L nasal cannula oxy gen slowly being Titrated down, patient remains on IV steroids breathing treatment and IV diuretics, respiratory status continued to improve, once ready for discharge can be switched to oral 04/30/2021, patient seen eval examined during the rounds labs reviewed medications reviewed, respiratory rate remained stable in low 20s, patient has been ambulating, remains on 6 L oxygen, oxygen saturation 100%, blood pressure 160/93 respiratory 18 pulse 89 temperature 90.8, 04/29/2021, patient seen eval examined during the rounds labs reviewed medications reviewed care plan discussed, respiratory status remains stable, however still cough congestion shortness of breath going on but severity has improved patient remains on 6 L nasal cannula, afebrile with stable hemodynamics respiratory rate is 20, saturation 95%, labs reviewed potassium is 3.9 improved significantly as well chemistry is stable BUN/creatinine 25/.64 recommend to titrate oxygen down to bring it to 3 or 2 L 04/28/2021, patient seen eval examined during the rounds labs reviewed medications reviewed care plan discussed, patient remains on 6 L oxygen, oxygen saturation is 96%, labs reviewed sodium is 140 potassium is 2.4 BUN/creatinine 25/0.84, glucose 224, currently patient remains on bronchodilators and antibiotics Zithromax and Rocephin, heparin drip, and Solu-Medrol 60 IV every 6, patient is still complaining of shortness of breath and intermittent wheezing Patient is a 75-year-old with a remote history of smoking prior history of COPD lately have been more short of breath congested recently seen in the office for the first time preliminary workup including PFTs labs and x-rays have been ordered, patient was complaining of shortness of breath and was hypoxic patient has recently placed on home oxygen, chest for the last 2 days started getting more shortness of breath cough congestion and fever up to 101, patient has not vaccinated for COVID-19 pneumonia, prior history of asthma hypertension prostate problem enlargement, on arrival patient was tachypneic. Cardiac with low oxygen saturation of 90% blood pressure was 122/73, heart rate is 120, respiratory rate 20,Shortness breath patient is a 75-year-old male with the history of hypoxic, patient does have a history of Crohn enteritis pneumonia infection before she this admission white cell count 70,700 hemoglobin and hematocrit is 24/7.7 to hemoglobin is 18, influenza A and B both negative: Negative, troponin elevated 1.1, computed tomography scan of the chest negative for pulmonary embolism however masslike consolidation left lower lobe is present consistent with focal pneumonia she infiltrated right lower lobe Objective - Vital Signs Vital signs: Vital Signs Temp 97.8 F 05/02/21 05:00 Pulse 100 05/02/21 08:40 Resp 18 05/02/21 05:00 BP 153/91 05/02/21 05:00 Pulse Ox 97 05/02/21 05:00 Intake & Output 05/01/21 05/02/21 05/02/21 18:59 06:59 18:59 Intake Total 540 Output Total 1100 100 Balance -560 -100 Weight 67.5 kg Intake: Oral 540 Output: Urine 1100 100 Other: Voiding Method Urinal Urinal Diaper Diaper # Voids 3 1 - Exam - Constitutional General appearance: average body habitus, cooperative, disheveled, mild distress - EENT Eyes: PERRLA Ears: bilateral: normal - Neck Neck: normal ROM Carotids: bilateral: upstroke normal - Respiratory Respiratory: bilateral: diminished, wheezing - Cardiovascular Rhythm: regular Heart sounds: normal: S1, S2 - Gastrointestinal General gastrointestinal: distended, normal bowel sounds - Integumentary Integumentary: normal turgor - Neurologic Neurologic: CNII-XII intact, focal deficits - Musculoskeletal Musculoskeletal: gait normal, generalized weakness, strength equal bilaterally - Psychiatric Psychiatric: A&O x's 3, appropriate affect, intact judgment & insight - Labs CBC & Chem 7: 04/29/21 06:22 05/01/21 14:57 Labs: Abnormal Lab Results - Last 24 Hours (Table) 05/01/21 05/01/21 05/01/21 Range/Units 12:29 14:57 17:48 Chloride 90 L (98-107) mmol/L Carbon Dioxide 41 H* (22-30) mmol/L BUN 35 H (9-20) mg/dL Glucose 272 H (74-99) mg/dL POC Glucose (mg/dL) 165 H 198 H (75-99) mg/dL 05/01/21 05/02/21 Range/Units 20:17 07:25 Chloride (98-107) mmol/L Carbon Dioxide (22-30) mmol/L BUN (9-20) mg/dL Glucose (74-99) mg/dL POC Glucose (mg/dL) 201 H 170 H (75-99) mg/dL Microbiology - Last 24 Hours (Table) 04/25/21 11:10 Blood Culture - Final Blood No Growth after 144 hours 04/25/21 10:55 Blood Culture - Final Blood No Growth after 144 hours Assessment and Plan Assessment: Non-STEMI Severe hypokalemia Left lower lobe community-acquired pneumonia also involving the right lower lobe Masslike process of the left lower lobe cannot be excluded, patient will need further radiographs to document resolution in 8-12 weeks Acute hypoxic respiratory failure Elevated troponin History of COVID-19 pneumonia History of COPD Plan: Broad-spectrum IV antibiotics with Rocephin and Zithromax him a condition changed to simple Zithromax to complete 7-10 day therapy Bronchodilators IV steroids, can be switched to oral at time of discharge Supplemental oxygen with slow tapering patient can be safely turned down to 2-4 L oxygen HEENT saturation around 90% and above Follow up radiographic studies the outpatient Further plan of care and recommendation as per clinical response of the patient Patient will need cardiac cath and angiogram cardiovascular services following Time with Patient: Greater than 30
--- NOTE | 2021-05-02 10:47 | P.PN ---
Subjective Progress Note Date: 05/02/21 Principal diagnosis: Acute coronary syndrome/heart failure The patient is a 75-year-old gentleman who was admitted to the hospital with acute coronary syndrome complicated by heart failure. The patient was seen this morning. He is feeling better. The lung examination is definitely better. The lower extremities edema has improved. He is on skin to go home. He is on dual antiplatelet therapy along with high intensity statin. I'm going to DC Lasix IV and start the patient on Lasix by mouth. From a cardiovascular standpoint of view, the patient need to be seen as an ou tpatient in about one to 2 weeks for a heart catheterization. He is currently chest pain-free Objective - Vital Signs Vital signs: Vital Signs Temp 97.8 F 05/02/21 05:00 Pulse 100 05/02/21 08:40 Resp 18 05/02/21 05:00 BP 153/91 05/02/21 05:00 Pulse Ox 97 05/02/21 05:00 Intake & Output 05/01/21 05/02/21 05/02/21 18:59 06:59 18:59 Intake Total 540 Output Total 1100 100 Balance -560 -100 Weight 67.5 kg Intake: Oral 540 Output: Urine 1100 100 Other: Voiding Method Urinal Urinal Diaper Diaper # Voids 3 1 - Constitutional General appearance: Present: no acute distress - Respiratory Respiratory: bilateral: diminished - Cardiovascular Rhythm: regular - Labs CBC & Chem 7: 04/29/21 06:22 05/01/21 14:57 Labs: Abnormal Lab Results - Last 24 Hours (Table) 05/01/21 05/01/21 05/01/21 Range/Units 12:29 14:57 17:48 Chloride 90 L (98-107) mmol/L Carbon Dioxide 41 H* (22-30) mmol/L BUN 35 H (9-20) mg/dL Glucose 272 H (74-99) mg/dL POC Glucose (mg/dL) 165 H 198 H (75-99) mg/dL 05/01/21 05/02/21 Range/Units 20:17 07:25 Chloride (98-107) mmol/L Carbon Dioxide (22-30) mmol/L BUN (9-20) mg/dL Glucose (74-99) mg/dL POC Glucose (mg/dL) 201 H 170 H (75-99) mg/dL Microbiology - Last 24 Hours (Table) 04/25/21 11:10 Blood Culture - Final Blood No Growth after 144 hours 04/25/21 10:55 Blood Culture - Final Blood No Growth after 144 hours Assessment and Plan Assessment: Assessment #1 acute non-ST deviation myocardial infarction #2 heart failure exacerbation related to heart failure with reduced ejection fraction #3 cardiomyopathy, ischemic #4 multiple comorbid conditions Plan #1 DC Lasix IV and start the patient on Lasix by mouth #2 the patient is asking to go home #3 the patient need to be seen for a cardiac follow-up for a heart catheterization
[2021-05-02] MEDS: AZITHROMYCIN 500 MG in SODIUM CHLORIDE 0.9% 250 ML IVPB SCH (10:55)
[2021-05-02 12:18] LABS: Glucose,Whole Blood 129 mg/dL (75-99)
[2021-05-02 12:51] VITALS: BP 130/78; TEMP 97.5
--- NOTE | 2021-05-02 13:47 | P.DS ---
Providers Date of admission: 04/25/21 12:12 Attending physician: Pedro Luis Cantrell MD Consults: 04/25/21 12:29 Consult Physician Routine Consulting Provider: Kell Lemus Consult Reason/Comments: Elevated troponin Do you want consulting provider notified?: Yes 04/25/21 13:08 Consult Physician Routine Consulting Provider: Yon Ram Consult Reason/Comments: Pneumonia, COPD/Asthma exacerbation Do you want consulting provider notified?: Yes Primary care physician: [facility] Hospital Course: 75 year old male who was recently admitted with acute bilateral pneumonia left more than right with possible community-acquired and also gram-negative pneumonia with possible sepsis and is being closely monitored. cardiology following and patient is maintained on Lasix along with IV heparin and will c ontinue. Chest x-ray today shows no change in the mild to moderate diffuse interstitial infiltrates and worsening of the infiltrate in the retrocardiac opacity consistent with atelectasis or alveolar infiltrate area did patient continues on 6 L of oxygen via nasal cannula and states he feels his breathing is somewhat improved although maintaining 90% on 6 L. Patient is extremely weak and will have PT/OT evaluate the patient. Pulmonary is also following the patient is maintained on antibiotics along with breathing inhalational treatments and will continue. 04/28/2021 Patient is seen this morning and continues with shortness of breath and being followed by cardiology and pulmonary Dr. Ram. Patient continues on 6L via NC and states his breathing is improving slowly. Patient continued on bronchodilators and will continue. Patient also continues on IV heparin and cardiology following and recommending to continue for now. Patient potassium is 2.7 and will continue to replace and repeat labs later this afternoon. Recommend follow up labs in the am as well. Patient having some congestion and continues to blow his nose and is having a mild nose bleed. Encouraged the patient to avoid excessive blowing of nose and will add afrin. Patient is on IV heparin. No reports of chest pain or palpitations. 04/29/2021 Patient is seen in follow up this morning and continues with shortness of breath and weakness although feels is improving. Cardiology following for CHF and patient to continue on IV lasix and will follow up with repeat am labs to monitor electrolytes and kidney functions. IV heparin being discontinued. Dr. Ram also following and will decrease IV steroids and continue with breathing treatments. Patient is tolerating diet with no vomiting noted. PT to reevaluate the patient and work with for continued weakness. Continue on 6L via NC and wean as tolerated. Continue electrolyte replacement per protocol. 04/30/2021 Patient is evaluated today sitting at the bedside asking if he can go home. Patient remains on IV Lasix and discuss with cardiology recommending continuing IV Lasix for 24 more hours and reevaluation along with labs in the morning. Patient is also on 4 L of oxygen [address] Ram pulmonary following closely. Patient has not had oxygen in the outpatient setting prior to admission. Case management following and arranging through the [place] for oxygen in the outpatient setting. Patient was also continued on Zithromax and ceftriaxone along with doxycycline and will continue. Patient is also on IV steroids along with breathing inhalational treatments. Patient denies any worsening shortness of breath or chest pains. Patient is afebrile. 05/01/2021 Patient is seen in follow-up continues on 4 L via nasal cannula and case management working on oxygen in the outpatient setting with [place]. Cardiology and pulmonary following and patient is continued on IV steroids along with IV Lasix and cardiology evaluated the patient recommending an additional 24 hours with close monitoring of IV Lasix and follow-up with repeat labs tomorrow. Patient continues to request to go home although agreeable to one more day. Patient will need a prednisone taper on discharge. 05/02/2021 Patient is clinically doing well patient is evaluated this time patient will be discharged today on oral Lasix. Patient is requiring oxygen because of his COPD. Review of systems: Constitutional: No reports of fatigue,no reports of fever, or chills Cardiovascular: No reports of chest pain or palpitations Respiratory: reports of shortness of breath although feels is improved GI: No reports of nausea, vomiting, or diarrhea : No reports of dysuria or retention Neurovascular: no reports of weakness All medications have been reviewed Physical exam: Gen: This is a 75-year-old male awake, alert and oriented 3, well-developed, well-nourished, ill appearing. on 4 L via nasal cannula HEENT: Head is atraumatic, normocephalic. Pupils equal, round. Sclerae is anicte tanner. left nare nose bleed as patient is blowing nose currently on exam NECK: Supple. No JVD. No lymphadenopathy. No thyromegaly. LUNGS: Diminished breath sounds bilaterally with some crackles at the bases and rhonchi noted.. No intercostal retractions. HEART: S1, S2 are muffled. ABDOMEN: Soft. Bowel sounds are present. No masses. No tenderness. EXTREMITIES: No pedal edema. No calf tenderness. NEUROLOGICAL: Patient is awake, alert and oriented x3. no focal deficits. diffusely weak Assessment: Possibility of pneumonia on the left lower lung gallegos for which patient received 7 days of antibiotics will not require any more antibodies upon discharge pneumonia left more than right possibly community-acquired, -Acute hypoxic respiratory failure mainly secondary to CHF chronic obstructive pulmonary disease acute exacerbation, present on admission congestive heart failure acute exacerbation acute on chronic systolic dysfunction, ejection fraction 35-40% mild epistaxis, resolved Hyponatremia hypervolemic hyponatremia improved with Lasix Transaminitis: Secondary to hepatic congestion Troponin 1.170, possible type II myocardial infarction she will follow up with cardiology as an outpatient may need cardiac catheterization down the line Hypertension History of prostate disorder Patient Condition at Discharge: Stable Plan - Discharge Summary Discharge Rx Participant: No New Discharge Prescriptions: New Metoprolol Succinate (ER) [Toprol XL] 50 mg PO BID #60 Folic Acid 1 mg PO DAILY@1200 #30 tab Furosemide [Lasix] 40 mg PO BID@0900,1600 #60 tab Thiamine [Vitamin B-1] 100 mg PO DAILY@1200 #30 tab lisinopriL [Zestril] 5 mg PO BID #60 tab Continue Albuterol Nebulized [Ventolin Nebulized] 2.5 mg INHALATION RT-Q4H PRN PRN Reason: Shortness Of Breath Meloxicam [Mobic] 7.5 mg PO DAILY PRN PRN Reason: Pain Finasteride [Proscar] 5 mg PO HS Lidocaine 5% Patch [Lidoderm 5% Patch] 1 patch TOPICAL DAILY Polyvinyl Alcohol/Povidone [[place] Eye Drop] 1 drop BOTH EYES TID Fluticasone/Salmeterol [Advair 250-50 Diskus] 1 puff INHALATION RT-BID Albuterol Inhaler [Ventolin Hfa Inhaler] 2 puff INHALATION RT-QID PRN PRN Reason: Shortness Of Breath Cetirizine HCl [Zyrtec] 10 mg PO DAILY PRN PRN Reason: Allergy Symptoms Triamcinolone 0.1% Cream [Kenalog 0.1% Cream] 1 applicatio TOPICAL BID PRN PRN Reason: Rash Ammonium Lactate Lotion [Lac-Hydrin 12% Lotion] 1 applic TOPICAL DAILY PRN PRN Reason: DRY FEET Diclofenac 1% Top Gel 1 applic TOPICAL BID Pravastatin Sodium [Pravachol] 20 mg PO HS Fluticasone Nasal [place] [Flonase Nasal [place]] 2 spray EA NOSTRIL DAILY Discontinued hydroCHLOROthiazide [Hydrodiuril] 25 mg PO DAILY amLODIPine [Norvasc] 10 mg PO HS Discharge Medication List Albuterol Inhaler [Ventolin Hfa Inhaler] 2 puff INHALATION RT-QID PRN 04/25/21 [History] Albuterol Nebulized [Ventolin Nebulized] 2.5 mg INHALATION RT-Q4H PRN 04/25/21 [History] Ammonium Lactate Lotion [Lac-Hydrin 12% Lotion] 1 applic TOPICAL DAILY PRN 04/25/21 [History] Cetirizine HCl [Zyrtec] 10 mg PO DAILY PRN 04/25/21 [History] Diclofenac 1% Top Gel 1 applic TOPICAL BID 04/25/21 [History] Finasteride [Proscar] 5 mg PO HS 04/25/21 [History] Fluticasone Nasal [place] [Flonase Nasal [place]] 2 spray EA NOSTRIL DAILY 04/25/21 [History] Fluticasone/Salmeterol [Advair 250-50 Diskus] 1 puff INHALATION RT-BID 04/25/21 [History] Lidocaine 5% Patch [Lidoderm 5% Patch] 1 patch TOPICAL DAILY 04/25/21 [History] Meloxicam [Mobic] 7.5 mg PO DAILY PRN 04/25/21 [History] Polyvinyl Alcohol/Povidone [[place] Eye Drop] 1 drop BOTH EYES TID 04/25/21 [History] Pravastatin Sodium [Pravachol] 20 mg PO HS 04/25/21 [History] Triamcinolone 0.1% Cream [Kenalog 0.1% Cream] 1 applicatio TOPICAL BID PRN 04/25/21 [History] Folic Acid 1 mg PO DAILY@1200 #30 tab 05/02/21 [Rx] Furosemide [Lasix] 40 mg PO BID@0900,1600 #60 tab 05/02/21 [Rx] Metoprolol Succinate (ER) [Toprol XL] 50 mg PO BID #60 05/02/21 [Rx] Thiamine [Vitamin B-1] 100 mg PO DAILY@1200 #30 tab 05/02/21 [Rx] lisinopriL [Zestril] 5 mg PO BID #60 tab 05/02/21 [Rx] Follow up Appointment(s)/Referral(s): [facility] [NON-STAFF] - 1 Week Dank Limon MD [STAFF PHYSICIAN] - 1 Week Yon Ram MD [STAFF PHYSICIAN] - 1 Week [facility],Clinic [Primary Care Provider] - 1-2 days Discharge Disposition: HOME SELF-CARE
[2021-05-02] MEDS ORDERED: FUROSEMIDE 40 MG TAB PO SCH (16:00)
[2021-05-02 17:35] LABS: Glucose,Whole Blood 190 mg/dL (75-99)
[2021-05-02 20:13] VITALS: PULSE 96
== END 2021-05-02 21:55 | disposition home or self-care (01) | DRG 871 ==
LOC: EC 09:21 → 5NMEDONC 12:12
PROVIDERS: ADMIT Internal Medicine; ATTEND Internal Medicine
DX: A41.50 Gram-negative sepsis, unspecified (principal); J15.6 Pneumonia due to other Gram-negative bacteria; J96.01 Acute respiratory failure with hypoxia; I50.23 Acute on chronic systolic (congestive) heart failure; I21.A1 Myocardial infarction type 2; J18.9 Pneumonia, unspecified organism; E87.1 Hypo-osmolality and hyponatremia; J44.0 Chronic obstructive pulmonary disease with (acute) lower respiratory infection; J44.1 Chronic obstructive pulmonary disease with (acute) exacerbation; J45.901 Unspecified asthma with (acute) exacerbation; K50.90 Crohn's disease, unspecified, without complications; Z87.891 Personal history of nicotine dependence; I11.0 Hypertensive heart disease with heart failure; M19.90 Unspecified osteoarthritis, unspecified site; Z20.822 Contact with and (suspected) exposure to COVID-19; E78.5 Hyperlipidemia, unspecified; E87.6 Hypokalemia; E86.1 Hypovolemia; I25.5 Ischemic cardiomyopathy; K76.1 Chronic passive congestion of liver; N40.0 Benign prostatic hyperplasia without lower urinary tract symptoms; R04.0 Epistaxis; Z79.1 Long term (current) use of non-steroidal anti-inflammatories (NSAID); Z79.899 Other long term (current) drug therapy; Z86.16 Personal history of COVID-19; Z87.01 Personal history of pneumonia (recurrent); Z90.49 Acquired absence of other specified parts of digestive tract; Z98.890 Other specified postprocedural states; Z88.7 Allergy status to serum and vaccine
CPT/HCPCS: 36415; 71045; 71275; 80048; 80053; 83605; 83735; 83880; 84132; 84484; 85025; 85610; 85730; 86738; 87040; 87449; 87502; 87634; 87635; 93005; 93306; 94640; 94760; 96374; 96375; 99285

== ENCOUNTER 2021-05-09 01:23 | Inpatient (IN) | payer OTHER, MEDICARE ==
--- NOTE | 2021-05-09 01:48 | ED ---
Chest Pain HPI - General Chief Complaint: Chest Pain Stated Complaint: Chest Pain Time Seen by Provider: 05/09/21 01:25 Source: patient, EMS, RN notes reviewed, old records reviewed Mode of arrival: EMS Limitations: no limitations - History of Present Illness Initial Comments: This is a 75-year-old male with history of high blood pressure coming in for evaluation of chest pain today recent hospital admission where he did have similar chest pain and was supposed to undergo heart catheterization suite is a wanted him to get stronger in the meantime. Patient began with persistent chest pain tonight chest pain mild shortness of breath and weakness burning chest pain. MD Complaint: chest pain -: hour(s) Onset: during rest Pain Location: substernal, left chest Pain Radiation: none Severity: moderate Severity scale (1-10): 4 Quality: tightness, other (Burning) Consistency: constant Improves With: nothing Worsens With: nothing Context: other (Recent history of similar admission) Anginal Symptoms: diaphoresis, dyspnea, sense of impending doom Other Symptoms: palpitations Treatments Prior to Arrival: none - Related Data Home Medications Medication Instructions Recorded Confirmed Albuterol Inhaler [Ventolin Hfa 2 puff INHALATION RT-QID PRN 04/25/21 04/25/21 Inhaler] Albuterol Nebulized [Ventolin 2.5 mg INHALATION RT-Q4H PRN 04/25/21 04/25/21 Nebulized] Ammonium Lactate Lotion 1 applic TOPICAL DAILY PRN 04/25/21 04/25/21 [Lac-Hydrin 12% Lotion] Cetirizine HCl [Zyrtec] 10 mg PO DAILY PRN 04/25/21 04/25/21 Diclofenac 1% Top Gel 1 applic TOPICAL BID 04/25/21 04/25/21 Finasteride [Proscar] 5 mg PO HS 04/25/21 04/25/21 Fluticasone Nasal [place] [Flonase 2 spray EA NOSTRIL DAILY 04/25/21 04/25/21 Nasal [place]] Fluticasone/Salmeterol [Advair 1 puff INHALATION RT-BID 04/25/21 04/25/21 250-50 Diskus] Lidocaine 5% Patch [Lidoderm 5% 1 patch TOPICAL DAILY 04/25/21 04/25/21 Patch] Meloxicam [Mobic] 7.5 mg PO DAILY PRN 04/25/21 04/25/21 Polyvinyl Alcohol/Povidone 1 drop BOTH EYES TID 04/25/21 04/25/21 [[place] Eye Drop] Pravastatin Sodium [Pravachol] 20 mg PO HS 04/25/21 04/25/21 Triamcinolone 0.1% Cream [Kenalog 1 applicatio TOPICAL BID PRN 04/25/21 04/25/21 0.1% Cream] Previous Rx's Medication Instructions Recorded Folic Acid 1 mg PO DAILY@1200 #30 tab 05/02/21 Furosemide [Lasix] 40 mg PO BID@0900,1600 #60 tab 05/02/21 Metoprolol Succinate (ER) [Toprol 50 mg PO BID #60 05/02/21 XL] Thiamine [Vitamin B-1] 100 mg PO DAILY@1200 #30 tab 05/02/21 lisinopriL [Zestril] 5 mg PO BID #60 tab 05/02/21 Allergies Allergy/AdvReac Type Severity Reaction Status Date / Time Influenza Virus Vaccines Allergy Unknown Verified 04/25/21 14:27 Review of Systems ROS Statement: Those systems with pertinent positive or pertinent negative responses have been documented in the HPI. ROS Other: All systems not noted in ROS Statement are negative. Past Medical History Past Medical History: Asthma, Hypertension, Prostate Disorder Additional Past Medical History / Comment(s): allergies History of Any Multi-Drug Resistant Organisms: None Reported Past Surgical History: Appendectomy, Back Surgery, Tonsillectomy Additional Past Surgical History / Comment(s): cervical Past Anesthesia/Blood Transfusion Reactions: No Reported Reaction Additional Past Anesthesia/Blood Transfusion Reaction / Comment(s): Pt is clausterphobic. Past Psychological History: No Psychological Hx Reported Smoking Status: Former smoker Past Alcohol Use History: None Reported Past Drug Use History: None Reported - Past Family History Mother Family Medical History: No Reported History Additional Family Medical History / Comment(s): Mother was healthy and lived to be 92 yrs old. Father History Unknown: Yes Additional Family Medical History / Comment(s): Father at the age of 68yrs, pt unable to say from what. General Exam Limitations: no limitations General appearance: alert, in no apparent distress Head exam: Present: atraumatic, normocephalic, normal inspection Eye exam: Present: normal appearance, PERRL, EOMI. Absent: scleral icterus, conjunctival injection, periorbital swelling ENT exam: Present: normal exam, mucous membranes moist Neck exam: Present: normal inspection. Absent: tenderness, meningismus, lymphadenopathy Respiratory exam: Present: normal lung sounds bilaterally. Absent: respiratory distress, wheezes, rales, rhonchi, stridor Cardiovascular Exam: Present: regular rate, normal rhythm, normal heart sounds. Absent: systolic murmur, diastolic murmur, rubs, gallop, clicks GI/Abdominal exam: Present: soft, normal bowel sounds. Absent: distended, tenderness, guarding, rebound, rigid Extremities exam: Present: normal inspection, full ROM, normal capillary refill. Absent: tenderness, pedal edema, joint swelling, calf tenderness Back exam: Present: normal inspection Neurological exam: Present: alert, oriented X3, CN II-XII intact Psychiatric exam: Present: normal affect, normal mood Skin exam: Present: warm, dry, intact, normal color. Absent: rash Course Vital Signs 05/09/21 01:26 Pulse Rate 103 H Respiratory 17 Rate Blood Pressure 109/74 O2 Sat by Pulse 94 L Oximetry - Reevaluation(s) Reevaluation #1: 05/09/21 01:47 Medical record is reviewed Reevaluation #2: 05/09/21 01:47 STEMI is paged on initial EKG Reevaluation #3: 05/09/21 01:47 Patient no significant acute distress does have persistent chest pain - Consultations Consultation #1: Spoke with Dr. Wahl coming in to see patient regarding ST elevated ME Chest Pain MDM - [facility] 75 male to be admitted for ST elevation ME with chest pain. Critical Care Time Critical Care Time: Yes Total Critical Care Time: 31 Disposition Clinical Impression: ST elevation myocardial infarction (STEMI) Disposition: ADMITTED IP TO THIS HOSP Condition: Serious Is patient prescribed a controlled substance at d/c from ED?: No Referrals: [facility],Clinic [Primary Care Provider] - 1-2 days
[2021-05-09] MEDS ORDERED: NITROGLYCERIN SL TABS 0.4 MG TAB SUBLINGUAL PRN ×2 (02:05→03:25)
[2021-05-09] MEDS ORDERED: HEPARIN SODIUM 1,000 UN/ML (10ML VL) IV ONE (02:05)
[2021-05-09] MEDS ORDERED: MORPHINE SULFATE 4 MG/ML SYRINGE IV PRN (02:05)
[2021-05-09 02:10] LABS: Basophils % (A) 0 %; Eosinophils % (A) 0 %; HCT 44.3 % (39.0-53.0); HGB 14.4 gm/dL (13.0-17.5); Lymphocytes # (A) 0.4 k/uL (1.0-4.8); Lymphocytes % (A) 3 %; MCH 27.5 pg (25.0-35.0); MCHC 32.6 g/dL (31.0-37.0); MCV 84.4 fL (80.0-100.0); Monocytes % (A) 7 %; Neutrophils # (A) 12.8 k/uL (1.3-7.7); Neutrophils % (A) 88 %; Platelet Count 144 k/uL (150-450); RBC 5.24 m/uL (4.30-5.90); RDW 14.1 % (11.5-15.5); WBC 14.6 k/uL (3.8-10.6)
[2021-05-09 02:12] LABS: Albumin 2.9 g/dL (3.5-5.0); Calcium 8.1 mg/dL (8.4-10.2); Magnesium 2.2 mg/dL (1.6-2.3); Potassium 3.8 mmol/L (3.5-5.1); Total Bilirubin 0.8 mg/dL (0.2-1.3); Total Protein 5.5 g/dL (6.3-8.2)
[2021-05-09] MEDS ORDERED: HEPARIN SOD,PORK IN 0.45% NACL 25,000 UNIT in 0.45% NACL 1 250ML.BAG IV SCH (02:15)
[2021-05-09 02:25] LABS: INR 1.1 (<1.2)
[2021-05-09 02:26] LABS: Partial Thromboplastin Time 21.9 sec (22.0-30.0); Prothrombin Time 11.6 sec (9.0-12.0)
[2021-05-09] MEDS ORDERED: VERAPAMIL 2.5 MG/ML 2 ML AMP ONE (02:26)
[2021-05-09] MEDS ORDERED: HEPARIN SODIUM 1,000 UN/ML (10ML VL) ONE (02:27)
[2021-05-09] MEDS ORDERED: LIDOCAINE 1% INJ 10MG/ML (20 ML MDV) ONE (02:27)
--- NOTE | 2021-05-09 02:30 | XR ---
EXAMINATION TYPE: XR chest 1V DATE OF EXAM: 05/09/2021 COMPARISON: 04/27/2021 HISTORY: Chest pain TECHNIQUE: Single view FINDINGS: Heart is normal. There is slight coarsening of interstitial markings. There is mild bluntin g of the costophrenic angles. There are no hilar masses. IMPRESSION: Small pleural effusions and mild pulmonary congestion. Minimal heart failure is possible. Chest not significantly different than recent exam.
[2021-05-09] MEDS ORDERED: LIDOCAINE 1% INJ 10MG/ML (20 ML MDV) SQ ONE (02:37)
[2021-05-09] MEDS ORDERED: IV FLUID CONTINUATION 1,000 ML IV ONE (02:49)
[2021-05-09] MEDS ORDERED: niCARdipine 25 MG/10 ML VIAL ONE (02:51)
[2021-05-09] MEDS: niCARdipine Syringe (1,000 mcg/10 mL) INTRACORON ONE ×2 (02:53→03:03)
[2021-05-09] MEDS ORDERED: TICAGRELOR 90 MG TAB ONE (02:53)
[2021-05-09] MEDS: NITROGLYCERIN 1000MCG/10ML SYRINGE INTRACORON ONE ×2 (02:53→03:03)
[2021-05-09] MEDS ORDERED: TIROFIBAN 12.5MG-250ML NS 250 ML IV ONE (03:06)
[2021-05-09] MEDS ORDERED: NOREPINEPHRINE 8 MG in SODIUM CHLORIDE 0.9% 250 ML IV ONE (03:06)
[2021-05-09] MEDS ORDERED: TICAGRELOR 90 MG TAB PO ONE (03:07)
[2021-05-09] MEDS ORDERED: HYDROmorphone 0.5 MG/0.5 ML SYRINGE IVP ONE (03:10)
[2021-05-09] MEDS ORDERED: IOPAMIDOL-370 50ML BTL INJ ONE (03:18)
[2021-05-09] MEDS ORDERED: IOPAMIDOL-370 125ML BTL INJ ONE (03:18)
[2021-05-09] MEDS ORDERED: MAG HYDROX/AL HYDROX/SIMETH 30 ML CUP PO PRN (03:25)
[2021-05-09] MEDS ORDERED: ZOLPIDEM 5 MG TAB PO PRN (03:25)
[2021-05-09] MEDS ORDERED: RX INFO: IV CONTRAST WAS GIVEN 1 EACH MISC MISCELLANE PRN (03:25)
[2021-05-09] MEDS ORDERED: ATROPINE SULFATE 0.1 MG/ML 10ML SYRINGE IV PRN (03:25)
[2021-05-09] MEDS ORDERED: SODIUM CHLORIDE 0.9% 1,000 ML IV SCH (03:30)
--- NOTE | 2021-05-09 03:41 | P.CRDCN ---
History of Present Illness Consult date: 05/09/21 Chief complaint: chest pain History of present illness: The patient is a very pleasant 75-year-old gentleman with hypertension and dyslipidemia and recent diagnosis of cardiomyopathy as well as chronic obstructive pulmonary disease was brought to the hospital by ambulance after he was experiencing chest discomfort and ECG concerning for acute anterior ST elevation myocardial infarction. The patient was admitted to the hospital recently with increasing shortness of breath associated with cough. He was diagnosed with pneumonia. At the same time he was ruled in for acute coronary event. During that admission an echocardiogram was performed and showed cardiomyopathy associated with wall motion abnormalities. The plan was to undergo a heart catheterization as an outpatient. The patient was feeling better until earlier today when he started experiencing discomfort in the chest as a pressure on the chest without presyncope or syncope. Ambulance was called and EKG was performed revealing acute anterior ST patient myocardial infarction. For that reason an emergent heart catheterization was advised. The patient underwent a heart catheterization and that revealed acute total occlusion of the LAD in the proximal portion and severe disease involving the mid LAD and distal LAD. The patient underwent successful stenting of the proximal and mid and distal LAD. His left sided filling pressure were elevated. Beside that he was in acute renal failure. His creatinine was normal when he was in the hospital recently. Apparently the patient was not making urine and he was having difficulty urinating. So he does have probably a component of obstructive uropathy. Richardson catheter was placed after the procedure later on today and nephrology consult will be obtained. Past Medical History Past Medical History: Asthma, Hypertension, Prostate Disorder Additional Past Medical History / Comment(s): allergies History of Any Multi-Drug Resistant Organisms: None Reported Past Surgical History: Appendectomy, Back Surgery, Tonsillectomy Additional Past Surgical History / Comment(s): cervical Past Anesthesia/Blood Transfusion Reactions: No Reported Reaction Additional Past Anesthesia/Blood Transfusion Reaction / Comment(s): Pt is clausterphobic. Past Psychological History: No Psychological Hx Reported Smoking Status: Former smoker Past Alcohol Use History: None Reported Past Drug Use History: None Reported - Past Family History Mother Family Medical History: No Reported History Additional Family Medical History / Comment(s): Mother was healthy and lived to be 92 yrs old. Father History Unknown: Yes Additional Family Medical History / Comment(s): Father at the age of 68yrs, pt unable to say from what. Medications and Allergies Home Medications Medication Instructions Recorded Confirmed Type Albuterol Inhaler [Ventolin Hfa 2 puff INHALATION RT-QID PRN 04/25/21 04/25/21 History Inhaler] Albuterol Nebulized [Ventolin 2.5 mg INHALATION RT-Q4H PRN 04/25/21 04/25/21 History Nebulized] Ammonium Lactate Lotion 1 applic TOPICAL DAILY PRN 04/25/21 04/25/21 History [Lac-Hydrin 12% Lotion] Cetirizine HCl [Zyrtec] 10 mg PO DAILY PRN 04/25/21 04/25/21 History Diclofenac 1% Top Gel 1 applic TOPICAL BID 04/25/21 04/25/21 History Finasteride [Proscar] 5 mg PO HS 04/25/21 04/25/21 History Fluticasone Nasal [place] [Flonase 2 spray EA NOSTRIL DAILY 04/25/21 04/25/21 History Nasal [place]] Fluticasone/Salmeterol [Advair 1 puff INHALATION RT-BID 04/25/21 04/25/21 History 250-50 Diskus] Lidocaine 5% Patch [Lidoderm 5% 1 patch TOPICAL DAILY 04/25/21 04/25/21 History Patch] Meloxicam [Mobic] 7.5 mg PO DAILY PRN 04/25/21 04/25/21 History Polyvinyl Alcohol/Povidone 1 drop BOTH EYES TID 04/25/21 04/25/21 History [[place] Eye Drop] Pravastatin Sodium [Pravachol] 20 mg PO HS 04/25/21 04/25/21 History Triamcinolone 0.1% Cream [Kenalog 1 applicatio TOPICAL BID PRN 04/25/21 04/25/21 History 0.1% Cream] Folic Acid 1 mg PO DAILY@1200 #30 tab 05/02/21 Rx Furosemide [Lasix] 40 mg PO BID@0900,1600 #60 tab 05/02/21 Rx Metoprolol Succinate (ER) [Toprol 50 mg PO BID #60 05/02/21 Rx XL] Thiamine [Vitamin B-1] 100 mg PO DAILY@1200 #30 tab 05/02/21 Rx lisinopriL [Zestril] 5 mg PO BID #60 tab 05/02/21 Rx Allergies Allergy/AdvReac Type Severity Reaction Status Date / Time Influenza Virus Vaccines Allergy Unknown Verified 04/25/21 14:27 Physical Exam Vitals: Vital Signs Pulse Resp BP Pulse Ox 05/09/21 02:10 103 H 19 119/72 95 05/09/21 01:26 103 H 17 109/74 94 L Intake and Output 05/08/21 05/08/21 05/09/21 14:59 22:59 06:59 Intake Total 180 Balance 180 Intake: IV 180 Other: Weight 65.317 kg - Constitutional General appearance: no acute distress - Respiratory Respiratory: bilateral: diminished - Cardiovascular Rhythm: regular Heart sounds: normal: S1, S2 Abnormal Heart Sounds: systolic murmur Results 05/09/21 01:43 05/09/21 01:43 Cardiac Enzymes 05/09/21 05/09/21 Range/Units 01:43 01:43 AST 33 (17-59) U/L Troponin I 0.592 H* (0.000-0.034) ng/mL Coagulation 05/09/21 Range/Units 01:43 PT 11.6 (9.0-12.0) sec APTT 21.9 L (22.0-30.0) sec CBC 05/09/21 Range/Units 01:43 WBC 14.6 H (3.8-10.6) k/uL RBC 5.24 (4.30-5.90) m/uL Hgb 14.4 (13.0-17.5) gm/dL Hct 44.3 (39.0-53.0) % Plt Count 144 L (150-450) k/uL Comprehensive Metabolic Panel 05/09/21 Range/Units 01:43 Sodium 130 L (137-145) mmol/L Potassium 3.8 (3.5-5.1) mmol/L Chloride 89 L (98-107) mmol/L Carbon Dioxide 26 (22-30) mmol/L BUN 113 H* (9-20) mg/dL Creatinine 10.95 H* (0.66-1.25) mg/dL Glucose 213 H (74-99) mg/dL Calcium 8.1 L (8.4-10.2) mg/dL AST 33 (17-59) U/L ALT 40 (4-49) U/L Alkaline Phosphatase 57 (38-126) U/L Total Protein 5.5 L (6.3-8.2) g/dL Albumin 2.9 L (3.5-5.0) g/dL Current Medications Generic Name Dose Route Start Last Admin Trade Name Freq PRN Reason Stop Dose Admin Al Hydroxide/Mg Hydroxide 30 ml 05/09/21 03:25 Mag Hydrox/Al Hydrox/Simeth 30 Ml Cup PO Q4HR PRN Heartburn Aspirin 81 mg 05/09/21 09:00 Aspirin 81 Mg PO DAILY [facility] Atorvastatin Calcium 80 mg 05/09/21 21:00 Atorvastatin 80 Mg Tab PO HS [facility] Atropine Sulfate 0.5 mg 05/09/21 03:25 Atropine Sulfate 0.1 Mg/Ml 10ml Syringe IV ONCE PRN Symptomatic Bradycardia Heparin Sodium/Sodium Chloride 250 mls @ 7.838 mls/hr 05/09/21 02:15 25,000 unit/ Sodium Chloride IV .Q24H [facility] Protocol 12 UNITS/KG/HR Sodium Chloride 1,000 mls @ 75 mls/hr 05/09/21 03:30 Saline 0.9% IV 05/09/21 08:31 .[id number] [facility] Metoprolol Succinate 25 mg 05/09/21 09:00 Metoprolol Succinate (Er) 25 Mg Tab.Er.24h PO DAILY [facility] Miscellaneous Information 1 each 05/09/21 03:25 Rx Info: Iv Contrast Was Given 1 Each Mis MISCELLANE 05/11/21 03:25 DAILY PRN Per Protocol Morphine Sulfate 4 mg 05/09/21 02:05 Morphine Sulfate 4 Mg/Ml Syringe IV Q4HR PRN Chest Pain Nitroglycerin 0.4 mg 05/09/21 02:05 Nitroglycerin Sl Tabs 0.4 Mg Tab SUBLINGUAL Q5M PRN Chest Pain Ticagrelor 90 mg 05/09/21 09:00 Ticagrelor 90 Mg Tab PO BID [facility] Zolpidem Tartrate 5 mg 05/09/21 03:25 Zolpidem 5 Mg Tab PO HS PRN Insomnia Intake and Output 05/08/21 05/08/21 05/09/21 14:59 22:59 06:59 Intake Total 180 Balance 180 Intake: IV 180 Other: Weight 65.317 kg Patient Weight 05/09/21 06:59 Weight 65.317 kg 05/09/21 01:43 05/09/21 01:43 Assessment and Plan Assessment: Assessment #[address] patient myocardial infarction #2 hypertension #3 dyslipidemia #4 acute renal failure likely related to obstructive uropathy. Plan #1 the patient underwent stenting of the LAD proximally as well as in the mid and distal portion #2 dual antiplatelet therapy #3 high intensity statin #4 anti-ischemic medication using a beta skyler #5 an echo to assess the LV function #6 nephrology consult We will follow-up with the patient
[2021-05-09 04:04] LABS: Glucose,Whole Blood 179 mg/dL (75-99)
[2021-05-09 04:31] LABS: Mean Platelet Volume 8.7; Platelet Count 166 k/uL (150-450)
[2021-05-09 05:18] LABS: HCT 45.9 % (39.0-53.0); HGB 14.8 gm/dL (13.0-17.5); MCH 27.8 pg (25.0-35.0); MCHC 32.3 g/dL (31.0-37.0); MCV 86.3 fL (80.0-100.0); Mean Platelet Volume 8.9; Platelet Count 183 k/uL (150-450); RBC 5.32 m/uL (4.30-5.90); RDW 14.1 % (11.5-15.5); WBC 15.2 k/uL (3.8-10.6)
--- NOTE | 2021-05-09 06:12 | P.PN ---
Subjective Progress Note Date: 05/09/21 Principal diagnosis: Acute coronary syndrome The patient is a pleasant 75-year-old gentleman with hypertension and dyslipidemia who was admitted to the hospital yesterday with chest discomfort and was diagnosed with acute anterior ST elevation myocardial infarction. He underwent an emergent heart catheterization and was found to have occluded LAD which was stented in the proximal and mid and distal portion. Because of the large thrombus burden he was started on Aggrastat. The patient was seen this morning. He had a Richardson catheter for urinary obstruction and subsequently he did have hematuria. Aggrastat is on hold at this point. No heparin IV is going at this point as well. He remains on dual antiplatelet therapy along with high intensity statin along with beta skyler with Toprol-XL. An echo is in process to be done. Clinically he is doing very well. Hemodynamically he is stable. Objective - Vital Signs Vital signs: Vital Signs Temp 97.4 F L 05/09/21 04:00 Pulse 90 05/09/21 05:00 Resp 3 L 05/09/21 05:00 BP 98/79 05/09/21 05:00 Pulse Ox 97 05/09/21 05:00 Intake & Output 05/08/21 05/08/21 05/09/21 06:59 18:59 06:59 Intake Total 330 Output Total 3400 Balance -3070 Weight 65.317 kg Intake: IV 330 Sodium Chloride 0.9% 1, 150 000 ml @ 75 mls/hr IV . [id number] [facility] Rx#:[id number] Output: Urine 3400 - Constitutional General appearance: Present: no acute distress - Respiratory Respiratory: bilateral: CTA - Cardiovascular Rhythm: regular Heart sounds: normal: S1, S2 - Labs CBC & Chem 7: 05/09/21 04:22 05/09/21 01:43 Labs: Abnormal Lab Results - Last 24 Hours (Table) 05/09/21 05/09/21 05/09/21 Range/Units 01:43 01:43 01:43 WBC 14.6 H (3.8-10.6) k/uL Plt Count 144 L (150-450) k/uL Neutrophils # 12.8 H (1.3-7.7) k/uL Lymphocytes # 0.4 L (1.0-4.8) k/uL APTT 21.9 L (22.0-30.0) sec Sodium 130 L (137-145) mmol/L Chloride 89 L (98-107) mmol/L BUN 113 H* (9-20) mg/dL Creatinine 10.95 H* (0.66-1.25) mg/dL Glucose 213 H (74-99) mg/dL POC Glucose (mg/dL) (75-99) mg/dL Calcium 8.1 L (8.4-10.2) mg/dL Troponin I (0.000-0.034) ng/mL Total Protein 5.5 L (6.3-8.2) g/dL Albumin 2.9 L (3.5-5.0) g/dL 05/09/21 05/09/21 05/09/21 Range/Units 01:43 04:02 04:22 WBC (3.8-10.6) k/uL Plt Count (150-450) k/uL Neutrophils # (1.3-7.7) k/uL Lymphocytes # (1.0-4.8) k/uL APTT 135.5 H* (22.0-30.0) sec Sodium (137-145) mmol/L Chloride (98-107) mmol/L BUN (9-20) mg/dL Creatinine (0.66-1.25) mg/dL Glucose (74-99) mg/dL POC Glucose (mg/dL) 179 H (75-99) mg/dL Calcium (8.4-10.2) mg/dL Troponin I 0.592 H* (0.000-0.034) ng/mL Total Protein (6.3-8.2) g/dL Albumin (3.5-5.0) g/dL 05/09/21 05/09/21 Range/Units 04:22 04:22 WBC 15.2 H (3.8-10.6) k/uL Plt Count (150-450) k/uL Neutrophils # (1.3-7.7) k/uL Lymphocytes # (1.0-4.8) k/uL APTT (22.0-30.0) sec Sodium (137-145) mmol/L Chloride (98-107) mmol/L BUN (9-20) mg/dL Creatinine (0.66-1.25) mg/dL Glucose (74-99) mg/dL POC Glucose (mg/dL) (75-99) mg/dL Calcium (8.4-10.2) mg/dL Troponin I 24.400 H* (0.000-0.034) ng/mL Total Protein (6.3-8.2) g/dL Albumin (3.5-5.0) g/dL Assessment and Plan Assessment: Assessment #[address] patient myocardial infarction #2 hypertension #3 dyslipidemia #4 acute renal failure likely related to obstructive uropathy #5 hematuria Plan #1 DC Aggrastat #2 he is not on heparin IV #3 continue dual antiplatelet therapy. Consider switching the patient to Plavix if he continues to have hematuria #4 continue high intensity statin #5 continue Toprol-XL #6 consider adding JULIO CESAR inhibitor once the creatinine back to baseline #7 nephrology consult #8 urology consult #9 follow-up on the echocardiogram #10 follow-up with the patient
--- NOTE | 2021-05-09 06:32 | CC ---
CARDIAC CATHETERIZATION REPORT DATE OF SERVICE: May 09, 2021 PERFORMING PHYSICIAN: Dank Limon MD. PROCEDURE PERFORMED: 1. Selective right and left coronary angiogram. 2. Successful stenting of the proximal left anterior descending artery using 2.75 x 18 mm Xience drug-eluting stent with an excellent angiographic results. 3. Successful stenting of the mid left anterior descending artery using 2.75 x 12 mm Xience drug-eluting stent with excellent angiographic results. 4. Successful stenting of the distal left anterior descending artery using 2.0 x 26 mm dena drug-eluting stent with an excellent angiographic results. 5. Left heart catheterization. 6. Selective right common femoral artery angiogram. INDICATION: This is a 75-year-old gentleman who presented to the hospital with chest discomfort and was diagnosed with acute anterior ST-elevation myocardial infarction. In light of that, a heart catheterization was advised. He was admitted to the hospital recently with shortness of breath and he was ruled in for acute coronary event and also was diagnosed with pneumonia. Maximize medical treatment was advised at that point, and the plan to pursue with a heart catheterization as an outpatient. Unfortunately, the patient came in with chest discomfort. APPROACH: Right common femoral artery. COMPLICATIONS: None. LEVEL OF SEDATION: Moderate, with sedation length of 48 minutes. Door to balloon was 85 minutes. PROCEDURE DESCRIPTION: After obtaining an informed consent, the patient was brought to the cardiac labor relations consultant. The right common femoral artery was cannulated using micropuncture technique, the micropuncture wire passed easily, then I placed a 6-Indian sheath at the right common femoral artery. Selective right and left coronary angiogram performed using JR 3.5 diagnostic catheter and JL 3.5 guiding catheter. I did after that intervene on the LAD. Please see a separate paragraph for that. After that, I did the left heart catheterization using 6-Indian pigtail catheter. After that, I did selective right common femoral artery angiogram. The procedure was completed without any complication. SELECTIVE CORONARY ANGIOGRAM: 1. The right coronary artery is a large-caliber vessel. It is a superdominant vessel. The proximal RCA has mild disease only. The mid RCA has mild disease only. The RCA distally has mild disease only. It bifurcates into PDA and PLV branches. The PDA has an ostial lesion appeared to be in the range of 70% and mid lesion appeared to be in the range of 50% to 60%. The PLV branch of the RCA has a critical lesion appeared to be in the range of 80% to 90%. 2. Left main is a short left main. Has a lesion appeared to be in the range of 20-30 percent. Bifurcates into a small nondominant left circumflex and left anterior descending artery. 3. The left circumflex is a small caliber vessel. It is a nondominant vessel. The left circumflex appeared to have mild disease only. Gives rise into multiple small obtuse marginal branches. 4. The LAD: The LAD is occluded in the proximal portion right after the bifurcation from the left main. 5. HEMODYNAMICS: The LVEDP was 25 mmHg with no gradient across aortic valve. PCI OF THE LAD: Anticoagulation was achieved using heparin with continuous ACT monitoring throughout the procedure. Subsequently, using JL3.5 guiding catheter, the left main was engaged. I did wire the LAD using a run-through wire and the wire was advanced all the way to the distal LAD. Balloon angioplasty of the proximal left anterior descending artery was performed using 2.5 x 12 mm balloon. After that, the angiogram showed a critical lesion appeared to be involving the mid LAD and seems to be only a short lesion. For that reason, I decided to stent that lesion first. I deployed x 12 mm Xience drug-eluting stent where the stent was positioned under fluoroscopic guidance and deployed under 12 atmospheres for about 15 seconds. The following angiogram showed good angiographic results for that lesion. After that, I did an MIRANDA caudal view, which showed the lesion we ballooned initially which is in the proximal LAD and I decided to stent that lesion which was tight as well. I deployed 2.75 x 18 mm Xience drug-eluting stent at that point, where the stent was positioned again under fluoroscopic guidance and deployed under its nominal pressure. The following angiogram showed good angiographic results for the proximal and mid LAD, but the distal LAD now has a long tubular lesion appeared to be flow limiting and hazy with possible thrombus there. I decided to stent that lesion as well. Attempting advancing 2.0 x 26 mm dena drug-eluting stent for direct stenting was unsuccessful. For that reason, I decided to balloon the distal lesion. The balloon angioplasty performed using 2.0 X 12 x 20 mm balloon. With that, I was able to advance 2.0 x 26 mm dena drug-eluting stent where the stent was positioned under fluoroscopic guidance and deployed under its nominal pressure. The following angiogram showed excellent angiographic results. I was able to achieve ABBY-3 flow by the end. There was some myocardial blush as well. CONCLUSION: 1. Acute anterior ST-elevation myocardial infarction. 2. Occluded LAD in the proximal portion. Beside that, severe disease involving the mid and distal LAD. I performed successful stenting of the proximal and mid and distal LAD as described above with an excellent angiographic results and ABBY-3 flow. 3. Severe disease involving the PLV branch and PDA branch of the right coronary artery. 4. Elevated left-sided filling pressure. POSTPROCEDURE MANAGEMENT: 1. Dual anti-platelet therapy. 2. Aggressive cholesterol control. 3. Risk factor modifications. 4. Echocardiogram to assess the LV function. 5. Nephrology consult in view of the elevated creatinine. 6. Start the patient on anti-ischemic medication using beta skyler. 7. Follow up with the patient. CHARLI / HAIDERN: [id number] /
[2021-05-09] MEDS ORDERED: ATORVASTATIN 80 MG TAB PO SCH (09:00)
[2021-05-09] MEDS: METOPROLOL SUCCINATE (ER) 25 MG TAB.ER.24H PO SCH (09:12)
[2021-05-09] MEDS: ASPIRIN 81 MG PO SCH (10:44)
[2021-05-09] MEDS: ACETAMINOPHEN TAB 325 MG TAB PO PRN (10:44)
--- NOTE | 2021-05-09 10:55 | ECHOF ---
Referral Reason:CP MEASUREMENTS -------- HEIGHT: 175.3 cm WEIGHT: 65.3 kg BP: RVIDd: 1.9 cm (< 3.3) IVSd: 1.1 cm (0.6 - 1.1) LVIDd: 4.1 cm (3.9 - 5.3) LVPWd: 1.4 cm (0.6 - 1.1) IVSs: 1.5 cm LVIDs: 3.3 cm LVPWs: 1.3 cm FINDINGS -------- Limited Study The left ventricular size is normal. There is borderline concentric left ventricular hypertrophy. Overall left ventricular systolic function is moderate-severely impaired with, an EF between 30 - 35 %. Basal anterior LV wall motion is hypokinetic. Mid anterior LV wall motion is hypokinetic. Mid anteroseptal LV wall motion is hypokinetic. Apical anterior LV wall motion is hypokinetic. Apical lateral LV wall motion is hypokinetic. Apical inferior LV wall motion is hypokinetic. A pical septum LV wall motion is hypokinetic. There is a trivial pericardial effusion present. CONCLUSIONS -------- 1. The left ventricular size is normal. 2. There is borderline concentric left ventricular hypertrophy. 3. Overall left ventricular systolic function is moderate-severely impaired with, an EF between 30 - 35 %. 4. Basal anterior LV wall motion is hypokinetic. 5. Mid anterior LV wall motion is hypokinetic. 6. Mid anteroseptal LV wall motion is hypokinetic. 7. Apical anterior LV wall motion is hypokinetic. 8. Apical lateral LV wall motion is hypokinetic. 9. Apical inferior LV wall motion is hypokinetic. 10. Apical septum LV wall motion is hypokinetic. 11. There is a trivial pericardial effusion present. PROJECT MANAGER/DESIGN MANAGER: Olga Espitia, BIN
[2021-05-09 11:49] LABS: Basophils % (A) 0 %; Eosinophils % (A) 0 %; HCT 46.9 % (39.0-53.0); HGB 15.2 gm/dL (13.0-17.5); Lymphocytes # (A) 0.5 k/uL (1.0-4.8); Lymphocytes % (A) 3 %; MCH 27.9 pg (25.0-35.0); MCHC 32.4 g/dL (31.0-37.0); MCV 86.2 fL (80.0-100.0); Monocytes # (A) 1.2 k/uL (0-1.0); Monocytes % (A) 6 %; Neutrophils % (A) 88 %; Platelet Count 172 k/uL (150-450); RBC 5.44 m/uL (4.30-5.90); RDW 14.3 % (11.5-15.5); WBC 18.1 k/uL (3.8-10.6)
[2021-05-09 11:59] LABS: Calcium 8.9 mg/dL (8.4-10.2)
[2021-05-09 12:00] LABS: Potassium 4.4 mmol/L (3.5-5.1)
--- NOTE | 2021-05-09 12:38 | P.NPCON ---
History of Present Illness - Reason for Consult acute renal failure - Chief Complaint Chest pain and acute OR - History of Present Illness This is a 75-year-old male came in with chest discomfort and had acute anterior ST elevation OR, underwent emergent heart catheterization and had occluded LAD which was stented in 3 places because of large thrombus burden he was started on Aggrastat. He had hematuria. A Richardson catheter was inserted and seems to be like he had large amount of urine that came out. His creatinine which was 0.73 on 05/01/2021 and was 10.95 on admission has come down to 3.79 within a few hours. Patient is currently asymptomatic denies any chest pain shortness of breath. No dizziness no fever chills sweating. He has a Richardson catheter which is draining somewhat blood tinged urine. Patient is aware that there was some issues with his urinary retention with difficulty in urination and a feeling of not emptying completely. He was seen at the [facility] in the past and was told that there may be a small prostate cancer with does not need any significant surgery or radiation treatment. Other than this no history of kidney disease. At home he was on Proscar and Mobic Past Medical History Past Medical History: Asthma, Hypertension, Prostate Disorder Additional Past Medical History / Comment(s): allergies Last Myocardial Infarction Date:: 05/09/2021 History of Any Multi-Drug Resistant Organisms: None Reported Past Surgical History: Appendectomy, Back Surgery, Tonsillectomy Additional Past Surgical History / Comment(s): cervical Past Anesthesia/Blood Transfusion Reactions: No Reported Reaction Additional Past Anesthesia/Blood Transfusion Reaction / Comment(s): Pt is clausterphobic. Past Psychological History: No Psychological Hx Reported Smoking Status: Former smoker Past Alcohol Use History: None Reported Past Drug Use History: None Reported - Past Family History Mother Family Medical History: No Reported History Additional Family Medical History / Comment(s): Mother was healthy and lived to be 92 yrs old. Father History Unknown: Yes Additional Family Medical History / Comment(s): Father at the age of 68yrs, pt unable to say from what. Medications and Allergies Home Medications Medication Instructions Recorded Confirmed Type Albuterol Inhaler [Ventolin Hfa 2 puff INHALATION RT-QID PRN 04/25/21 04/25/21 History Inhaler] Albuterol Nebulized [Ventolin 2.5 mg INHALATION RT-Q4H PRN 04/25/21 04/25/21 History Nebulized] Ammonium Lactate Lotion 1 applic TOPICAL DAILY PRN 04/25/21 04/25/21 History [Lac-Hydrin 12% Lotion] Cetirizine HCl [Zyrtec] 10 mg PO DAILY PRN 04/25/21 04/25/21 History Diclofenac 1% Top Gel 1 applic TOPICAL BID 04/25/21 04/25/21 History Finasteride [Proscar] 5 mg PO HS 04/25/21 04/25/21 History Fluticasone Nasal [place] [Flonase 2 spray EA NOSTRIL DAILY 04/25/21 04/25/21 H istory Nasal [place]] Fluticasone/Salmeterol [Advair 1 puff INHALATION RT-BID 04/25/21 04/25/21 History 250-50 Diskus] Lidocaine 5% Patch [Lidoderm 5% 1 patch TOPICAL DAILY 04/25/21 04/25/21 History Patch] Meloxicam [Mobic] 7.5 mg PO DAILY PRN 04/25/21 04/25/21 History Polyvinyl Alcohol/Povidone 1 drop BOTH EYES TID 04/25/21 04/25/21 History [[place] Eye Drop] Pravastatin Sodium [Pravachol] 20 mg PO HS 04/25/21 04/25/21 History Triamcinolone 0.1% Cream [Kenalog 1 applicatio TOPICAL BID PRN 04/25/21 04/25/21 History 0.1% Cream] Folic Acid 1 mg PO DAILY@1200 #30 tab 05/02/21 Rx Furosemide [Lasix] 40 mg PO BID@0900,1600 #60 tab 05/02/21 Rx Metoprolol Succinate (ER) [Toprol 50 mg PO BID #60 05/02/21 Rx XL] Thiamine [Vitamin B-1] 100 mg PO DAILY@1200 #30 tab 05/02/21 Rx lisinopriL [Zestril] 5 mg PO BID #60 tab 05/02/21 Rx Allergies Allergy/AdvReac Type Severity Reaction Status Date / Time Influenza Virus Vaccines Allergy Unknown Verified 04/25/21 14:27 Physical Exam Vitals: Vital Signs Temp Pulse Resp BP Pulse Ox 05/09/21 12:00 90 18 108/65 96 05/09/21 11:00 92 16 105/61 96 05/09/21 10:00 80 18 105/61 97 05/09/21 09:00 93 27 H 88/65 98 05/09/21 08:00 92 26 H 92/61 97 05/09/21 07:00 89 13 94/62 95 05/09/21 06:00 88 15 114/72 97 05/09/21 05:00 90 3 L 98/79 97 05/09/21 04:00 97.4 F L 94 18 119/72 95 05/09/21 02:10 103 H 19 119/72 95 05/09/21 01:26 103 H 17 109/74 94 L Intake and Output 05/08/21 05/09/21 05/09/21 22:59 06:59 14:59 Intake Total 405 450 Output Total 3525 2900 Balance -3120 -2450 Intake: IV 405 450 Sodium Chloride 0.9% 1, 225 450 000 ml @ 75 mls/hr IV . [id number] [facility] Rx#:[id number] Output: Urine 3525 2900 Other: Weight 65.317 kg On exam concurrently is awake alert oriented comfortable A chin exam no JVP neck is supple no facial asymmetry Lungs are clear to auscultation good air entry bilaterally Heart sounds unremarkable for any murmur rub gallop Abdomen soft nontender no organomegaly ascites masses Extremity exam was 2+ edema Neurologically awake alert oriented Results - Lab Results Most recent lab results Calcium 8.9 mg/dL (8.4-10.2) 05/09/21 11:24 Magnesium 2.2 mg/dL (1.6-2.3) 05/09/21 01:43 05/09/21 11:24 05/09/21 11:24 Assessment and Plan Assessment: Impression 1. Acute kidney injury from outlet obstruction, relieved with Richardson catheter creatinine coming down from 10-3.7 and a few hours with somewhat blood tinged urine. 2. History of taking nonsteroidal Mobic at home. This might have contributed to acute kidney injury. 3. History of prostatism. Questionable history of carcinoma of the prostate based on patient's history 4. Acute OR status post cardiac catheterization and stenting. 5. Hyponatremia secondary to acute kidney injury expected to improve Recommendation 1. Continue Richardson catheter 2. If hematuria does not clear or worsens we'll consider starting IV bicarbona te drip 3. Avoid any nephrotoxic medication for right now 4. Monitor labs Thank you for this consultation and we'll continue to follow
[2021-05-09] MEDS: TICAGRELOR 90 MG TAB PO SCH ×2 (13:00→20:36)
[2021-05-09 13:06] VITALS: BMI 21.2
--- NOTE | 2021-05-09 14:30 | P.GSCN ---
History of Present Illness Consult date: 05/09/21 Reason for Consult: Urinary retention History of present illness: This is a 75-year-old male admitted to the hospital with chest pain. Urology is consulted for urinary retention. A Richardson catheter was placed with return of 1.9 liter of blood-tinged urine urine. Upon presentation his creatinine was 10.9, from a baseline of 0.7. His creatinine is 3.7 following Richardson catheter insertion. He was asymptomatic from his urinary retention, denies any significant urinary symptoms at baseline. He does have history of prostate cancer, on active surveillance. He follows up with the [place] in regards to his prostate cancer management. He has made 6 L of urine since catheter placement Review of Systems - Constitutional Denies fever, Denies weight loss - Cardiovascular Reports chest pain - Respiratory Denies cough, Denies 7 - Gastrointestinal Reports as per HPI - Genitourinary Reports urinary retention, Denies flank pain, Denies hematuria - Neurological Denies headaches, Denies syncope Past Medical History Past Medical History: Asthma, Hypertension, Prostate Disorder Additional Past Medical History / Comment(s): allergies Last Myocardial Infarction Date:: 05/09/2021 History of Any Multi-Drug Resistant Organisms: None Reported Past Surgical History: Appendectomy, Back Surgery, Tonsillectomy Additional Past Surgical History / Comment(s): cervical Past Anesthesia/Blood Transfusion Reactions: No Reported Reaction Additional Past Anesthesia/Blood Transfusion Reaction / Comm: Pt is clausterphobic. Past Psychological History: No Psychological Hx Reported Smoking Status: Former smoker Past Alcohol Use History: None Reported Past Drug Use History: None Reported - Past Family History Mother Family Medical History: No Reported History Additional Family Medical History / Comment(s): Mother was healthy and lived to be 92 yrs old. Father History Unknown: Yes Additional Family Medical History / Comment(s): Father at the age of 68yrs, pt unable to say from what. Medications and Allergies Home Medications Medication Instructions Recorded Confirmed Type Albuterol Inhaler [Ventolin Hfa 2 puff INHALATION RT-QID PRN 04/25/21 05/09/21 History Inhaler] Albuterol Nebulized [Ventolin 2.5 mg INHALATION RT-QID PRN 04/25/21 05/09/21 History Nebulized] Ammonium Lactate Lotion 1 applic TOPICAL DAILY PRN 04/25/21 05/09/21 History [Lac-Hydrin 12% Lotion] Cetirizine HCl [Zyrtec] 10 mg PO DAILY PRN 04/25/21 05/09/21 History Finasteride [Proscar] 5 mg PO HS 04/25/21 05/09/21 History Fluticasone Nasal [place] [Flonase 2 spr EA NOSTRIL DAILY 04/25/21 05/09/21 History Nasal [place]] Fluticasone/Salmeterol [Advair 1 puff INHALATION RT-BID 04/25/21 05/09/21 History 250-50 Diskus] Lidocaine 5% Patch [Lidoderm 5% 1 patch TRANSDERM DAILY 04/25/21 05/09/21 History Patch] Meloxicam [Mobic] 7.5 mg PO DAILY PRN 04/25/21 05/09/21 History Polyvinyl Alcohol/Povidone 1 drop BOTH EYES TID 04/25/21 05/09/21 History [[place] Eye Drop] Pravastatin Sodium [Pravachol] 20 mg PO HS 04/25/21 05/09/21 History Triamcinolone 0.1% Cream [Kenalog 1 applic TOPICAL BID PRN 04/25/21 05/09/21 History 0.1% Cream] Folic Acid 1 mg PO DAILY@1200 #30 tab 05/02/21 05/09/21 Rx Furosemide [Lasix] 40 mg PO BID@0900,1600 #60 tab 05/02/21 05/09/21 Rx Metoprolol Succinate (ER) [Toprol 50 mg PO BID #60 05/02/21 05/09/21 Rx XL] Thiamine [Vitamin B-1] 100 mg PO DAILY@1200 #30 tab 05/02/21 05/09/21 Rx lisinopriL [Zestril] 5 mg PO BID #60 tab 05/02/21 05/09/21 Rx Diclofenac Sodium Gel [Voltaren 2 - 4 gm TOPICAL BID 05/09/21 05/09/21 History Gel] Allergies Allergy/AdvReac Type Severity Reaction Status Date / Time Influenza Virus Vaccines Allergy Unknown Verified 05/09/21 13:06 Surgical - Exam Vital Signs Pulse Resp BP Pulse Ox 103 H 17 109/74 94 L 05/09/21 01:26 05/09/21 01:26 05/09/21 01:26 05/09/21 01:26 - General no distress, no pain - Eyes normal ocular movement, no pale - ENT normal nares, normal mucosa - Respiratory normal expansion, normal respiratory effort - Abdomen Abdomen: soft, non tender - Genitourinary Richardson in place blood-tinged urine - Psychiatric oriented to time, oriented to person Results - Labs 05/09/21 11:24 05/09/21 11:24 Abnormal Lab Results - Last 24 Hours (Table) 05/09/21 05/09/21 05/09/21 Range/Units 01:43 01:43 01:43 WBC 14.6 H (3.8-10.6) k/uL Plt Count 144 L (150-450) k/uL Neutrophils # 12.8 H (1.3-7.7) k/uL Lymphocytes # 0.4 L (1.0-4.8) k/uL Monocytes # (0-1.0) k/uL APTT 21.9 L (22.0-30.0) sec Sodium 130 L (137-145) mmol/L Chloride 89 L (98-107) mmol/L Carbon Dioxide (22-30) mmol/L BUN 113 H* (9-20) mg/dL Creatinine 10.95 H* (0.66-1.25) mg/dL Glucose 213 H (74-99) mg/dL POC Glucose (mg/dL) (75-99) mg/dL Calcium 8.1 L (8.4-10.2) mg/dL Troponin I (0.000-0.034) ng/mL Total Protein 5.5 L (6.3-8.2) g/dL Albumin 2.9 L (3.5-5.0) g/dL 05/09/21 05/09/21 05/09/21 Range/Units 01:43 04:02 04:22 WBC (3.8-10.6) k/uL Plt Count (150-450) k/uL Neutrophils # (1.3-7.7) k/uL Lymphocytes # (1.0-4.8) k/uL Monocytes # (0-1.0) k/uL APTT 135.5 H* (22.0-30.0) sec Sodium (137-145) mmol/L Chloride (98-107) mmol/L Carbon Dioxide (22-30) mmol/L BUN (9-20) mg/dL Creatinine (0.66-1.25) mg/dL Glucose (74-99) mg/dL POC Glucose (mg/dL) 179 H (75-99) mg/dL Calcium (8.4-10.2) mg/dL Troponin I 0.592 H* (0.000-0.034) ng/mL Total Protein (6.3-8.2) g/dL Albumin (3.5-5.0) g/dL 05/09/21 05/09/21 05/09/21 Range/Units 04:22 04:22 07:36 WBC 15.2 H (3.8-10.6) k/uL Plt Count (150-450) k/uL Neutrophils # (1.3-7.7) k/uL Lymphocytes # (1.0-4.8) k/uL Monocytes # (0-1.0) k/uL APTT (22.0-30.0) sec Sodium (137-145) mmol/L Chloride (98-107) mmol/L Carbon Dioxide (22-30) mmol/L BUN (9-20) mg/dL Creatinine (0.66-1.25) mg/dL Glucose (74-99) mg/dL POC Glucose (mg/dL) (75-99) mg/dL Calcium (8.4-10.2) mg/dL Troponin I 24.400 H* 231.000 H* (0.000-0.034) ng/mL Total Protein (6.3-8.2) g/dL Albumin (3.5-5.0) g/dL 05/09/21 05/09/21 Range/Units 11:24 11:24 WBC 18.1 H (3.8-10.6) k/uL Plt Count (150-450) k/uL Neutrophils # 16.0 H (1.3-7.7) k/uL Lymphocytes # 0.5 L (1.0-4.8) k/uL Monocytes # 1.2 H (0-1.0) k/uL APTT (22.0-30.0) sec Sodium (137-145) mmol/L Chloride (98-107) mmol/L Carbon Dioxide 33 H (22-30) mmol/L BUN 64 H (9-20) mg/dL Creatinine 3.79 H (0.66-1.25) mg/dL Glucose 145 H (74-99) mg/dL POC Glucose (mg/dL) (75-99) mg/dL Calcium (8.4-10.2) mg/dL Troponin I (0.000-0.034) ng/mL Total Protein (6.3-8.2) g/dL Albumin (3.5-5.0) g/dL Diabetes panel 05/09/21 05/09/21 Range/Units 01:43 11:24 Sodium 130 L 138 (137-145) mmol/L Potassium 3.8 4.4 (3.5-5.1) mmol/L Chloride 89 L 99 (98-107) mmol/L Carbon Dioxide 26 33 H (22-30) mmol/L BUN 113 H* 64 H (9-20) mg/dL Creatinine 10.95 H* 3.79 H (0.66-1.25) mg/dL Glucose 213 H 145 H (74-99) mg/dL Calcium 8.1 L 8.9 (8.4-10.2) mg/dL AST 33 (17-59) U/L ALT 40 (4-49) U/L Alkaline Phosphatase 57 (38-126) U/L Total Protein 5.5 L (6.3-8.2) g/dL Albumin 2.9 L (3.5-5.0) g/dL Calcium panel 05/09/21 05/09/21 Range/Units 01:43 11:24 Calcium 8.1 L 8.9 (8.4-10.2) mg/dL Albumin 2.9 L (3.5-5.0) g/dL Pituitary panel 05/09/21 05/09/21 Range/Units 01:43 11:24 Sodium 130 L 138 (137-145) mmol/L Potassium 3.8 4.4 (3.5-5.1) mmol/L Chloride 89 L 99 (98-107) mmol/L Carbon Dioxide 26 33 H (22-30) mmol/L BUN 113 H* 64 H (9-20) mg/dL Creatinine 10.95 H* 3.79 H (0.66-1.25) mg/dL Glucose 213 H 145 H (74-99) mg/dL Calcium 8.1 L 8.9 (8.4-10.2) mg/dL Adrenal panel 05/09/21 05/09/21 Range/Units 01:43 11:24 Sodium 130 L 138 (137-145) mmol/L Potassium 3.8 4.4 (3.5-5.1) mmol/L Chloride 89 L 99 (98-107) mmol/L Carbon Dioxide 26 33 H (22-30) mmol/L BUN 113 H* 64 H (9-20) mg/dL Creatinine 10.95 H* 3.79 H (0.66-1.25) mg/dL Glucose 213 H 145 H (74-99) mg/dL Calcium 8.1 L 8.9 (8.4-10.2) mg/dL Total Bilirubin 0.8 (0.2-1.3) mg/dL AST 33 (17-59) U/L ALT 40 (4-49) U/L Alkaline Phosphatase 57 (38-126) U/L Total Protein 5.5 L (6.3-8.2) g/dL Albumin 2.9 L (3.5-5.0) g/dL Assessment and Plan Assessment: 75-year-old male with 1.9 L urinary retention. History of prostate cancer on a ctive surveillance. Currently follows up with the [place] [facility]rology. Patient was an acute kidney injury on presentation secondary to his retention. His gross hematuria is from bladder distention. Given his degree of urine output, monitor closely his I's and O's.. -Recommend keeping the Richardson catheters for 2 weeks, given the degree of retention and his acute kidney injury. He can follow-up with his [place] urologist as an outpatient for catheter removal -We will start Flomax 0.4 mg
[2021-05-09] MEDS: ATORVASTATIN 80 MG TAB PO SCH (20:36)
--- NOTE | 2021-05-10 00:03 | P.HPIM ---
History of Present Illness H&P Date: 05/09/21 Chief Complaint: Chest pain Patient is a 75-year-old male with a known history of asthma, hypertension, recent diagnosis of cardiomyopathy ejection fraction 35 to 40% presents to ER with complaints of chest pain. Patient states that he was at home sitting in the couch and suddenly developed mid retrosternal chest pain and felt like heartburn. Denied any radiation of the pain. No complaints of nausea or vomiting or dizziness or lightheadedness. Patient was brought to the hospital by EMS. EKG concerning for acute anterior ST related MA and was taken to cardiac catheterization for stent placement. Patient was recently discharged from the hospital on 05/02/2021 he was treated for COPD exacerbation and pneumonia and was also found to have elevated troponin level. 2D echocardiogram today with him fraction 35 to 40% is recommended to follow-up in the clinic after completion of treatment for pneumonia. Patient underwent cardiac catheterization showed total occlusion of the LAD in the proximal portion and severe disease involving the mid LAD and distal LAD. Status post successful stenting of the proximal and mid and distal LAD. Chest x-ray showed small pleural effusions and mild pulmonary congestion. Minimal heart failure is possible. Laboratory showed WBC 14.6 hemoglobin 14.4 and platelets 144 lymphocytes 0.4 BUN 113 and creatinine 10.95 Troponin 0 0.592 and 24.4 COVID-19 PCR not detected. proBNP is 869, sodium 130 potassium 3.8 chloride 89 Review of Systems Constitutional: Patient denies any fever or chills . No generalized weakness or weight loss. Abdomen: Patient denied nausea vomiting and diarrhea and abdominal pain. Cardiovascular: Patient denies any chest pain or short of breath no palpitations. Respiratory: patient denied any cough or sputum production. No shortness of breath Neurologic: Patient denied any numbness or tingling headache. Musculoskeletal: Patient denies any complaints of joint swelling or deformity. Skin: Negative Psychiatric: Negative Endocrine: No heat or cold intolerance. No recent weight gain. Genitourinary: No dysuria or hematuria. All other 14 point ROS negative except the above Past Medical History Past Medical History: Asthma, Hypertension, Prostate Disorder Additional Past Medical History / Comment(s): allergies Last Myocardial Infarction Date:: 05/09/2021 History of Any Multi-Drug Resistant Organisms: None Reported Past Surgical History: Appendectomy, Back Surgery, Tonsillectomy Additional Past Surgical History / Comment(s): cervical Past Anesthesia/Blood Transfusion Reactions: No Reported Reaction Additional Past Anesthesia/Blood Transfusion Reaction / Comment(s): Pt is clausterphobic. Past Psychological History: No Psychological Hx Reported Smoking Status: Former smoker Past Alcohol Use History: None Reported Past Drug Use History: None Reported - Past Family History Mother Family Medical History: No Reported History Additional Family Medical History / Comment(s): Mother was healthy and lived to be 92 yrs old. Father History Unknown: Yes Additional Family Medical History / Comment(s): Father at the age of 68yrs, pt unable to say from what. Medications and Allergies Home Medications Medication Instructions Recorded Confirmed Type RX: Albuterol Inhaler [Ventolin 2 puff INHALATION RT-QID PRN 04/25/21 05/09/21 History Hfa Inhaler] RX: Albuterol Nebulized [Ventolin 2.5 mg INHALATION RT-QID PRN 04/25/21 05/09/21 History Nebulized] RX: Ammonium Lactate Lotion 1 applic TOPICAL DAILY PRN 04/25/21 05/09/21 History [Lac-Hydrin 12% Lotion] RX: Cetirizine HCl [Zyrtec] 10 mg PO DAILY PRN 04/25/21 05/09/21 History RX: Finasteride [Proscar] 5 mg PO HS 04/25/21 05/09/21 History RX: Fluticasone Nasal [place] 2 spr EA NOSTRIL DAILY 04/25/21 05/09/21 History [Flonase Nasal [place]] RX: Fluticasone/Salmeterol [Advair 1 puff INHALATION RT-BID 04/25/21 05/09/21 History 250-50 Diskus] RX: Lidocaine 5% Patch [Lidoderm 1 patch TRANSDERM DAILY 04/25/21 05/09/21 History 5% Patch] RX: Meloxicam [Mobic] 7.5 mg PO DAILY PRN 04/25/21 05/09/21 History RX: Polyvinyl Alcohol/Povidone 1 drop BOTH EYES TID 04/25/21 05/09/21 History [Freshkote Eye Drop] RX: Pravastatin Sodium [Pravachol] 20 mg PO HS 04/25/21 05/09/21 History RX: Triamcinolone 0.1% Cream 1 applic TOPICAL BID PRN 04/25/21 05/09/21 History [Kenalog 0.1% Cream] RX: Folic Acid 1 mg PO DAILY@1200 #30 tab 05/02/21 05/09/21 Rx RX: Furosemide [Lasix] 40 mg PO BID@0900,1600 #60 tab 05/02/21 05/09/21 Rx RX: Metoprolol Succinate (ER) 50 mg PO BID #60 05/02/21 05/09/21 Rx [Toprol XL] RX: Thiamine [Vitamin B-1] 100 mg PO DAILY@1200 #30 tab 05/02/21 05/09/21 Rx RX: lisinopriL [Zestril] 5 mg PO BID #60 tab 05/02/21 05/09/21 Rx Diclofenac Sodium Gel [Voltaren 2 - 4 gm TOPICAL BID 05/09/21 05/09/21 History Gel] Allergies Allergy/AdvReac Type Severity Reaction Status Date / Time Influenza Virus Vaccines Allergy Unknown Verified 05/09/21 13:06 Physical Exam Vitals: Vital Signs Temp Pulse Resp BP Pulse Ox 05/09/21 12:00 90 18 108/65 96 05/09/21 11:00 92 16 105/61 96 05/09/21 10:00 80 18 105/61 97 05/09/21 09:00 93 27 H 88/65 98 05/09/21 08:00 92 18 92/61 97 05/09/21 07:00 89 13 94/62 95 05/09/21 06:00 88 15 114/72 97 05/09/21 05:00 90 3 L 98/79 97 05/09/21 04:00 97.4 F L 94 18 119/72 95 05/09/21 02:10 103 H 19 119/72 95 05/09/21 01:26 103 H 17 109/74 94 L Intake and Output 05/08/21 05/09/21 05/09/21 22:59 06:59 14:59 Intake Total 405 525 Output Total 3525 3125 Balance -3120 -2600 Intake: IV 405 525 Sodium Chloride 0.9% 1, 225 525 000 ml @ 75 mls/hr IV . [id number] [facility] Rx#:[id number] Output: Urine 3525 3125 Other: Voiding Method Indwelling Catheter Weight 65.317 kg 65.317 kg PHYSICAL EXAMINATION: Patient is lying in the bed comfortably, no acute distress, awake alert and oriented.. HEENT: Normocephalic. Neck is supple. Pupils reactive. Nostrils clear. Oral cavity is moist. Neck reveals no JVD, carotid bruits, or thyromegaly. CHEST EXAMINATION: Trachea is central. Symmetrical expansion. Lung gallegos clear to auscultation and percussion. CARDIAC: Normal S1, S2 with no gallops. No murmurs ABDOMEN: Soft. Bowel sounds normal. No organomegaly. No abdominal bruits. Extremities: reveal no edema. No clubbing or cyanosis Neurologically awake, alert, oriented x3 with well-coordinated movements. No focal deficits noted Skin: No rash or skin lesions. Psychiatric: Cooperative. Nonsuicidal Musculoskeletal: No joint swelling or deformity. Normal range of motion. Results CBC & Chem 7: 05/09/21 11:24 05/09/21 11:24 Labs: Abnormal Lab Results - Last 24 Hours (Table) 05/09/21 05/09/21 05/09/21 Range/Units 01:43 01:43 01:43 WBC 14.6 H (3.8-10.6) k/uL Plt Count 144 L (150-450) k/uL Neutrophils # 12.8 H (1.3-7.7) k/uL Lymphocytes # 0.4 L (1.0-4.8) k/uL Monocytes # (0-1.0) k/uL APTT 21.9 L (22.0-30.0) sec Sodium 130 L (137-145) mmol/L Chloride 89 L (98-107) mmol/L Carbon Dioxide (22-30) mmol/L BUN 113 H* (9-20) mg/dL Creatinine 10.95 H* (0.66-1.25) mg/dL Glucose 213 H (74-99) mg/dL POC Glucose (mg/dL) (75-99) mg/dL Calcium 8.1 L (8.4-10.2) mg/dL Troponin I (0.000-0.034) ng/mL Total Protein 5.5 L (6.3-8.2) g/dL Albumin 2.9 L (3.5-5.0) g/dL 05/09/21 05/09/21 05/09/21 Range/Units 01:43 04:02 04:22 WBC (3.8-10.6) k/uL Plt Count (150-450) k/uL Neutrophils # (1.3-7.7) k/uL Lymphocytes # (1.0-4.8) k/uL Monocytes # (0-1.0) k/uL APTT 135.5 H* (22.0-30.0) sec Sodium (137-145) mmol/L Chloride (98-107) mmol/L Carbon Dioxide (22-30) mmol/L BUN (9-20) mg/dL Creatinine (0.66-1.25) mg/dL Glucose (74-99) mg/dL POC Glucose (mg/dL) 179 H (75-99) mg/dL Calcium (8.4-10.2) mg/dL Troponin I 0.592 H* (0.000-0.034) ng/mL Total Protein (6.3-8.2) g/dL Albumin (3.5-5.0) g/dL 05/09/21 05/09/21 05/09/21 Range/Units 04:22 04:22 07:36 WBC 15.2 H (3.8-10.6) k/uL Plt Count (150-450) k/uL Neutrophils # (1.3-7.7) k/uL Lymphocytes # (1.0-4.8) k/uL Monocytes # (0-1.0) k/uL APTT (22.0-30.0) sec Sodium (137-145) mmol/L Chloride (98-107) mmol/L Carbon Dioxide (22-30) mmol/L BUN (9-20) mg/dL Creatinine (0.66-1.25) mg/dL Glucose (74-99) mg/dL POC Glucose (mg/dL) (75-99) mg/dL Calcium (8.4-10.2) mg/dL Troponin I 24.400 H* 231.000 H* (0.000-0.034) ng/mL Total Protein (6.3-8.2) g/dL Albumin (3.5-5.0) g/dL 05/09/21 05/09/21 Range/Units 11:24 11:24 WBC 18.1 H (3.8-10.6) k/uL Plt Count (150-450) k/uL Neutrophils # 16.0 H (1.3-7.7) k/uL Lymphocytes # 0.5 L (1.0-4.8) k/uL Monocytes # 1.2 H (0-1.0) k/uL APTT (22.0-30.0) sec Sodium (137-145) mmol/L Chloride (98-107) mmol/L Carbon Dioxide 33 H (22-30) mmol/L BUN 64 H (9-20) mg/dL Creatinine 3.79 H (0.66-1.25) mg/dL Glucose 145 H (74-99) mg/dL POC Glucose (mg/dL) (75-99) mg/dL Calcium (8.4-10.2) mg/dL Troponin I (0.000-0.034) ng/mL Total Protein (6.3-8.2) g/dL Albumin (3.5-5.0) g/dL Thrombosis Risk Factor Assmnt - DVT/VTE Prophylaxis DVT/VTE Prophylaxis: Pharmacologic Prophylaxis ordered - Choose All That Apply Each Risk Factor Represents 3 Points: Age 75 years or older Thrombosis Risk Factor Assessment Total Risk Factor Score: 3 Thrombosis Risk Factor Assessment Level: Moderate Risk Assessment and Plan Assessment: Acute ST elevated anterior wall MA status post stent placement to proximal mid and distal LAD Acute kidney injury due to post renal obstruction relieved with Richardson catheter. Hypovolemic hyponatremia Cardiomyopathy ejection fraction 35 to 40% Hypertension Hyperlipidemia COPD not in exacerbation DVT prophylaxis Plan: Patient is status post cardiac catheterization and stent placement to LAD. Co ntinue with dual antiplatelet therapy and statins. Nephrology has seen the patient due to elevated creatinine level which is due to obstructive uropathy and creatinine level improved to 3.37 after Richardson catheter placement. Continue with telemetry monitoring and patient is being monitored in the MICU currently. Follow-up closely. Time with Patient: Greater than 30
--- NOTE | 2021-05-10 07:20 | P.PN ---
Subjective Progress Note Date: 05/10/21 Principal diagnosis: This is a 75-year-old male seen in consultation because of acute kidney injury, likely from outlet obstruction mostly as his creatinine came down from 10 mg to 3.7 within a few hours after the Richardson catheter was inserted. He was admitted with acute CO and had a cardiac catheterization, with significant coronary artery disease needing stenting. He developed some hematuria post cardiac catheterization because of the anticoagulation use was subsequently changed. He is known with history of prostatism and questionable see of the prostate. This morning his vital signs us stable except blood pressure lowest is 93/65 currently 112/62 and he is comfortable and denies any complaints. Urine output is documented 5800 mL, intake of 1575. Premature is improved he continues to have Richardson catheter Labs are pending this morning Objective - Vital Signs Vital signs: Vital Signs Temp 97.8 F 05/10/21 04:00 Pulse 86 05/10/21 06:00 Resp 33 H 05/10/21 06:00 BP 112/62 05/10/21 06:00 Pulse Ox 95 05/10/21 06:00 Intake & Output 05/09/21 05/10/21 05/10/21 18:59 06:59 18:59 Intake Total 825 750 Output Total 3850 1950 Balance -3025 -1200 Weight 65.317 kg 69.3 kg Intake: IV 825 390 .9 KVO 180 Sodium Chloride 0.9% 1, 825 210 000 ml @ 75 mls/hr IV . [id number] [facility] Rx#:[id number] Oral 360 Output: Urine 3850 1950 Other: Voiding Method Indwelling Catheter Indwelling Catheter On examination awake alert oriented comfortable A chin exam no JVP neck is supple no facial asymmetry Lungs are clear to auscultation good air entry bilaterally Heart sounds unremarkable normal sinus rhythm no murmur rub gallop Abdomen soft nontender Extreme exam mild edema improved Neuro awake alert oriented - Labs CBC & Chem 7: 05/09/21 11:24 05/09/21 11:24 Labs: Abnormal Lab Results - Last 24 Hours (Table) 05/09/21 05/09/21 05/09/21 Range/Units 07:36 11:24 11:24 WBC 18.1 H (3.8-10.6) k/uL Neutrophils # 16.0 H (1.3-7.7) k/uL Lymphocytes # 0.5 L (1.0-4.8) k/uL Monocytes # 1.2 H (0-1.0) k/uL Carbon Dioxide 33 H (22-30) mmol/L BUN 64 H (9-20) mg/dL Creatinine 3.79 H (0.66-1.25) mg/dL Glucose 145 H (74-99) mg/dL Troponin I 231.000 H* (0.000-0.034) ng/mL Assessment and Plan Assessment: Impression 1. Acute kidney injury from outlet obstruction, additionally the possibility of dye-induced acute kidney injury is considered. His creatinine and urine output significantly improved with a Richardson catheter, creatinine coming down from 10-3.7 and a few hours with somewhat blood tinged urine. This morning lab is pending, he had 5 L out 2. History of taking nonsteroidal Mobic at home. This might have contributed to acute kidney injury. 3. History of prostatism. Questionable history of carcinoma of the prostate based on patient's history 4. Acute CO status post cardiac catheterization and stenting. 5. Hyponatremia secondary to acute kidney injury expected to improve Recommendation 1. Continue Richardson catheter 2. If hematuria does not clear or worsens we'll consider starting IV bicarbonat e drip 3. Avoid any nephrotoxic medication for right now 4. Monitor labs Thank you for this consultation and we'll continue to follow
[2021-05-10] MEDS: ASPIRIN 81 MG PO SCH (08:39)
[2021-05-10] MEDS: METOPROLOL SUCCINATE (ER) 25 MG TAB.ER.24H PO SCH (08:39)
[2021-05-10] MEDS: TICAGRELOR 90 MG TAB PO SCH ×2 (08:39→19:56)
[2021-05-10] MEDS: TAMSULOSIN 0.4 MG CAP.ER.24H PO SCH (08:39)
[2021-05-10] MEDS: SODIUM CHLORIDE 0.9% 1,000 ML IV SCH (08:53)
--- NOTE | 2021-05-10 08:55 | P.PN ---
Subjective HISTORY OF PRESENTING ILLNESS Acute coronary syndrome The patient is a pleasant 75-year-old gentleman with hypertension and dyslipidemia who was admitted to the hospital yesterday with chest discomfort and was diagnosed with acute anterior ST elevation myocardial infarction. He underwent an emergent heart catheterization and was found to have occluded LAD which was stented in the proximal and mid and distal portion. Because of the large thrombus burden he was started on Aggrastat. The patient was seen this morning. He had a Richardson catheter for urinary obstruction and subsequently he did have hematuria. Aggrastat is on hold at this point. No heparin IV is going at this point as well. He remains on dual antiplatelet therapy along with high intensity statin along with beta skyler with Toprol-XL. An echo is in process to be done. Clinically he is doing very well. Hemodynamically he is stable. 05/10 Patient seen and examined. Patient underwent extensive stenting of the LAD with anterior STEMI. He had been having urinary retention for the prior 4-5 days and was found to have acute kidney injury with creatinine up to 10. He had a Richardson placed with improvement in creatinine down to 3's today. Echocardiogram shows cardiomyopathy EF 30-35%. His blood pressures been borderline and Toprol was held yesterday however given this morning. He denies any further heartburn type sensation. REVIEW OF SYSTEMS At the time of my exam: CONSTITUTIONAL: Denies fever or chills. CARDIOVASCULAR: Denies chest pain, shortness of breath, orthopnea, PND or palpitations. RESPIRATORY: Denies cough. GASTROINTESTINAL: Denies abdominal pain, diarrhea, constipation, nausea or vomiting. MUSCULOSKELETAL: Denies myalgias. NEUROLOGIC: Denies numbness, tingling or weakness. ENDOCRINE: Denies fatigue, weight change, polydipsia or polyurina. GENITOURINARY: Denies burning, hematuria or urgency with micturation. HEMATOLOGIC: Denies history of anemia or bleeding. PHYSICAL EXAMINATION Vital signs reviewed. CONSTITUTIONAL: No apparent distress. HEENT: Head is normocephalic. Pupils are equal, round. Sclerae anicteric. Mucous membranes of the mouth are moist. No JVD. No carotid bruit. CHEST EXAMINATION: Lungs are clear to auscultation. No chest wall tenderness is noted on palpation or with deep breathing. HEART EXAMINATION: Regular rate and rhythm. S1, S2 heard. No murmurs, gallops or rub. ABDOMEN: Soft, nontender. Positive bowel sounds. EXTREMITIES: 2+ peripheral pulses, no lower extremity edema and no calf tenderness. NEUROLOGIC EXAMINATION: Patient is awake, alert and oriented x3. ASSESSMENT 1. Anterior STEMI status post PCI LAD 2. Coronary artery disease with residual RCA disease 3. Acute kidney injury related to obstructive uropathy 4. Hypertension, borderline 5. Ischemic cardiopathy EF 30-35% 6. Prostate cancer appears stable per patient PLAN We will continue with dual antiplatelets. Continue with low-dose metoprolol and monitor blood pressure closely. Ideally add JULIO CESAR inhibitor however monitor kidney function before adding and monitor blood pressure. Continue gentle IV fluids given acute kidney injury however majority of this appears related to obstructive uropathy and hopefully this improves. Objective - Vital Signs Vital signs: Vital Signs Temp 97.9 F 05/10/21 08:00 Pulse 88 05/10/21 08:00 Resp 24 05/10/21 08:00 BP 96/63 05/10/21 08:00 Pulse Ox 94 L 05/10/21 08:00 Intake & Output 05/09/21 05/10/21 05/10/21 18:59 06:59 18:59 Intake Total 825 750 Output Total 3850 1950 Balance -3025 -1200 Weight 65.317 kg 69.3 kg Intake: IV 825 390 .9 KVO 180 Sodium Chloride 0.9% 1, 825 210 000 ml @ 75 mls/hr IV . [id number] [facility] Rx#:[id number] Oral 360 Output: Urine 3850 1950 Other: Voiding Method Indwelling Catheter Indwelling Catheter - Labs CBC & Chem 7: 05/09/21 11:24 05/09/21 11:24 Labs: Abnormal Lab Results - Last 24 Hours (Table) 05/09/21 05/09/21 Range/Units 11:24 11:24 WBC 18.1 H (3.8-10.6) k/uL Neutrophils # 16.0 H (1.3-7.7) k/uL Lymphocytes # 0.5 L (1.0-4.8) k/uL Monocytes # 1.2 H (0-1.0) k/uL Carbon Dioxide 33 H (22-30) mmol/L BUN 64 H (9-20) mg/dL Creatinine 3.79 H (0.66-1.25) mg/dL Glucose 145 H (74-99) mg/dL
[2021-05-10] MEDS ORDERED: ASPIRIN 325 MG TAB PO SCH (09:00)
[2021-05-10 12:57] LABS: Basophils % (A) 0 %; Eosinophils # (A) 0.1 k/uL (0-0.7); Eosinophils % (A) 1 %; HCT 43.8 % (39.0-53.0); HGB 13.6 gm/dL (13.0-17.5); Lymphocytes # (A) 0.8 k/uL (1.0-4.8); Lymphocytes % (A) 5 %; MCH 27.6 pg (25.0-35.0); MCV 89.1 fL (80.0-100.0); Mean Platelet Volume 8.9; Monocytes # (A) 0.8 k/uL (0-1.0); Monocytes % (A) 6 %; Neutrophils # (A) 12.1 k/uL (1.3-7.7); Neutrophils % (A) 86 %; Platelet Count 165 k/uL (150-450); RBC 4.92 m/uL (4.30-5.90); RDW 14.5 % (11.5-15.5); WBC 14.1 k/uL (3.8-10.6)
[2021-05-10 13:03] LABS: African American GFR (CKD) >90 (>60 ml/min/1.73 sqM); Anion Gap 5 mmol/L; Blood Urea Nitrogen 19 mg/dL (9-20); Carbon Dioxide 27 mmol/L (22-30); Chloride 106 mmol/L (98-107); Glucose 104 mg/dL (74-99); Non-African American GFR(CKD) 84 (>60 ml/min/1.73 sqM); Sodium 138 mmol/L (137-145)
[2021-05-10 17:53] LABS: Chol/HDL Ratio 3.15 Ratio; LDL Cholesterol,Calculated 55.1 mg/dL (0.0-131.0)
[2021-05-10] MEDS: ATORVASTATIN 80 MG TAB PO SCH (19:56)
[2021-05-10] MEDS: ACETAMINOPHEN TAB 325 MG TAB PO PRN (19:56)
[2021-05-11] MEDS: SODIUM CHLORIDE 0.9% 1,000 ML IV SCH (06:31)
[2021-05-11 08:25] LABS: Basophils % (A) 0 %; Eosinophils # (A) 0.2 k/uL (0-0.7); Eosinophils % (A) 2 %; HCT 41.1 % (39.0-53.0); HGB 12.8 gm/dL (13.0-17.5); Hypochromasia Slight; Lymphocytes # (A) 0.9 k/uL (1.0-4.8); Lymphocytes % (A) 10 %; MCH 28.2 pg (25.0-35.0); MCHC 31.1 g/dL (31.0-37.0); MCV 90.6 fL (80.0-100.0); Mean Platelet Volume 8.7; Monocytes # (A) 0.5 k/uL (0-1.0); Monocytes % (A) 5 %; Neutrophils # (A) 7.9 k/uL (1.3-7.7); Neutrophils % (A) 82 %; Platelet Count 177 k/uL (150-450); RBC 4.53 m/uL (4.30-5.90); RDW 15.1 % (11.5-15.5); WBC 9.6 k/uL (3.8-10.6)
[2021-05-11] MEDS: METOPROLOL SUCCINATE (ER) 25 MG TAB.ER.24H PO SCH (08:25)
[2021-05-11] MEDS: TICAGRELOR 90 MG TAB PO SCH ×2 (08:26→19:51)
[2021-05-11] MEDS: ASPIRIN 81 MG PO SCH (08:26)
[2021-05-11] MEDS: TAMSULOSIN 0.4 MG CAP.ER.24H PO SCH (08:26)
--- NOTE | 2021-05-11 09:28 | P.PN ---
Subjective HISTORY OF PRESENTING ILLNESS Acute coronary syndrome The patient is a pleasant 75-year-old gentleman with hypertension and dyslipidemia who was admitted to the hospital yesterday with chest discomfort and was diagnosed with acute anterior ST elevation myocardial infarction. He underwent an emergent heart catheterization and was found to have occluded LAD which was stented in the proximal and mid and distal portion. Because of the large thrombus burden he was started on Aggrastat. The patient was seen this morning. He had a Richardson catheter for urinary obstruction and subsequently he did have hematuria. Aggrastat is on hold at this point. No heparin IV is going at this point as well. He remains on dual antiplatelet therapy along with high intensity statin along with beta skyler with Toprol-XL. An echo is in process to be done. Clinically he is doing very well. Hemodynamically he is stable. 05/10 Patient seen and examined. Patient underwent extensive stenting of the LAD with anterior STEMI. He had been having urinary retention for the prior 4-5 days and was found to have acute kidney injury with creatinine up to 10. He had a Richardson placed with improvement in creatinine down to 3's today. Echocardiogram shows cardiomyopathy EF 30-35%. His blood pressures been borderline and Toprol was held yesterday however given this morning. He denies any further heartburn type sensation. 05/11 Patient seen and examined. Patient denies any further chest pain or GERD type symptoms. He is having some mild hematuria noted and his Richardson catheter. Per urology plan is for discharge home with Richardson catheter. He has been on gentle IV fluids and creatinine has improved back to normal. BP has been borderline on the metoprolol 25 mg daily. REVIEW OF SYSTEMS At the time of my exam: CONSTITUTIONAL: Denies fever or chills. CARDIOVASCULAR: Denies chest pain, shortness of breath, orthopnea, PND or palpitations. RESPIRATORY: Denies cough. GASTROINTESTINAL: Denies abdominal pain, diarrhea, constipation, nausea or vomiting. MUSCULOSKELETAL: Denies myalgias. NEUROLOGIC: Denies numbness, tingling or weakness. ENDOCRINE: Denies fatigue, weight change, polydipsia or polyurina. GENITOURINARY: Denies burning, hematuria or urgency with micturation. HEMATOLOGIC: Denies history of anemia or bleeding. PHYSICAL EXAMINATION Vital signs reviewed. CONSTITUTIONAL: No apparent distress. HEENT: Head is normocephalic. Pupils are equal, round. Sclerae anicteric. Mucous membranes of the mouth are moist. No JVD. No carotid bruit. CHEST EXAMINATION: Lungs are clear to auscultation. No chest wall tenderness is noted on palpation or with deep breathing. HEART EXAMINATION: Regular rate and rhythm. S1, S2 heard. No murmurs, gallops or rub. ABDOMEN: Soft, nontender. Positive bowel sounds. EXTREMITIES: 2+ peripheral pulses, no lower extremity edema and no calf tenderness. NEUROLOGIC EXAMINATION: Patient is awake, alert and oriented x3. ASSESSMENT 1. Anterior STEMI status post PCI LAD 2. Coronary artery disease with residual RCA disease 3. Acute kidney injury related to obstructive uropathy 4. Hypertension, borderline 5. Ischemic cardiopathy EF 30-35% 6. Prostate cancer appears stable per patient PLAN Patient appears relatively stable from a cardiac standpoint. Kidney function has improved and appears all related to obstructive uropathy. Patient does have mild hematuria noted however would continue with dual antiplatelets. Blood pressures have been borderline however tolerating the metoprolol and no JULIO CESAR inh ibitor or angiotensin receptor skyler given borderline blood pressures. Would recommend staged PCI of the RCA to be performed as an outpatient. Patient appears stable for a cardiac standpoint for discharge home on current regimen however if further monitoring of hematuria as needed will defer to primary team. Objective - Vital Signs Vital signs: Vital Signs Temp 97.4 F L 05/11/21 08:00 Pulse 87 05/11/21 08:00 Resp 16 05/11/21 08:00 BP 97/53 05/11/21 08:00 Pulse Ox 97 05/11/21 08:00 Intake & Output 05/10/21 05/11/21 05/11/21 18:59 06:59 18:59 Intake Total 100 420 240 Output Total 750 900 Balance -650 -480 240 Intake: IV 100 .9 KVO 100 Intake, IV Titration 420 Amount Sodium Chloride 0.9% 1, 420 000 ml @ 60 mls/hr IV . [id number] [facility] Rx#:[id number] Oral 240 Output: Urine 750 900 Other: Voiding Method Indwelling Catheter Indwelling Catheter - Labs CBC & Chem 7: 05/11/21 07:20 05/10/21 12:06 Labs: Abnormal Lab Results - Last 24 Hours (Table) 05/10/21 05/10/21 05/11/21 Range/Units 12:06 12:06 07:20 WBC 14.1 H (3.8-10.6) k/uL Hgb 12.8 L (13.0-17.5) gm/dL Neutrophils # 12.1 H 7.9 H (1.3-7.7) k/uL Lymphocytes # 0.8 L 0.9 L (1.0-4.8) k/uL Glucose 104 H (74-99) mg/dL HDL Cholesterol 34.90 L (40.00-60.00) mg/dL
--- NOTE | 2021-05-11 10:27 | P.PN ---
Subjective Patient is seen in follow-up for acute kidney injury. Renal function back to baseline. Receiving IV fluids. Has a Richardson catheter for urinary retention. Denies chest pain or shortness of breath. Vital signs are stable. General: The patient appeared well nourished and normally developed. HEENT: Head exam is unremarkable. LUNGS: Breath sounds decreased. HEART: Rate and Rhythm are regular. ABDOMEN: Soft, no distention. EXTREMITITES: 2+ edema. Objective - Vital Signs Vital signs: Vital Signs Temp 97.4 F L 05/11/21 08:00 Pulse 87 05/11/21 08:00 Resp 16 05/11/21 08:00 BP 97/53 05/11/21 08:00 Pulse Ox 97 05/11/21 08:00 Intake & Output 05/10/21 05/11/21 05/11/21 18:59 06:59 18:59 Intake Total 100 420 240 Output Total 750 900 Balance -650 -480 240 Intake: IV 100 .9 KVO 100 Intake, IV Titration 420 Amount Sodium Chloride 0.9% 1, 420 000 ml @ 60 mls/hr IV . [id number] [facility] Rx#:[id number] Oral 240 Output: Urine 750 900 Other: Voiding Method Indwelling Catheter Indwelling Catheter - Labs CBC & Chem 7: 05/11/21 07:20 05/10/21 12:06 Labs: Abnormal Lab Results - Last 24 Hours (Table) 05/10/21 05/10/21 05/11/21 Range/Units 12:06 12:06 07:20 WBC 14.1 H (3.8-10.6) k/uL Hgb 12.8 L (13.0-17.5) gm/dL Neutrophils # 12.1 H 7.9 H (1.3-7.7) k/uL Lymphocytes # 0.8 L 0.9 L (1.0-4.8) k/uL Glucose 104 H (74-99) mg/dL HDL Cholesterol 34.90 L (40.00-60.00) mg/dL Assessment and Plan Plan: Assessment: 1. Acute kidney injury secondary to urinary retention. Improved post Richardson catheter placement. Creatinine 0.85 today. 2. Urinary retention. Has a Richardson catheter. Urology following. On Flomax. 3. Coronary artery disease status post cardiac catheterization with stenting on 05/09/2021. 4. Acute systolic CHF with ejection fraction of 30-35%. 5. Lower extremity edema. Plan: Hep-Lock IV fluids. Add oral Lasix 20 mg once daily. Avoid nephrotoxins.
[2021-05-11 12:01] LABS: Glucose,Whole Blood 172 mg/dL (75-99)
[2021-05-11] MEDS: FUROSEMIDE 20 MG TAB PO SCH (12:24)
[2021-05-11] MEDS: ATORVASTATIN 80 MG TAB PO SCH (19:50)
--- NOTE | 2021-05-11 22:24 | P.PN ---
Subjective Progress Note Date: 05/10/21 Patient is a 75-year-old male with a known history of asthma, hypertension, recent diagnosis of cardiomyopathy ejection fraction 35 to 40% presents to ER with complaints of chest pain. Patient states that he was at home sitting in the couch and suddenly developed mid retrosternal chest pain and felt like heartburn. Denied any radiation of the pain. No complaints of nausea or vomiting or dizziness or lightheadedness. Patient was brought to the hospital by EMS. EKG concerning for acute anterior ST related HI and was taken to cardiac catheterization for stent placement. Patient was recently discharged from the hospital on 05/02/2021 he was treated for COPD exacerbation and pneumonia and was also found to have elevated troponin level. 2D echocardiogram today with him fraction 35 to 40% is recommended to follow-up in the clinic after completion of treatment for pneumonia. Patient underwent cardiac catheterization showed total occlusion of the LAD in the proximal portion and severe disease involving the mid LAD and distal LAD. Status post successful stenting of the proximal and mid and distal LAD. Chest x-ray showed small pleural effusions and mild pulmonary congestion. Minimal heart failure is possible. Laboratory showed WBC 14.6 hemoglobin 14.4 and platelets 144 lymphocytes 0.4 BUN 113 and creatinine 10.95 Troponin 0 0.592 and 24.4 COVID-19 PCR not detected. proBNP is 869, sodium 130 potassium 3.8 chloride 89 05/10/2021 Patient is currently in MICU and is being transferred to medical floor. No complaints of chest pain or worsening shortness breath. Minimal exertional dysp kelly. Requiring 2 L oxygen via nasal cannula. Patient is status post cardiac catheterization and stent placement and presented with acute anterior wall HI. Patient is being continued on dual antiplatelet agents and metoprolol. 2D echocardiogram today contractural 30 to 35%. Urinary retention has resolved and currently on Richardson catheter. Creatinine level is normalized to 0.85. Creatinine went up to 10 before. Nephrology and cardiology is on board. Current medications reviewed. REVIEW OF SYSTEMS CONSTITUTIONAL: Denies fever or chills. CARDIOVASCULAR: Denies chest pain, shortness of breath, orthopnea, PND or palpitations. RESPIRATORY: Denies cough. GASTROINTESTINAL: Denies abdominal pain, diarrhea, constipation, nausea or vomiting. MUSCULOSKELETAL: Denies myalgias. NEUROLOGIC: Denies numbness, tingling or weakness. ENDOCRINE: Denies fatigue, weight change, polydipsia or polyurina. GENITOURINARY: Denies burning, hematuria or urgency with micturation. HEMATOLOGIC: Denies history of anemia or bleeding. Objective - Vital Signs Vital signs: Vital Signs Temp 97.9 F 05/10/21 08:00 Pulse 78 05/10/21 11:00 Resp 17 05/10/21 11:00 BP 97/60 05/10/21 11:00 Pulse Ox 95 05/10/21 11:00 Intake & Output 05/09/21 05/10/21 05/10/21 18:59 06:59 18:59 Intake Total 825 750 Output Total 3850 1950 Balance -3025 -1200 Weight 65.317 kg 69.3 kg Intake: IV 825 390 .9 KVO 180 Sodium Chloride 0.9% 1, 825 210 000 ml @ 75 mls/hr IV . [id number] [facility] Rx#:[id number] Oral 360 Output: Urine 3850 1950 Other: Voiding Method Indwelling Catheter Indwelling Catheter - Exam PHYSICAL EXAMINATION: Patient is lying in the bed comfortably, no acute distress, awake alert and oriented.. HEENT: Normocephalic. Neck is supple. Pupils reactive. Nostrils clear. Oral cavity is moist. Neck reveals no JVD, carotid bruits, or thyromegaly. CHEST EXAMINATION: Trachea is central. Symmetrical expansion. rt. bsilar crackles, Lung gallegos clear to auscultation and percussion. CARDIAC: Normal S1, S2 with no gallops. No murmurs ABDOMEN: Soft. Bowel sounds normal. No organomegaly. No abdominal bruits. Extremities: reveal no edema. No clubbing or cyanosis Neurologically awake, alert, oriented x3 with well-coordinated movements. No focal deficits noted Skin: No rash or skin lesions. Psychiatric: Cooperative. Nonsuicidal Musculoskeletal: No joint swelling or deformity. Normal range of motion. - Labs CBC & Chem 7: 05/11/21 07:20 05/10/21 12:06 Assessment and Plan Assessment: Acute ST elevated anterior wall HI status post stent placement to proximal mid and distal LAD Acute kidney injury due to post renal obstruction relieved with Richardson catheter. Hypovolemic hyponatremia Cardiomyopathy ejection fraction 30-35% Hypertension Hyperlipidemia COPD not in exacerbation DVT prophylaxis Plan: Patient is status post cardiac catheterization and stent placement to LAD. Continue with dual antiplatelet therapy and statins. Nephrology has seen the patient due to elevated creatinine level which is due to obstructive uropathy and creatinine level improved to 3.37-->0.85 after Richardson catheter placement. Seen by urology and recommends to continue Richardson catheter and follow-up as an outpatient. Continue with telemetry monitoring and patient is being monitored in the MICU currently. Follow-up closely. Time with Patient: Greater than 30
--- NOTE | 2021-05-11 22:26 | P.PN ---
Subjective Progress Note Date: 05/11/21 Patient is a 75-year-old male with a known history of asthma, hypertension, recent diagnosis of cardiomyopathy ejection fraction 35 to 40% presents to ER with complaints of chest pain. Patient states that he was at home sitting in the couch and suddenly developed mid retrosternal chest pain and felt like heartburn. Denied any radiation of the pain. No complaints of nausea or vomiting or dizziness or lightheadedness. Patient was brought to the hospital by EMS. EKG concerning for acute anterior ST related IA and was taken to cardiac catheterization for stent placement. Patient was recently discharged from the hospital on 05/02/2021 he was treated for COPD exacerbation and pneumonia and was also found to have elevated troponin level. 2D echocardiogram today with him fraction 35 to 40% is recommended to follow-up in the clinic after completion of treatment for pneumonia. Patient underwent cardiac catheterization showed total occlusion of the LAD in the proximal portion and severe disease involving the mid LAD and distal LAD. Status post successful stenting of the proximal and mid and distal LAD. Chest x-ray showed small pleural effusions and mild pulmonary congestion. Minimal heart failure is possible. Laboratory showed WBC 14.6 hemoglobin 14.4 and platelets 144 lymphocytes 0.4 BUN 113 and creatinine 10.95 Troponin 0 0.592 and 24.4 COVID-19 PCR not detected. proBNP is 869, sodium 130 potassium 3.8 chloride 89 05/10/2021 Patient is currently in MICU and is being transferred to medical floor. No complaints of chest pain or worsening shortness breath. Minimal exertional dysp kelly. Requiring 2 L oxygen via nasal cannula. Patient is status post cardiac catheterization and stent placement and presented with acute anterior wall IA. Patient is being continued on dual antiplatelet agents and metoprolol. 2D echocardiogram today contractural 30 to 35%. Urinary retention has resolved and currently on Richardson catheter. Creatinine level is normalized to 0.85. Creatinine went up to 10 before. Nephrology and cardiology is on board. 05/11/2021 Patient is currently sitting in the chair. Awake alert oriented x3. Breathing status is much improved. Requiring 2 L oxygen via nasal cannula which is her baseline at home. Denies any complaints of chest pain or shortness of breath. Patient does have blood-tinged urine this morning which is clearing up at this time. Laboratory data showed WBC 9.6 and hemoglobin 12.8 and platelets 177. Patient will need urology follow-up as an outpatient and continue with Richardson catheter upon discharge. Anticipate discharge in next 24 hours. Current medications reviewed. REVIEW OF SYSTEMS CONSTITUTIONAL: Denies fever or chills. CARDIOVASCULAR: Denies chest pain, shortness of breath, orthopnea, PND or palpitations. RESPIRATORY: Denies cough. GASTROINTESTINAL: Denies abdominal pain, diarrhea, constipation, nausea or vomiting. MUSCULOSKELETAL: Denies myalgias. NEUROLOGIC: Denies numbness, tingling or weakness. ENDOCRINE: Denies fatigue, weight change, polydipsia or polyurina. GENITOURINARY: Denies burning, hematuria or urgency with micturation. HEMATOLOGIC: Denies history of anemia or bleeding. Objective - Vital Signs Vital signs: Vital Signs Temp 98.2 F 05/11/21 19:45 Pulse 94 05/11/21 20:00 Resp 16 05/11/21 19:45 BP 117/72 05/11/21 19:45 Pulse Ox 97 05/11/21 19:45 Intake & Output 05/11/21 05/11/21 05/12/21 06:59 18:59 06:59 Intake Total 420 976 Output Total 900 1400 400 Balance -480 -424 -400 Intake: Intake, IV Titration 420 Amount Sodium Chloride 0.9% 1, 420 000 ml @ 60 mls/hr IV . [id number] [facility] Rx#:[id number] Oral 976 Output: Urine 900 1400 400 Other: Voiding Method Indwelling Catheter Indwelling Catheter Indwelling Catheter - Exam PHYSICAL EXAMINATION: Patient is lying in the bed comfortably, no acute distress, awake alert and oriented.. HEENT: Normocephalic. Neck is supple. Pupils reactive. Nostrils clear. Oral cavity is moist. Neck reveals no JVD, carotid bruits, or thyromegaly. CHEST EXAMINATION: Trachea is central. Symmetrical expansion. rt. bsilar crackles, Lung gallegos clear to auscultation and percussion. CARDIAC: Normal S1, S2 with no gallops. No murmurs ABDOMEN: Soft. Bowel sounds normal. No organomegaly. No abdominal bruits. Extremities: reveal no edema. No clubbing or cyanosis Neurologically awake, alert, oriented x3 with well-coordinated movements. No focal deficits noted Skin: No rash or skin lesions. Psychiatric: Cooperative. Nonsuicidal Musculoskeletal: No joint swelling or deformity. Normal range of motion. - Labs CBC & Chem 7: 05/11/21 07:20 05/10/21 12:06 Labs: Abnormal Lab Results - Last 24 Hours (Table) 05/11/21 05/11/21 Range/Units 07:20 11:53 Hgb 12.8 L (13.0-17.5) gm/dL Neutrophils # 7.9 H (1.3-7.7) k/uL Lymphocytes # 0.9 L (1.0-4.8) k/uL POC Glucose (mg/dL) 172 H (75-99) mg/dL Assessment and Plan Assessment: Acute ST elevated anterior wall IA status post stent placement to proximal mid and distal LAD Acute kidney injury due to post renal obstruction relieved with Richardson catheter. Acute urine retention status post Richardson catheter placement. Outpatient urology follow-up. Hypovolemic hyponatremia Cardiomyopathy ejection fraction 30-35% Hypertension Hyperlipidemia COPD not in exacerbation DVT prophylaxis Plan: Patient is status post cardiac catheterization and stent placement to LAD. Continue with dual antiplatelet therapy and statins. Nephrology has seen the patient due to elevated creatinine level which is due to obstructive uropathy and creatinine level improved to 3.37-->0.85 after Irchardson catheter placement. Seen by urology and recommends to continue Richardson catheter and follow-up as an outpatient. Continue with telemetry monitoring and patient is being monitored in the MICU currently. Follow-up closely. Time with Patient: Greater than 30
[2021-05-12 03:28] VITALS: RESP 18
[2021-05-12] MEDS: FUROSEMIDE 20 MG TAB PO SCH (08:21)
[2021-05-12] MEDS: ASPIRIN 81 MG PO SCH (08:21)
[2021-05-12] MEDS: TAMSULOSIN 0.4 MG CAP.ER.24H PO SCH (08:21)
[2021-05-12] MEDS: TICAGRELOR 90 MG TAB PO SCH (08:21)
[2021-05-12] MEDS: METOPROLOL SUCCINATE (ER) 25 MG TAB.ER.24H PO SCH (08:21)
[2021-05-12 08:59] LABS: Basophils % (A) 0 %; Eosinophils # (A) 0.2 k/uL (0-0.7); Eosinophils % (A) 2 %; HCT 41.4 % (39.0-53.0); HGB 12.8 gm/dL (13.0-17.5); Hypochromasia Slight; Lymphocytes # (A) 0.8 k/uL (1.0-4.8); Lymphocytes % (A) 7 %; MCH 28.2 pg (25.0-35.0); MCV 90.7 fL (80.0-100.0); Mean Platelet Volume 9.2; Monocytes # (A) 0.4 k/uL (0-1.0); Monocytes % (A) 4 %; Neutrophils # (A) 9.6 k/uL (1.3-7.7); Neutrophils % (A) 86 %; Platelet Count 183 k/uL (150-450); RBC 4.56 m/uL (4.30-5.90); RDW 14.7 % (11.5-15.5); WBC 11.2 k/uL (3.8-10.6)
[2021-05-12 09:11] LABS: African American GFR (CKD) >90 (>60 ml/min/1.73 sqM); Anion Gap 3 mmol/L; Blood Urea Nitrogen 15 mg/dL (9-20); Calcium 8.7 mg/dL (8.4-10.2); Carbon Dioxide 28 mmol/L (22-30); Chloride 106 mmol/L (98-107); Glucose 208 mg/dL (74-99); Magnesium 1.7 mg/dL (1.6-2.3); Non-African American GFR(CKD) >90 (>60 ml/min/1.73 sqM); Sodium 137 mmol/L (137-145)
--- NOTE | 2021-05-12 09:18 | P.PN ---
Subjective HISTORY OF PRESENTING ILLNESS Acute coronary syndrome The patient is a pleasant 75-year-old gentleman with hypertension and dyslipidemia who was admitted to the hospital yesterday with chest discomfort and was diagnosed with acute anterior ST elevation myocardial infarction. He underwent an emergent heart catheterization and was found to have occluded LAD which was stented in the proximal and mid and distal portion. Because of the large thrombus burden he was started on Aggrastat. The patient was seen this morning. He had a Richardson catheter for urinary obstruction and subsequently he did have hematuria. Aggrastat is on hold at this point. No heparin IV is going at this point as well. He remains on dual antiplatelet therapy along with high intensity statin along with beta skyler with Toprol-XL. An echo is in process to be done. Clinically he is doing very well. Hemodynamically he is stable. 05/10 Patient seen and examined. Patient underwent extensive stenting of the LAD with anterior STEMI. He had been having urinary retention for the prior 4-5 days and was found to have acute kidney injury with creatinine up to 10. He had a Richardson placed with improvement in creatinine down to 3's today. Echocardiogram shows cardiomyopathy EF 30-35%. His blood pressures been borderline and Toprol was held yesterday however given this morning. He denies any further heartburn type sensation. 05/11 Patient seen and examined. Patient denies any further chest pain or GERD type symptoms. He is having some mild hematuria noted and his Richardson catheter. Per urology plan is for discharge home with Richardson catheter. He has been on gentle IV fluids and creatinine has improved back to normal. BP has been borderline on the metoprolol 25 mg daily. 05/12 Patient seen and examined. Patient denies any chest pain or heartburn 10 sensation. He denies any significant shortness breath. He has been tolerating the metoprolol with borderline blood pressures. Creatinine continues to remain stable. No further hematuria noted. REVIEW OF SYSTEMS At the time of my exam: CONSTITUTIONAL: Denies fever or chills. CARDIOVASCULAR: Denies chest pain, shortness of breath, orthopnea, PND or palpitations. RESPIRATORY: Denies cough. GASTROINTESTINAL: Denies abdominal pain, diarrhea, constipation, nausea or vomiting. MUSCULOSKELETAL: Denies myalgias. NEUROLOGIC: Denies numbness, tingling or weakness. ENDOCRINE: Denies fatigue, weight change, polydipsia or polyurina. GENITOURINARY: Denies burning, hematuria or urgency with micturation. HEMATOLOGIC: Denies history of anemia or bleeding. PHYSICAL EXAMINATION Vital signs reviewed. CONSTITUTIONAL: No apparent distress. HEENT: Head is normocephalic. Pupils are equal, round. Sclerae anicteric. Mucous membranes of the mouth are moist. No JVD. No carotid bruit. CHEST EXAMINATION: Lungs are clear to auscultation. No chest wall tenderness is noted on palpation or with deep breathing. HEART EXAMINATION: Regular rate and rhythm. S1, S2 heard. No murmurs, gallops or rub. ABDOMEN: Soft, nontender. Positive bowel sounds. EXTREMITIES: 2+ peripheral pulses, no lower extremity edema and no calf tenderness. NEUROLOGIC EXAMINATION: Patient is awake, alert and oriented x3. ASSESSMENT 1. Anterior STEMI status post PCI LAD 2. Coronary artery disease with residual RCA disease 3. Acute kidney injury related to obstructive uropathy 4. Hypertension, borderline 5. Ischemic cardiopathy EF 30-35% 6. Prostate cancer appears stable per patient PLAN Hematuria appears to have improved. Creatinine also improved and would likely consider staged PCI however this may be performed outpatient. No JULIO CESAR inhibitor given borderline blood pressures. Appears stable for discharge home on dual an tiplatelets and follow-up in office within one week. Objective - Vital Signs Vital signs: Vital Signs Temp 97.4 F L 05/12/21 08:14 Pulse 95 05/12/21 08:14 Resp 18 05/12/21 08:14 BP 97/57 05/12/21 08:14 Pulse Ox 95 05/12/21 08:14 Intake & Output 05/11/21 05/12/21 05/12/21 18:59 06:59 18:59 Intake Total 976 130 Output Total 1400 1050 250 Balance -424 -1050 -120 Intake: IV 10 Invasive Line 1 10 Oral 976 120 Output: Urine 1400 1050 250 Uretheral (Richardson) 250 Other: Voiding Method Indwelling Catheter Indwelling Catheter Indwelling Catheter - Labs CBC & Chem 7: 05/12/21 08:08 05/10/21 12:06 Labs: Abnormal Lab Results - Last 24 Hours (Table) 05/11/21 05/12/21 Range/Units 11:53 08:08 WBC 11.2 H (3.8-10.6) k/uL Hgb 12.8 L (13.0-17.5) gm/dL Neutrophils # 9.6 H (1.3-7.7) k/uL Lymphocytes # 0.8 L (1.0-4.8) k/uL POC Glucose (mg/dL) 172 H (75-99) mg/dL
[2021-05-12 09:33] LABS: Potassium 3.9 mmol/L (3.5-5.1)
--- NOTE | 2021-05-12 10:23 | P.PN ---
Subjective Patient is seen in follow-up for acute kidney injury. Renal function back to baseline. Has a Richardson catheter for urinary retention. Denies chest pain or shortness of breath. No active complaints. Vital signs are stable. General: The patient appeared well nourished and normally developed. HEENT: Head exam is unremarkable. LUNGS: Breath sounds decreased. HEART: Rate and Rhythm are regular. ABDOMEN: Soft, no distention. EXTREMITITES: Trace edema. Objective - Vital Signs Vital signs: Vital Signs Temp 97.4 F L 05/12/21 08:14 Pulse 95 05/12/21 08:14 Resp 18 05/12/21 08:14 BP 97/57 05/12/21 08:14 Pulse Ox 95 05/12/21 08:14 Intake & Output 05/11/21 05/12/21 05/12/21 18:59 06:59 18:59 Intake Total 976 130 Output Total 1400 1050 250 Balance -424 -1050 -120 Intake: IV 10 Invasive Line 1 10 Oral 976 120 Output: Urine 1400 1050 250 Uretheral (Richardson) 250 Other: Voiding Method Indwelling Catheter Indwelling Catheter Indwelling Catheter - Labs CBC & Chem 7: 05/12/21 08:08 05/12/21 08:08 Labs: Abnormal Lab Results - Last 24 Hours (Table) 05/11/21 05/12/21 05/12/21 Range/Units 11:53 08:08 08:08 WBC 11.2 H (3.8-10.6) k/uL Hgb 12.8 L (13.0-17.5) gm/dL Neutrophils # 9.6 H (1.3-7.7) k/uL Lymphocytes # 0.8 L (1.0-4.8) k/uL Glucose 208 H (74-99) mg/dL POC Glucose (mg/dL) 172 H (75-99) mg/dL Assessment and Plan Plan: Assessment: 1. Acute kidney injury secondary to urinary retention. Improved post Richardson catheter placement. Creatinine 0.69 today. 2. Urinary retention. Has a Richardson catheter. Urology following. On Flomax. 3. Coronary artery disease status post cardiac catheterization with stenting on 05/09/2021. 4. Acute systolic CHF with ejection fraction of 30-35%. 5. Lower extremity edema. Improved with diuresis. Plan: Maintain oral Lasix. Avoid nephrotoxins.
[2021-05-12 12:14] VITALS: BP 96/56; PULSE 85; TEMP 97.6
== END 2021-05-12 12:52 | disposition home health service (06) | DRG 246 ==
LOC: EC 01:23 → 2SICU 02:05 → 3SCARD 05-10 14:45
PROVIDERS: ADMIT Hospitalist; ATTEND Hospitalist
PROC: B2111ZZ Fluoroscopy of Multiple Coronary Arteries using Low Osmolar Contrast (ICD-10-PCS; principal; 2021-05-09 02:16)
PROC: B41F1ZZ Fluoroscopy of Right Lower Extremity Arteries using Low Osmolar Contrast (ICD-10-PCS; principal; 2021-05-09 02:16)
PROC: 027036Z Dilation of Coronary Artery, One Artery with Three Drug-eluting Intraluminal Devices, Percutaneous Approach (ICD-10-PCS; principal; 2021-05-09 02:16)
PROC: 4A023N7 Measurement of Cardiac Sampling and Pressure, Left Heart, Percutaneous Approach (ICD-10-PCS; principal; 2021-05-09 02:16)
DX: I21.09 ST elevation (STEMI) myocardial infarction involving other coronary artery of anterior wall (principal); I50.21 Acute systolic (congestive) heart failure; N17.9 Acute kidney failure, unspecified; N13.8 Other obstructive and reflux uropathy; J44.0 Chronic obstructive pulmonary disease with (acute) lower respiratory infection; E87.1 Hypo-osmolality and hyponatremia; C61 Malignant neoplasm of prostate; E86.1 Hypovolemia; I11.0 Hypertensive heart disease with heart failure; J44.9 Chronic obstructive pulmonary disease, unspecified; Z20.822 Contact with and (suspected) exposure to COVID-19; I25.10 Atherosclerotic heart disease of native coronary artery without angina pectoris; I25.5 Ischemic cardiomyopathy; N40.1 Benign prostatic hyperplasia with lower urinary tract symptoms; R31.0 Gross hematuria; E78.5 Hyperlipidemia, unspecified; I25.2 Old myocardial infarction; Z79.1 Long term (current) use of non-steroidal anti-inflammatories (NSAID); Z79.891 Long term (current) use of opiate analgesic; Z79.899 Other long term (current) drug therapy; Z87.891 Personal history of nicotine dependence; Z90.89 Acquired absence of other organs; Z90.49 Acquired absence of other specified parts of digestive tract; Z87.19 Personal history of other diseases of the digestive system; Z87.01 Personal history of pneumonia (recurrent); Z98.890 Other specified postprocedural states; Z88.7 Allergy status to serum and vaccine
CPT/HCPCS: 36415; 71045; 80048; 80053; 80061; 83690; 83735; 83880; 84484; 85025; 85027; 85049; 85610; 85730; 87635; 93005; 93308; 93458; 99291

== ENCOUNTER 2021-05-29 04:04 | Emergency (ER) | payer MEDICARE, OTHER ==
[2021-05-29 04:11] VITALS: TEMP 98.4
--- NOTE | 2021-05-29 04:13 | ED ---
Male Urogenital HPI - General Chief complaint: Urogenital Stated complaint: Difficulty urinating Time Seen by Provider: 05/29/21 04:12 Source: patient, family, RN notes reviewed, old records reviewed Mode of arrival: wheelchair Limitations: no limitations - History of Present Illness Initial comments: This is a 75-year-old male to the emergency department today. Patient presents today for evaluation regards to inability to urinate. Patient has had difficulty with urination recently had Richardson catheter was just removed and has appointment with urology today. Patient has been unable to urinate to the night has severe abdominal pain MD Complaint: other (Inability to urinate) -: hour(s) Location: abdomen Radiation: none Severity: severe Severity scale (1-10): 10 Quality: sharp Consistency: constant Improves with: none Worsens with: none indwelling catheter (Just had removed) Reports: urinary retention, blood in urine, nausea/vomiting - Related Data Home Medications Medication Instructions Recorded Confirmed Albuterol Inhaler [Ventolin Hfa 2 puff INHALATION RT-QID PRN 04/25/21 05/09/21 Inhaler] Albuterol Nebulized [Ventolin 2.5 mg INHALATION RT-QID PRN 04/25/21 05/09/21 Nebulized] Ammonium Lactate Lotion 1 applic TOPICAL DAILY PRN 04/25/21 05/09/21 [Lac-Hydrin 12% Lotion] Cetirizine HCl [Zyrtec] 10 mg PO DAILY PRN 04/25/21 05/09/21 Finasteride [Proscar] 5 mg PO HS 04/25/21 05/09/21 Fluticasone Nasal [place] [Flonase 2 spr EA NOSTRIL DAILY 04/25/21 05/09/21 Nasal [place]] Fluticasone/Salmeterol [Advair 1 puff INHALATION RT-BID 04/25/21 05/09/21 250-50 Diskus] Lidocaine 5% Patch [Lidoderm 5% 1 patch TRANSDERM DAILY 04/25/21 05/09/21 Patch] Polyvinyl Alcohol/Povidone 1 drop BOTH EYES TID 04/25/21 05/09/21 [[place] Eye Drop] Triamcinolone 0.1% Cream [Kenalog 1 applic TOPICAL BID PRN 04/25/21 05/09/21 0.1% Cream] Diclofenac Sodium Gel [Voltaren 2 - 4 gm TOPICAL BID 05/09/21 05/09/21 Gel] Previous Rx's Medication Instructions Recorded Folic Acid 1 mg PO DAILY@1200 #30 tab 05/02/21 Thiamine [Vitamin B-1] 100 mg PO DAILY@1200 #30 tab 05/02/21 Aspirin 81 mg PO DAILY #30 tab 05/12/21 Atorvastatin [Lipitor] 80 mg PO HS #30 tab 05/12/21 Furosemide [Lasix] 20 mg PO DAILY #30 tab 05/12/21 Metoprolol Succinate (ER) [Toprol 25 mg PO DAILY #30 05/12/21 XL] Nitroglycerin Sl Tabs [Nitrostat] 0.4 mg SUBLINGUAL Q5M PRN #30 tab 05/12/21 Tamsulosin [Flomax] 0.4 mg PO DAILY #30 capsule 05/12/21 Ticagrelor [Brilinta] 90 mg PO BID #60 tab 05/12/21 Allergies Allergy/AdvReac Type Severity Reaction Status Date / Time Influenza Virus Vaccines Allergy Unknown Verified 05/29/21 04:10 Review of Systems ROS Statement: Those systems with pertinent positive or pertinent negative responses have been documented in the HPI. ROS Other: All systems not noted in ROS Statement are negative. Past Medical History Past Medical History: Asthma, Hypertension, Myocardial Infarction ([place]), Pneumonia, Prostate Disorder Additional Past Medical History / Comment(s): allergies Last Myocardial Infarction Date:: 05/09/2021 History of Any Multi-Drug Resistant Organisms: None Reported Past Surgical History: Appendectomy, Back Surgery, Heart Catheterization With Stent, Tonsillectomy Additional Past Surgical History / Comment(s): cervical Past Anesthesia/Blood Transfusion Reactions: No Reported Reaction Additional Past Anesthesia/Blood Transfusion Reaction / Comment(s): Pt is clausterphobic. Past Psychological History: No Psychological Hx Reported Smoking Status: Former smoker Past Alcohol Use History: None Reported Past Drug Use History: None Reported - Past Family History Mother Family Medical History: No Reported History Additional Family Medical History / Comment(s): Mother was healthy and lived to be 92 yrs old. Father History Unknown: Yes Additional Family Medical History / Comment(s): Father at the age of 68yrs, pt unable to say from what. General Exam Limitations: no limitations General appearance: alert, anxious, in distress Head exam: Present: atraumatic, normocephalic, normal inspection Eye exam: Present: normal appearance, PERRL, EOMI. Absent: scleral icterus, conjunctival injection, periorbital swelling ENT exam: Present: normal exam, mucous membranes moist Neck exam: Present: normal inspection. Absent: tenderness, meningismus, lymphadenopathy Respiratory exam: Present: normal lung sounds bilaterally. Absent: respiratory distress, wheezes, rales, rhonchi, stridor Cardiovascular Exam: Present: regular rate, tachycardia, normal heart sounds. Absent: systolic murmur, diastolic murmur, rubs, gallop, clicks GI/Abdominal exam: Present: soft, distended, tenderness, guarding, normal bowel sounds. Absent: rebound, rigid Extremities exam: Present: normal inspection, full ROM, normal capillary refill. Absent: tenderness, pedal edema, joint swelling, calf tenderness Back exam: Present: normal inspection Neurological exam: Present: alert, oriented X3, CN II-XII intact Psychiatric exam: Present: normal affect, normal mood Skin exam: Present: warm, dry, intact, normal color. Absent: rash Course Vital Signs 05/29/21 04:08 Temperature 98.4 F Pulse Rate 126 H Respiratory 20 Rate Blood Pressure 116/68 O2 Sat by Pulse 94 L Oximetry - Reevaluation(s) Reevaluation #1: 05/29/21 05:42 Medical record is reviewed Reevaluation #2: 05/29/21 05:42 Richardson catheter is placed in symptoms are resolved Reevaluation #3: 05/29/21 05:42 Patient informed results and questions are answered Medical Decision Making - Medical Decision Making 75 male to the emergency department for severe abdominal pain, urinary retention severe, Richardson catheter is placed with resolution and patient can be discharged home Disposition Clinical Impression: Urinary retention Disposition: HOME SELF-CARE Condition: Good Instructions (If sedation given, give patient instructions): Urinary Retention in Men (ED) Is patient prescribed a controlled substance at d/c from ED?: No Referrals: [facility] [Primary Care Provider] - 1-2 days
[2021-05-29 05:54] VITALS: RESP 18
[2021-05-29 05:54] LABS: Appearance,Urine Turbid (Clear); Bacteria,Urine Rare /hpf; Bilirubin,Urine Negative (Negative); Blood,Urine Large (Negative); Budding Yeast,Urine Many /hpf; Color,Urine Yellow; Glucose,Urine (UA) Trace (Negative); Ketones,Urine Negative (Negative); Leukocyte Esterase,Urine Large (Negative); Nitrite,Urine Negative (Negative); PH, Urine 6.5 (5.0-8.0); Protein,Urine 2+ (Negative); RBC,Urine 171 /hpf (0-5); Specific Gravity,Urine 1.018 (1.001-1.035); Urobilinogen,Urine <2.0 mg/dL (<2.0); WBC,Urine >182 /hpf (0-5)
[2021-05-29 05:57] VITALS: BP 127/71; PULSE 110
== END 2021-05-29 05:50 | disposition home or self-care (01) ==
LOC: EC 04:04
DX: R33.9 Retention of urine, unspecified (principal); I10 Essential (primary) hypertension; I25.2 Old myocardial infarction; J45.909 Unspecified asthma, uncomplicated; Z87.891 Personal history of nicotine dependence; Z79.82 Long term (current) use of aspirin; Z79.51 Long term (current) use of inhaled steroids; Z79.899 Other long term (current) drug therapy
CPT/HCPCS: 51702; 81001; 87077; 87086; 87186; 99283

== ENCOUNTER → 2021-05-30 | Outpatient (CLI) | payer OTHER ==
[2021-05-30 17:56] LABS: African American GFR (CKD) 91.6 (60.0-200.0); Albumin 3.3 g/dL (3.8-4.9); Anion Gap 19.1 mmol/L (10.00-18.00); BUN/Creat Ratio 11.3 Ratio (12.00-20.00); Blood Urea Nitrogen 10.5 mg/dL (9.0-27.0); Calcium 9.2 mg/dL (8.7-10.3); Globulin 3.3 g/dL (1.6-3.3); Potassium 3.6 mmol/L (3.5-5.5); Total Bilirubin 0.5 mg/dL (0.30-1.20); Total Protein 6.6 g/dL (6.2-8.2)
== END | disposition home or self-care (01) ==
LOC: LABWHC1 07:57
PROVIDERS: ATTEND Nurse Practitioner Adult Health
DX: I25.5 Ischemic cardiomyopathy (principal)
CPT/HCPCS: 36415; 80053; 83880

== ENCOUNTER → 2021-07-02 | Outpatient (CLI) | payer OTHER ==
--- NOTE | 2021-07-02 11:47 | XR ---
EXAMINATION TYPE: XR chest 2V DATE OF EXAM: 07/02/2021 COMPARISON: Chest x-ray 05/09/2021, chest x-ray 04/25/2021 HISTORY: Pneumonia TECHNIQUE: Frontal and lateral views of the chest are obtained. FINDINGS: There is persistent blunting the left costophrenic angle, obscured left hemidiaphragm. No evident pneumothorax. Cardiac mediastinal silhouette is stable accounting for rotation. Postop change noted to the lower cervical spine. The aorta is dense. Nodular density in the right midlung is again noted. Arthropathy noted at the acromioclavicular joint. IMPRESSION: Basilar effusion, associated atelectasis versus pneumonia is improved compared to previo us exams. Old granulomatous disease.
== END | disposition home or self-care (01) ==
LOC: RADXRMAIN 09:24
PROVIDERS: ATTEND Internal Medicine Sleep Medicine
DX: J90 Pleural effusion, not elsewhere classified (principal)
CPT/HCPCS: 71046

== ENCOUNTER → 2021-07-15 | Outpatient (CLI) | payer OTHER ==
[2021-07-15 15:11] LABS: ALT 10 U/L (10-49); AST 15 U/L (14-35); African American GFR (CKD) 99.2 (60.0-200.0); Albumin 4.3 g/dL (3.8-4.9); Albumin/Globulin Ratio 1.48 (1.60-3.17); Alkaline Phosphatase 86 U/L (41-126); Blood Urea Nitrogen 10.8 mg/dL (9.0-27.0); Calcium 9.8 mg/dL (8.7-10.3); Carbon Dioxide 26.5 mmol/L (20.0-27.5); Chloride 104 mmol/L (96-109); Chol/HDL Ratio 2.12 Ratio; Globulin 2.9 g/dL (1.6-3.3); Glucose 125 mg/dL (70-110); LDL Cholesterol,Calculated 42.3 mg/dL (0.0-131.0); Non-African American GFR(CKD) 85.6 (60.0-200.0); Potassium 4.2 mmol/L (3.5-5.5); Sodium 143 mmol/L (135-145); Total Protein 7.2 g/dL (6.2-8.2); VLDL Calculation 11.62 mg/dL (5.00-40.00)
== END | disposition home or self-care (01) ==
LOC: LABWHC1 08:51
PROVIDERS: ATTEND Internal Medicine Interventional Cardiology
DX: E78.2 Mixed hyperlipidemia (principal); I25.5 Ischemic cardiomyopathy
CPT/HCPCS: 36415; 80053; 80061; 83880

== ENCOUNTER 2021-09-06 17:57 | Emergency (ER) | payer OTHER ==
[2021-09-06 18:10] VITALS: TEMP 98.3
--- NOTE | 2021-09-06 19:08 | CT ---
EXAMINATION TYPE: CT brain john castillo DATE OF EXAM: 09/06/2021 COMPARISON: None HISTORY: head injury from fall CT DLP: 1307.4 mGycm Automated exposure control for dose reduction was used. Images of the brain and cervical spine obtained with no contrast. There is some cerebral cortical atrophy. There is no mass effect or midline shift. There is no sign o f intracranial hemorrhage. There is mild hypodensity in the left parietal lobe white matter. Calvariu m is intact. There is normal aeration of the mastoid sinuses. The cervical vertebra have normal alignment. There is plate with screws fusing anteriorly the cervica l spine from C7 to C4. There is spondylotic changes at C3-4 with spurring of the endplates and bridgi ng osteophytes. There is similar change at C7-T1. There is multilevel hypertrophic facet arthropathy. Skull base is intact. IMPRESSION: White matter hypodensity left posterior parietal lobe suggestive of chronic small vessel ischemia. No acute intracranial abnormality. Multilevel cervical spine fusion surgery. No acute abnormality. No fracture. There is some narrowing of the spinal canal at C6-7 and C7-T1 and a mild relative spinal stenosis. There is probably also spi nal stenosis at C3-4.
--- NOTE | 2021-09-06 22:08 | ED ---
Head Injury HPI - General Chief complaint: Head Injury Stated complaint: Fall Time Seen by Provider: 09/06/21 21:32 Source: patient Mode of arrival: ambulatory Limitations: no limitations - History of Present Illness Initial comments: This patient is 76-year-old man who states that he had fallen ground-level on Thursday. He had lost his balance, tipped backwards and struck his head near the occiput. There was no loss of consciousness. He states there was only a little little bit of tenderness at the site, no real headache. No neck pain. He has not had strokelike symptoms weakness change in vision or other senses. The patient states that he discussed the episode with his physician at the [facility] and they wanted him to go to the ER to have computed tomography scan because of the fact that he takes Plavix and aspirin and they were concerned about possibility of hemorrhage. MD Complaint: head injury Onset/Timin -: days(s) Mechanism of Injury: mechanical fall Location: occipital Loss of Consciousness: no Previous Trauma to this Area: No Place: outdoors Radiation: none Severity: mild Quality: dull Consistency: now resolved Provoking factors: none known Other Injuries: none Context: on Aspirin, on other anticoagulant Associated Symptoms: denies other symptoms - Related Data Home Medications Medication Instructions Recorded Confirmed Albuterol Inhaler [Ventolin Hfa 2 puff INHALATION RT-QID PRN 04/25/21 05/09/21 Inhaler] Albuterol Nebulized [Ventolin 2.5 mg INHALATION RT-QID PRN 04/25/21 05/09/21 Nebulized] Ammonium Lactate Lotion 1 applic TOPICAL DAILY PRN 04/25/21 05/09/21 [Lac-Hydrin 12% Lotion] Cetirizine HCl [Zyrtec] 10 mg PO DAILY PRN 04/25/21 05/09/21 Finasteride [Proscar] 5 mg PO HS 04/25/21 05/09/21 Fluticasone Nasal [place] [Flonase 2 spr EA NOSTRIL DAILY 04/25/21 05/09/21 Nasal [place]] Fluticasone/Salmeterol [Advair 1 puff INHALATION RT-BID 04/25/21 05/09/21 250-50 Diskus] Lidocaine 5% Patch [Lidoderm 5% 1 patch TRANSDERM DAILY 04/25/21 05/09/21 Patch] Polyvinyl Alcohol/Povidone 1 drop BOTH EYES TID 04/25/21 05/09/21 [[place] Eye Drop] Triamcinolone 0.1% Cream [Kenalog 1 applic TOPICAL BID PRN 04/25/21 05/09/21 0.1% Cream] Diclofenac Sodium Gel [Voltaren 2 - 4 gm TOPICAL BID 05/09/21 05/09/21 Gel] Previous Rx's Medication Instructions Recorded Folic Acid 1 mg PO DAILY@1200 #30 tab 05/02/21 Thiamine [Vitamin B-1] 100 mg PO DAILY@1200 #30 tab 05/02/21 Aspirin 81 mg PO DAILY #30 tab 05/12/21 Atorvastatin [Lipitor] 80 mg PO HS #30 tab 05/12/21 Furosemide [Lasix] 20 mg PO DAILY #30 tab 05/12/21 Metoprolol Succinate (ER) [Toprol 25 mg PO DAILY #30 05/12/21 XL] Nitroglycerin Sl Tabs [Nitrostat] 0.4 mg SUBLINGUAL Q5M PRN #30 tab 05/12/21 Tamsulosin [Flomax] 0.4 mg PO DAILY #30 capsule 05/12/21 Ticagrelor [Brilinta] 90 mg PO BID #60 tab 05/12/21 Allergies/Adverse reactions: Allergies Allergy/AdvReac Type Severity Reaction Status Date / Time Influenza Virus Vaccines Allergy Unknown Verified 09/06/21 18:10 Review of Systems ROS Statement: Those systems with pertinent positive or pertinent negative responses have been documented in the HPI. ROS Other: All systems not noted in ROS Statement are negative. Constitutional: Denies: fever, weakness Eyes: Denies: eye pain, vision change ENT: Denies: ear pain, hearing loss Respiratory: Denies: cough Cardiovascular: Denies: chest pain Gastrointestinal: Denies: abdominal pain, nausea, vomiting Musculoskeletal: Denies: back pain Neurological: Denies: headache, weakness, numbness, paresthesias, confusion Hematological/Lymphatic: Denies: easy bleeding Past Medical History Past Medical History: Asthma, Hypertension, Myocardial Infarction ([place]), Pneumonia, Prostate Disorder Additional Past Medical History / Comment(s): allergies Last Myocardial Infarction Date:: 05/09/2021 History of Any Multi-Drug Resistant Organisms: None Reported Past Surgical History: Appendectomy, Back Surgery, Heart Catheterization With Stent, Tonsillectomy Additional Past Surgical History / Comment(s): cervical Past Anesthesia/Blood Transfusion Reactions: No Reported Reaction Additional Past Anesthesia/Blood Transfusion Reaction / Comment(s): Pt is clausterphobic. Past Psychological History: No Psychological Hx Reported Smoking Status: Former smoker Past Alcohol Use History: None Reported Past Drug Use History: None Reported - Past Family History Mother Family Medical History: No Reported History Additional Family Medical History / Comment(s): Mother was healthy and lived to be 92 yrs old. Father History Unknown: Yes Additional Family Medical History / Comment(s): Father at the age of 68yrs, pt unable to say from what. General Exam Limitations: no limitations General appearance: alert, in no apparent distress Head exam: Present: atraumatic, normocephalic, normal inspection Eye exam: Present: normal appearance, PERRL, EOMI. Absent: scleral icterus, conjunctival injection, nystagmus Neck exam: Present: normal inspection, full ROM. Absent: tenderness, meningismus Respiratory exam: Absent: chest wall tenderness Extremities exam: Present: normal inspection, full ROM. Absent: tenderness Back exam: Absent: vertebral tenderness Neurological exam: Present: alert, oriented X3, CN II-XII intact. Absent: motor sensory deficit Skin exam: Present: warm, dry, intact, normal color. Absent: rash Course Vital Signs 09/06/21 18:07 Temperature 98.3 F Pulse Rate 78 Respiratory 20 Rate Blood Pressure 143/92 O2 Sat by Pulse 98 Oximetry Disposition Clinical Impression: Head injury Disposition: HOME SELF-CARE Condition: Good Instructions (If sedation given, give patient instructions): Head Injury (ED) Is patient prescribed a controlled substance at d/c from ED?: No Referrals: [facility],Clinic [Primary Care Provider] - 1-2 days
[2021-09-07 00:13] VITALS: BP 147/84; PULSE 74; RESP 18
== END 2021-09-06 22:50 | disposition home or self-care (01) ==
LOC: EC 17:57
DX: S09.90XA Unspecified injury of head, initial encounter (principal); I10 Essential (primary) hypertension; I25.2 Old myocardial infarction; J45.909 Unspecified asthma, uncomplicated; Z87.891 Personal history of nicotine dependence; Z79.51 Long term (current) use of inhaled steroids; Z79.82 Long term (current) use of aspirin; Z79.899 Other long term (current) drug therapy; W01.0XXA Fall on same level from slipping, tripping and stumbling without subsequent striking against object, initial encounter
CPT/HCPCS: 70450; 72125; 99284

== ENCOUNTER 2022-02-03 09:33 | Observation (INO) | payer OTHER ==
[2022-02-03] MEDS ORDERED: ASPIRIN 81 MG PO STA (10:04)
[2022-02-03] MEDS ORDERED: NITROGLYCERIN OINT 1 INCH/GM PACKET TOPICAL STA (10:04)
--- NOTE | 2022-02-03 10:13 | ED ---
General Adult HPI - General Chief complaint: Chest Pain Stated complaint: Chest Pain, SOB Time Seen by Provider: 02/03/22 09:43 Source: patient, RN notes reviewed Mode of arrival: ambulatory Limitations: no limitations - History of Present Illness Initial comments: Patient is a pleasant 76-year-old male presenting to the emergency department with concerns with chest discomfort. Onset of symptoms was around 7:30 this morning while at rest. Patient did have some palpitations however those have resolved. Patient has continued discomfort which is mild. Difficult to describe. Patient has associated dyspnea. No nausea or diaphoresis. - Related Data Home Medications Medication Instructions Recorded Confirmed Albuterol Inhaler [Ventolin Hfa 2 puff INHALATION RT-QID PRN 04/25/21 05/09/21 Inhaler] Albuterol Nebulized [Ventolin 2.5 mg INHALATION RT-QID PRN 04/25/21 05/09/21 Nebulized] Ammonium Lactate Lotion 1 applic TOPICAL DAILY PRN 04/25/21 05/09/21 [Lac-Hydrin 12% Lotion] Cetirizine HCl [Zyrtec] 10 mg PO DAILY PRN 04/25/21 05/09/21 Finasteride [Proscar] 5 mg PO HS 04/25/21 05/09/21 Fluticasone Nasal [place] [Flonase 2 spr EA NOSTRIL DAILY 04/25/21 05/09/21 Nasal [place]] Fluticasone Propion/Salmeterol 1 puff INHALATION RT-BID 04/25/21 05/09/21 [Advair 250-50 Diskus] Lidocaine 5% Patch [Lidoderm 5% 1 patch TRANSDERM DAILY 04/25/21 05/09/21 Patch] Polyvinyl Alcohol/Povidone 1 drop BOTH EYES TID 04/25/21 05/09/21 [[place] Eye Drop] Triamcinolone 0.1% Cream [Kenalog 1 applic TOPICAL BID PRN 04/25/21 05/09/21 0.1% Cream] Diclofenac Sodium Gel [Voltaren 2 - 4 gm TOPICAL BID 05/09/21 05/09/21 Gel] Previous Rx's Medication Instructions Recorded Folic Acid 1 mg PO DAILY@1200 #30 tab 05/02/21 Thiamine [Vitamin B-1] 100 mg PO DAILY@1200 #30 tab 12/23/21 Aspirin 81 mg PO DAILY #30 tab 05/12/21 Atorvastatin [Lipitor] 80 mg PO HS #30 tab 05/12/21 Furosemide [Lasix] 20 mg PO DAILY #30 tab 05/12/21 Metoprolol Succinate (ER) [Toprol 25 mg PO DAILY #30 05/12/21 XL] Nitroglycerin Sl Tabs [Nitrostat] 0.4 mg SUBLINGUAL Q5M PRN #30 tab 05/12/21 Tamsulosin [Flomax] 0.4 mg PO DAILY #30 capsule 05/12/21 Ticagrelor [Brilinta] 90 mg PO BID #60 tab 05/12/21 Azithromycin [Zithromax Z Pack] 1 tab PO DIRECTED #6 tab 12/29/21 predniSONE 50 mg PO DAILY #5 tab 12/29/21 Allergies Allergy/AdvReac Type Severity Reaction Status Date / Time Influenza Virus Vaccines Allergy Unknown Verified 02/03/22 09:41 Review of Systems ROS Statement: Those systems with pertinent positive or pertinent negative responses have been documented in the HPI. ROS Other: All systems not noted in ROS Statement are negative. Constitutional: Denies: fever Eyes: Denies: eye pain ENT: Denies: ear pain Respiratory: Reports: as per HPI, dyspnea. Denies: cough Cardiovascular: Reports: as per HPI, chest pain Endocrine: Denies: fatigue Gastrointestinal: Denies: abdominal pain Genitourinary: Denies: dysuria Musculoskeletal: Denies: back pain Skin: Denies: rash Neurological: Denies: weakness Past Medical History Past Medical History: Asthma, Hypertension, Myocardial Infarction ([place]), Pneumonia, Prostate Disorder Additional Past Medical History / Comment(s): allergies Last Myocardial Infarction Date:: 05/09/2021 History of Any Multi-Drug Resistant Organisms: None Reported Past Surgical History: Appendectomy, Back Surgery, Heart Catheterization With Stent, Tonsillectomy Additional Past Surgical History / Comment(s): cervical Past Anesthesia/Blood Transfusion Reactions: No Reported Reaction Additional Past Anesthesia/Blood Transfusion Reaction / Comment(s): Pt is clausterphobic. Past Psychological History: No Psychological Hx Reported Smoking Status: Former smoker Past Alcohol Use History: None Reported Past Drug Use History: None Reported - Past Family History Mother Family Medical History: No Reported History Additional Family Medical History / Comment(s): Mother was healthy and lived to be 92 yrs old. Father History Unknown: Yes Additional Family Medical History / Comment(s): Father at the age of 68yrs, pt unable to say from what. General Exam Limitations: no limitations General appearance: alert, in no apparent distress Eye exam: Present: normal appearance Neck exam: Present: normal inspection Respiratory exam: Present: normal lung sounds bilaterally. Absent: chest wall tenderness Cardiovascular Exam: Present: regular rate, normal rhythm, normal heart sounds Expanded Peripheral pulses: 2+: Radial (R), Radial (L), Posterior Tibialis (R), Posterior Tibialis (L) GI/Abdominal exam: Present: soft. Absent: tenderness Extremities exam: Present: normal inspection. Absent: pedal edema, calf tenderness Neurological exam: Present: alert Psychiatric exam: Present: normal affect, normal mood Skin exam: Present: normal color Course Vital Signs 02/03/22 02/03/22 02/03/22 09:39 10:22 10:40 Temperature 97.3 F L Pulse Rate 52 L 60 59 L Respiratory 18 22 20 Rate Blood Pressure 142/74 151/73 157/77 O2 Sat by Pulse 96 97 96 Oximetry EKG Findings - EKG Comments: EKG Findings:: Sinus rhythm with a rate of 65. MS 147. QRS 99. QT 418. QTC 49. Normal axis. Septal Q waves. No acute ST change. Medical Decision Making - Medical Decision Making Patient reevaluated and somewhat improved. Patient updated on results and plan. Case discussed with Dr. Rodríguez, who will admit for this va patient. - Lab Data Result diagrams: 02/03/22 10:07 02/03/22 10:06 Lab Results 02/03/22 02/03/22 02/03/22 Range/Units 10:06 10:06 10:06 WBC (3.8-10.6) k/uL RBC (4.30-5.90) m/uL Hgb (13.0-17.5) gm/dL Hct (39.0-53.0) % MCV (80.0-100.0) fL MCH (25.0-35.0) pg MCHC (31.0-37.0) g/dL RDW (11.5-15.5) % Plt Count (150-450) k/uL MPV Neutrophils % % Lymphocytes % % Monocytes % % Eosinophils % % Basophils % % Neutrophils # (1.3-7.7) k/uL Lymphocytes # (1.0-4.8) k/uL Monocytes # (0-1.0) k/uL Eosinophils # (0-0.7) k/uL Basophils # (0-0.2) k/uL Hypochromasia PT 11.7 (9.0-12.0) sec INR 1.1 (<1.2) APTT 24.2 (22.0-30.0) sec D-Dimer 0.63 H (<0.60) mg/L FEU Sodium 142 (137-145) mmol/L Potassium 4.5 (3.5-5.1) mmol/L Chloride 100 (98-107) mmol/L Carbon Dioxide 32 H (22-30) mmol/L Anion Gap 10 mmol/L BUN 14 (9-20) mg/dL Creatinine 0.73 (0.66-1.25) mg/dL Est GFR (CKD-EPI)AfAm >90 (>60 ml/min/1.73 sqM) Est GFR (CKD-EPI)NonAf 89 (>60 ml/min/1.73 sqM) Glucose 101 H (74-99) mg/dL Calcium 9.6 (8.4-10.2) mg/dL Magnesium 2.0 (1.6-2.3) mg/dL Total Bilirubin 1.6 H (0.2-1.3) mg/dL AST 37 (17-59) U/L ALT 24 (4-49) U/L Alkaline Phosphatase 90 (38-126) U/L Troponin I <0.012 (0.000-0.034) ng/mL NT-Pro-B Natriuret Pep pg/mL Total Protein 7.0 (6.3-8.2) g/dL Albumin 4.3 (3.5-5.0) g/dL 02/03/22 02/03/22 Range/Units 10:06 10:07 WBC 9.7 (3.8-10.6) k/uL RBC 6.29 H (4.30-5.90) m/uL Hgb 16.1 (13.0-17.5) gm/dL Hct 52.8 (39.0-53.0) % MCV 84.0 (80.0-100.0) fL MCH 25.7 (25.0-35.0) pg MCHC 30.6 L (31.0-37.0) g/dL RDW 15.8 H (11.5-15.5) % Plt Count 278 (150-450) k/uL MPV 8.8 Neutrophils % 60 % Lymphocytes % 20 % Monocytes % 6 % Eosinophils % 9 % Basophils % 2 % Neutrophils # 5.8 (1.3-7.7) k/uL Lymphocytes # 2.0 (1.0-4.8) k/uL Monocytes # 0.6 (0-1.0) k/uL Eosinophils # 0.9 H (0-0.7) k/uL Basophils # 0.2 (0-0.2) k/uL Hypochromasia Slight PT (9.0-12.0) sec INR (<1.2) APTT (22.0-30.0) sec D-Dimer (<0.60) mg/L FEU Sodium (137-145) mmol/L Potassium (3.5-5.1) mmol/L Chloride (98-107) mmol/L Carbon Dioxide (22-30) mmol/L Anion Gap mmol/L BUN (9-20) mg/dL Creatinine (0.66-1.25) mg/dL Est GFR (CKD-EPI)AfAm (>60 ml/min/1.73 sqM) Est GFR (CKD-EPI)NonAf (>60 ml/min/1.73 sqM) Glucose (74-99) mg/dL Calcium (8.4-10.2) mg/dL Magnesium (1.6-2.3) mg/dL Total Bilirubin (0.2-1.3) mg/dL AST (17-59) U/L ALT (4-49) U/L Alkaline Phosphatase (38-126) U/L Troponin I (0.000-0.034) ng/mL NT-Pro-B Natriuret Pep 951 pg/mL Total Protein (6.3-8.2) g/dL Albumin (3.5-5.0) g/dL - Radiology Data Radiology results: image reviewed (Chest x-ray chronic changes.) Disposition Clinical Impression: Chest pain Disposition: ADMITTED IP TO THIS HOSP Is patient prescribed a controlled substance at d/c from ED?: No Referrals: [facility],Clinic [Primary Care Provider] - 1-2 days Time of Disposition: 11:47
[2022-02-03 10:20] LABS: Basophils # (A) 0.2 k/uL (0-0.2); Basophils % (A) 2 %; Eosinophils # (A) 0.9 k/uL (0-0.7); Eosinophils % (A) 9 %; HCT 52.8 % (39.0-53.0); HGB 16.1 gm/dL (13.0-17.5); Hypochromasia Slight; Lymphocytes % (A) 20 %; MCH 25.7 pg (25.0-35.0); MCHC 30.6 g/dL (31.0-37.0); Mean Platelet Volume 8.8; Monocytes # (A) 0.6 k/uL (0-1.0); Monocytes % (A) 6 %; Neutrophils # (A) 5.8 k/uL (1.3-7.7); Neutrophils % (A) 60 %; Platelet Count 278 k/uL (150-450); RBC 6.29 m/uL (4.30-5.90); RDW 15.8 % (11.5-15.5); WBC 9.7 k/uL (3.8-10.6)
[2022-02-03 10:35] LABS: ALT 24 U/L (4-49); AST 37 U/L (17-59); African American GFR (CKD) >90 (>60 ml/min/1.73 sqM); Albumin 4.3 g/dL (3.5-5.0); Alkaline Phosphatase 90 U/L (38-126); Anion Gap 10 mmol/L; Blood Urea Nitrogen 14 mg/dL (9-20); Calcium 9.6 mg/dL (8.4-10.2); Carbon Dioxide 32 mmol/L (22-30); Chloride 100 mmol/L (98-107); Glucose 101 mg/dL (74-99); Non-African American GFR(CKD) 89 (>60 ml/min/1.73 sqM); Potassium 4.5 mmol/L (3.5-5.1); Sodium 142 mmol/L (137-145); Total Bilirubin 1.6 mg/dL (0.2-1.3)
[2022-02-03 10:37] LABS: INR 1.1 (<1.2); Partial Thromboplastin Time 24.2 sec (22.0-30.0); Prothrombin Time 11.7 sec (9.0-12.0)
--- NOTE | 2022-02-03 10:44 | XR ---
EXAMINATION TYPE: XR chest 2V DATE OF EXAM: 02/03/2022 COMPARISON: 12/29/2021 HISTORY: 76-year-old male with chest pain TECHNIQUE: AP and lateral views FINDINGS: ACDF hardware. Calcified granuloma periphery of the right mid lung. Heart normal size. Aorta and pulm onary vasculature within normal limits. Cardiac stents. Heart normal size. Interstitial prominence is unchanged. No consolidation or pleural effusion. IMPRESSION: Chronic changes. Prior granulomatous disease. No acute process seen.
[2022-02-03] MEDS ORDERED: NITROGLYCERIN SL TABS 0.4 MG TAB SUBLINGUAL PRN (11:47)
[2022-02-03] MEDS ORDERED: POLYVINYL ALCOHOL BOTH EYES PRN (16:06)
[2022-02-03] MEDS ORDERED: ALBUTEROL NEBULIZED 2.5 MG/3 ML INHALATION PRN (16:06)
[2022-02-03] MEDS ORDERED: ALBUTEROL HFA INHALER INHALATION PRN (16:06)
[2022-02-03] MEDS ORDERED: POVIDONE BOTH EYES PRN (16:06)
[2022-02-03] MEDS ORDERED: LORATADINE 10 MG TAB PO PRN (16:06)
[2022-02-03] MEDS ORDERED: ACETAMINOPHEN TAB 500 MG TAB PO PRN (16:06)
--- NOTE | 2022-02-03 16:17 | P.HPIM ---
History of Present Illness H&P Date: 02/03/22 Chief Complaint: chest pain Patient is a 76-year-old male with a past medical history of hypertension, hyperlipidemia, BPH, coronary artery disease status post stents, COPD, history of skin cancer status post resection, urinary retention with chronic Richardson catheter, prostate cancer that is being monitored and possible chronic heart failure with unknown ejection fraction who presents to the ED with palpitations and chest discomfort. Patient states that he was sitting on his couch and when he got up his heart was racing and he also had some chest comfort which he described it as "funny feeling". Patient states that it felt like heartburn. He states he was left-sided but nonradiating. He states that the discomfort was similar to his previous heart attack. In the ED patient had a nitro patch placed on his chest which patient states is helping with his chest pain. Patient currently denying any palpitations. EKG shows no acute ischemic changes. First 2 troponins were negative. Review of Systems 10 ROS reviewed and are negative except as noted in HPI Past Medical History Past Medical History: Asthma, Hypertension, Myocardial Infarction ([place]), Pneumonia, Prostate Disorder Additional Past Medical History / Comment(s): allergies Last Myocardial Infarction Date:: 05/09/2021 History of Any Multi-Drug Resistant Organisms: None Reported Past Surgical History: Appendectomy, Back Surgery, Heart Catheterization With Stent, Tonsillectomy Additional Past Surgical History / Comment(s): cervical Past Anesthesia/Blood Transfusion Reactions: No Reported Reaction Additional Past Anesthesia/Blood Transfusion Reaction / Comment(s): Pt is clausterphobic. Past Psychological History: No Psychological Hx Reported Smoking Status: Former smoker Past Alcohol Use History: None Reported Past Drug Use History: None Reported - Past Family History Mother Family Medical History: No Reported History Additional Family Medical History / Comment(s): Mother was healthy and lived to be 92 yrs old. Father History Unknown: Yes Additional Family Medical History / Comment(s): Father at the age of 68yrs, pt unable to say from what. Medications and Allergies Home Medications Medication Instructions Recorded Confirmed Type Albuterol Inhaler [Ventolin Hfa 2 puff INHALATION RT-Q6H PRN 04/25/21 02/03/22 History Inhaler] Albuterol Nebulized [Ventolin 2.5 mg INHALATION RT-Q4H PRN 04/25/21 02/03/22 History Nebulized] Ammonium Lactate Lotion 1 applic TOPICAL DAILY PRN 04/25/21 02/03/22 History [Lac-Hydrin 12% Lotion] Cetirizine HCl [Zyrtec] 10 mg PO DAILY PRN 04/25/21 02/03/22 History Finasteride [Proscar] 5 mg PO HS 04/25/21 02/03/22 History Fluticasone Nasal [place] [Flonase 1 spr EA NOSTRIL DAILY 04/25/21 02/03/22 History Nasal [place]] Fluticasone Propion/Salmeterol 1 puff INHALATION RT-BID 04/25/21 02/03/22 History [Advair 250-50 Diskus] Lidocaine 5% Patch [Lidoderm 5% 1 patch TRANSDERM DAILY PRN 04/25/21 02/03/22 History Patch] Polyvinyl Alcohol/Povidone 1 drop BOTH EYES QID PRN 04/25/21 02/03/22 History [[place] Eye Drop] Diclofenac Sodium Gel [Voltaren 1 applic TOPICAL BID PRN 05/09/21 02/03/22 History Gel] Aspirin 81 mg PO DAILY #30 tab 05/12/21 02/03/22 Rx Furosemide [Lasix] 20 mg PO DAILY #30 tab 05/12/21 02/03/22 Rx Nitroglycerin Sl Tabs [Nitrostat] 0.4 mg SUBLINGUAL Q5M PRN #30 tab 05/12/21 02/03/22 Rx Tamsulosin [Flomax] 0.4 mg PO DAILY #30 capsule 05/12/21 02/03/22 Rx Acetaminophen Tab [Tylenol Tab] 1,000 mg PO TID PRN 02/03/22 02/03/22 History Atorvastatin [Lipitor] 80 mg PO DAILY 02/03/22 02/03/22 History Clopidogrel [Plavix] 75 mg PO DAILY 02/03/22 02/03/22 History Folic Acid 1 mg PO DAILY 02/03/22 02/03/22 History Ketoconazole 2% Shampoo [Nizoral] 1 applic TOPICAL DAILY 02/03/22 02/03/22 History Metoprolol Succinate (ER) [Toprol 25 mg PO BID 02/03/22 02/03/22 History XL] Multivitamins, Thera [Multivitamin 1 tab PO DAILY 02/03/22 02/03/22 History (formulary)] Thiamine [Vitamin B-1] 100 mg PO DAILY 02/03/22 02/03/22 History lisinopriL [Zestril] 5 mg PO DAILY 02/03/22 02/03/22 History Allergies Allergy/AdvReac Type Severity Reaction Status Date / Time Influenza Virus Vaccines Allergy Unknown Verified 02/03/22 12:14 Physical Exam Osteopathic Statement: *. No significant issues noted on an osteopathic structural exam other than those noted in the History and Physical/Consult. Vitals: Vital Signs Temp Pulse Resp BP Pulse Ox 02/03/22 12:30 58 L 22 146/74 96 02/03/22 12:00 60 24 145/72 96 02/03/22 11:30 51 L 22 145/72 96 02/03/22 11:00 53 L 25 H 157/77 96 02/03/22 10:40 59 L 20 157/77 96 02/03/22 10:22 60 22 151/73 97 02/03/22 09:39 97.3 F L 52 L 18 142/74 96 Intake and Output 02/03/22 02/03/22 02/03/22 06:59 14:59 22:59 Other: Weight 54.431 kg General: [Alert and oriented, well nourished, no acute distress, appears chronically debilitated]. Eye: [PERRL, EOMI, normal conjunctiva]. HENT: [Normocephalic, clear tympanic membranes, normal hearing, moist oral mucosa, no scleral icterus, no sinus tenderness]. Neck: [Supple, non-tender, no carotid bruits, no JVD, no lymphadenopathy]. Lungs: [Clear to auscultation and percussion, non-labored respiration]. Heart: [Normal rate, regular rhythm, no murmur, gallop or edema]. Abdomen: [Soft, non-tender, non-distended, normal bowel sounds, no masses]. Musculoskeletal: [Normal range of motion and strength, no tenderness or swelling]. Skin: [Skin is warm, dry and pink, no rashes or lesions]. Neurologic: [Awake, alert, and oriented X3, CN II-XII intact]. Psychiatric: [Cooperative, appropriate mood and affect]. Results CBC & Chem 7: 09/26/22 10:07 02/03/22 10:06 Labs: Abnormal Lab Results - Last 24 Hours (Table) 02/03/22 02/03/22 02/03/22 Range/Units 10:06 10:06 10:07 RBC 6.29 H (4.30-5.90) m/uL MCHC 30.6 L (31.0-37.0) g/dL RDW 15.8 H (11.5-15.5) % Eosinophils # 0.9 H (0-0.7) k/uL D-Dimer 0.63 H (<0.60) mg/L FEU Carbon Dioxide 32 H (22-30) mmol/L Glucose 101 H (74-99) mg/dL Total Bilirubin 1.6 H (0.2-1.3) mg/dL Assessment and Plan Assessment: Chest pain Rule out ACS: Check troponins 3. First 2 sets are negative Patient known to our cardiology service so we will defer echocardiogram to cardiology Patient currently has nitro patch Cardiology consult Nothing by mouth past midnight Mildly elevated bilirubin Patient asymptomatic Trend CMP Coronary artery disease status post stents Resume aspirin and Plavix and statin beta skyler Hypertension Resume home BP meds Hyperlipidemia Resume statin COPD Stable Resume home inhalers Allergy rhinitis Resume Flonase and cetirizine as needed Possible CHF with unspecified ejection fraction Euvolemic Resume Lasix Urinary retention with chronic Richardson catheter Patient states that his Richardson catheter was changed 1 week ago Resume Flomax History of skin cancer status post resection History of prostate cancer that is being monitored -Stable CODE STATUS:full code DVT prophylaxis: Subcu heparin Discussed with: Patient, ER, rn Anticipated length of stay < than [address]: home A total of 50 minutes was spent on the care of this complex patient more than 50% of the time was spent in counseling and care coordination.
[2022-02-03] MEDS: NITROGLYCERIN OINT 1 INCH/GM PACKET TOPICAL SCH (17:07)
[2022-02-03] MEDS: SYMBICORT 80-4.5 MCG INHALER INHALATION SCH (19:55)
[2022-02-03] MEDS ORDERED: SYMBICORT 80-4.5 MCG INHALER INHALATION SCH (20:00)
[2022-02-03] MEDS ORDERED: FINASTERIDE 5 MG TAB PO SCH (21:00)
[2022-02-03] MEDS: HEPARIN SODIUM,PORCINE/PF 5,000 UNIT/0.5 ML SYRINGE SQ SCH (21:12)
[2022-02-03] MEDS: METOPROLOL SUCCINATE (ER) 25 MG TAB.ER.24H PO SCH (21:12)
[2022-02-04] MEDS: NITROGLYCERIN OINT 1 INCH/GM PACKET TOPICAL SCH ×2 (01:24→05:48)
[2022-02-04] MEDS: SYMBICORT 80-4.5 MCG INHALER INHALATION SCH (08:07)
[2022-02-04] MEDS ORDERED: FUROSEMIDE 20 MG TAB PO SCH (09:00)
[2022-02-04] MEDS ORDERED: TAMSULOSIN 0.4 MG CAP.ER.24H PO SCH (09:00)
[2022-02-04] MEDS ORDERED: lisinopriL 5 MG TAB PO SCH (09:00)
[2022-02-04] MEDS ORDERED: ASPIRIN 81 MG PO SCH (09:00)
[2022-02-04] MEDS ORDERED: MULTIVITAMINS, THERA 1 EACH TAB PO SCH (09:00)
[2022-02-04] MEDS ORDERED: ATORVASTATIN 80 MG TAB PO SCH (09:00)
[2022-02-04] MEDS ORDERED: FLUTICASONE 50MCG/SPRAY NASAL 16GM EA NOSTRIL SCH (09:00)
[2022-02-04] MEDS ORDERED: ASPIRIN 325 MG TAB PO SCH (09:00)
[2022-02-04] MEDS ORDERED: ISOSORBIDE MONONITRATE ER 30 MG TAB.ER.24H PO SCH (09:00)
[2022-02-04] MEDS ORDERED: CLOPIDOGREL 75 MG TAB PO SCH (09:00)
[2022-02-04] MEDS ORDERED: THIAMINE 100 MG TAB PO SCH (09:00)
[2022-02-04] MEDS ORDERED: FOLIC ACID 1 MG TAB PO SCH (09:00)
[2022-02-04] MEDS: METOPROLOL SUCCINATE (ER) 25 MG TAB.ER.24H PO SCH (09:11)
[2022-02-04] MEDS: HEPARIN SODIUM,PORCINE/PF 5,000 UNIT/0.5 ML SYRINGE SQ SCH (09:14)
[2022-02-04 09:30] LABS: Basophils # (A) 0.15 X 10*3/uL (0.00-0.10); Basophils % (A) 1.7 %; Eosinophils # (A) 0.84 X 10*3/uL (0.04-0.35); Eosinophils % (A) 9.4 %; HCT 49.7 % (39.6-50.0); HGB 15.4 g/dL (13.0-17.0); Immature Grans, Automated 0.2 %; Lymphocytes # (A) 1.89 X 10*3/uL (0.90-5.00); Lymphocytes % (A) 21.1 %; MCH 25.7 pg (27.0-32.0); MCV 82.8 fL (80.0-97.0); Mean Platelet Volume 11.1 fL (9.5-12.2); Monocytes # (A) 0.86 X 10*3/uL (0.20-1.00); Monocytes % (A) 9.6 %; NRBC Per 100 WBC 0 /100 WBCS (0.0-0.0); Neutrophils # (A) 5.19 X 10*3/uL (1.80-7.70); Platelet Count 258 X 10*3/uL (140-440); RDW 17.2 % (11.5-14.5); WBC 8.95 X 10*3/uL (4.50-10.00)
[2022-02-04 10:02] LABS: ALT 24 U/L (10-49); AST 30 U/L (14-35); African American GFR (CKD) 99.2 (60.0-200.0); Albumin 3.8 g/dL (3.8-4.9); Albumin/Globulin Ratio 1.58 (1.60-3.17); Alkaline Phosphatase 84 U/L (41-126); BUN/Creat Ratio 13.25 Ratio (12.00-20.00); Blood Urea Nitrogen 10.6 mg/dL (9.0-27.0); Calcium 9.3 mg/dL (8.7-10.3); Carbon Dioxide 29.9 mmol/L (20.0-27.5); Chloride 103 mmol/L (96-109); Chol/HDL Ratio 2.16 Ratio; Globulin 2.4 g/dL (1.6-3.3); Glucose 88 mg/dL (70-110); LDL Cholesterol,Calculated 36.3 mg/dL (0.0-131.0); Non-African American GFR(CKD) 85.6 (60.0-200.0); Potassium 4.5 mmol/L (3.5-5.5); Sodium 143 mmol/L (135-145); Total Protein 6.2 g/dL (6.2-8.2); VLDL Calculation 12.84 mg/dL (5.00-40.00)
--- NOTE | 2022-02-04 10:26 | P.CRDCN ---
History of Present Illness History of present illness: HISTORY OF PRESENT ILLNESS: This is a 76-year-old male with a past medical history significant for coronary artery disease with previous stenting, ischemic cardiomyopathy, hypertension, and hyperlipidemia. Patient follows in the office with Dr. Lemus. We have been asked to see the patient in consultation for chest pain. Patient examined at the bedside. Patient states yesterday he was sitting in his chair when he began to have some very mild chest pressure. He also reports his heart felt like it was racing. He states that he usually takes Afrin nasal spray but has been out of it for the past few days and feels very congested in his sinuses and thinks it is c ontributing to his symptoms. He currently denies chest pain or pressure. Denies shortness of breath. Vital signs are stable. * EKG reveals sinus mechanism with no signs of acute ischemia. Anterior Q waves. * Chest xray chronic changes. No acute process seen. * Laboratory data: WBC 8.95. Hemoglobin 15.4. Platelet count 258. Sodium 143. Potassium 4.5. BUN 10. Creatinine 0.8. Troponin negative 3. ProBNP 951. * Current home cardiac medications include Lipitor 80 mg daily, lisinopril 5 mg daily, Plavix 75 mg daily, metoprolol succinate 25 mg twice a day, Lasix 20 mg daily, aspirin 81 mg daily. * Most recent echocardiogram obtained in the office in June 2021 revealed ejection fraction 47%, mild TR, mild MR. Previous echocardiogram performed in April 2021 revealed ejection fraction of 32%. * Cardiac catheterization history: April 2021 with stenting of the proximal LAD, stenting of the mid LAD, stenting of the distal LAD. Patient was also found to have severe disease involving the PLV branch and PDA branch of the right coronary artery. Elevated left-sided filling pressures. REVIEW OF SYSTEMS: At the time of my exam: CONSTITUTIONAL: Denies fever or chills. HEENT: Denies blurred vision, vision changes, or eye pain. Denies hemoptysis CARDIOVASCULAR: Denies chest pain. Denies orthopnea. Denies PND. Denies palpitations RESPIRATORY: Denies shortness of breath. GASTROINTESTINAL: Denies abdominal pain. Denies nausea or vomiting. HEMATOLOGIC: Denies bleeding disorders. GENITOURINARY: Denies any blood in urine. SKIN: Denies pruitis. Denies rash. PHYSICAL EXAM: VITAL SIGNS: Reviewed. GENERAL: Well-developed in no acute distress. HEENT: Head is normocephalic. Pupils are equal, round. Sclerae anicteric. Mucous membranes of the mouth are moist. Neck supple. No JVD or thyromegaly LUNGS: Respirations even and unlabored. Lungs essentially clear to auscultation bilaterally. HEART: Regular rate and rhythm. S1 and S2 heard. Systolic murmur noted. ABDOMEN: Soft. Nondistended. Nontender. EXTREMITIES: Normal range of motion. No clubbing or cyanosis. Peripheral pulses intact. No lower extremity edema NEUROLOGIC: Awake and alert. Oriented x 3. ASSESSMENT: Chest pain, troponins negative 3 History of anterior STEMI with stenting, April 2021 Coronary artery disease History of ischemic cardiomyopathy with improving LV function, most recently 47%, previously 32% Hypertension Hyperlipidemia Nasal congestion PLAN: An acute coronary event has been ruled out Resume home cardiac medications Obtain 2-D echo to assess cardiac structure and function Add Imdur 30 mg daily Further recommendations pending patient's course Nurse practitioner note has been reviewed by physician. Signing provider agrees with the documented findings, assessment, and plan of care. Past Medical History Past Medical History: Asthma, Hypertension, Myocardial Infarction ([place]), Pneumonia, Prostate Disorder Additional Past Medical History / Comment(s): allergies Last Myocardial Infarction Date:: 05/09/2021 History of Any Multi-Drug Resistant Organisms: None Reported Past Surgical History: Appendectomy, Back Surgery, Heart Catheterization With Stent, Tonsillectomy Additional Past Surgical History / Comment(s): cervical Past Anesthesia/Blood Transfusion Reactions: No Reported Reaction Additional Past Anesthesia/Blood Transfusion Reaction / Comment(s): Pt is clausterphobic. Date of Last Stent Placement:: 05/09/21 Past Psychological History: No Psychological Hx Reported Smoking Status: Former smoker Past Alcohol Use History: None Reported Past Drug Use History: None Reported - Past Family History Mother Family Medical History: No Reported History Additional Family Medical History / Comment(s): Mother was healthy and lived to be 92 yrs old. Father History Unknown: Yes Additional Family Medical History / Comment(s): Father at the age of 68yrs, pt unable to say from what. Medications and Allergies Home Medications Medication Instructions Recorded Confirmed Type Albuterol Inhaler [Ventolin Hfa 2 puff INHALATION RT-Q6H PRN 04/25/21 02/03/22 History Inhaler] Albuterol Nebulized [Ventolin 2.5 mg INHALATION RT-Q4H PRN 04/25/21 02/03/22 History Nebulized] Ammonium Lactate Lotion 1 applic TOPICAL DAILY PRN 04/25/21 02/03/22 History [Lac-Hydrin 12% Lotion] Cetirizine HCl [Zyrtec] 10 mg PO DAILY PRN 04/25/21 02/03/22 History Finasteride [Proscar] 5 mg PO HS 04/25/21 02/03/22 History Fluticasone Nasal [place] [Flonase 1 spr EA NOSTRIL DAILY 04/25/21 02/03/22 History Nasal [place]] Fluticasone Propion/Salmeterol 1 puff INHALATION RT-BID 04/25/21 02/03/22 History [Advair 250-50 Diskus] Lidocaine 5% Patch [Lidoderm 5% 1 patch TRANSDERM DAILY PRN 04/25/21 02/03/22 History Patch] Polyvinyl Alcohol/Povidone 1 drop BOTH EYES QID PRN 04/25/21 02/03/22 History [[place] Eye Drop] Diclofenac Sodium Gel [Voltaren 1 applic TOPICAL BID PRN 05/09/21 02/03/22 History Gel] Aspirin 81 mg PO DAILY #30 tab 05/12/21 02/03/22 Rx Furosemide [Lasix] 20 mg PO DAILY #30 tab 05/12/21 02/03/22 Rx Nitroglycerin Sl Tabs [Nitrostat] 0.4 mg SUBLINGUAL Q5M PRN #30 tab 05/12/21 02/03/22 Rx Tamsulosin [Flomax] 0.4 mg PO DAILY #30 capsule 05/12/21 02/03/22 Rx Acetaminophen Tab [Tylenol Tab] 1,000 mg PO TID PRN 02/03/22 02/03/22 History Atorvastatin [Lipitor] 80 mg PO DAILY 02/03/22 02/03/22 History Clopidogrel [Plavix] 75 mg PO DAILY 02/03/22 02/03/22 History Folic Acid 1 mg PO DAILY 02/03/22 02/03/22 History Ketoconazole 2% Shampoo [Nizoral] 1 applic TOPICAL DAILY 02/03/22 02/03/22 History Metoprolol Succinate (ER) [Toprol 25 mg PO BID 02/03/22 02/03/22 History XL] Multivitamins, Thera [Multivitamin 1 tab PO DAILY 02/03/22 02/03/22 History (formulary)] Thiamine [Vitamin B-1] 100 mg PO DAILY 02/03/22 02/03/22 History lisinopriL [Zestril] 5 mg PO DAILY 02/03/22 02/03/22 History Allergies Allergy/AdvReac Type Severity Reaction Status Date / Time Influenza Virus Vaccines Allergy Unknown Verified 02/03/22 12:14 Physical Exam Vitals: Vital Signs Temp Pulse Pulse Resp BP BP Pulse Ox 02/04/22 07:00 97.7 F 70 16 156/78 93 L 02/04/22 03:15 97.7 F 74 16 118/64 93 L 02/04/22 01:28 68 18 02/03/22 20:00 68 18 02/03/22 18:58 97.6 F 68 18 108/62 98 02/03/22 16:42 57 L 16 115/65 97 02/03/22 12:30 58 L 22 146/74 96 02/03/22 12:00 60 24 145/72 96 02/03/22 11:30 51 L 22 145/72 96 02/03/22 11:00 53 L 25 H 157/77 96 02/03/22 10:40 59 L 20 157/77 96 02/03/22 10:22 60 22 151/73 97 02/03/22 09:39 97.3 F L 52 L 18 142/74 96 Intake and Output 02/03/22 02/04/22 02/04/22 22:59 06:59 14:59 Intake Total 500 Output Total 300 Balance 200 Intake: Oral 500 Output: Urine 300 Uretheral ([place]) 300 Other: Voiding Method Indwelling Catheter Indwelling Catheter # Voids 2 Results 02/04/22 05:32 02/04/22 05:32 Cardiac Enzymes 02/03/22 02/03/22 02/03/22 Range/Units 10:06 10:06 12:57 AST 37 (17-59) U/L Troponin I <0.012 <0.012 (0.000-0.034) ng/mL 02/03/22 Range/Units 16:45 AST (17-59) U/L Troponin I <0.012 (0.000-0.034) ng/mL Coagulation 02/03/22 Range/Units 10:06 PT 11.7 (9.0-12.0) sec APTT 24.2 (22.0-30.0) sec CBC 02/03/22 Range/Units 10:07 WBC 9.7 (3.8-10.6) k/uL RBC 6.29 H (4.30-5.90) m/uL Hgb 16.1 (13.0-17.5) gm/dL Hct 52.8 (39.0-53.0) % Plt Count 278 (150-450) k/uL Comprehensive Metabolic Panel 02/03/22 Range/Units 10:06 Sodium 142 (137-145) mmol/L Potassium 4.5 (3.5-5.1) mmol/L Chloride 100 (98-107) mmol/L Carbon Dioxide 32 H (22-30) mmol/L BUN 14 (9-20) mg/dL Creatinine 0.73 (0.66-1.25) mg/dL Glucose 101 H (74-99) mg/dL Calcium 9.6 (8.4-10.2) mg/dL AST 37 (17-59) U/L ALT 24 (4-49) U/L Alkaline Phosphatase 90 (38-126) U/L Total Protein 7.0 (6.3-8.2) g/dL Albumin 4.3 (3.5-5.0) g/dL Current Medications Generic Name Dose Route Start Last Admin Trade Name Freq PRN Reason Stop Dose Admin Acetaminophen 1,000 mg 02/03/22 16:06 Acetaminophen Tab 500 Mg Tab PO TID PRN Pain or Fever > 100.5 Albuterol Sulfate 2 puff 02/03/22 16:06 Albuterol Hfa Inhaler INHALATION RT-Q6H PRN Shortness Of Breath Albuterol Sulfate 2.5 mg 02/03/22 16:06 Albuterol Nebulized 2.5 Mg/3 Ml INHALATION RT-Q4H PRN Shortness Of Breath Aspirin 325 mg 02/04/22 09:00 Aspirin 325 Mg Tab PO DAILY [facility] Atorvastatin Calcium 80 mg 02/04/22 09:00 Atorvastatin 80 Mg Tab PO DAILY [facility] Budesonide/Formoterol Fumarate 2 puff 02/03/22 20:00 02/04/22 08:07 Symbicort 80-4.5 Mcg Inhaler INHALATION 2 puff RT-BID MARTÍN Administration Clopidogrel Bisulfate 75 mg 02/04/22 09:00 Clopidogrel 75 Mg Tab PO DAILY [facility] Finasteride 5 mg 02/03/22 21:00 02/03/22 21:12 Finasteride 5 Mg Tab PO 5 mg HS MARTÍN Administration Fluticasone Propionate 1 spray 02/04/22 09:00 Fluticasone 50mcg/[place] Nasal 16gm EA NOSTRIL DAILY [facility] Folic Acid 1 mg 02/04/22 09:00 Folic Acid 1 Mg Tab PO DAILY [facility] Furosemide 20 mg 02/04/22 09:00 Furosemide 20 Mg Tab PO DAILY [facility] Heparin Sodium (Porcine) 5,000 unit 02/03/22 21:00 02/03/22 21:12 Heparin Sodium,Porcine/Pf 5,000 Unit/0.5 Ml Syringe SQ 5,000 unit Q12HR [facility] Administration Lisinopril 5 mg 02/04/22 09:00 Lisinopril 5 Mg Tab PO DAILY [facility] Loratadine 10 mg 02/03/22 16:06 Loratadine 10 Mg Tab PO DAILY PRN Allergy Symptoms Metoprolol Succinate 25 mg 02/03/22 21:00 02/03/22 21:12 Metoprolol Succinate (Er) 25 Mg Tab.Er.24h PO 25 mg BID MARTÍN Administration Multivitamins 1 each 02/04/22 09:00 Multivitamins, Thera 1 Each Tab PO DAILY [facility] Nitroglycerin 1 inch 02/03/22 18:00 02/04/22 05:48 Nitroglycerin Oint 1 Inch/Gm Packet TOPICAL Not Given Q6HR [facility] Sodium Chloride 10 ml 02/03/22 21:00 02/03/22 21:13 Sodium Chloride 0.9% Flush 10 Ml Syringe IV 10 ml BID [facility] Administration Tamsulosin HCl 0.4 mg 02/04/22 09:00 Tamsulosin 0.4 Mg Cap.Er.24h PO DAILY [facility] Thiamine HCl 100 mg 02/04/22 09:00 Thiamine 100 Mg Tab PO DAILY [facility] Intake and Output 02/03/22 02/04/22 02/04/22 22:59 06:59 14:59 Intake Total 500 Output Total 300 Balance 200 Intake: Oral 500 Output: Urine 300 Uretheral ([place]) 300 Other: Voiding Method Indwelling Catheter Indwelling Catheter # Voids 2 02/03/22 10:07 02/03/22 10:06
[2022-02-04] MEDS ORDERED: OXYMETAZOLINE 0.05% NASL SPRAY 1 SPRAY BOTTLE NASAL SCH (10:30)
--- NOTE | 2022-02-04 14:39 | P.DS ---
Providers Date of admission: 02/03/22 11:47 Expected date of discharge: 02/04/22 Attending physician: Sandie Rodríguez MD Consults: 02/03/22 11:47 Consult Physician Urgent Consulting Provider: Dank Limon Consult Reason/Comments: cp Do you want consulting provider notified?: Yes Primary care physician: [facility] Hospital Course: Discharge Diagnosis: Chest pain, acute coronary event ruled out Mildly elevated bilirubin, resolved History of coronary artery disease status post stents Hypertension, Hyperlipidemia COPD ALLERGIC rhinitis Chronic Richardson catheter, patient reports changes out weekly and denied any complaints. Hospital Course: Patient is a very pleasant 76-year-old male with a past medical history of CAD with previous stent placement, hypertension, hyperlipidemia,prostate cancer with urinary retention and chronic Richardson catheter placement, and asthma/COPD. he presented to the emergency department with a chief complaint of chest pain and palpitations. he was seen and fully evaluated.EKG was completed showing sinus rhythm at 65 bpm with no significant T-wave or ST abnormalities showing no signs of acute ischemia. chest x-ray revealing chronic changes with prior granulomatous disease with no acute cardiopulmonary process. CBC and CMP showing no acute abnormality with the exception of mildly elevated bilirubin of 1.6. Troponin was negative at less than 0.012. Patient was admitted under services of consultation cardiology. Troponins trended overnight all negative at less than 0.0123 draws. Patient reports being free from chest pain and/or palpitations since arrival to our facility. Patient states he feels that it was mild case of heartburn. Patient did undergo evaluation by cardiology and an echocardiogram was completed. cardiology recommending patient follow-up outpatient in their office as he is cleared from cardiac perspective at this time. Echocardiogram results are not posted yet and patient to follow-up outpatient in their office to review these results.patient is medically stable for discharge at this time and remains free from any chest pain or complaints. Patient seen and examined at bedside. Vital signs reviewed and stable. General: Nontoxic, no distress and appears stated age. Derm: Skin warm and dry, normal coloration for ethnicity. Head: Atraumatic, normocephalic and symmetric. Eyes: EOMs intact, no lid lag, and anicteric sclera Mouth: no lip lesions, mucus membranes moist Cardiovascular: regular rate and rhythm with normal S1S2, no murmur, positive posterior tibial pulses bilaterally, and cap refill < 2 seconds. Lungs: Respirations even, regular, and unlabored on room air. Lungs CTA bilaterally, no rhonchi, no rales, no wheezing, and no accessory muscle usage. Abdominal: soft, nontender to palpation, no guarding, no appreciable organomegaly Ext: ROM intact. No gross muscle atrophy, no edema, no contractures Neuro: Speech clear, face symmetrical and CN II-XII grossly intact with no noted focal neuro deficits Psych: Alert and oriented to person, place, time, and situation. Appropriate and pleasant affect. A total of 35 minutes of time were spent preparing this complex discharge summary. Pt was discharged on 02/04/22. 2:43 PM. I reviewed the documentation as provided by the DORENE above, who is the original author of this note. I agree with the documented assessment and plan, with the following changes: none Patient Condition at Discharge: Stable Plan - Discharge Summary New Discharge Prescriptions: New Isosorbide Mononitrate ER [Imdur] 30 mg PO DAILY 30 Days #30 tab Continue Albuterol Nebulized [Ventolin Nebulized] 2.5 mg INHALATION RT-Q4H PRN PRN Reason: Shortness Of Breath Finasteride [Proscar] 5 mg PO HS Lidocaine 5% Patch [Lidoderm 5% Patch] 1 patch TRANSDERM DAILY PRN PRN Reason: Pain Polyvinyl Alcohol/Povidone [[place] Eye Drop] 1 drop BOTH EYES QID PRN PRN Reason: DRY EYES Fluticasone Propion/Salmeterol [Advair 250-50 Diskus] 1 puff INHALATION RT- BID Diclofenac Sodium Gel [Voltaren Gel] 1 applic TOPICAL BID PRN PRN Reason: Pain Aspirin 81 mg PO DAILY #30 tab Nitroglycerin Sl Tabs [Nitrostat] 0.4 mg SUBLINGUAL Q5M PRN #30 tab PRN Reason: Chest Pain Tamsulosin [Flomax] 0.4 mg PO DAILY #30 capsule Ketoconazole 2% Shampoo [Nizoral] 1 applic TOPICAL DAILY Folic Acid 1 mg PO DAILY Thiamine [Vitamin B-1] 100 mg PO DAILY Albuterol Inhaler [Ventolin Hfa Inhaler] 2 puff INHALATION RT-Q6H PRN PRN Reason: Shortness Of Breath Cetirizine HCl [Zyrtec] 10 mg PO DAILY PRN PRN Reason: Allergy Symptoms Ammonium Lactate Lotion [Lac-Hydrin 12% Lotion] 1 applic TOPICAL DAILY PRN PRN Reason: DRY FEET Fluticasone Nasal [place] [Flonase Nasal [place]] 1 spr EA NOSTRIL DAILY Furosemide [Lasix] 20 mg PO DAILY #30 tab lisinopriL [Zestril] 5 mg PO DAILY Acetaminophen Tab [Tylenol] 1,000 mg PO TID PRN PRN Reason: Pain Or Fever > 100.5 Clopidogrel [Plavix] 75 mg PO DAILY Atorvastatin [Lipitor] 80 mg PO DAILY Multivitamins, Thera [Multivitamin (formulary)] 1 tab PO DAILY Metoprolol Succinate (ER) [Toprol XL] 25 mg PO BID Discharge Medication List Albuterol Inhaler [Ventolin Hfa Inhaler] 2 puff INHALATION RT-Q6H PRN 04/25/21 [History] Albuterol Nebulized [Ventolin Nebulized] 2.5 mg INHALATION RT-Q4H PRN 04/25/21 [History] Ammonium Lactate Lotion [Lac-Hydrin 12% Lotion] 1 applic TOPICAL DAILY PRN 04/25/21 [History] Cetirizine HCl [Zyrtec] 10 mg PO DAILY PRN 04/25/21 [History] Finasteride [Proscar] 5 mg PO HS 04/25/21 [History] Fluticasone Nasal [place] [Flonase Nasal [place]] 1 spr EA NOSTRIL DAILY 04/25/21 [History] Fluticasone Propion/Salmeterol [Advair 250-50 Diskus] 1 puff INHALATION RT-BID 04/25/21 [History] Lidocaine 5% Patch [Lidoderm 5% Patch] 1 patch TRANSDERM DAILY PRN 04/25/21 [History] Polyvinyl Alcohol/Povidone [[place] Eye Drop] 1 drop BOTH EYES QID PRN 04/25/21 [History] Diclofenac Sodium Gel [Voltaren Gel] 1 applic TOPICAL BID PRN 05/09/21 [History] Aspirin 81 mg PO DAILY #30 tab 05/12/21 [Rx] Furosemide [Lasix] 20 mg PO DAILY #30 tab 05/12/21 [Rx] Nitroglycerin Sl Tabs [Nitrostat] 0.4 mg SUBLINGUAL Q5M PRN #30 tab 05/12/21 [Rx] Tamsulosin [Flomax] 0.4 mg PO DAILY #30 capsule 05/12/21 [Rx] Acetaminophen Tab [Tylenol] 1,000 mg PO TID PRN 02/03/22 [History] Atorvastatin [Lipitor] 80 mg PO DAILY 02/03/22 [History] Clopidogrel [Plavix] 75 mg PO DAILY 02/03/22 [History] Folic Acid 1 mg PO DAILY 02/03/22 [History] Ketoconazole 2% Shampoo [Nizoral] 1 applic TOPICAL DAILY 02/03/22 [History] Metoprolol Succinate (ER) [Toprol XL] 25 mg PO BID 02/03/22 [History] Multivitamins, Thera [Multivitamin (formulary)] 1 tab PO DAILY 02/03/22 [History] Thiamine [Vitamin B-1] 100 mg PO DAILY 02/03/22 [History] lisinopriL [Zestril] 5 mg PO DAILY 02/03/22 [History] Isosorbide Mononitrate ER [Imdur] 30 mg PO DAILY 30 Days #30 tab 02/04/22 [Rx] Follow up Appointment(s)/Referral(s): Dank Limon MD [STAFF PHYSICIAN] - 02/12/22 10:30 am [facility],Clinic [Primary Care Provider] - 1-2 days Patient Instructions/Handouts: Chest Pain (DC) Activity/Diet/Wound Care/Special Instructions: Activity: As tolerated. Take breaks as needed. Diet: Heart healthy and carb consistent diet. Avoid salts, or foods with hidden salts such as canned or boxed foods and frozen dinners. Extra salt makes your heart work harder and traps the fluid in your body for longer. Special Instructions: Take all of your medications as directed and remember to keep all of your doctor's appointments and follow-up as needed. Thank you for allowing us to participate in your care, it is always a blessing to have the opportunity to provide care to a and it was truly a pleasure having you for our patient!!! Discharge Disposition: HOME SELF-CARE
[2022-02-04 15:05] VITALS: BP 112/56; PULSE 77; RESP 18; TEMP 97.9
--- NOTE | 2022-02-05 07:49 | CA ---
Transthoracic Echo Report Name: Antonio Gardiner Age: 76 Gender: M : 1945 Exam Date: 02/04/2022 09:25 Exam Location: [place] [facility] Ht (in): 69 Wt (lb): 120 Ordering Physician: Tiera Morocho Attending/Referring Phys: [id number], Bailee Hide Spreader Tiffanie Contreras, BIN Procedure CPT: Indications: LV function Cardiac Hx: Technical Quality: Good Contrast 1: Total Dose (mL): Contrast 2: Total Dose (mL): MEASUREMENTS (Male / Female) Normal Values 2D ECHO LV Diastolic Diameter PLAX 4.9 cm 4.2 - 5.9 / 3.9 - 5.3 cm LV Systolic Diameter PLAX 3.8 cm IVS Diastolic Thickness 1.0 cm 0.6 - 1.0 / 0.6 - 0.9 cm LVPW Diastolic Thickness 1.6 cm 0.6 - 1.0 / 0.6 - 0.9 cm LV Relative Wall Thickness 0.5 RV Internal Dim ED PLAX 3.3 cm M-MODE Aortic Root Diameter MM 3.7 cm AV Cusp Separation MM 0.9 cm DOPPLER MV Area PHT 3.1 cm??? Mitral E Point Velocity 60.5 cm/s Mitral A Point Velocity 98.7 cm/s Mitral E to A Ratio 0.6 MV Deceleration Time 243.0 ms MV E' Velocity 4.9 cm/s Mitral E to MV E' Ratio 12.3 FINDINGS Left Ventricle Left ventricular ejection fraction is estimated at 45-50%. Anterseptal hypokinesis. Right Ventricle The right ventricle is normal in size and function. Right Atrium The right atrium is normal in size. Left Atrium The left atrium is normal in size. Mitral Valve Structurally normal mitral valve without significant stenosis or prolapse. There is mild mitral regurgitation. Aortic Valve Structurally normal aortic valve without significant sclerosis or stenosis. There is no aortic regurgitation. Tricuspid Valve Structurally normal tricuspid valve without significant stenosis. Pulmonary artery systolic pressure is normal. Pulmonic Valve Structurally normal pulmonic valve without significant stenosis. There is no pulmonic regurgitation. Pericardium Normal pericardium without effusion. Aorta Normal aortic root dimension. CONCLUSIONS Mildly impaired LV function was EF between 45-50% Aortic sclerosis without stenosis or insufficiency Thickened mitral valve leaflets with mild MR Previewed by: Dr. Dank Limon MD (Electronically Signed) Final Date: 05 February 2022 07:48
== END 2022-02-04 15:41 | disposition home or self-care (01) ==
LOC: EC 09:33 → 6NMEDSUR 11:47
PROVIDERS: ADMIT Internal Medicine; ATTEND Internal Medicine
DX: R07.89 Other chest pain (principal); R00.2 Palpitations; I25.10 Atherosclerotic heart disease of native coronary artery without angina pectoris; J44.9 Chronic obstructive pulmonary disease, unspecified; J30.9 Allergic rhinitis, unspecified; I25.5 Ischemic cardiomyopathy; I10 Essential (primary) hypertension; I34.0 Nonrheumatic mitral (valve) insufficiency; E78.5 Hyperlipidemia, unspecified; I25.2 Old myocardial infarction; N40.1 Benign prostatic hyperplasia with lower urinary tract symptoms; R33.8 Other retention of urine; E80.7 Disorder of bilirubin metabolism, unspecified; F40.240 Claustrophobia; Z66 Do not resuscitate; Z79.82 Long term (current) use of aspirin; Z79.51 Long term (current) use of inhaled steroids; Z79.02 Long term (current) use of antithrombotics/antiplatelets; Z79.899 Other long term (current) drug therapy; Z88.7 Allergy status to serum and vaccine; Z96.0 Presence of urogenital implants; Z87.01 Personal history of pneumonia (recurrent); Z95.5 Presence of coronary angioplasty implant and graft; Z87.891 Personal history of nicotine dependence; Z85.46 Personal history of malignant neoplasm of prostate; Z85.828 Personal history of other malignant neoplasm of skin; Z90.49 Acquired absence of other specified parts of digestive tract; Z98.890 Other specified postprocedural states
CPT/HCPCS: 96372 ×2; 99285; 36415; 94640 ×2; 93306; 85379; 83880; 80061; 80053 ×2; 83735; 84484; 85025 ×2; 85610; 85730; 71046; G0378 ×2; S0138; Q9950; J1644 ×2; 93005

== ENCOUNTER 2022-08-25 10:03 | Emergency (ER) | payer OTHER ==
[2022-08-25 10:11] VITALS: TEMP 98
[2022-08-25 10:55] LABS: Basophils # (A) 0.1 k/uL (0-0.2); Basophils % (A) 1 %; Eosinophils # (A) 0.6 k/uL (0-0.7); Eosinophils % (A) 11 %; HCT 47.5 % (39.0-53.0); HGB 15.3 gm/dL (13.0-17.5); Lymphocytes # (A) 1.1 k/uL (1.0-4.8); Lymphocytes % (A) 21 %; MCH 27.9 pg (25.0-35.0); MCHC 32.2 g/dL (31.0-37.0); MCV 86.4 fL (80.0-100.0); Mean Platelet Volume 8.7; Monocytes # (A) 0.3 k/uL (0-1.0); Monocytes % (A) 5 %; Neutrophils # (A) 3.4 k/uL (1.3-7.7); Neutrophils % (A) 61 %; Platelet Count 206 k/uL (150-450); RDW 15.4 % (11.5-15.5); WBC 5.5 k/uL (3.8-10.6)
[2022-08-25 11:03] LABS: INR 1.1 (<1.2); Partial Thromboplastin Time 24.7 sec (22.0-30.0); Prothrombin Time 11.9 sec (9.0-12.0)
[2022-08-25] MEDS ORDERED: ALBUTEROL HFA INHALER INHALATION STA (11:18)
[2022-08-25 11:20] LABS: ALT 27 U/L (4-49); AST 32 U/L (17-59); African American GFR (CKD) >90 (>60 ml/min/1.73 sqM); Albumin 3.6 g/dL (3.5-5.0); Alkaline Phosphatase 77 U/L (38-126); Anion Gap 8 mmol/L; Blood Urea Nitrogen 15 mg/dL (9-20); Calcium 8.9 mg/dL (8.4-10.2); Carbon Dioxide 29 mmol/L (22-30); Chloride 103 mmol/L (98-107); Glucose 229 mg/dL (74-99); Non-African American GFR(CKD) 85 (>60 ml/min/1.73 sqM); Potassium 4.1 mmol/L (3.5-5.1); Sodium 140 mmol/L (137-145); Total Bilirubin 1.1 mg/dL (0.2-1.3); Total Protein 6.7 g/dL (6.3-8.2)
--- NOTE | 2022-08-25 11:22 | ED ---
General Adult HPI - General Chief complaint: Shortness of Breath Stated complaint: sob Time Seen by Provider: 08/25/22 10:47 Source: patient, RN notes reviewed Mode of arrival: ambulatory Limitations: no limitations - History of Present Illness Initial comments: Patient is a pleasant 77-year-old male presenting to the emergency department with concerns with difficulty breathing. Onset of symptoms was a few days ago. Patient does have cough with productive sputum, yellow to green. Patient does have history of COPD/asthma with similar symptoms. Patient also has history of pneumonia. No fever. No chest pain. No leg pain or leg swelling. - Related Data Home Medications Medication Instructions Recorded Confirmed Albuterol Inhaler [Ventolin Hfa 2 puff INHALATION RT-Q6H PRN 04/25/21 08/25/22 Inhaler] Albuterol Nebulized [Ventolin 2.5 mg INHALATION RT-Q4H PRN 04/25/21 08/25/22 Nebulized] Cetirizine HCl [Zyrtec] 10 mg PO DAILY PRN 04/25/21 08/25/22 Finasteride [Proscar] 5 mg PO HS 04/25/21 08/25/22 Fluticasone Nasal [place] [Flonase 1 spr EA NOSTRIL DAILY 04/25/21 08/25/22 Nasal [place]] Fluticasone Propion/Salmeterol 1 puff INHALATION RT-BID 04/25/21 08/25/22 [Advair 250-50 Diskus] Lidocaine 5% Patch [Lidoderm 5% 1 patch TRANSDERM DAILY PRN 04/25/21 08/25/22 Patch] Polyvinyl Alcohol/Povidone 1 drop BOTH EYES QID PRN 04/25/21 08/25/22 [[place] Eye Drop] Diclofenac Sodium Gel [Voltaren 1 applic TOPICAL BID PRN 05/09/21 08/25/22 Gel] Acetaminophen Tab [Tylenol] 1,000 mg PO TID PRN 02/03/22 08/25/22 Atorvastatin [Lipitor] 80 mg PO HS 02/03/22 08/25/22 Clopidogrel [Plavix] 75 mg PO DAILY 02/03/22 08/25/22 Folic Acid 1 mg PO DAILY 02/03/22 08/25/22 Ketoconazole 2% Shampoo [Nizoral] 1 applic TOPICAL DAILY PRN 02/03/22 08/25/22 Metoprolol Succinate (ER) [Toprol 25 mg PO BID 02/03/22 08/25/22 XL] Thiamine [Vitamin B-1] 100 mg PO DAILY 02/03/22 08/25/22 lisinopriL [Zestril] 5 mg PO BID 02/03/22 08/25/22 Aspirin 81 mg PO HS 08/25/22 08/25/22 Furosemide [Lasix] 20 mg PO DAILY PRN 08/25/22 08/25/22 Multivit-Min/FA/Lycopen/Lutein 1 tab PO DAILY 08/25/22 08/25/22 [Centrum Silver Men Tablet] Previous Rx's Medication Instructions Recorded Nitroglycerin Sl Tabs [Nitrostat] 0.4 mg SUBLINGUAL Q5M PRN #30 tab 05/12/21 Tamsulosin [Flomax] 0.4 mg PO DAILY #30 capsule 05/12/21 Isosorbide Mononitrate ER [Imdur] 30 mg PO DAILY 30 Days #30 tab 02/04/22 predniSONE [Deltasone] 20 mg PO BID #10 tab 08/25/22 Allergies Allergy/AdvReac Type Severity Reaction Status Date / Time Influenza Virus Vaccines Allergy Unknown Verified 08/25/22 12:32 Review of Systems ROS Statement: Those systems with pertinent positive or pertinent negative responses have been documented in the HPI. ROS Other: All systems not noted in ROS Statement are negative. Constitutional: Denies: fever, chills Eyes: Denies: eye pain ENT: Denies: ear pain Respiratory: Reports: as per HPI, cough, dyspnea Cardiovascular: Denies: chest pain Endocrine: Denies: fatigue Gastrointestinal: Denies: abdominal pain Genitourinary: Denies: dysuria Musculoskeletal: Denies: back pain Skin: Denies: rash Neurological: Denies: weakness Past Medical History Past Medical History: Asthma, COPD, Hypertension, Myocardial Infarction (MS), Pneumonia, Prostate Disorder Additional Past Medical History / Comment(s): allergies Last Myocardial Infarction Date:: 05/09/2021 History of Any Multi-Drug Resistant Organisms: None Reported Past Surgical History: Appendectomy, Back Surgery, Heart Catheterization With Stent, Tonsillectomy Additional Past Surgical History / Comment(s): cervical Past Anesthesia/Blood Transfusion Reactions: No Reported Reaction Additional Past Anesthesia/Blood Transfusion Reaction / Comment(s): Pt is clausterphobic. Date of Last Stent Placement:: 05/09/21 Past Psychological History: No Psychological Hx Reported Smoking Status: Former smoker Past Alcohol Use History: None Reported Past Drug Use History: None Reported - Past Family History Mother Family Medical History: No Reported History Additional Family Medical History / Comment(s): Mother was healthy and lived to be 92 yrs old. Father History Unknown: Yes Additional Family Medical History / Comment(s): Father at the age of 68yrs, pt unable to say from what. General Exam Limitations: no limitations General appearance: alert, in no apparent distress Head exam: Present: normocephalic Eye exam: Present: normal appearance Neck exam: Present: normal inspection Respiratory exam: Present: decreased breath sounds Cardiovascular Exam: Present: regular rate, normal rhythm GI/Abdominal exam: Present: soft. Absent: tenderness Extremities exam: Present: normal inspection. Absent: pedal edema, calf tenderness Back exam: Present: normal inspection Neurological exam: Present: alert Psychiatric exam: Present: normal affect, normal mood Skin exam: Present: normal color Course Vital Signs 08/25/22 08/25/22 08/25/22 10:09 12:06 13:27 Temperature 98 F Pulse Rate 76 68 71 Respiratory 22 18 19 Rate Blood Pressure 125/69 104/61 105/61 O2 Sat by Pulse 95 94 L 93 L Oximetry 08/25/22 08/25/22 13:38 13:52 Temperature Pulse Rate 68 68 Respiratory Rate Blood Pressure O2 Sat by Pulse Oximetry EKG Findings - EKG Results: EKG: interpreted by ERMD (Anterior septal Q waves), sinus rhythm, normal axis, normal ST/T Medical Decision Making - Medical Decision Making Was pt. sent in by a medical professional or institution (, PA, INTERPRETIVE PROGRAM COORDINATOR, urgent care, hospital, or halfway...) When possible be specific @ -No Did you speak to anyone other than the patient for history (EMS, parent, family, police, friend...)? What history was obtained from this source @ -Patient does have family member present who helps provide history including previous COPD exposure history Did you review nursing and triage notes (agree or disagree)? Why? @ -I reviewed and agree with nursing and triage notes Were old charts reviewed (outside hosp., previous admission, EMS record, old EKG, old radiological studies, urgent care reports/EKG's, halfway records)? Report findings @ -No old charts were reviewed Differential Diagnosis (chest pain, altered mental status, abdominal pain women, abdominal pain men, vaginal bleeding, weakness, fever, dyspnea, syncope, headache, dizziness, GI bleed, back pain, seizure, CVA, palpatations, mental health)? @ -Differential Dyspnea: Coronary syndrome, arrhythmia, tamponade, asthma, COPD, pulmonary embolism, pneumonia, pneumothorax, pulmonary effusion, anaphylaxis, diabetic ketoacidosis, flailed chest, pulmonary contusion, diaphragmatic rupture, anemia, neuromuscular, this is not meant to be an all-inclusive list. EKG interpreted by me (3pts min.). @ -As above X-rays interpreted by me (1pt min.). @ -Chest x-ray shows nonspecific finding CT interpreted by me (1pt min.). @ -None done U/S interpreted by me (1pt. min.). @ -None done What testing was considered but not performed or refused? (CT, X-rays, U/S, labs)? Why? @ -None What meds were considered but not given or refused? Why? @ -None Did you discuss the management of the patient with other professionals (james rivero i.e. , PA, INTERPRETIVE PROGRAM COORDINATOR, lab, RT, psych nurse, psych social worker, development consultant, teacher, development officer, case liner)? Give summary @ -No Was smoking cessation discussed for >3mins.? @ -No Was critical care preformed (if so, how long)? @ -No Were there social determinants of health that impacted care today? How? (Homelessness, low income, unemployed, alcoholism, drug addiction, transportatio n, low edu. Level, literacy, decrease access to med. care, [facility], rehab)? @ -No Was there de-escalation of care discussed even if they declined (Discuss DNR or withdrawal of care, Hospice)? DNR status @ -No What co-morbidities impacted this encounter? (DM, HTN, Smoking, COPD, CAD, Cancer, CVA, ARF, Chemo, Hep., AIDS, mental health diagnosis, sleep apnea, morbid obesity)? @ -None Was patient admitted / discharged? Hospital course, mention meds given and route, prescriptions, significant lab abnormalities, going to OR and other pertinent info. @ -Patient reevaluated and feeling much better. Pulse ox 93% on room air. Patient does request discharge home. Patient and family are updated on results and need for follow-up as well as need to return if symptoms worsen Undiagnosed new problem with uncertain prognosis? @ -No Drug Therapy requiring intensive monitoring for toxicity (Heparin, Nitro, Insulin, Cardizem)? @ -No Were any procedures done? @ -No Diagnosis/symptom? @ -COPD Acute, or Chronic, or Acute on Chronic? @ -Acute Uncomplicated (without systemic symptoms) or Complicated (systemic symptoms)? @ -default Side effects of treatment? @ -No Exacerbation, Progression, or Severe Exacerbation? @ -No Poses a threat to life or bodily function? How? (Chest pain, USA, MS, pneumonia, PE, COPD, DKA, ARF, appy, cholecystitis, CVA, Diverticulitis, Homicidal, Suicidal, threat to staff... and all critical care pts) @ -No - Lab Data Result diagrams: 08/25/22 10:29 08/25/22 10:29 Lab Results 08/25/22 08/25/22 08/25/22 Range/Units 10:29 10:29 10:29 WBC 5.5 (3.8-10.6) k/uL RBC 5.50 (4.30-5.90) m/uL Hgb 15.3 (13.0-17.5) gm/dL Hct 47.5 (39.0-53.0) % MCV 86.4 (80.0-100.0) fL MCH 27.9 (25.0-35.0) pg MCHC 32.2 (31.0-37.0) g/dL RDW 15.4 (11.5-15.5) % Plt Count 206 (150-450) k/uL MPV 8.7 Neutrophils % 61 % Lymphocytes % 21 % Monocytes % 5 % Eosinophils % 11 % Basophils % 1 % Neutrophils # 3.4 (1.3-7.7) k/uL Lymphocytes # 1.1 (1.0-4.8) k/uL Monocytes # 0.3 (0-1.0) k/uL Eosinophils # 0.6 (0-0.7) k/uL Basophils # 0.1 (0-0.2) k/uL PT 11.9 (9.0-12.0) sec INR 1.1 (<1.2) APTT 24.7 (22.0-30.0) sec D-Dimer (<0.60) mg/L FEU Sodium 140 (137-145) mmol/L Potassium 4.1 (3.5-5.1) mmol/L Chloride 103 (98-107) mmol/L Carbon Dioxide 29 (22-30) mmol/L Anion Gap 8 mmol/L BUN 15 (9-20) mg/dL Creatinine 0.80 (0.66-1.25) mg/dL Est GFR (CKD-EPI)AfAm >90 (>60 ml/min/1.73 sqM) Est GFR (CKD-EPI)NonAf 85 (>60 ml/min/1.73 sqM) Glucose 229 H (74-99) mg/dL Plasma Lactic Acid Mello (0.7-2.0) mmol/L Calcium 8.9 (8.4-10.2) mg/dL Magnesium (1.6-2.3) mg/dL Total Bilirubin 1.1 (0.2-1.3) mg/dL AST 32 (17-59) U/L ALT 27 (4-49) U/L Alkaline Phosphatase 77 (38-126) U/L Troponin I (0.000-0.034) ng/mL NT-Pro-B Natriuret Pep pg/mL Total Protein 6.7 (6.3-8.2) g/dL Albumin 3.6 (3.5-5.0) g/dL Influenza Type A (PCR) (Not Detectd) Influenza Type B (PCR) (Not Detectd) RSV (PCR) (Not Detectd) SARS-CoV-2 (PCR) (Not Detectd) 08/25/22 08/25/22 08/25/22 Range/Units 10:29 11:28 11:28 WBC (3.8-10.6) k/uL RBC (4.30-5.90) m/uL Hgb (13.0-17.5) gm/dL Hct (39.0-53.0) % MCV (80.0-100.0) fL MCH (25.0-35.0) pg MCHC (31.0-37.0) g/dL RDW (11.5-15.5) % Plt Count (150-450) k/uL MPV Neutrophils % % Lymphocytes % % Monocytes % % Eosinophils % % Basophils % % Neutrophils # (1.3-7.7) k/uL Lymphocytes # (1.0-4.8) k/uL Monocytes # (0-1.0) k/uL Eosinophils # (0-0.7) k/uL Basophils # (0-0.2) k/uL PT (9.0-12.0) sec INR (<1.2) APTT (22.0-30.0) sec D-Dimer 0.60 H (<0.60) mg/L FEU Sodium (137-145) mmol/L Potassium (3.5-5.1) mmol/L Chloride (98-107) mmol/L Carbon Dioxide (22-30) mmol/L Anion Gap mmol/L BUN (9-20) mg/dL Creatinine (0.66-1.25) mg/dL Est GFR (CKD-EPI)AfAm (>60 ml/min/1.73 sqM) Est GFR (CKD-EPI)NonAf (>60 ml/min/1.73 sqM) Glucose (74-99) mg/dL Plasma Lactic Acid Mello 1.6 (0.7-2.0) mmol/L Calcium (8.4-10.2) mg/dL Magnesium (1.6-2.3) mg/dL Total Bilirubin (0.2-1.3) mg/dL AST (17-59) U/L ALT (4-49) U/L Alkaline Phosphatase (38-126) U/L Troponin I <0.012 (0.000-0.034) ng/mL NT-Pro-B Natriuret Pep pg/mL Total Protein (6.3-8.2) g/dL Albumin (3.5-5.0) g/dL Influenza Type A (PCR) (Not Detectd) Influenza Type B (PCR) (Not Detectd) RSV (PCR) (Not Detectd) SARS-CoV-2 (PCR) (Not Detectd) 08/25/22 08/25/22 08/25/22 Range/Units 11:28 11:28 11:40 WBC (3.8-10.6) k/uL RBC (4.30-5.90) m/uL Hgb (13.0-17.5) gm/dL Hct (39.0-53.0) % MCV (80.0-100.0) fL MCH (25.0-35.0) pg MCHC (31.0-37.0) g/dL RDW (11.5-15.5) % Plt Count (150-450) k/uL MPV Neutrophils % % Lymphocytes % % Monocytes % % Eosinophils % % Basophils % % Neutrophils # (1.3-7.7) k/uL Lymphocytes # (1.0-4.8) k/uL Monocytes # (0-1.0) k/uL Eosinophils # (0-0.7) k/uL Basophils # (0-0.2) k/uL PT (9.0-12.0) sec INR (<1.2) APTT (22.0-30.0) sec D-Dimer (<0.60) mg/L FEU Sodium (137-145) mmol/L Potassium (3.5-5.1) mmol/L Chloride (98-107) mmol/L Carbon Dioxide (22-30) mmol/L Anion Gap mmol/L BUN (9-20) mg/dL Creatinine (0.66-1.25) mg/dL Est GFR (CKD-EPI)AfAm (>60 ml/min/1.73 sqM) Est GFR (CKD-EPI)NonAf (>60 ml/min/1.73 sqM) Glucose (74-99) mg/dL Plasma Lactic Acid Mello (0.7-2.0) mmol/L Calcium (8.4-10.2) mg/dL Magnesium 2.1 (1.6-2.3) mg/dL Total Bilirubin (0.2-1.3) mg/dL AST (17-59) U/L ALT (4-49) U/L Alkaline Phosphatase (38-126) U/L Troponin I (0.000-0.034) ng/mL NT-Pro-B Natriuret Pep 470 pg/mL Total Protein (6.3-8.2) g/dL Albumin (3.5-5.0) g/dL Influenza Type A (PCR) Not Detected (Not Detectd) Influenza Type B (PCR) Not Detected (Not Detectd) RSV (PCR) Not Detected (Not Detectd) SARS-CoV-2 (PCR) Not Detected (Not Detectd) Disposition Clinical Impression: Acute exacerbation of chronic obstructive pulmonary disease Disposition: HOME SELF-CARE Instructions (If sedation given, give patient instructions): COPD (Chronic Obstructive Pulmonary Disease) (ED) Additional Instructions: Please do follow-up with your primary care physician in the next day or 2 for recheck. Return for fevers, difficulty breathing, pain, weakness, worsening symptoms or other concerns. Prescriptions have been sent to pharmacy. Please use your nebulizer or inhalers at least 4 times daily for the next several days. Prescriptions: predniSONE [Deltasone] 20 mg PO BID #10 tab Is patient prescribed a controlled substance at d/c from ED?: No Referrals: [facility],Clinic [Primary Care Provider] - 1-2 days Time of Disposition: 14:25
--- NOTE | 2022-08-25 11:59 | XR ---
EXAMINATION TYPE: XR chest 2V DATE OF EXAM: 08/25/2022 11:54 AM COMPARISON: Chest radiographs from 02/03/2022, CTA chest 04/25/2021 TECHNIQUE: XR chest 2V Frontal and lateral views of the chest. CLINICAL INDICATION:Male, 77 years old with history of difficulty breathing; FINDINGS: Lungs/Pleura: There is no evidence of pleural effusion, focal consolidation, or pneumothorax. Chroni c senescent parenchymal change. Stable calcified granuloma within the right midlung measuring up to 5 mm. Pulmonary vascularity: Unremarkable. Heart/mediastinum: Cardiomediastinal silhouette is unremarkable. Musculoskeletal: No acute osseous pathology. Cervical fusion hardware demonstrated. Degenerative glass ges of the visualized spine. IMPRESSION: No acute cardiopulmonary disease/process. No significant change from prior examination.
[2022-08-25] MEDS ORDERED: IPRATROPIUM-ALBUTEROL 3 ML NEB INHALATION STA (13:17)
[2022-08-25 14:54] VITALS: BP 124/71; PULSE 72; RESP 22
== END 2022-08-25 14:54 | disposition home or self-care (01) ==
LOC: EC 10:03
DX: J44.1 Chronic obstructive pulmonary disease with (acute) exacerbation (principal); I25.2 Old myocardial infarction; I10 Essential (primary) hypertension; Z87.891 Personal history of nicotine dependence; Z88.7 Allergy status to serum and vaccine; Z79.51 Long term (current) use of inhaled steroids; Z79.82 Long term (current) use of aspirin; Z79.899 Other long term (current) drug therapy; Z79.02 Long term (current) use of antithrombotics/antiplatelets; Z20.822 Contact with and (suspected) exposure to COVID-19
CPT/HCPCS: 36415; 71046; 80053; 83605; 83735; 83880; 84484; 85025; 85379; 85610; 85730; 87636; 93005; 94640; 99285

== ENCOUNTER 2022-10-18 12:46 | Observation (INO) | payer OTHER, MEDICARE ==
[2022-10-18] MEDS ORDERED: IPRATROPIUM 0.5 MG/2.5 ML NEBU INHALATION STA (14:11)
[2022-10-18] MEDS ORDERED: methylPREDNISolone SOD SUCCI 125 MG/2 ML VIAL IV STA (14:11)
[2022-10-18] MEDS ORDERED: ALBUTEROL NEBULIZED 2.5 MG/3 ML INHALATION STA (14:11)
--- NOTE | 2022-10-18 14:15 | ED ---
General Adult HPI - General Chief complaint: Shortness of Breath Stated complaint: SOB Time Seen by Provider: 10/18/22 13:00 Source: patient, RN notes reviewed, old records reviewed Mode of arrival: wheelchair Limitations: no limitations - History of Present Illness Initial comments: This is a 77-year-old male who presents emergency Department stating he has a history of COPD and asthma. Patient states the last week he's been feeling sick and he states that his difficulty breathing has worsened over that period of time. Patient denies fever chills per patient states he is coughing and coughing up quite a bit of sputum. Patient denies chest pain or palpitations. Patient denies any abdominal pain. Patient denies headache patient denies numbness weakness per patient denies lightheadedness dizziness. Patient denies any swelling to the legs normally but in the last day or 2 he had a little bit of edema bilaterally. Patient states when this occurs he takes Lasix and he took Lasix today. - Related Data Home Medications Medication Instructions Recorded Confirmed Albuterol Inhaler [Ventolin Hfa 2 puff INHALATION RT-Q6H PRN 04/25/21 08/25/22 Inhaler] Albuterol Nebulized [Ventolin 2.5 mg INHALATION RT-Q4H PRN 04/25/21 08/25/22 Nebulized] Cetirizine HCl [Zyrtec] 10 mg PO DAILY PRN 04/25/21 08/25/22 Finasteride [Proscar] 5 mg PO HS 04/25/21 08/25/22 Fluticasone Nasal [place] [Flonase 1 spr EA NOSTRIL DAILY 04/25/21 08/25/22 Nasal [place]] Fluticasone Propion/Salmeterol 1 puff INHALATION RT-BID 04/25/21 08/25/22 [Advair 250-50 Diskus] Lidocaine 5% Patch [Lidoderm 5% 1 patch TRANSDERM DAILY PRN 04/25/21 08/25/22 Patch] Polyvinyl Alcohol/Povidone 1 drop BOTH EYES QID PRN 04/25/21 08/25/22 [[place] Eye Drop] Diclofenac Sodium Gel [Voltaren 1 applic TOPICAL BID PRN 05/09/21 08/25/22 Gel] Acetaminophen Tab [Tylenol] 1,000 mg PO TID PRN 02/03/22 08/25/22 Atorvastatin [Lipitor] 80 mg PO HS 02/03/22 08/25/22 Clopidogrel [Plavix] 75 mg PO DAILY 02/03/22 08/25/22 Folic Acid 1 mg PO DAILY 02/03/22 08/25/22 Ketoconazole 2% Shampoo [Nizoral] 1 applic TOPICAL DAILY PRN 02/03/22 08/25/22 Metoprolol Succinate (ER) [Toprol 25 mg PO BID 02/03/22 08/25/22 XL] Thiamine [Vitamin B-1] 100 mg PO DAILY 02/03/22 08/25/22 lisinopriL [Zestril] 5 mg PO BID 02/03/22 08/25/22 Aspirin 81 mg PO HS 08/25/22 08/25/22 Furosemide [Lasix] 20 mg PO DAILY PRN 08/25/22 08/25/22 Multivit-Min/FA/Lycopen/Lutein 1 tab PO DAILY 08/25/22 08/25/22 [Centrum Silver Men Tablet] Previous Rx's Medication Instructions Recorded Nitroglycerin Sl Tabs [Nitrostat] 0.4 mg SUBLINGUAL Q5M PRN #30 tab 05/12/21 Tamsulosin [Flomax] 0.4 mg PO DAILY #30 capsule 05/12/21 Isosorbide Mononitrate ER [Imdur] 30 mg PO DAILY 30 Days #30 tab 02/04/22 predniSONE [Deltasone] 20 mg PO BID #10 tab 08/25/22 Allergies Allergy/AdvReac Type Severity Reaction Status Date / Time Influenza Virus Vaccines Allergy Unknown Verified 10/18/22 15:12 Review of Systems ROS Statement: Those systems with pertinent positive or pertinent negative responses have been documented in the HPI. ROS Other: All systems not noted in ROS Statement are negative. Past Medical History Past Medical History: Asthma, COPD, Hypertension, Myocardial Infarction ([place]), Pneumonia, Prostate Disorder Additional Past Medical History / Comment(s): allergies Last Myocardial Infarction Date:: 05/09/2021 History of Any Multi-Drug Resistant Organisms: None Reported Past Surgical History: Appendectomy, Back Surgery, Heart Catheterization With Stent, Tonsillectomy Additional Past Surgical History / Comment(s): cervical Past Anesthesia/Blood Transfusion Reactions: No Reported Reaction Additional Past Anesthesia/Blood Transfusion Reaction / Comment(s): Pt is clausterphobic. Date of Last Stent Placement:: 05/09/21 Past Psychological History: No Psychological Hx Reported Smoking Status: Former smoker Past Alcohol Use History: None Reported Past Drug Use History: None Reported - Past Family History Mother Family Medical History: No Reported History Additional Family Medical History / Comment(s): Mother was healthy and lived to be 92 yrs old. Father History Unknown: Yes Additional Family Medical History / Comment(s): Father at the age of 68yrs, pt unable to say from what. General Exam - General Exam Comments Initial Comments: GENERAL: Patient is well-developed and well-nourished. Patient is nontoxic and well- hydrated and is in mild distress. ENT: Neck is soft and supple. No significant lymphadenopathy is noted. Oropharynx is clear. Moist mucous membranes. Neck has full range of motion without elici ting any pain. EYES: The sclera were anicteric and conjunctiva were pink and moist. Extraocular movements were intact and pupils were equal round and reactive to light. Eyelids were unremarkable. PULMONARY: Patient has expiratory wheezing diffusely CARDIOVASCULAR: There is a regular rate and rhythm without any murmurs gallops or rubs. ABDOMEN: Soft and nontender with normal bowel sounds. SKIN: Skin is clear with no lesions or rashes and otherwise unremarkable. NEUROLOGIC: Patient is alert and oriented x3. Cranial nerves II through XII are grossly intact. Motor and sensory are also intact. Normal speech, volume and content. Symmetrical smile. MUSCULOSKELETAL: Normal extremities with adequate strength and full range of motion. 1+ edema bilaterally LYMPHATICS: No significant lymphadenopathy is noted PSYCHIATRIC: Normal psychiatric evaluation. Limitations: no limitations Course Vital Signs 10/18/22 10/18/22 10/18/22 12:50 14:00 14:34 Temperature 97.5 F L Pulse Rate 77 64 60 Respiratory 20 18 18 Rate Blood Pressure 104/62 128/88 O2 Sat by Pulse 93 L 92 L Oximetry 10/18/22 10/18/22 14:47 15:00 Temperature Pulse Rate 67 78 Respiratory 18 20 Rate Blood Pressure 128/73 O2 Sat by Pulse 92 L Oximetry Medical Decision Making - Medical Decision Making EKG as interpreted by myself shows a sinus rhythm with occasional PAC at 73 bpm SC interval 160 QRS is 86 QT interval 362 QTC is 37. Patient's EKG shows no ST segment elevation or depression. Was pt. sent in by a medical professional or institution (, [facility], [facility] [employer], urgent care, hospital, or residential...) When possible be specific @ -No Did you speak to anyone other than the patient for history (EMS, parent, family, police, friend...)? What history was obtained from this source @ -Daughter gave part of the past medical history Did you review nursing and triage notes (agree or disagree)? Why? @ -I reviewed and agree with nursing and triage notes Were old charts reviewed (outside hosp., previous admission, EMS record, old EKG, old radiological studies, urgent care reports/EKG's, residential records)? Report findings @ -No old charts were reviewed Differential Diagnosis (chest pain, altered mental status, abdominal pain women, abdominal pain men, vaginal bleeding, weakness, fever, dyspnea, syncope, headache, dizziness, GI bleed, back pain, seizure, CVA, palpatations, mental health, musculoskeletal)? @ -Differential Dyspnea: Coronary syndrome, arrhythmia, tamponade, asthma, COPD, pulmonary embolism, pneumonia, pneumothorax, pulmonary effusion, anaphylaxis, diabetic ketoacidosis, flailed chest, pulmonary contusion, diaphragmatic rupture, anemia, neuromuscular, this is not meant to be an all-inclusive list. EKG interpreted by me (3pts min.). @ -As above X-rays interpreted by me (1pt min.). @ -Chest x-ray shows no acute abnormality CT interpreted by me (1pt min.). @ -None done U/S interpreted by me (1pt. min.). @ -None done What testing was considered but not performed or refused? (CT, X-rays, U/S, labs)? Why? @ -None What meds were considered but not given or refused? Why? @ -None Did you discuss the management of the patient with other professionals (professionals i.e. JERRY Knutson, JACK [employer]AME TENDER, lab, RT, psych nurse, social services specialist, medicare compliance auditor, teacher, patient transport officer, major case detective)? Give summary @ -I spoke with sounds physicians and they agreed to admit the patient Was smoking cessation discussed for >3mins.? @ -No Was critical care preformed (if so, how long)? @ -No Were there social determinants of health that impacted care today? How? (Homelessness, low income, unemployed, alcoholism, drug addiction, transportation, low edu. Level, literacy, decrease access to med. care, detention, rehab)? @ -No Was there de-escalation of care discussed even if they declined (Discuss DNR or withdrawal of care, Hospice)? DNR status @ -No What co-morbidities impacted this encounter? (DM, HTN, Smoking, COPD, CAD, Cancer, CVA, ARF, Chemo, Hep., AIDS, mental health diagnosis, sleep apnea, morbid obesity)? @ -None Was patient admitted / discharged? Hospital course, mention meds given and route, prescriptions, significant lab abnormalities, going to OR and other pertinent info. @ -Patient received 2 breathing treatments steroids in the emergency department and he continued to wheeze diffusely. Chest x-ray showed no pneumonia I spoke with sounds physicians agree to admit the patient admitted the patient I consulted the boiler tester Undiagnosed new problem with uncertain prognosis? @ -No Drug Therapy requiring intensive monitoring for toxicity (Heparin, Nitro, Insulin, Cardizem)? @ -No Were any procedures done? @ -No Diagnosis/symptom? @ -Exacerbation COPD Acute, or Chronic, or Acute on Chronic? @ -Acute Uncomplicated (without systemic symptoms) or Complicated (systemic symptoms)? @ -default Side effects of treatment? @ -No Exacerbation, Progression, or Severe Exacerbation? @ -Severe exacerbation Poses a threat to life or bodily function? How? (Chest pain, [place], [place], pneumonia, PE, COPD, DKA, ARF, appy, cholecystitis, CVA, Diverticulitis, Homicidal, Suicidal, threat to staff... and all critical care pts) @ -Yes this could lead to hypoxia and end organ dysfunction - Lab Data Result diagrams: 10/18/22 13:30 Lab Results 10/18/22 10/18/22 Range/Units 13:30 13:30 WBC 7.7 (3.8-10.6) k/uL RBC 5.87 (4.30-5.90) m/uL Hgb 16.1 (13.0-17.5) gm/dL Hct 51.7 (39.0-53.0) % MCV 88.0 (80.0-100.0) fL MCH 27.5 (25.0-35.0) pg MCHC 31.2 (31.0-37.0) g/dL RDW 15.2 (11.5-15.5) % Plt Count 192 (150-450) k/uL MPV 8.7 Neutrophils % 61 % Lymphocytes % 20 % Monocytes % 8 % Eosinophils % 7 % Basophils % 1 % Neutrophils # 4.7 (1.3-7.7) k/uL Lymphocytes # 1.5 (1.0-4.8) k/uL Monocytes # 0.6 (0-1.0) k/uL Eosinophils # 0.5 (0-0.7) k/uL Basophils # 0.1 (0-0.2) k/uL Hypochromasia Slight PT 11.3 (9.0-12.0) sec INR 1.1 (<1.2) APTT 24.1 (22.0-30.0) sec Disposition Clinical Impression: Acute exacerbation of chronic obstructive pulmonary disease Disposition: ADMITTED IP TO THIS HOSP Referrals: [facility] [Primary Care Provider] - 1-2 days Time of Disposition: 15:26
[2022-10-18 14:48] LABS: Basophils # (A) 0.1 k/uL (0-0.2); Basophils % (A) 1 %; Eosinophils # (A) 0.5 k/uL (0-0.7); Eosinophils % (A) 7 %; HCT 51.7 % (39.0-53.0); HGB 16.1 gm/dL (13.0-17.5); Hypochromasia Slight; Lymphocytes # (A) 1.5 k/uL (1.0-4.8); Lymphocytes % (A) 20 %; MCH 27.5 pg (25.0-35.0); MCHC 31.2 g/dL (31.0-37.0); Mean Platelet Volume 8.7; Monocytes # (A) 0.6 k/uL (0-1.0); Monocytes % (A) 8 %; Neutrophils # (A) 4.7 k/uL (1.3-7.7); Neutrophils % (A) 61 %; Platelet Count 192 k/uL (150-450); RBC 5.87 m/uL (4.30-5.90); RDW 15.2 % (11.5-15.5); WBC 7.7 k/uL (3.8-10.6)
[2022-10-18 15:06] LABS: INR 1.1 (<1.2); Partial Thromboplastin Time 24.1 sec (22.0-30.0); Prothrombin Time 11.3 sec (9.0-12.0)
[2022-10-18 15:09] LABS: ALT 30 U/L (4-49); AST 39 U/L (17-59); African American GFR (CKD) >90 (>60 ml/min/1.73 sqM); Albumin 3.8 g/dL (3.5-5.0); Alkaline Phosphatase 62 U/L (38-126); Anion Gap 7 mmol/L; Blood Urea Nitrogen 15 mg/dL (9-20); Calcium 8.9 mg/dL (8.4-10.2); Carbon Dioxide 33 mmol/L (22-30); Chloride 104 mmol/L (98-107); Glucose 88 mg/dL (74-99); Non-African American GFR(CKD) 90 (>60 ml/min/1.73 sqM); Sodium 144 mmol/L (137-145); Total Bilirubin 0.9 mg/dL (0.2-1.3); Total Protein 6.6 g/dL (6.3-8.2)
[2022-10-18] MEDS ORDERED: NALOXONE 0.4 MG/ML 1 ML VIAL IVP PRN (15:26)
[2022-10-18] MEDS ORDERED: IPRATROPIUM-ALBUTEROL 3 ML NEB INHALATION PRN (15:26)
[2022-10-18 15:31] LABS: Potassium 4.6 mmol/L (3.5-5.1)
--- NOTE | 2022-10-18 15:33 | XR ---
EXAMINATION TYPE: XR chest 2V DATE OF EXAM: 10/18/2022 COMPARISON: 08/25/2022 HISTORY: 77 year-old male shortness of breath, difficulty breathing TECHNIQUE: AP and lateral views FINDINGS: Heart upper limits of normal in size. ACDF hardware. Interstitial prominence is unchanged. Artery amk nt noted. Calcified granuloma periphery of the right midlung. No consolidation or pleural effusion. IMPRESSION: Similar interstitial prominence. This may in part be chronic. Correlate to exclude bronchitis or asth ma. No focal infiltrate seen.
[2022-10-18] MEDS: IPRATROPIUM-ALBUTEROL 3 ML NEB INHALATION SCH ×2 (15:59→21:47)
[2022-10-18] MEDS ORDERED: AMOXIC-POT CLAV 875-125MG 1 EACH TAB PO SCH (16:00)
--- NOTE | 2022-10-18 16:58 | P.HPIM ---
History of Present Illness H&P Date: 10/18/22 Chief Complaint: Dyspnea 77-year-old man with medical history of COPD, asthma, hypertension, hyperlipidemia, CAD with recent [place] status post PCI, BPH presented for evaluation of dyspnea. Patient says for the last 2 weeks she's been having shortness of breath with increased cough and sputum production. He is color blind and not sure what color his sputum is, but also has trouble getting it all the way out. He says that this is gotten progressively worse and his daughter convinced him to come into the hospital today for further evaluation. He denies fevers, chills, nausea, vomiting, chest pain, palpitations, sink to be, presyncope, abdominal pain, constipation, diarrhea, dysuria, dyschezia, numbness/weakness of extremities. In the emergency room, patient was afebrile, 128/73, heart rate 78, 92% on room air. CBC was unremarkable. Basic metabolic panel showed a CO2 of 33. Liver function tests are unremarkable. Troponin was less than 0.012. Lactic acid was elevated at 2.4. Coags were unremarkable. Chest x-ray showed interstitial prominence, no pleural effusions, no opacities. EKG showed normal sinus rhythm with occasional PACs, deep Q waves in precordial leads consistent with old anteroseptal myocardial infarction. All Systems reviewed and pertinent positives and negatives noted in HPI, all other symptoms are negative Gen: in no apparent distress, resting comfortably in bed Eyes: PERRL, no scleral injection or icterus HENT: normocephalic, atraumatic, good hearing acuity, moist mucous membranes Neck: no tracheal deviation, full range of motion Resp: good air exchange, breathing comfortably with no accessory muscle use, no tactile fremitus CVS: good distal perfusion x 4, bilateral pitting edema GI: soft, NTTP, ND, no hepatosplenomegaly : no suprapubic tenderness, no CVAT, gamboa catheter not present MSK: no clubbing, no cyanosis, no noted contractures of extremities Skin: no noted rashes, petechiae; temperature of skin is appropriate Neuro: moving all extremities without signs of weakness, CN II-XII intact Psych: cooperative, euthymic mood, insight and judgment intact Labs and imaging as above Assessment: COPD/Asthma exacerbation Acute on chronic systolic heart failure exacerbation, EF 45% Hypertension Hyperlipidemia CAD BPH Plan: Vital signs reviewed and noted in the HPI Lab work reviewed and noted in the HPI EKG and CXR are personally interpreted and noted in the HPI Case was discussed with the Emergency Room provider and decision was made to admit the patient for dyspnea, COPD exacerbation Start Patient on Lasix 20 mg IV daily Echocardiogram ordered Solu-Medrol 60 mg IV every 6 hours Pulmonology consulted Duo nebs every 6 hours Order pro-calcitonin Augmentin ordered by ER, will discontinue pending procalcitonin Patient is DO NOT RESUSCITATE/DO NOT INTUBATE Daughter is next of kin and designated decision maker Past Medical History Past Medical History: Asthma, COPD, Hypertension, Myocardial Infarction ([place]), Pneumonia, Prostate Disorder Additional Past Medical History / Comment(s): allergies Last Myocardial Infarction Date:: 05/09/2021 History of Any Multi-Drug Resistant Organisms: None Reported Past Surgical History: Appendectomy, Back Surgery, Heart Catheterization With Stent, Tonsillectomy Additional Past Surgical History / Comment(s): cervical Past Anesthesia/Blood Transfusion Reactions: No Reported Reaction Additional Past Anesthesia/Blood Transfusion Reaction / Comment(s): Pt is clausterphobic. Date of Last Stent Placement:: 05/09/21 Past Psychological History: No Psychological Hx Reported Smoking Status: Former smoker Past Alcohol Use History: None Reported Past Drug Use History: None Reported - Past Family History Mother Family Medical History: No Reported History Additional Family Medical History / Comment(s): Mother was healthy and lived to be 92 yrs old. Father History Unknown: Yes Additional Family Medical History / Comment(s): Father at the age of 68yrs, pt unable to say from what. Medications and Allergies Home Medications Medication Instructions Recorded Confirmed Type Albuterol Inhaler [Ventolin Hfa 2 puff INHALATION RT-Q6H PRN 04/25/21 10/18/22 History Inhaler] Albuterol Nebulized [Ventolin 2.5 mg INHALATION RT-Q4H PRN 04/25/21 10/18/22 History Nebulized] Cetirizine HCl [Zyrtec] 10 mg PO HS 04/25/21 10/18/22 History Finasteride [Proscar] 5 mg PO HS 04/25/21 10/18/22 History Fluticasone Nasal [place] [Flonase 1 spr EA NOSTRIL DAILY 12/16/21 06/10/23 History Nasal [place]] Lidocaine 5% Patch [Lidoderm 5% 1 patch TRANSDERM DAILY PRN 04/25/21 10/18/22 History Patch] Diclofenac Sodium Gel [Voltaren 1 applic TOPICAL BID PRN 05/09/21 10/18/22 History Gel] Nitroglycerin Sl Tabs [Nitrostat] 0.4 mg SUBLINGUAL Q5M PRN #30 tab 05/12/21 10/18/22 Rx Tamsulosin [Flomax] 0.4 mg PO DAILY #30 capsule 05/12/21 10/18/22 Rx Atorvastatin [Lipitor] 80 mg PO HS 02/03/22 10/18/22 History Clopidogrel [Plavix] 75 mg PO DAILY 02/03/22 10/18/22 History Folic Acid 1 mg PO DAILY 02/03/22 10/18/22 History Metoprolol Succinate (ER) [Toprol 25 mg PO BID 02/03/22 10/18/22 History XL] Thiamine [Vitamin B-1] 100 mg PO DAILY 02/03/22 10/18/22 History lisinopriL [Zestril] 5 mg PO BID 02/03/22 10/18/22 History Isosorbide Mononitrate ER [Imdur] 30 mg PO DAILY 30 Days #30 tab 02/04/22 10/18/22 Rx Aspirin 81 mg PO HS 08/25/22 10/18/22 History Furosemide [Lasix] 20 mg PO DAILY PRN 08/25/22 10/18/22 History Multivit-Min/FA/Lycopen/Lutein 1 tab PO DAILY 08/25/22 10/18/22 History [Centrum Silver Men Tablet] Fluticasone Propion/Salmeterol 1 puff INHALATION RT-BID 10/18/22 10/18/22 History [[place] 250-50 [place]] Allergies Allergy/AdvReac Type Severity Reaction Status Date / Time Influenza Virus Vaccines Allergy Unknown Verified 10/18/22 15:12 Physical Exam Osteopathic Statement: *. No significant issues noted on an osteopathic structural exam other than those noted in the History and Physical/Consult. Vitals: Vital Signs Temp Pulse Resp BP Pulse Ox 10/18/22 16:12 75 18 144/81 91 L 10/18/22 15:00 78 20 128/73 92 L 10/18/22 14:47 67 18 10/18/22 14:34 60 18 10/18/22 14:00 64 18 128/88 92 L 10/18/22 12:50 97.5 F L 77 20 104/62 93 L Intake and Output 10/18/22 10/18/22 10/18/22 06:59 14:59 22:59 Other: Weight 54.431 kg Results CBC & Chem 7: 10/18/22 13:30 10/18/22 13:30 Labs: Abnormal Lab Results - Last 24 Hours (Table) 10/18/22 10/18/22 Range/Units 13:30 13:30 Carbon Dioxide 33 H (22-30) mmol/L Plasma Lactic Acid [place] 2.4 H* (0.7-2.0) mmol/L
[2022-10-18] MEDS: methylPREDNISolone SOD SUCCI 125 MG/2 ML VIAL IV SCH ×2 (21:07→21:24)
[2022-10-18] MEDS: FUROSEMIDE 10 MG/ML 2 ML VIAL IV SCH (21:07)
[2022-10-19] MEDS: SYMBICORT 80-4.5 MCG INHALER INHALATION SCH ×3 (00:22→19:12)
[2022-10-19] MEDS: METOPROLOL SUCCINATE (ER) 25 MG TAB.ER.24H PO SCH ×3 (01:06→20:40)
[2022-10-19] MEDS: LORATADINE 10 MG TAB PO SCH ×2 (01:06→20:40)
[2022-10-19] MEDS: FINASTERIDE 5 MG TAB PO SCH ×2 (01:06→20:40)
[2022-10-19] MEDS: ATORVASTATIN 80 MG TAB PO SCH ×2 (01:06→20:40)
[2022-10-19] MEDS: lisinopriL 5 MG TAB PO SCH ×3 (01:06→20:53)
[2022-10-19] MEDS: ASPIRIN 81 MG PO SCH ×2 (01:06→20:40)
[2022-10-19] MEDS: methylPREDNISolone SOD SUCCI 125 MG/2 ML VIAL IV SCH ×4 (06:03→23:52)
[2022-10-19] MEDS: FOLIC ACID 1 MG TAB PO SCH (07:25)
[2022-10-19] MEDS: THIAMINE 100 MG TAB PO SCH (07:25)
[2022-10-19] MEDS: ISOSORBIDE MONONITRATE ER 30 MG TAB.ER.24H PO SCH (07:25)
[2022-10-19] MEDS: CLOPIDOGREL 75 MG TAB PO SCH (07:25)
[2022-10-19] MEDS: TAMSULOSIN 0.4 MG CAP.ER.24H PO SCH (07:25)
[2022-10-19] MEDS: FUROSEMIDE 10 MG/ML 2 ML VIAL IV SCH (08:45)
[2022-10-19] MEDS: IPRATROPIUM-ALBUTEROL 3 ML NEB INHALATION SCH ×4 (09:05→19:12)
--- NOTE | 2022-10-19 10:19 | P.PN ---
Subjective Progress Note Date: 10/19/22 Patient reports improvement in his breathing Gen: awake, alert HEENT: normocephalic, atraumatic, good hearing acuity, moist mucous membranes Resp: good air exchange, breathing comfortably with no accessory muscle use CVS: good distal perfusion x 4, GI: soft, NTTP, ND : no SPT, no CVAT, gamboa catheter not present MSK: no pitting edema, no clubbing Neuro: non-focal, moving all extremities Psych: cooperative, euthymic mood Hospital course: 77-year-old man with medical history of COPD, asthma, hypertension, hyperlipidemia, CAD with recent [place] status post PCI, BPH presented for evaluation of dyspnea. In the emergency room, patient was afebrile, 128/73, heart rate 78, 92% on room air. CBC was unremarkable. Basic metabolic panel showed a CO2 of 33. Liver function tests are unremarkable. Troponin was less than 0.012. Lactic acid was elevated at 2.4. Coags were unremarkable. Chest x-ray showed interstitial prominence, no pleural effusions, no opacities. EKG showed normal sinus rhythm with occasional PACs, deep Q waves in precordial leads consistent with old anteroseptal myocardial infarction. Assessment: COPD/Asthma exacerbation Acute on chronic systolic heart failure exacerbation, EF 45% Hypertension Hyperlipidemia CAD BPH Plan: Today, patient is afebrile, 127/68, heart rate 67, 93% on room air BNP is 730, repeat lactic acid is 2.0 Pro-calcitonin is 0.04 CBC, basic metabolic panel, magnesium ordered for tomorrow Echocardiogram is pending Continue Lasix 20 mg IV daily Solu-Medrol 60 mg IV every 6 hours Pulmonology consulted Duo nebs every 6 hours Patient is DO NOT RESUSCITATE/DO NOT INTUBATE Daughter is next of kin and designated decision maker Objective - Vital Signs Vital signs: Vital Signs Temp 98.1 F 10/19/22 06:48 Pulse 72 10/19/22 09:15 Resp 18 10/19/22 06:48 BP 127/68 10/19/22 06:48 Pulse Ox 97 10/19/22 09:05 FiO2 Intake & Output 10/18/22 10/19/22 10/19/22 18:59 06:59 18:59 Output Total 1300 Balance -1300 Weight 54.431 kg 54.431 kg Output: Urine 1300 Other: Voiding Method Indwelling Catheter - Labs CBC & Chem 7: 10/18/22 13:30 10/18/22 13:30 Labs: Abnormal Lab Results - Last 24 Hours (Table) 10/18/22 10/18/22 Range/Units 13:30 13:30 Carbon Dioxide 33 H (22-30) mmol/L Plasma Lactic Acid [place] 2.4 H* (0.7-2.0) mmol/L
[2022-10-19 10:50] LABS: Basophils % (A) 0 %; Eosinophils % (A) 0 %; HCT 52.6 % (39.0-53.0); HGB 16.3 gm/dL (13.0-17.5); Hypochromasia Slight; Lymphocytes # (A) 0.5 k/uL (1.0-4.8); Lymphocytes % (A) 6 %; MCH 27.1 pg (25.0-35.0); MCHC 30.9 g/dL (31.0-37.0); MCV 87.8 fL (80.0-100.0); Mean Platelet Volume 9.4; Monocytes # (A) 0.1 k/uL (0-1.0); Monocytes % (A) 1 %; Neutrophils # (A) 7.6 k/uL (1.3-7.7); Neutrophils % (A) 92 %; Platelet Count 197 k/uL (150-450); RBC 5.99 m/uL (4.30-5.90); WBC 8.3 k/uL (3.8-10.6)
[2022-10-19 10:54] LABS: African American GFR (CKD) >90 (>60 ml/min/1.73 sqM); Anion Gap 12 mmol/L; Blood Urea Nitrogen 26 mg/dL (9-20); Calcium 9.1 mg/dL (8.4-10.2); Carbon Dioxide 31 mmol/L (22-30); Chloride 95 mmol/L (98-107); Glucose 279 mg/dL (74-99); Magnesium 1.9 mg/dL (1.6-2.3); Non-African American GFR(CKD) 86 (>60 ml/min/1.73 sqM); Potassium 4.2 mmol/L (3.5-5.1); Sodium 138 mmol/L (137-145)
--- NOTE | 2022-10-19 14:06 | P.CNPUL ---
History of Present Illness Consult date: 10/19/22 Reason for consult: dyspnea, cough, COPD Chief complaint: Shortness of breath History of present illness: Patient is a pleasant 77-year-old male well-known to me he has a history of COPD along with coronary artery disease history of NH and stent placement. Patient has hypertension hypertensive cardiovascular disease along with dyslipidemia, patient is having increased shortness of breath along with cough which is pr oductive for sputum production of unknown nature for the last 2 weeks since the weather was hot and the temperature up with humidity. He has been using his nebulizer without any significant relief decided to come into the hospital for further evaluation his oxygen saturation was 92% on arrival CBC and chemistry including troponin was normal, chest x-ray no acute process and fried however prominent interstitium seen an EKG has evidence of old NH patient was admitted into the hospital and has been placed on bronchodilators and IV steroids and continuation of his home medications appears to be tolerating well however since yesterday reveals significant improvement in breathing Review of Systems All systems: negative Past Medical History Past Medical History: Asthma, COPD, Hypertension, Myocardial Infarction (NH), Pneumonia, Prostate Disorder Additional Past Medical History / Comment(s): allergies, "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 Last Myocardial Infarction Date:: 05/09/2021 History of Any Multi-Drug Resistant Organisms: None Reported Past Surgical History: Appendectomy, Back Surgery, Heart Catheterization With Stent, Tonsillectomy Additional Past Surgical History / Comment(s): cervical Past Anesthesia/Blood Transfusion Reactions: No Reported Reaction Additional Past Anesthesia/Blood Transfusion Reaction / Comment(s): Pt is clausterphobic. Date of Last Stent Placement:: 05/09/21 Past Psychological History: No Psychological Hx Reported Additional Psychological History / Comment(s): Pt resides with his daughter and her spouse and her children. Pt uses a cane or walker to ambulate. He does not drive, but states getting rides is not a problem for him. He is otherwise independent. Pt served in the [employer]. Smoking Status: Former smoker Past Alcohol Use History: None Reported Additional Past Alcohol Use History / Comment(s): Pt started smoking in 1964 and quit in 1979. Past Drug Use History: None Reported - Past Family History Mother Family Medical History: No Reported History Additional Family Medical History / Comment(s): Mother was healthy and lived to be 92 yrs old. Father History Unknown: Yes Additional Family Medical History / Comment(s): Father at the age of 68yrs, pt unable to say from what. Medications and Allergies Home Medications Medication Instructions Recorded Confirmed Type Albuterol Inhaler [Ventolin Hfa 2 puff INHALATION RT-Q6H PRN 04/25/21 10/18/22 History Inhaler] Albuterol Nebulized [Ventolin 2.5 mg INHALATION RT-Q4H PRN 04/25/21 10/18/22 History Nebulized] Cetirizine HCl [Zyrtec] 10 mg PO HS 04/25/21 10/18/22 History Finasteride [Proscar] 5 mg PO HS 04/25/21 10/18/22 History Fluticasone Nasal Panaca [Flonase 1 spr EA NOSTRIL DAILY 04/25/21 10/18/22 History Nasal Panaca] Lidocaine 5% Patch [Lidoderm 5% 1 patch TRANSDERM DAILY PRN 04/25/21 10/18/22 History Patch] Diclofenac Sodium Gel [Voltaren 1 applic TOPICAL BID PRN 05/09/21 10/18/22 History Gel] Nitroglycerin Sl Tabs [Nitrostat] 0.4 mg SUBLINGUAL Q5M PRN #30 tab 05/12/21 10/18/22 Rx Tamsulosin [Flomax] 0.4 mg PO DAILY #30 capsule 05/12/21 10/18/22 Rx Atorvastatin [Lipitor] 80 mg PO HS 02/03/22 10/18/22 History Clopidogrel [Plavix] 75 mg PO DAILY 02/03/22 10/18/22 History Folic Acid 1 mg PO DAILY 02/03/22 10/18/22 History Metoprolol Succinate (ER) [Toprol 25 mg PO BID 02/03/22 10/18/22 History XL] Thiamine [Vitamin B-1] 100 mg PO DAILY 02/03/22 10/18/22 History lisinopriL [Zestril] 5 mg PO BID 02/03/22 10/18/22 History Isosorbide Mononitrate ER [Imdur] 30 mg PO DAILY 30 Days #30 tab 02/04/22 10/18/22 Rx Aspirin 81 mg PO HS 08/25/22 10/18/22 History Furosemide [Lasix] 20 mg PO DAILY PRN 08/25/22 10/18/22 History Multivit-Min/FA/Lycopen/Lutein 1 tab PO DAILY 08/25/22 10/18/22 History [Centrum Silver Men Tablet] Fluticasone Propion/Salmeterol 1 puff INHALATION RT-BID 10/18/22 10/18/22 History [Wixela 250-50 Inhub] Allergies Allergy/AdvReac Type Severity Reaction Status Date / Time Influenza Virus Vaccines Allergy Unknown Verified 10/18/22 15:12 Physical Exam Vitals: Vital Signs Temp Pulse Pulse Resp BP BP Pulse Ox 10/19/22 12:20 80 10/19/22 12:10 79 10/19/22 09:15 72 10/19/22 09:05 74 97 10/19/22 06:48 98.1 F 67 18 127/68 93 L 10/19/22 01:32 98.3 F 88 18 125/66 93 L 10/18/22 21:59 88 10/18/22 21:48 89 10/18/22 18:50 97.9 F 73 22 158/85 94 L 10/18/22 17:39 79 18 137/79 92 L 10/18/22 16:12 75 18 144/81 91 L 10/18/22 15:00 78 20 128/73 92 L 10/18/22 14:47 67 18 10/18/22 14:34 60 18 Intake and Output 10/18/22 10/19/22 10/19/22 22:59 06:59 14:59 Output Total 1300 Balance -1300 Output: Urine 1300 Other: Voiding Method Indwelling Catheter Weight 54.431 kg - Constitutional General appearance: average body habitus, cooperative, disheveled - EENT Eyes: EOMI, PERRLA ENT: normal oropharynx Ears: bilateral: normal - Neck Neck: normal ROM Carotids: bilateral: upstroke normal Thyroid: bilateral: normal size - Respiratory Respiratory: bilateral: diminished - Cardiovascular Rhythm: regular Heart sounds: normal: S1, S2 - Gastrointestinal General gastrointestinal: decreased bowel sounds, soft - Integumentary Integumentary: normal turgor - Neurologic Neurologic: CNII-XII intact - Musculoskeletal Musculoskeletal: gait normal, generalized weakness, strength equal bilaterally - Psychiatric Psychiatric: A&O x's 3, appropriate affect, intact judgment & insight Results - Laboratory Findings CBC and BMP: 10/19/22 09:46 10/19/22 09:46 PT/INR, D-dimer PT 11.3 sec (9.0-12.0) 10/18/22 13:30 INR 1.1 (<1.2) 10/18/22 13:30 Abnormal lab findings: Abnormal Labs 10/18/22 10/18/22 10/19/22 13:30 13:30 09:46 RBC 5.99 H MCHC 30.9 L Lymphocytes # 0.5 L Chloride Carbon Dioxide 33 H BUN Glucose Plasma Lactic Acid Mello 2.4 H* 10/19/22 09:46 RBC MCHC Lymphocytes # Chloride 95 L Carbon Dioxide 31 H BUN 26 H Glucose 279 H Plasma Lactic Acid Mello - Diagnostic Findings Chest x-ray: report reviewed, image reviewed Assessment and Plan Assessment: Acute exacerbation of COPD Coronary artery disease with history of PCI History of NH Hypertension and hypertensive cardiovascular disease BPH Plan: Continue bronchodilator, IV steroids follow clinical course closely however in next 24 hours can be switched to by mouth and if remains stable can be discharged to follow-up with outpatient We will sign off for now and reevaluate as outpatient Time with Patient: Greater than 30
[2022-10-20] MEDS: methylPREDNISolone SOD SUCCI 125 MG/2 ML VIAL IV SCH ×2 (06:48→12:18)
[2022-10-20 07:12] LABS: Basophils % (A) 0 %; Eosinophils % (A) 0 %; HCT 53.9 % (39.0-53.0); HGB 16.4 gm/dL (13.0-17.5); Hypochromasia Slight; Lymphocytes # (A) 0.6 k/uL (1.0-4.8); Lymphocytes % (A) 4 %; MCH 26.5 pg (25.0-35.0); MCHC 30.4 g/dL (31.0-37.0); MCV 87.1 fL (80.0-100.0); Mean Platelet Volume 9.3; Monocytes # (A) 0.3 k/uL (0-1.0); Monocytes % (A) 2 %; Neutrophils # (A) 12.7 k/uL (1.3-7.7); Neutrophils % (A) 93 %; Platelet Count 230 k/uL (150-450); RBC 6.18 m/uL (4.30-5.90); RDW 15.1 % (11.5-15.5); WBC 13.7 k/uL (3.8-10.6)
[2022-10-20 07:54] LABS: African American GFR (CKD) >90 (>60 ml/min/1.73 sqM); Anion Gap 6 mmol/L; Blood Urea Nitrogen 32 mg/dL (9-20); Calcium 9.2 mg/dL (8.4-10.2); Carbon Dioxide 37 mmol/L (22-30); Chloride 97 mmol/L (98-107); Glucose 171 mg/dL (74-99); Magnesium 2.2 mg/dL (1.6-2.3); Non-African American GFR(CKD) 83 (>60 ml/min/1.73 sqM); Potassium 5.1 mmol/L (3.5-5.1); Sodium 140 mmol/L (137-145)
[2022-10-20 08:16] VITALS: BP 111/67
[2022-10-20] MEDS: FOLIC ACID 1 MG TAB PO SCH (08:17)
[2022-10-20] MEDS: ISOSORBIDE MONONITRATE ER 30 MG TAB.ER.24H PO SCH (08:17)
[2022-10-20] MEDS: CLOPIDOGREL 75 MG TAB PO SCH (08:17)
[2022-10-20] MEDS: THIAMINE 100 MG TAB PO SCH (08:17)
[2022-10-20] MEDS: METOPROLOL SUCCINATE (ER) 25 MG TAB.ER.24H PO SCH (08:17)
[2022-10-20] MEDS: TAMSULOSIN 0.4 MG CAP.ER.24H PO SCH (08:17)
[2022-10-20] MEDS: lisinopriL 5 MG TAB PO SCH (08:17)
[2022-10-20 08:20] VITALS: RESP 16; TEMP 97.5
[2022-10-20] MEDS: IPRATROPIUM-ALBUTEROL 3 ML NEB INHALATION SCH ×2 (08:51→11:57)
[2022-10-20] MEDS: SYMBICORT 80-4.5 MCG INHALER INHALATION SCH (08:51)
[2022-10-20 11:40] VITALS: BMI 17.7
[2022-10-20 12:10] VITALS: PULSE 78
--- NOTE | 2022-10-20 13:55 | P.PN ---
Subjective Progress Note Date: 10/20/22 Assessment: COPD/Asthma exacerbation Acute on chronic systolic heart failure exacerbation, EF 45% Hypertension Hyperlipidemia CAD BPH Hospital course: 77-year-old man with medical history of COPD, asthma, hypertension, hyperlipidemia, CAD with recent TN status post PCI, BPH presented for evaluation of dyspnea. In the emergency room, patient was afebrile, 128/73, heart rate 78, 92% on room air. CBC was unremarkable. Basic metabolic panel showed a CO2 of 33. Liver function tests are unremarkable. Troponin was less than 0.012. Lactic acid was elevated at 2.4. Coags were unremarkable. Chest x-ray showed interstitial prominence, no pleural effusions, no opacities. EKG showed normal sinus rhythm with occasional PACs, deep Q waves in precordial leads consistent with old anteroseptal myocardial infarction. Case was discussed with the emergency room provider and decision was made to admit the patient to observation for further management of COPD exacerbation. Patient was started on steroids, standing nebulizers. By 48 hours of hospitalization, patient improved back to baseline and no longer felt short of breath. During his hospitalization he was also seen and cleared by pulmonology. 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 He should also obtain an echocardiogram in the outpatient setting upon follow-up with his diabetes specialist. I spent 35 minutes coordinating this discharge on 10/20 Gen: awake, alert HEENT: normocephalic, atraumatic, good hearing acuity, moist mucous membranes Resp: good air exchange, breathing comfortably with no accessory muscle use CVS: good distal perfusion x 4, GI: soft, NTTP, ND : no SPT, no CVAT, gamboa catheter not present MSK: no pitting edema, no clubbing Neuro: non-focal, moving all extremities Psych: cooperative, euthymic mood Objective - Vital Signs Vital signs: Vital Signs Temp 97.5 F L 10/20/22 06:52 Pulse 78 10/20/22 12:10 Resp 16 10/20/22 06:52 BP 111/67 10/20/22 08:16 Pulse Ox 95 10/20/22 08:51 FiO2 Intake & Output 10/19/22 10/20/22 10/20/22 18:59 06:59 18:59 Output Total 220 600 Balance -220 -600 Weight 54.431 kg Output: Urine 220 600 Other: Voiding Method Indwelling Catheter # Bowel Movements 1 - Labs CBC & Chem 7: 10/20/22 05:21 10/20/22 05:21 Labs: Abnormal Lab Results - Last 24 Hours (Table) 10/20/22 10/20/22 Range/Units 05:21 05:21 WBC 13.7 H (3.8-10.6) k/uL RBC 6.18 H (4.30-5.90) m/uL Hct 53.9 H (39.0-53.0) % MCHC 30.4 L (31.0-37.0) g/dL Neutrophils # 12.7 H (1.3-7.7) k/uL Lymphocytes # 0.6 L (1.0-4.8) k/uL Chloride 97 L (98-107) mmol/L Carbon Dioxide 37 H (22-30) mmol/L BUN 32 H (9-20) mg/dL Glucose 171 H (74-99) mg/dL Microbiology - Last 24 Hours (Table) 10/18/22 14:11 Blood Culture - Preliminary Blood 10/18/22 14:11 Blood Culture - Preliminary Blood
--- NOTE | 2022-10-21 11:52 | CA ---
Transthoracic Echo Report Name: Antonio Gardiner Age: 77 Gender: M : 1945 Exam Date: 10/20/2022 14:13 Exam Location: [facility] Ht (in): 69 Wt (lb): 120 Ordering Physician: Bautista Myrick MD Attending/Referring Phys: Abrasive Mixer John Lundy Procedure CPT: Indications: HF exac Cardiac Hx: Technical Quality: Fair Contrast 1: Total Dose (mL): Contrast 2: Total Dose (mL): MEASUREMENTS (Male / Female) Normal Values 2D ECHO LV Diastolic Diameter PLAX 4.6 cm 4.2 - 5.9 / 3.9 - 5.3 cm LV Systolic Diameter PLAX 3.1 cm IVS Diastolic Thickness 0.9 cm 0.6 - 1.0 / 0.6 - 0.9 cm LVPW Diastolic Thickness 1.2 cm 0.6 - 1.0 / 0.6 - 0.9 cm LV Relative Wall Thickness 0.5 RV Internal Dim ED PLAX 2.4 cm LVOT Diameter 2.0 cm Aortic Root Diameter 3.2 cm LA Systolic Diameter LX 2.5 cm 3.0 - 4.0 / 2.7 - 3.8 cm LV Diastolic Volume MOD BP 67.8 cm??? 67 - 155 / 56 - 104 cm??? LV Systolic Volume MOD BP 36.8 cm??? 22 - 58 / 19 - 49 cm??? LV Ejection Fraction MOD BP 45.8 % >= 55 % LV Diastolic Volume MOD 4C 69.4 cm??? LV Systolic Volume MOD 4C 40.3 cm??? LV Ejection Fraction MOD 4C 42.0 % LV Diastolic Length 4C 7.3 cm LV Systolic Length 4C 6.1 cm LV Diastolic Volume MOD 2C 62.5 cm??? LV Systolic Volume MOD 2C 32.9 cm??? LV Ejection Fraction MOD 2C 47.3 % LV Diastolic Length 2C 6.8 cm LV Systolic Length 2C 6.3 cm LA Volume 33.2 cm??? 18 - 58 / 22 - 52 cm??? DOPPLER LVOT Peak Velocity 109.9 cm/s LVOT Peak Gradient 4.8 mmHg MV Peak Velocity 127.6 cm/s MV Peak Gradient 6.5 mmHg MV Mean Velocity 57.9 cm/s MV Mean Gradient 1.7 mmHg MV Velocity Time Integral 29.5 cm Mitral E Point Velocity 81.0 cm/s Mitral A Point Velocity 115.5 cm/s Mitral E to A Ratio 0.7 MV Deceleration Time 184.1 ms TR Peak Velocity 170.5 cm/s TR Peak Gradient 11.6 mmHg Right Ventricular Systolic Press 16.8 mmHg FINDINGS Left Ventricle Left ventricular ejection fraction is estimated at 40-45%. There is anteroapical and anteroseptal hypokinesis.left ventricular cavity size normal. Right Ventricle Normal right ventricular size. Right Atrium Normal right atrial size. Left Atrium Normal left atrial size. Mitral Valve Mitral annular calcification. Trace to mild mitral regurgitation. Aortic Valve Trileaflet aortic valve. Diffuse thickening (sclerosis) of the aortic valve cusps without reduced excursion. Tricuspid Valve Structurally normal tricuspid valve.mild tricuspid regurgitation. Pulmonic Valve Pulmonic valve not well visualized. Trace pulmonic regurgitation. Pericardium Not well visualized. Aorta Aortic root and proximal ascending aorta not well visualized. CONCLUSIONS 1. Moderately impaired left ventricular systolic function with segmental wall motion abnormality, consistent with CAD 2. Mild mitral, and tricuspid regurgitation with no pulmonary hypertension Previewed by: Dr. Kell Lemus MD (Electronically Signed) Final Date: 21 October 2022 11:51
== END 2022-10-20 15:29 | disposition home or self-care (01) ==
LOC: EC 12:46 → INTOOBSV 15:26 → 4SSUR 15:26
PROVIDERS: ADMIT Internal Medicine; ATTEND Internal Medicine
DX: J44.1 Chronic obstructive pulmonary disease with (acute) exacerbation (principal); J45.901 Unspecified asthma with (acute) exacerbation; I11.0 Hypertensive heart disease with heart failure; I50.23 Acute on chronic systolic (congestive) heart failure; I25.2 Old myocardial infarction; N40.0 Benign prostatic hyperplasia without lower urinary tract symptoms; E78.5 Hyperlipidemia, unspecified; I25.10 Atherosclerotic heart disease of native coronary artery without angina pectoris; F40.240 Claustrophobia; H53.50 Unspecified color vision deficiencies; Z66 Do not resuscitate; Z79.51 Long term (current) use of inhaled steroids; Z79.02 Long term (current) use of antithrombotics/antiplatelets; Z79.899 Other long term (current) drug therapy; Z79.82 Long term (current) use of aspirin; Z88.7 Allergy status to serum and vaccine; Z87.01 Personal history of pneumonia (recurrent); Z90.49 Acquired absence of other specified parts of digestive tract; Z95.5 Presence of coronary angioplasty implant and graft; Z96.0 Presence of urogenital implants; Z87.891 Personal history of nicotine dependence; Z98.890 Other specified postprocedural states
CPT/HCPCS: 96376 ×3; 96375; 96374; 99285; 36415; 94640 ×5; 94760 ×2; 93005; 93306; 83880; 80053; 80048 ×2; 83605; 83735 ×3; 84484; 85025 ×3; 85610; 85730; 87040; 84145; 71046; S0138; J1940 ×2; J2930 ×3

== ENCOUNTER → 2022-12-26 | Outpatient (CLI) | payer OTHER | END | disposition home or self-care (01) | LOC: LAB 10:44 | PROVIDERS: ATTEND Psychiatry & Neurology Neurology | DX: R26.0 Ataxic gait (principal); Z79.899 Other long term (current) drug therapy | CPT/HCPCS: 82550; 82607; 82652; 83036 ==

== ENCOUNTER → 2023-01-17 | Outpatient (CLI) | payer OTHER ==
[2023-01-17 13:50] LABS: ALT 28 U/L (10-49); AST 24 U/L (14-35); Chol/HDL Ratio 2.49 Ratio; LDL Cholesterol,Calculated 49.6 mg/dL (0.0-131.0); VLDL Calculation 15.74 mg/dL (5.00-40.00)
== END | disposition home or self-care (01) ==
LOC: LABWHC1 08:25
PROVIDERS: ATTEND Internal Medicine Interventional Cardiology
DX: E78.2 Mixed hyperlipidemia (principal)
CPT/HCPCS: 36415; 80061; 84450; 84460

== ENCOUNTER 2023-04-11 15:40 | Inpatient (IN) | payer OTHER, MEDICARE ==
[2023-04-11] MEDS ORDERED: ACETAMINOPHEN TAB 500 MG TAB PO STA (16:26)
[2023-04-11] MEDS ORDERED: IPRATROPIUM-ALBUTEROL 3 ML NEB INHALATION STA (16:27)
--- NOTE | 2023-04-11 16:29 | ED ---
General Adult HPI - General Chief complaint: Shortness of Breath Stated complaint: GIULIANO Time Seen by Provider: 04/11/23 15:58 Source: patient, family, RN notes reviewed Mode of arrival: wheelchair Limitations: no limitations - History of Present Illness Initial comments: Patient is a pleasant 77-year-old male presenting to the emergency department with concerns with difficulty breathing. Onset of symptoms was around a week ago. Patient does have chest congestion however cough is been nonproductive. No fever at home. Patient does have history of COPD and asthma. No leg pain or leg swelling. - Related Data Home Medications Medication Instructions Recorded Confirmed Albuterol Inhaler [Ventolin Hfa 2 puff INHALATION RT-QID 04/25/21 04/11/23 Inhaler] Albuterol Nebulized [Ventolin 2.5 mg INHALATION RT-QID 04/25/21 04/11/23 Nebulized] Cetirizine HCl [Zyrtec] 10 mg PO HS 04/25/21 04/11/23 Fluticasone Nasal [place] [Flonase 1 spr EA NOSTRIL DAILY 04/25/21 04/11/23 Nasal [place]] L.idocaine 5% Patch [Lidoderm 5% 1 patch TRANSDERM DAILY 04/25/21 04/11/23 Patch] Diclofenac Sodium Gel [Voltaren 1% 1 applic TOPICAL DAILY 05/09/21 04/11/23 Gel] Atorvastatin [Lipitor] 80 mg PO HS 02/03/22 04/11/23 Folic Acid 1 mg PO DAILY 02/03/22 04/11/23 Metoprolol Succinate (ER) [Toprol 25 mg PO BID 02/03/22 04/11/23 XL] Thiamine [Vitamin B-1] 100 mg PO DAILY 02/03/22 04/11/23 lisinopriL [Zestril] 5 mg PO BID 02/03/22 04/11/23 Aspirin 81 mg PO HS 08/25/22 04/11/23 Furosemide [Lasix] 20 mg PO BID@0900,1300 08/25/22 04/11/23 Fluticasone Propion/Salmeterol 1 puff INHALATION RT-BID 10/18/22 04/11/23 [Wixela 250-50 Inhub] Acetaminophen Tab [Tylenol Tab] 1,000 mg PO Q6H PRN 04/11/23 04/11/23 Empagliflozin [Jardiance] 10 mg PO DAILY 04/11/23 04/11/23 Ketoconazole 2% Shampoo [Nizoral] 1 applic TOPICAL DAILY 04/11/23 04/11/23 Triamcinolone 0.1% Cream [Kenalog 1 applic TOPICAL DAILY 04/11/23 04/11/23 0.1% Cream] methocarbamoL [Robaxin-750] 750 mg PO QID 04/11/23 04/11/23 Previous Rx's Medication Instructions Recorded Tamsulosin [Flomax] 0.4 mg PO DAILY #30 capsule 05/12/21 Isosorbide Mononitrate ER [Imdur] 30 mg PO DAILY 30 Days #30 tab 02/04/22 Allergies Allergy/AdvReac Type Severity Reaction Status Date / Time Influenza Virus Vaccines Allergy Anaphylaxis Verified 04/11/23 19:57 tomato Allergy Anaphylaxis Verified 04/11/23 19:57 /Hives Review of Systems ROS Statement: Those systems with pertinent positive or pertinent negative responses have been documented in the HPI. ROS Other: All systems not noted in ROS Statement are negative. Constitutional: Denies: fever ENT: Reports: congestion Respiratory: Reports: as per HPI, cough, dyspnea Musculoskeletal: Denies: back pain Past Medical History Past Medical History: Asthma, COPD, Hypertension, Myocardial Infarction (MT), Pneumonia, Prostate Disorder Additional Past Medical History / Comment(s): allergies, "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 Last Myocardial Infarction Date:: 05/09/2021 History of Any Multi-Drug Resistant Organisms: None Reported Past Surgical History: Appendectomy, Back Surgery, Heart Catheterization With Stent, Tonsillectomy Additional Past Surgical History / Comment(s): cervical, 3 heart stents Past Anesthesia/Blood Transfusion Reactions: No Reported Reaction Additional Past Anesthesia/Blood Transfusion Reaction / Comment(s): Pt is clausterphobic. Date of Last Stent Placement:: 05/09/21 Past Psychological History: No Psychological Hx Reported Smoking Status: Former smoker Past Alcohol Use History: None Reported Past Drug Use History: None Reported - Past Family History Mother Family Medical History: No Reported History Additional Family Medical History / Comment(s): Mother was healthy and lived to be 92 yrs old. Father History Unknown: Yes Additional Family Medical History / Comment(s): Father at the age of 68yrs, pt unable to say from what. General Exam Limitations: no limitations General appearance: alert, in no apparent distress Head exam: Present: normocephalic Eye exam: Present: normal appearance Respiratory exam: Present: wheezes, decreased breath sounds Cardiovascular Exam: Present: tachycardia GI/Abdominal exam: Present: soft. Absent: tenderness Extremities exam: Present: normal inspection Neurological exam: Present: alert Psychiatric exam: Present: normal affect, normal mood Skin exam: Present: normal color Course Vital Signs 04/11/23 04/11/23 04/11/23 15:42 16:45 17:28 Temperature 100.4 F H Pulse Rate 125 H 117 H 125 H Respiratory 26 H 17 Rate Blood Pressure 122/64 O2 Sat by Pulse 93 L 99 Oximetry 04/11/23 04/11/23 17:43 19:37 Temperature 99.2 F Pulse Rate 125 H 105 H Respiratory 18 Rate Blood Pressure 108/63 O2 Sat by Pulse 94 L Oximetry EKG Findings - EKG Results: EKG: interpreted by ERMD (Septal Q waves.), sinus rhythm, normal axis, normal ST/T EKG shows: tachycardia Medical Decision Making - Medical Decision Making Was pt. sent in by a medical professional or institution (, PA, VAN DRIVER HELPER, urgent care, hospital, or senior care...) When possible be specific @ -No Did you speak to anyone other than the patient for history (EMS, parent, family, police, friend...)? What history was obtained from this source @ -No Did you review nursing and triage notes (agree or disagree)? Why? @ -I reviewed and agree with nursing and triage notes Were old charts reviewed (outside hosp., previous admission, EMS record, old EKG, old radiological studies, urgent care reports/EKG's, senior care records)? Report findings @ -No old charts were reviewed Differential Diagnosis (chest pain, altered mental status, abdominal pain women, abdominal pain men, vaginal bleeding, weakness, fever, dyspnea, syncope, headache, dizziness, GI bleed, back pain, seizure, CVA, palpatations, mental health, musculoskeletal)? @ -Differential Dyspnea: Coronary syndrome, arrhythmia, tamponade, asthma, COPD, pulmonary embolism, pneumonia, pneumothorax, pulmonary effusion, anaphylaxis, diabetic ketoacidosis, flailed chest, pulmonary contusion, diaphragmatic rupture, anemia, neuromuscular, this is not meant to be an all-inclusive list. EKG interpreted by me (3pts min.). @ -As above X-rays interpreted by me (1pt min.). @ -Chest x-ray does have some mild increased upper lobe markings in the right. Radiologist report still pending. CT interpreted by me (1pt min.). @ -None done U/S interpreted by me (1pt. min.). @ -None done What testing was considered but not performed or refused? (CT, X-rays, U/S, labs)? Why? @ -None What meds were considered but not given or refused? Why? @ -None Did you discuss the management of the patient with other professionals (professionals i.e. , PA, VAN DRIVER HELPER, lab, RT, psych nurse, social service liaison, director digital catalogue, teacher, community cultural development officer, caseworker protective services)? Give summary @ -Case was discussed with [facility], Dr. Pineda, who will admit covering this [facility]. He is aware of radiologist report pending. Was smoking cessation discussed for >3mins.? @ -No Was critical care preformed (if so, how long)? @ -32 minutes critical care time Were there social determinants of health that impacted care today? How? (Homelessness, low income, unemployed, alcoholism, drug addiction, tr ansportation, low edu. Level, literacy, decrease access to med. care, [facility], rehab)? @ -No Was there de-escalation of care discussed even if they declined (Discuss DNR or withdrawal of care, Hospice)? DNR status @ -No What co-morbidities impacted this encounter? (DM, HTN, Smoking, COPD, CAD, Cancer, CVA, ARF, Chemo, Hep., AIDS, mental health diagnosis, sleep apnea, morbid obesity)? @ -None Was patient admitted / discharged? Hospital course, mention meds given and route, prescriptions, significant lab abnormalities, going to OR and other pertinent info. @ -Patient reevaluated and is somewhat improved. Patient and family updated on results and plan. Patient will be admitted with IV antibiotics and steroids and nebulizers. Admission orders written. Undiagnosed new problem with uncertain prognosis? @ -No Drug Therapy requiring intensive monitoring for toxicity (Heparin, Nitro, Insulin, Cardizem)? @ -No Were any procedures done? @ -No Diagnosis/symptom? @ -COPD, sepsis Acute, or Chronic, or Acute on Chronic? @ -Acute, acute Uncomplicated (without systemic symptoms) or Complicated (systemic symptoms)? @ -default Side effects of treatment? @ -No Exacerbation, Progression, or Severe Exacerbation? @ -No Poses a threat to life or bodily function? How? (Chest pain, USA, MT, pneumonia, PE, COPD, DKA, ARF, appy, cholecystitis, CVA, Diverticulitis, Homicidal, Suicidal, threat to staff... and all critical care pts) @ -No - Lab Data Result diagrams: 04/11/23 17:25 04/11/23 17:25 Lab Results 04/11/23 04/11/23 04/11/23 Range/Units 17:25 17:25 17:25 WBC 13.6 H (3.8-10.6) k/uL RBC 6.25 H (4.30-5.90) m/uL Hgb 17.9 H (13.0-17.5) gm/dL Hct 55.3 H (39.0-53.0) % MCV 88.5 (80.0-100.0) fL MCH 28.6 (25.0-35.0) pg MCHC 32.3 (31.0-37.0) g/dL RDW 14.3 (11.5-15.5) % Plt Count 261 (150-450) k/uL MPV 9.6 Neutrophils % 88 % Lymphocytes % 3 % Monocytes % 7 % Eosinophils % 1 % Basophils % 0 % Neutrophils # 12.0 H (1.3-7.7) k/uL Lymphocytes # 0.4 L (1.0-4.8) k/uL Monocytes # 1.0 (0-1.0) k/uL Eosinophils # 0.1 (0-0.7) k/uL Basophils # 0.0 (0-0.2) k/uL PT 11.3 (10.0-12.5) sec INR 1.0 (<1.2) APTT 25.5 (22.0-30.0) sec Sodium 139 (137-145) mmol/L Potassium 4.1 (3.5-5.1) mmol/L Chloride 96 L (98-107) mmol/L Carbon Dioxide 28 (22-30) mmol/L Anion Gap 15 mmol/L BUN 14 (9-20) mg/dL Creatinine 0.68 (0.66-1.25) mg/dL Est GFR (CKD-EPI)AfAm >90 (>60 ml/min/1.73 sqM) Est GFR (CKD-EPI)NonAf >90 (>60 ml/min/1.73 sqM) Glucose 208 H (74-99) mg/dL Lactic Ac Sepsis Rflx Plasma Lactic Acid Mello (0.7-2.0) mmol/L Calcium 9.4 (8.4-10.2) mg/dL Total Bilirubin 1.3 (0.2-1.3) mg/dL AST 55 (17-59) U/L ALT 39 (4-49) U/L Alkaline Phosphatase 111 (38-126) U/L Total Protein 7.6 (6.3-8.2) g/dL Albumin 4.2 (3.5-5.0) g/dL Influenza Type A (PCR) (Not Detectd) Influenza Type B (PCR) (Not Detectd) RSV (PCR) (Not Detectd) SARS-CoV-2 (PCR) (Not Detectd) 04/11/23 04/11/23 04/11/23 Range/Units 17:25 17:25 18:23 WBC (3.8-10.6) k/uL RBC (4.30-5.90) m/uL Hgb (13.0-17.5) gm/dL Hct (39.0-53.0) % MCV (80.0-100.0) fL MCH (25.0-35.0) pg MCHC (31.0-37.0) g/dL RDW (11.5-15.5) % Plt Count (150-450) k/uL MPV Neutrophils % % Lymphocytes % % Monocytes % % Eosinophils % % Basophils % % Neutrophils # (1.3-7.7) k/uL Lymphocytes # (1.0-4.8) k/uL Monocytes # (0-1.0) k/uL Eosinophils # (0-0.7) k/uL Basophils # (0-0.2) k/uL PT (10.0-12.5) sec INR (<1.2) APTT (22.0-30.0) sec Sodium (137-145) mmol/L Potassium (3.5-5.1) mmol/L Chloride (98-107) mmol/L Carbon Dioxide (22-30) mmol/L Anion Gap mmol/L BUN (9-20) mg/dL Creatinine (0.66-1.25) mg/dL Est GFR (CKD-EPI)AfAm (>60 ml/min/1.73 sqM) Est GFR (CKD-EPI)NonAf (>60 ml/min/1.73 sqM) Glucose (74-99) mg/dL Lactic Ac Sepsis Rflx Y Plasma Lactic Acid Mello 3.1 H* (0.7-2.0) mmol/L Calcium (8.4-10.2) mg/dL Total Bilirubin (0.2-1.3) mg/dL AST (17-59) U/L ALT (4-49) U/L Alkaline Phosphatase (38-126) U/L Total Protein (6.3-8.2) g/dL Albumin (3.5-5.0) g/dL Influenza Type A (PCR) Not Detected (Not Detectd) Influenza Type B (PCR) Not Detected (Not Detectd) RSV (PCR) Not Detected (Not Detectd) SARS-CoV-2 (PCR) Not Detected (Not Detectd) Critical Care Time Critical Care Time: Yes Total Critical Care Time: 32 Disposition Clinical Impression: Acute exacerbation of chronic obstructive pulmonary disease, Sepsis Disposition: ADMITTED IP TO THIS HOSP Condition: Serious Is patient prescribed a controlled substance at d/c from ED?: No Referrals: [facility],Clinic [Primary Care Provider] - 1-2 days Time of Disposition: 20:40
[2023-04-11] MEDS: SODIUM CHLORIDE 0.9% 1,000 ML IV SCH ×2 (17:43→23:12)
[2023-04-11 17:53] LABS: Basophils % (A) 0 %; Eosinophils # (A) 0.1 k/uL (0-0.7); Eosinophils % (A) 1 %; HGB 17.9 gm/dL (13.0-17.5); Lymphocytes # (A) 0.4 k/uL (1.0-4.8); Lymphocytes % (A) 3 %; MCH 28.6 pg (25.0-35.0); MCHC 32.3 g/dL (31.0-37.0); MCV 88.5 fL (80.0-100.0); Mean Platelet Volume 9.6; Monocytes % (A) 7 %; Neutrophils % (A) 88 %; Platelet Count 261 k/uL (150-450); RBC 6.25 m/uL (4.30-5.90); RDW 14.3 % (11.5-15.5); WBC 13.6 k/uL (3.8-10.6)
[2023-04-11 18:07] LABS: Partial Thromboplastin Time 25.5 sec (22.0-30.0); Prothrombin Time 11.3 sec (10.0-12.5)
[2023-04-11 18:13] LABS: HCT 55.3 % (39.0-53.0)
[2023-04-11 18:23] LABS: ALT 39 U/L (4-49); AST 55 U/L (17-59); African American GFR (CKD) >90 (>60 ml/min/1.73 sqM); Albumin 4.2 g/dL (3.5-5.0); Alkaline Phosphatase 111 U/L (38-126); Anion Gap 15 mmol/L; Blood Urea Nitrogen 14 mg/dL (9-20); Calcium 9.4 mg/dL (8.4-10.2); Carbon Dioxide 28 mmol/L (22-30); Chloride 96 mmol/L (98-107); Glucose 208 mg/dL (74-99); Non-African American GFR(CKD) >90 (>60 ml/min/1.73 sqM); Potassium 4.1 mmol/L (3.5-5.1); Sodium 139 mmol/L (137-145); Total Bilirubin 1.3 mg/dL (0.2-1.3); Total Protein 7.6 g/dL (6.3-8.2)
[2023-04-11] MEDS ORDERED: NALOXONE 0.4 MG/ML 1 ML VIAL IVP PRN (20:40)
[2023-04-11] MEDS ORDERED: PNEUMONIA PROTOCOL UTILIZED 1 EACH MISC PO PRN (20:40)
[2023-04-11] MEDS ORDERED: methylPREDNISolone SOD SUCCI 125 MG/2 ML VIAL IV STA (20:40)
[2023-04-11] MEDS ORDERED: AZITHROMYCIN 500 MG in SODIUM CHLORIDE 0.9% 250 ML IVPB STA (20:40)
[2023-04-11] MEDS ORDERED: IPRATROPIUM-ALBUTEROL 3 ML NEB INHALATION PRN (20:40)
[2023-04-11] MEDS: methylPREDNISolone SOD SUCCI 125 MG/2 ML VIAL IV SCH (23:10)
--- NOTE | 2023-04-11 23:20 | XR ---
EXAMINATION TYPE: XR chest 2V DATE OF EXAM: 04/11/2023 6:26 PM CLINICAL INDICATION:Male, 77 years old with history of Fever; [facility] COMPARISON: 10/18/2022 TECHNIQUE: XR chest 2V. Frontal PA and lateral views of the chest. FINDINGS: Lines/Tubes: EKG leads overlie the chest. No indwelling lines are seen. Heart/mediastinum: Cardiomediastinal silhouette is well defined. Heart appears mildly enlarged. At l east one coronary stent can be seen. Mediastinum appears normal. Pulmonary vascularity: Mild pulmonary vascular congestion. Increased interstitial markings can be see n with edema or pneumonitis, with an element of chronic change possible. Lungs/Pleura: Vague patch of opacity suggested over the right upper lobe and hazy opacity at the left lung base, could relate to emerging infiltrates. Costophrenic angles are slightly blunted, there cou ld be small effusions. No visualized pneumothorax. Musculoskeletal: No acute osseous abnormality demonstrated in the limits of the exam. Degenerative c hanges of the spine and shoulders. Partially seen fusion hardware in the lower cervical spine. Other findings: None. IMPRESSION: 1. Mild cardiomegaly with mild pulmonary vascular congestion. 2. Mildly prominent interstitial lung markings, could relate to edema or pneumonitis, with an elemen t of chronic change possible. 3. Vague patch of opacity suggested over the right upper lobe and hazy opacity at the left lung base , could relate to emerging infiltrates. Correlate clinically for infectious or inflammatory process. FOLLOW-UP: Follow-up as clinically warranted.
[2023-04-12] MEDS ORDERED: MELATONIN 3 MG TABLET PO PRN (03:49)
[2023-04-12] MEDS ORDERED: ACETAMINOPHEN TAB 325 MG TAB PO PRN (03:49)
[2023-04-12] MEDS ORDERED: ONDANSETRON 4 MG/2 ML VIAL IVP PRN (03:49)
[2023-04-12] MEDS ORDERED: DEXTROSE 50% SYRINGE 50 ML IVP PRN ×2 (03:50)
--- NOTE | 2023-04-12 04:03 | P.HPIM ---
History of Present Illness H&P Date: 04/11/23 Chief Complaint: SOB 77-year-old male with COPD not on home oxygen, hypertension Patient coming in reporting difficulty in breathing which has started about a week ago but suddenly got worse this evening and decided to come in for evaluation he reports associated fevers and chills worsening coughing nonproductive no hemoptysis but otherwise he denies any known sick contacts denies any chest pain denies any sore throat runny nose denies any nausea vomiting diarrhea denies any abdominal pain or bleeding denies any hematuria. He is known to have COPD he does not use oxygen denies any recent travel or hospital stay denies any history of blood clots denies any known sick contacts Patient reports quitting smoking many many years ago denies any illicit drugs or alcohol Patient has chronic Gamb[place] catheter reports that she replace Gamb[place] catheter every month last time he replace it was a week ago denies any hematuria denies any lower abdominal pain or flank pain review of systems Pertinent positives as noted in HPI. All other systems were reviewed and are negative on exam Constitutional: No acute distress, looks sick and tired, and clammy Eyes: Anicteric sclerae, moist conjunctiva, Pupils equal round reactive to light ENMT: NC/AT Oropharynx clear, no erythema, or exudates Neck: Supple, no masses, or JVD No carotid bruits No thyromegaly Lungs: expiratory rhonchi, occasional wheezing Clear to percussion Normal respiratory effort, no accessory muscle use Cardiovascular: Heart regular in rate and rhythm, No murmurs, gallops, or rubs No peripheral edema Abdominal: Soft, gamboa cath in place Nontender, no guarding, rebound or rigidity Abdomen moving with respiration Normoactive bowel sounds No hepatomegaly, No splenomegaly No palpable mass No abdominal wall hernia noted Extremities: No digital cyanosis No clubbing Pedal pulses intact and symmetrical Radial pulses intact and symmetrical No calf tenderness Psychiatric: Alert and oriented to person, place Neuro Muscles Strength 4/5 in all 4 extremities Sensation to light touch grossly present throughout Cranial nerves II-XII grossly intact Lymphatics: no palpable cervical or supraclavicular lymph nodes Past Medical History Past Medical History: Asthma, COPD, Hypertension, Myocardial Infarction (VT), Pneumonia, Prostate Disorder Additional Past Medical History / Comment(s): allergies, "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 Last Myocardial Infarction Date:: 05/09/2021 History of Any Multi-Drug Resistant Organisms: None Reported Past Surgical History: Appendectomy, Back Surgery, Heart Catheterization With Stent, Tonsillectomy Additional Past Surgical History / Comment(s): cervical, 3 heart stents Past Anesthesia/Blood Transfusion Reactions: No Reported Reaction Additional Past Anesthesia/Blood Transfusion Reaction / Comment(s): Pt is clausterphobic. Date of Last Stent Placement:: 05/09/21 Past Psychological History: No Psychological Hx Reported Additional Psychological History / Comment(s): Pt resides with his daughter and her spouse and her children. Pt uses a cane or walker to ambulate. He does not drive, but states getting rides is not a problem for him. He is otherwise independent. Pt served in the [employer]. Smoking Status: Former smoker Past Alcohol Use History: None Reported Additional Past Alcohol Use History / Comment(s): Pt started smoking in 1964 and quit in 1979. Past Drug Use History: None Reported - Past Family History Mother Family Medical History: No Reported History Additional Family Medical History / Comment(s): Mother was healthy and lived to be 92 yrs old. Father History Unknown: Yes Additional Family Medical History / Comment(s): Father at the age of 68yrs, pt unable to say from what. Medications and Allergies Home Medications Medication Instructions Recorded Confirmed Type Albuterol Inhaler [Ventolin Hfa 2 puff INHALATION RT-QID 04/25/21 04/11/23 History Inhaler] Albuterol Nebulized [Ventolin 2.5 mg INHALATION RT-QID 04/25/21 04/11/23 History Nebulized] Cetirizine HCl [Zyrtec] 10 mg PO HS 04/25/21 04/11/23 History Fluticasone Nasal [place] [Flonase 1 spr EA NOSTRIL DAILY 04/25/21 04/11/23 History Nasal [place]] L.idocaine 5% Patch [Lidoderm 5% 1 patch TRANSDERM DAILY 04/25/21 04/11/23 History Patch] Diclofenac Sodium Gel [Voltaren 1% 1 applic TOPICAL DAILY 05/09/21 04/11/23 History Gel] Tamsulosin [Flomax] 0.4 mg PO DAILY #30 capsule 05/12/21 04/11/23 Rx Atorvastatin [Lipitor] 80 mg PO HS 02/03/22 04/11/23 History Folic Acid 1 mg PO DAILY 02/03/22 04/11/23 History Metoprolol Succinate (ER) [Toprol 25 mg PO BID 02/03/22 04/11/23 History XL] Thiamine [Vitamin B-1] 100 mg PO DAILY 02/03/22 04/11/23 History lisinopriL [Zestril] 5 mg PO BID 02/03/22 04/11/23 History Isosorbide Mononitrate ER [Imdur] 30 mg PO DAILY 30 Days #30 tab 02/04/22 04/11/23 Rx Aspirin 81 mg PO HS 08/25/22 04/11/23 History Furosemide [Lasix] 20 mg PO BID@0900,1300 08/25/22 04/11/23 History Fluticasone Propion/Salmeterol 1 puff INHALATION RT-BID 10/18/22 04/11/23 History [Wixela 250-50 Inhub] Acetaminophen Tab [Tylenol Tab] 1,000 mg PO Q6H PRN 04/11/23 04/11/23 History Empagliflozin [Jardiance] 10 mg PO DAILY 04/11/23 04/11/23 History Ketoconazole 2% Shampoo [Nizoral] 1 applic TOPICAL DAILY 04/11/23 04/11/23 History Triamcinolone 0.1% Cream [Kenalog 1 applic TOPICAL DAILY 04/11/23 04/11/23 History 0.1% Cream] methocarbamoL [Robaxin-750] 750 mg PO QID 04/11/23 04/11/23 History Allergies Allergy/AdvReac Type Severity Reaction Status Date / Time Influenza Virus Vaccines Allergy Anaphylaxis Verified 04/11/23 19:57 tomato Allergy Anaphylaxis Verified 04/11/23 19:57 /Hives Physical Exam Vitals: Vital Signs Temp Pulse Pulse Resp BP BP Pulse Ox 04/12/23 01:05 98.8 F 97 18 134/64 96 04/11/23 21:50 98.4 F 100 18 121/71 96 04/11/23 19:37 99.2 F 105 H 18 108/63 94 L 04/11/23 17:43 125 H 04/11/23 17:28 125 H 04/11/23 16:45 117 H 17 99 04/11/23 15:42 100.4 F H 125 H 26 H 122/64 93 L Intake and Output 04/11/23 04/11/23 04/12/23 14:59 22:59 06:59 Output Total 600 Balance -600 Output: Urine 600 Other: # Voids 1 Weight 58.967 kg Results CBC & Chem 7: 04/11/23 17:25 04/11/23 17:25 Labs: Abnormal Lab Results - Last 24 Hours (Table) 04/11/23 04/11/23 04/11/23 Range/Units 17:25 17:25 17:25 WBC 13.6 H (3.8-10.6) k/uL RBC 6.25 H (4.30-5.90) m/uL Hgb 17.9 H (13.0-17.5) gm/dL Hct 55.3 H (39.0-53.0) % Neutrophils # 12.0 H (1.3-7.7) k/uL Lymphocytes # 0.4 L (1.0-4.8) k/uL Chloride 96 L (98-107) mmol/L Glucose 208 H (74-99) mg/dL Plasma Lactic Acid Mello 3.1 H* (0.7-2.0) mmol/L Thrombosis Risk Factor Assmnt - Choose All That Apply Each Risk Factor Represents 3 Points: Age 75 years or older Thrombosis Risk Factor Assessment Total Risk Factor Score: 3 Thrombosis Risk Factor Assessment Level: Moderate Risk Assessment and Plan Assessment: 77-year-old male with COPD neurogenic bladder with chronic indwelling catheter coming in for one week history of difficulty breathing, got worse short of breath suddenly this evening which he came in for evaluation I discussed the case with the ED doctor accepted the admission for sepsis secondary to pneumonia Sepsis secondary to. Community acquired pneumonia COPD exacerbation secondary to above Chest x-ray showed right upper lobe infiltrates Follow-up cultures Check urine Legionella antigen Initiated on azithromycin 500 mg by mouth daily Rocephin 2 g IV piggyback daily Tylenol for fever Check urine analysis patient has chronic indwelling catheter present upon admission Leukocytosis 13.6, lactic acid 3.1, tachycardia 125, fever 100.4 IV fluid hydration with normal saline 100 mL per hour Systemic IV steroids with methylprednisolone 60 mg IV every 6 hours DuoNeb's scheduled and as needed Acute respiratory viral panel negative to influenza RSV and Covid Chronic conditions Cranial artery disease status post stents Continue with aspirin and statin, Imdur home medications Hypertension Continue with lisinopril metoprolol home medications Diabetes mellitus Hold oral hypoglycemic agents Insulin sliding scale Hemoglobin unremarkable 17.9 Renal function unremarkable BUN 14 creatinine 0.68 Sodium 139 potassium 4.1 Full code DVT prophylaxis Lovenox subcu 40 mg daily
[2023-04-12 06:21] LABS: Glucose,Whole Blood 119 mg/dL (70-110)
[2023-04-12] MEDS: INSULIN ASPART (NovoLOG) 100 UNIT/ML VIAL SQ SCH ×4 (06:25→20:48)
[2023-04-12] MEDS: methylPREDNISolone SOD SUCCI 125 MG/2 ML VIAL IV SCH ×4 (06:32→23:25)
[2023-04-12] MEDS: SYMBICORT 80-4.5 MCG INHALER INHALATION SCH ×2 (08:46→20:50)
[2023-04-12] MEDS: IPRATROPIUM-ALBUTEROL 3 ML NEB INHALATION SCH ×4 (08:46→20:50)
[2023-04-12] MEDS: lisinopriL 5 MG TAB PO SCH ×2 (11:36→20:48)
[2023-04-12] MEDS: ENOXAPARIN 40 MG/0.4 ML SYRINGE SQ SCH (11:36)
[2023-04-12] MEDS: ISOSORBIDE MONONITRATE ER 30 MG TAB.ER.24H PO SCH (11:36)
[2023-04-12] MEDS: METOPROLOL SUCCINATE (ER) 25 MG TAB.ER.24H PO SCH ×2 (11:36→20:47)
[2023-04-12] MEDS: THIAMINE 100 MG TAB PO SCH (11:36)
[2023-04-12] MEDS: TAMSULOSIN 0.4 MG CAP.ER.24H PO SCH (11:37)
[2023-04-12] MEDS: SODIUM CHLORIDE 0.9% 1,000 ML IV SCH ×2 (11:37→18:27)
[2023-04-12 11:55] LABS: Glucose,Whole Blood 171 mg/dL (70-110)
[2023-04-12] MEDS: FOLIC ACID 1 MG TAB PO SCH (12:15)
[2023-04-12] MEDS: methocarbamoL 750 MG TAB PO SCH ×4 (12:15→20:50)
[2023-04-12] MEDS: FLUTICASONE 50MCG/SPRAY NASAL 16GM EA NOSTRIL SCH (12:16)
[2023-04-12] MEDS: LIDOCAINE 4% PATCH TOPICAL SCH (12:16)
--- NOTE | 2023-04-12 12:50 | P.CNPUL ---
History of Present Illness Consult date: 04/12/23 Requesting physician: Kristel Marie Reason for consult: dyspnea, COPD Chief complaint: Shortness of breath History of present illness: This is a very pleasant 77-year-old male patient who follows with the [facility] as for his primary care needs. He has a history of COPD, hypertension, chronic catheter, coronary disease with previous stent placement, former smoker and quit back in 1979. No home oxygen. He presented here to the emergency room yesterday with complaints of increasing shortness of breath, cough and congestion. His x-ray revealed mild cardiomegaly with mild pulmonary vascular congestion. Vague patchy opacity in the right upper lobe and hazy opacity in the left lung base. Count 13.6. Hemoglobin 17.9. Platelets 261. Sodium 139. Potassium 4.1. Bicarb 28. BUN 14. Creatinine 0.68. Glucose 171. Lactic acid 0.7. Pro-calcitonin 0.11. Viral screen negative. He is seen today in consultation on the regular medical floor. He is currently sitting up in bed. Awake and alert in no acute distress. He is breathing a bit easier today compared to yesterday. He is maintaining good O2 saturations in the mid 90s on 2 L/m per nasal cannula. He is afebrile. Hemodynamically stable. He has been initiated and DuoNeb inhalations, Symbicort, Solu-Medrol. Antibiotics in the form of ceftriaxone and azithromycin. Normal saline at 100 ML's per hour. Review of Systems REVIEW OF SYSTEMS: CONSTITUTIONAL: Denies any recent significant weight loss or weight gain. EYES: Denies change in vision. EARS, NOSE, MOUTH, THROAT: Denies headaches, denies sore throat. CARDIOVASCULAR: Denies chest pain, palpitations or syncopal episodes. RESPIRATORY: Positive for shortness of breath, cough, congestion no hemoptysis. GASTROINTESTINAL: Denies change in appetite, denies abdominal pain GENITOURINARY: Denies hematuria, denies infections. MUSKULOSKELETAL: Denies pain, denies swelling. INTEGUMENTARY: Denies rash, denies eczema. NEUROLOGICAL: Denies recent memory loss, no recent seizure activity. PSYCHIATRIC: Denies anxiety, denies depression. HEMATOLOGIC/LYMPHATIC: Denies anemia, denies enlarged lymph nodes. Past Medical History Past Medical History: Asthma, COPD, Hypertension, Myocardial Infarction (CT), Pneumonia, Prostate Disorder Additional Past Medical History / Comment(s): allergies, "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 Last Myocardial Infarction Date:: 05/09/2021 History of Any Multi-Drug Resistant Organisms: None Reported Past Surgical History: Appendectomy, Back Surgery, Heart Catheterization With Stent, Tonsillectomy Additional Past Surgical History / Comment(s): cervical, 3 heart stents Past Anesthesia/Blood Transfusion Reactions: No Reported Reaction Additional Past Anesthesia/Blood Transfusion Reaction / Comment(s): Pt is clausterphobic. Date of Last Stent Placement:: 05/09/21 Past Psychological History: No Psychological Hx Reported Additional Psychological History / Comment(s): Pt resides with his daughter and her spouse and her children. Pt uses a cane or walker to ambulate. He does not drive, but states getting rides is not a problem for him. He is otherwise independent. Pt served in the [employer]. Smoking Status: Former smoker Past Alcohol Use History: None Reported Additional Past Alcohol Use History / Comment(s): Pt started smoking in 1964 and quit in 1979. Past Drug Use History: None Reported - Past Family History Mother Family Medical History: No Reported History Additional Family Medical History / Comment(s): Mother was healthy and lived to be 92 yrs old. Father History Unknown: Yes Additional Family Medical History / Comment(s): Father at the age of 68yrs, pt unable to say from what. Medications and Allergies Home Medications Medication Instructions Recorded Confirmed Type Albuterol Inhaler [Ventolin Hfa 2 puff INHALATION RT-QID 04/25/21 04/11/23 History Inhaler] Albuterol Nebulized [Ventolin 2.5 mg INHALATION RT-QID 04/25/21 04/11/23 History Nebulized] Cetirizine HCl [Zyrtec] 10 mg PO HS 04/25/21 04/11/23 History Fluticasone Nasal Webster [Flonase 1 spr EA NOSTRIL DAILY 04/25/21 04/11/23 History Nasal Webster] L.idocaine 5% Patch [Lidoderm 5% 1 patch TRANSDERM DAILY 04/25/21 04/11/23 History Patch] Diclofenac Sodium Gel [Voltaren 1% 1 applic TOPICAL DAILY 05/09/21 04/11/23 History Gel] Tamsulosin [Flomax] 0.4 mg PO DAILY #30 capsule 05/12/21 04/11/23 Rx Atorvastatin [Lipitor] 80 mg PO HS 02/03/22 04/11/23 History Folic Acid 1 mg PO DAILY 02/03/22 04/11/23 History Metoprolol Succinate (ER) [Toprol 25 mg PO BID 02/03/22 04/11/23 History XL] Thiamine [Vitamin B-1] 100 mg PO DAILY 02/03/22 04/11/23 History lisinopriL [Zestril] 5 mg PO BID 02/03/22 04/11/23 History Isosorbide Mononitrate ER [Imdur] 30 mg PO DAILY 30 Days #30 tab 02/04/22 04/11/23 Rx Aspirin 81 mg PO HS 08/25/22 04/11/23 History Furosemide [Lasix] 20 mg PO BID@0900,1300 08/25/22 04/11/23 History Fluticasone Propion/Salmeterol 1 puff INHALATION RT-BID 10/18/22 04/11/23 History [Wixela 250-50 Inhub] Acetaminophen Tab [Tylenol Tab] 1,000 mg PO Q6H PRN 04/11/23 04/11/23 History Empagliflozin [Jardiance] 10 mg PO DAILY 04/11/23 04/11/23 History Ketoconazole 2% Shampoo [Nizoral] 1 applic TOPICAL DAILY 04/11/23 04/11/23 History Triamcinolone 0.1% Cream [Kenalog 1 applic TOPICAL DAILY 04/11/23 04/11/23 History 0.1% Cream] methocarbamoL [Robaxin-750] 750 mg PO QID 04/11/23 04/11/23 History Allergies Allergy/AdvReac Type Severity Reaction Status Date / Time Influenza Virus Vaccines Allergy Anaphylaxis Verified 04/11/23 19:57 tomato Allergy Anaphylaxis Verified 04/11/23 19:57 /Hives Physical Exam Vitals: Vital Signs Temp Pulse Pulse Resp BP BP Pulse Ox 04/12/23 09:02 93 18 04/12/23 08:47 93 18 94 L 04/12/23 07:59 97.7 F 94 18 145/77 94 L 04/12/23 05:59 83/46 04/12/23 05:00 77/44 04/12/23 01:05 98.8 F 97 18 134/64 96 04/11/23 21:50 98.4 F 100 18 121/71 96 04/11/23 19:37 99.2 F 105 H 18 108/63 94 L 04/11/23 17:43 125 H 04/11/23 17:28 125 H 04/11/23 16:45 117 H 17 99 04/11/23 15:42 100.4 F H 125 H 26 H 122/64 93 L Intake and Output 04/11/23 04/12/23 04/12/23 22:59 06:59 14:59 Output Total 600 280 Balance -600 -280 Output: Urine 600 280 Other: # Voids 1 Weight 58.967 kg GENERAL EXAM: Alert, pleasant 77-year-old male patient, on 2 L nasal cannula, comfortable in no apparent distress. HEAD: Normocephalic. EYES: Normal reaction of pupils, equal size. NOSE: Clear with pink turbinates. THROAT: No erythema or exudates. NECK: No masses, no JVD. CHEST: No chest wall deformity. LUNGS: Equal air entry with faint end extremely wheeze, few scattered rhonchi. CVS: S1 and S2 normal with no audible murmur, regular rhythm. ABDOMEN: No hepatosplenomegaly, normal bowel sounds, no guarding or rigidity. SPINE: No scoliosis or deformity SKIN: No rashes CENTRAL NERVOUS SYSTEM: No focal deficits, tone is normal in all 4 extremities. EXTREMITIES: There is no peripheral edema. No clubbing, no cyanosis. Peripheral pulses are intact. Results - Laboratory Findings CBC and BMP: 04/11/23 17:25 04/11/23 17:25 PT/INR, D-dimer PT 11.3 sec (10.0-12.5) 04/11/23 17:25 INR 1.0 (<1.2) 04/11/23 17:25 Abnormal lab findings: Abnormal Labs 04/11/23 04/11/23 04/11/23 17:25 17:25 17:25 WBC 13.6 H RBC 6.25 H Hgb 17.9 H Hct 55.3 H Neutrophils # 12.0 H Lymphocytes # 0.4 L Chloride 96 L Glucose 208 H POC Glucose (mg/dL) Plasma Lactic Acid Mello 3.1 H* Procalcitonin 04/12/23 04/12/23 04/12/23 01:47 06:17 11:52 WBC RBC Hgb Hct Neutrophils # Lymphocytes # Chloride Glucose POC Glucose (mg/dL) 119 H 171 H Plasma Lactic Acid Mello Procalcitonin 0.11 H - Diagnostic Findings Chest x-ray: image reviewed Assessment and Plan Assessment: Acute hypoxemic respiratory failure secondary to suspected chronic obstructive pulmonary disease exacerbation in addition to an early pneumonia. Procalcitonin 0.11. Viral screen negative Former smoker Hypertension Hyperlipidemia Coronary disease with previous stent placement Chronic Richardson catheter Plan: The patient was seen and evaluated Chest x-ray, labs and medications reviewed Procalcitonin 0.11 Continue antibiotics for now Continue bronchodilators, steroids Titrate down the FiO2 as tolerated Increase his activity as tolerated We'll continue to follow and make further recommendations based on his clinical status I have personally seen and examined the patient, performed the documentation and the assessment and plan as written. Number of minutes spent on the visit: 20.
--- NOTE | 2023-04-12 14:31 | XR ---
EXAMINATION TYPE: XR chest 2V DATE OF EXAM: 04/12/2023 COMPARISON: 04/11/2023 INDICATION: Pneumonia TECHNIQUE: Frontal and lateral views of the chest are obtained. FINDINGS: The heart size is normal. The pulmonary vasculature is normal. Patchy infiltrates are developing in the right mid and upper lung field worsening over the interval. Pneumonia and atypical pneumonia should be considered. IMPRESSION: 1. Worsening right mid and upper lung field patchy infiltrate. Follow-up is recommended
[2023-04-12 16:23] LABS: Color,Urine Colorless
[2023-04-12 16:24] LABS: Appearance,Urine Clear (Clear); Bilirubin,Urine Negative (Negative); Blood,Urine Negative (Negative); Glucose,Urine (UA) 4+ (Negative); Ketones,Urine Negative (Negative); Leukocyte Esterase,Urine Negative (Negative); Nitrite,Urine Negative (Negative); PH, Urine 5.5 (5.0-8.0); Protein,Urine Negative (Negative); Specific Gravity,Urine <1.005 (1.001-1.035); Urobilinogen,Urine <2.0 mg/dL (<2.0)
--- NOTE | 2023-04-12 16:52 | P.PN ---
Subjective Progress Note Date: 04/12/23 Hospital course: Patient is a very pleasant 77-year-old male with a past medical history of CAD with stents, hypertension, hyperlipidemia, congestive heart failure, type II [id number] diabetes mellitus, BPH, and COPD not on home oxygen dependent. He presented to the emergency department on 04/11/23 secondary to reports of difficulty breathing. Patient reports progressively worsening shortness of breath 1 week associated with worsening of his nonproductive chronic cough, fevers, and chills. He underwent full evaluation in the emergency department. Upon arrival vital signs show patient to be tachycardic with heart rate in the 125, temp 100.4, respiratory rate 26, blood pressure 122/64, and SpO2 of 93% on room air. EKG completed showing sinus tachycardia at 124 bpm. Chest x-ray completed in radiology report reviewed showing mild cardiomegaly with mild pulmonary vascular congestion, mildly prominent interstitial lung markings concerning for pulmonary edema versus pneumonitis, and aphasic patch of opacity suggested over the right upper lobe and hazy opacit y of the left lung base concerning for emerging infiltrates suspect infectious or inflammatory process. Labs completed and reviewed. CBC showing leukocytosis with WBC count of 13.6 and polycythemia with elevated hemoglobin of 17.9. Coagulation profile normal findings. BMP showing mild hypochloremia with chloride of 96 otherwise normal findings. Glucose slightly elevated at 208. Initial lactic acid 3.1. Liver profile normal findings. Influenza A, influenza B, RSV, Covid PCR negative. Patient was provided with IV fluids, antibiotics with azithromycin and Rocephin, steroids and nebulizer treatments. Patient admitted under our services with consultation to pulmonology. Physical exam: Vital signs reviewed and stable. General: Nontoxic, no distress and appears stated age. Derm: Skin warm and dry, normal coloration for ethnicity. Head: Atraumatic, normocephalic and symmetric. Eyes: EOMs intact, no lid lag, and anicteric sclera Mouth: no lip lesions, mucus membranes moist Cardiovascular: regular rate and rhythm with normal S1S2, systolic murmur, positive posterior tibial pulses bilaterally, and cap refill < 2 seconds. Lungs: Respirations even, regular, and unlabored. Lungs diminished with diffuse expiratory wheezes bilaterally. No accessory muscle usage. Abdominal: soft, nontender to palpation, no guarding, no appreciable organomegaly Ext: ROM intact. No gross muscle atrophy, no edema, no contractures Neuro: Speech clear, face symmetrical and CN II-XII grossly intact with no noted focal neuro deficits Psych: Alert and oriented to person, place, time, and situation. Appropriate and pleasant affect. Assessment and Plan of Care: Multifocal pneumonia COPD with acute exacerbation secondary to community-acquired pneumonia Severe sepsis secondary to above -Pulmonary consulted, appreciate recommendations -Oxygenation to be administered and titrated as needed to maintain SPO2 equal to or greater than 92% -Telemetry monitoring. -Continuous Pulse-oximetry -Duonebs scheduled for times daily and as needed for SOB and/or wheezing -Incentive Spirometry -Steroids: Solu-Medrol 60 mg IVP every 6 hours -Antibiotics: Azithromycin and Rocephin -Sputum culture and Legionella antigen to be obtained Type 2 diabetes mellitus with hyperglycemia Morning glucose 171. Blood glucose levels have ranged between 119 and 208 since admission. Hold Jardiance. Patient placed on glycemic protocol with NovoLog sliding scale. History of CAD with stents Hypertension Hyperlipidemia Congestive heart failure Continue daily medication regimen with aspirin 81 mg daily, atorvastatin 80 mg nightly, isosorbide mononitrate 30 mg daily, lisinopril 5 mg twice daily, and metoprolol 25 mg twice daily. BPH Continue Flomax 0.4 mg daily. Data and imaging reviewed: Pro-calcitonin slightly elevated at 0.11. Glucose 171. Urinalysis negative for infection. Vital signs reviewed. Blood pressure 145/77, heart rate 94, respiratory rate 1 8, temp 97.7F, SpO2 of 94% on 2 L. CODE STATUS: Full code DVT prophylaxis: Lovenox Anticipated discharge date: Clinical course to determine Anticipated discharge place: Clinical course to determine Patient was seen independently by Nurse Pracitioner. This document was prepared using [employer] dictation software. Please allow for errors in field service analyst, while rare they do occur. Objective - Vital Signs Vital signs: Vital Signs Temp 98.8 F 04/12/23 01:05 Pulse 93 04/12/23 09:02 Resp 18 04/12/23 09:02 BP 83/46 04/12/23 05:59 Pulse Ox 94 L 04/12/23 08:47 FiO2 Intake & Output 04/11/23 04/12/23 04/12/23 18:59 06:59 18:59 Output Total 600 Balance -600 Weight 58.967 kg 58.967 kg Output: Urine 600 Other: # Voids 1 - Labs CBC & Chem 7: 04/11/23 17:25 04/11/23 17:25 Labs: Abnormal Lab Results - Last 24 Hours (Table) 04/11/23 04/11/23 04/11/23 Range/Units 17:25 17:25 17:25 WBC 13.6 H (3.8-10.6) k/uL RBC 6.25 H (4.30-5.90) m/uL Hgb 17.9 H (13.0-17.5) gm/dL Hct 55.3 H (39.0-53.0) % Neutrophils # 12.0 H (1.3-7.7) k/uL Lymphocytes # 0.4 L (1.0-4.8) k/uL Chloride 96 L (98-107) mmol/L Glucose 208 H (74-99) mg/dL POC Glucose (mg/dL) (70-110) mg/dL Plasma Lactic Acid Mello 3.1 H* (0.7-2.0) mmol/L 04/12/23 Range/Units 06:17 WBC (3.8-10.6) k/uL RBC (4.30-5.90) m/uL Hgb (13.0-17.5) gm/dL Hct (39.0-53.0) % Neutrophils # (1.3-7.7) k/uL Lymphocytes # (1.0-4.8) k/uL Chloride (98-107) mmol/L Glucose (74-99) mg/dL POC Glucose (mg/dL) 119 H (70-110) mg/dL Plasma Lactic Acid Mello (0.7-2.0) mmol/L
[2023-04-12 16:59] LABS: Glucose,Whole Blood 245 mg/dL (70-110)
[2023-04-12 19:30] LABS: Glucose,Whole Blood 241 mg/dL (70-110)
[2023-04-12] MEDS: AZITHROMYCIN 500 MG TAB PO SCH (20:47)
[2023-04-12] MEDS: ATORVASTATIN 80 MG TAB PO SCH (20:47)
[2023-04-12] MEDS: ASPIRIN 81 MG PO SCH (20:47)
[2023-04-12] MEDS: LORATADINE 10 MG TAB PO SCH (20:47)
[2023-04-13] MEDS: SODIUM CHLORIDE 0.9% 1,000 ML IV SCH ×2 (04:05→16:25)
[2023-04-13 06:12] LABS: Glucose,Whole Blood 155 mg/dL (70-110)
[2023-04-13] MEDS: INSULIN ASPART (NovoLOG) 100 UNIT/ML VIAL SQ SCH ×4 (06:15→21:24)
[2023-04-13] MEDS: methylPREDNISolone SOD SUCCI 125 MG/2 ML VIAL IV SCH ×4 (06:15→23:14)
[2023-04-13] MEDS: TAMSULOSIN 0.4 MG CAP.ER.24H PO SCH (09:03)
[2023-04-13] MEDS: ISOSORBIDE MONONITRATE ER 30 MG TAB.ER.24H PO SCH (09:03)
[2023-04-13] MEDS: FOLIC ACID 1 MG TAB PO SCH (09:03)
[2023-04-13] MEDS: lisinopriL 5 MG TAB PO SCH ×2 (09:03→21:23)
[2023-04-13] MEDS: METOPROLOL SUCCINATE (ER) 25 MG TAB.ER.24H PO SCH ×2 (09:03→21:24)
[2023-04-13] MEDS: THIAMINE 100 MG TAB PO SCH (09:03)
[2023-04-13] MEDS: ENOXAPARIN 40 MG/0.4 ML SYRINGE SQ SCH (09:04)
[2023-04-13] MEDS: methocarbamoL 750 MG TAB PO SCH ×4 (09:04→21:25)
[2023-04-13] MEDS: FLUTICASONE 50MCG/SPRAY NASAL 16GM EA NOSTRIL SCH (09:04)
[2023-04-13] MEDS: LIDOCAINE 4% PATCH TOPICAL SCH (09:11)
[2023-04-13] MEDS: IPRATROPIUM-ALBUTEROL 3 ML NEB INHALATION SCH ×4 (09:18→21:51)
[2023-04-13] MEDS: SYMBICORT 80-4.5 MCG INHALER INHALATION SCH ×2 (09:18→21:51)
[2023-04-13 11:27] LABS: Glucose,Whole Blood 276 mg/dL (70-110)
--- NOTE | 2023-04-13 13:51 | P.PN ---
Subjective Progress Note Date: 04/13/23 This is a very pleasant 77-year-old male patient who follows with the [facility] as for his primary care needs. He has a history of COPD, hypertension, chronic catheter, coronary disease with previous stent placement, former smoker and quit back in 1979. No home oxygen. He presented here to the emergency room yesterday with complaints of increasing shortness of breath, cough and congestion. His x-ray revealed mild cardiomegaly with mild pulmonary vascular congestion. Vague patchy opacity in the right upper lobe and hazy opacity in the left lung base. Count 13.6. Hemoglobin 17.9. Platelets 261. Sodium 139. Potassium 4.1. Bicarb 28. BUN 14. Creatinine 0.68. Glucose 171. Lactic acid 0.7. Pro-calcitonin 0.11. Viral screen negative. He is seen today in [facility] on the regular medical floor. He is currently sitting up in bed. Awake and alert in no acute distress. He is breathing a bit easier today compared to yesterday. He is maintaining good O2 saturations in the mid 90s on 2 L/m per nasal cannula. He is afebrile. Hemodynamically stable. He has been initiated and DuoNeb inhalations, Symbicort, Solu-Medrol. Antibiotics in the form of ceftriaxone and azithromycin. Normal saline at 100 ML's per hour. On today's evaluation of 04/13/2023, the patient is feeling slightly improved compared to yesterday. The patient is oxygenating is currently on 4 L nasal cannula. Doing well. No specific complaints. His copd, CAD, previous coronary intervention and stenting and hypertension. He has a chronic indwelling Richardson catheter in place. His chest x-ray showed some increased pulmonary vascular marking in a vague infiltrate in the right upper lobe and left lung base.The patient remains on IV Rocephin and Zithromax. The patient is on Symbicort. The patient on IV Solu-Medrol 60 mg every 6 hours. He is also on DuoNeb updrafts. Echocardiogram showed an ejection fraction of 40-45%. Objective - Vital Signs Vital signs: Vital Signs Temp 98.3 F 04/13/23 07:22 Pulse 92 04/13/23 12:36 Resp 21 04/13/23 07:22 BP 128/89 04/13/23 07:22 Pulse Ox 96 04/13/23 07:22 FiO2 Intake & Output 04/12/23 04/13/23 04/13/23 18:59 06:59 18:59 Output Total 630 1600 Balance -630 -1600 Output: Urine 630 1600 Other: Voiding Method Indwelling Catheter Indwelling Catheter Indwelling Catheter # Voids 1 # Bowel Movements 1 - Exam GENERAL EXAM: Alert, pleasant 77-year-old male patient, on 2 L nasal cannula, comfortable in no apparent distress. HEAD: Normocephalic. EYES: Normal reaction of pupils, equal size. NOSE: Clear with pink turbinates. THROAT: No erythema or exudates. NECK: No masses, no JVD. CHEST: No chest wall deformity. LUNGS: Equal air entry with faint end extremely wheeze, few scattered rhonchi. CVS: S1 and S2 normal with no audible murmur, regular rhythm. ABDOMEN: No hepatosplenomegaly, normal bowel sounds, no guarding or rigidity. SPINE: No scoliosis or deformity SKIN: No rashes CENTRAL NERVOUS SYSTEM: No focal deficits, tone is normal in all 4 extremities. EXTREMITIES: There is no peripheral edema. No clubbing, no cyanosis. Peripheral pulses are intact. - Labs CBC & Chem 7: 04/11/23 17:25 04/11/23 17:25 Labs: Abnormal Lab Results - Last 24 Hours (Table) 04/11/23 04/12/23 04/12/23 Range/Units 17:25 16:56 19:29 POC Glucose (mg/dL) 245 H 241 H (70-110) mg/dL Hemoglobin A1c 7.2 H (<=6.0) % 04/13/23 04/13/23 Range/Units 06:07 11:26 POC Glucose (mg/dL) 155 H 276 H (70-110) mg/dL Hemoglobin A1c (<=6.0) % Microbiology - Last 24 Hours (Table) 04/11/23 23:20 Gram Stain - Preliminary Sputum 04/11/23 17:25 Blood Culture - Preliminary Blood 04/11/23 17:25 Blood Culture - Preliminary Blood Assessment and Plan Plan: Acute hypoxemic respiratory failure secondary to suspected chronic obstructive pulmonary disease exacerbation in addition to an early pneumonia. Procalcitonin 0.11. Viral screen negative Acute COPD exacerbation Former smoker Hypertension Hyperlipidemia Coronary disease with previous stent placement Chronic Richardson catheter Plan: Clinically improving Procalcitonin 0.11 Continue antibiotics for now Continue bronchodilators, steroids Titrate down the FiO2 as tolerated Increase his activity as tolerated We'll continue to follow and make further recommendations based on his clinical status
--- NOTE | 2023-04-13 16:23 | P.PN ---
Subjective Progress Note Date: 04/13/23 Hospital course: Patient is a very pleasant 77-year-old male with a past medical history of CAD with stents, hypertension, hyperlipidemia, congestive heart failure, type II [id number] diabetes mellitus, BPH, and COPD not on home oxygen dependent. He presented to the emergency department on 04/11/23 secondary to reports of difficulty breathing. Patient reports progressively worsening shortness of breath 1 week associated with worsening of his nonproductive chronic cough, fevers, and chills. He underwent full evaluation in the emergency department. Upon arrival vital signs show patient to be tachycardic with heart rate in the 125, temp 100.4, respiratory rate 26, blood pressure 122/64, and SpO2 of 93% on room air. EKG completed showing sinus tachycardia at 124 bpm. Chest x-ray completed in radiology report reviewed showing mild cardiomegaly with mild pulmonary vascular congestion, mildly prominent interstitial lung markings concerning for pulmonary edema versus pneumonitis, and aphasic patch of opacity suggested over the right upper lobe and hazy opacit y of the left lung base concerning for emerging infiltrates suspect infectious or inflammatory process. Labs completed and reviewed. CBC showing leukocytosis with WBC count of 13.6 and polycythemia with elevated hemoglobin of 17.9. Coagulation profile normal findings. BMP showing mild hypochloremia with chloride of 96 otherwise normal findings. Glucose slightly elevated at 208. Initial lactic acid 3.1. Liver profile normal findings. Influenza A, influenza B, RSV, Covid PCR negative. Patient was provided with IV fluids, antibiotics with azithromycin and Rocephin, steroids and nebulizer treatments. Patient admitted under our services with consultation to pulmonology. Physical exam: Patient seen and fully evaluated at bedside this morning. He was sitting up in the chair and appears to be improving. But he remains on oxygen supplementation at 4 L O2 via nasal cannula at this time. Patient denies having any dizziness, lightheadedness, chest pain, palpitations, or any other complaints at this time. Vital signs reviewed and stable. General: Nontoxic, no distress and appears stated age. Derm: Skin warm and dry, normal coloration for ethnicity. Head: Atraumatic, normocephalic and symmetric. Eyes: EOMs intact, no lid lag, and anicteric sclera Mouth: no lip lesions, mucus membranes moist Cardiovascular: regular rate and rhythm with normal S1S2, systolic murmur, posit bebe posterior tibial pulses bilaterally, and cap refill < 2 seconds. Lungs: Respirations even, regular, and unlabored. Lungs diminished with diffuse expiratory wheezes bilaterally. No accessory muscle usage. Abdominal: soft, nontender to palpation, no guarding, no appreciable organomegaly Ext: ROM intact. No gross muscle atrophy, no edema, no contractures Neuro: Speech clear, face symmetrical and CN II-XII grossly intact with no noted focal neuro deficits Psych: Alert and oriented to person, place, time, and situation. Appropriate and pleasant affect. Assessment and Plan of Care: Multifocal pneumonia COPD with acute exacerbation secondary to community-acquired pneumonia Severe sepsis secondary to above -Pulmonary following, reviewed documentation in chart. -Oxygenation to be administered and titrated as needed to maintain SPO2 equal to or greater than 92% -Telemetry monitoring. -Monitor Pulse-oximetry -Duonebs scheduled four times daily and as needed for SOB and/or wheezing -Incentive Spirometry and encourage use 10-15 times hourly -Steroids: Solu-Medrol 60 mg IVP every 6 hours -Antibiotics: Azithromycin 500 mg daily and Rocephin 2 g IVPB daily -Sputum culture pending. -Blood cultures showing no growth to date. -Legionella antigen it is. Type 2 diabetes mellitus with hyperglycemia Morning glucose 155. Continue to Jardiance and continue with glycemic protocol with NovoLog sliding scale. History of CAD with stents Hypertension Hyperlipidemia Congestive heart failure Continue daily medication regimen with aspirin 81 mg daily, atorvastatin 80 mg nightly, isosorbide mononitrate 30 mg daily, lisinopril 5 mg twice daily, and metoprolol 25 mg twice daily. BPH Continue Flomax 0.4 mg daily. Data and imaging reviewed: Vital signs reviewed. Blood pressure 128/89, heart rate 79, respiratory rate 21, temperature 98.3F, and SpO2 96% on 4 L O2 via nasal cannula. CODE STATUS: Full code DVT prophylaxis: Lovenox Anticipated discharge date: Clinical course to determine Anticipated discharge place: Clinical course to determine Patient was seen independently by Nurse Pracitioner. This document was prepared using [employer] dictation software. Please allow for errors in syrup maker cook, while rare they do occur. I reviewed the documentation as provided by the DORENE above, who is the original author of this note. I agree with the documented assessment and plan, with the following changes: none Objective - Vital Signs Vital signs: Vital Signs Temp 98.3 F 04/13/23 07:22 Pulse 79 04/13/23 07:22 Resp 21 04/13/23 07:22 BP 128/89 04/13/23 07:22 Pulse Ox 96 04/13/23 07:22 FiO2 Intake & Output 04/12/23 04/13/23 04/13/23 18:59 06:59 18:59 Output Total 630 1600 Balance -630 -1600 Output: Urine 630 1600 Other: Voiding Method Indwelling Catheter Indwelling Catheter # Voids 1 # Bowel Movements 1 - Labs CBC & Chem 7: 04/11/23 17:25 04/11/23 17:25 Labs: Abnormal Lab Results - Last 24 Hours (Table) 04/12/23 04/12/23 04/12/23 Range/Units 01:47 11:52 16:56 POC Glucose (mg/dL) 171 H 245 H (70-110) mg/dL Procalcitonin 0.11 H (0.02-0.09) ng/mL 04/12/23 04/13/23 Range/Units 19:29 06:07 POC Glucose (mg/dL) 241 H 155 H (70-110) mg/dL Procalcitonin (0.02-0.09) ng/mL Microbiology - Last 24 Hours (Table) 04/11/23 17:25 Blood Culture - Preliminary Blood 04/11/23 17:25 Blood Culture - Preliminary Blood
[2023-04-13 16:33] LABS: Glucose,Whole Blood 101 mg/dL (70-110)
[2023-04-13 20:57] LABS: Glucose,Whole Blood 213 mg/dL (70-110)
[2023-04-13] MEDS: LORATADINE 10 MG TAB PO SCH (21:23)
[2023-04-13] MEDS: AZITHROMYCIN 500 MG TAB PO SCH (21:23)
[2023-04-13] MEDS: ATORVASTATIN 80 MG TAB PO SCH (21:23)
[2023-04-13] MEDS: ASPIRIN 81 MG PO SCH (21:24)
[2023-04-14] MEDS: SODIUM CHLORIDE 0.9% 1,000 ML IV SCH ×3 (02:14→21:46)
[2023-04-14 05:46] LABS: Glucose,Whole Blood 133 mg/dL (70-110)
[2023-04-14] MEDS: INSULIN ASPART (NovoLOG) 100 UNIT/ML VIAL SQ SCH ×4 (05:50→21:46)
[2023-04-14] MEDS: methylPREDNISolone SOD SUCCI 125 MG/2 ML VIAL IV SCH ×4 (06:02→23:41)
[2023-04-14] MEDS: IPRATROPIUM-ALBUTEROL 3 ML NEB INHALATION SCH ×4 (07:48→22:04)
[2023-04-14] MEDS: SYMBICORT 80-4.5 MCG INHALER INHALATION SCH ×2 (07:48→22:04)
[2023-04-14 08:49] LABS: HCT 50.9 % (39.6-50.0); HGB 15.8 g/dL (13.0-17.0); MCH 27.8 pg (27.0-32.0); MCV 89.5 FL (80.0-97.0); Mean Platelet Volume 11.5 FL (9.5-12.2); NRBC Per 100 WBC 0 X 10*3/uL (0.00-0.01); Platelet Count 219 X 10*3/uL (140-440); RBC 5.69 X 10*6/uL (4.40-5.60); RDW 15.3 % (11.5-14.5); WBC 17.13 X 10*3/uL (4.50-10.00)
[2023-04-14] MEDS: FLUTICASONE 50MCG/SPRAY NASAL 16GM EA NOSTRIL SCH (08:50)
[2023-04-14] MEDS: ENOXAPARIN 40 MG/0.4 ML SYRINGE SQ SCH (08:50)
[2023-04-14] MEDS: THIAMINE 100 MG TAB PO SCH (08:51)
[2023-04-14] MEDS: methocarbamoL 750 MG TAB PO SCH ×4 (08:51→21:45)
[2023-04-14] MEDS: METOPROLOL SUCCINATE (ER) 25 MG TAB.ER.24H PO SCH ×2 (08:51→21:45)
[2023-04-14] MEDS: TAMSULOSIN 0.4 MG CAP.ER.24H PO SCH (08:51)
[2023-04-14] MEDS: lisinopriL 5 MG TAB PO SCH ×2 (08:51→21:46)
[2023-04-14] MEDS: LIDOCAINE 4% PATCH TOPICAL SCH (08:51)
[2023-04-14] MEDS: ISOSORBIDE MONONITRATE ER 30 MG TAB.ER.24H PO SCH (08:51)
[2023-04-14] MEDS: FOLIC ACID 1 MG TAB PO SCH (08:52)
[2023-04-14 08:58] LABS: ALT 65 U/L (10-49); AST 54 U/L (14-35); Albumin 3.2 g/dL (3.8-4.9); Albumin/Globulin Ratio 1.28 Ratio (1.60-3.17); Alkaline Phosphatase 103 U/L (41-126); BUN/Creat Ratio 21.57 Ratio (12.00-20.00); Blood Urea Nitrogen 15.1 mg/dL (9.0-27.0); Calcium 8.7 mg/dL (8.7-10.3); Carbon Dioxide 26.3 mmol/L (21.6-31.8); Chloride 108 mmol/L (96-109); Globulin 2.5 g/dL (1.6-3.3); Glucose 151 mg/dL (70-110); Magnesium 2.2 mg/dL (1.5-2.4); Potassium 4.6 mmol/L (3.5-5.5); Sodium 143 mmol/L (135-145); Total Bilirubin 0.3 mg/dL (0.3-1.2); Total Protein 5.7 g/dL (6.2-8.2)
--- NOTE | 2023-04-14 11:44 | P.PN ---
Subjective Progress Note Date: 04/14/23 This is a very pleasant 77-year-old male patient who follows with the [facility] as for his primary care needs. He has a history of COPD, hypertension, chronic catheter, coronary disease with previous stent placement, former smoker and quit back in 1979. No home oxygen. He presented here to the emergency room yesterday with complaints of increasing shortness of breath, cough and congestion. His x-ray revealed mild cardiomegaly with mild pulmonary vascular congestion. Vague patchy opacity in the right upper lobe and hazy opacity in the left lung base. Count 13.6. Hemoglobin 17.9. Platelets 261. Sodium 139. Potassium 4.1. Bicarb 28. BUN 14. Creatinine 0.68. Glucose 171. Lactic acid 0.7. Pro-calcitonin 0.11. Viral screen negative. [facility]. He is currently sitting up in bed. Awake and alert in no acute distress. He is breathing a bit easier today compared to yesterday. He is maintaining good O2 saturations in the mid 90s on 2 L/m per nasal cannula. He is afebrile. Hemodynamically stable. He has been initiated and DuoNeb inhalations, Symbicort, Solu-Medrol. Antibiotics in the form of ceftriaxone and azithromycin. Normal saline at 100 ML's per hour. On today's evaluation of 04/13/2023, the patient is feeling slightly improved compared to yesterday. The patient is oxygenating is currently on 4 L nasal cannula. Doing well. No specific complaints. His copd, CAD, previous coronary intervention and stenting and hypertension. He has a chronic indwelling Richardson catheter in place. His chest x-ray showed some increased pulmonary vascular marking in a vague infiltrate in the right upper lobe and left lung base.The patient remains on IV Rocephin and Zithromax. The patient is on Symbicort. The patient on IV Solu-Medrol 60 mg every 6 hours. He is also on DuoNeb updrafts. Echocardiogram showed an ejection fraction of 40-45%. on 04/14/2023, slightly improved compared to yesterday. No new complaints. He is having nasal congestion and he was started on Flonase and Afrin nasal spray. He remains on O2 at 2 L per minute nasal cannula. He remains on Rocephin and Zithromax. He remains on bronchodilators. He remains on steroids.Labs from today showed a white cell count of 17, hemoglobin of 15.8 and a platelet count of 219, sodium is at 143, BUN is at 60 with a creatinine of 0.7. UA was negative. The viral screen was negative. AST is at 54, ALTs at 65, alkaline phosphatase is 103. Normal coagulation profile. Normal urinalysis. Objective - Vital Signs Vital signs: Vital Signs Temp 97.5 F L 04/14/23 07:40 Pulse 80 04/14/23 08:07 Resp 19 04/14/23 07:40 BP 156/86 04/14/23 07:40 Pulse Ox 92 L 04/14/23 07:48 FiO2 Intake & Output 04/13/23 04/14/23 04/14/23 18:59 06:59 18:59 Output Total 900 1550 Balance -900 -1550 Output: Urine 900 1550 Other: Voiding Method Indwelling Catheter Indwelling Catheter Indwelling Catheter - Exam GENERAL EXAM: Alert, pleasant 77-year-old male patient, on 2 L nasal cannula, comfortable in no apparent distress. HEAD: Normocephalic. EYES: Normal reaction of pupils, equal size. NOSE: Clear with pink turbinates. THROAT: No erythema or exudates. NECK: No masses, no JVD. CHEST: No chest wall deformity. LUNGS: Equal air entry with faint end extremely wheeze, few scattered rhonchi. CVS: S1 and S2 normal with no audible murmur, regular rhythm. ABDOMEN: No hepatosplenomegaly, normal bowel sounds, no guarding or rigidity. SPINE: No scoliosis or deformity SKIN: No rashes CENTRAL NERVOUS SYSTEM: No focal deficits, tone is normal in all 4 extremities. EXTREMITIES: There is no peripheral edema. No clubbing, no cyanosis. Peripheral pulses are intact. - Labs CBC & Chem 7: 04/14/23 05:37 04/14/23 05:37 Labs: Abnormal Lab Results - Last 24 Hours (Table) 04/13/23 04/14/23 04/14/23 Range/Units 20:56 05:37 05:37 WBC 17.13 H (4.50-10.00) X 10*3/uL RBC 5.69 H (4.40-5.60) X 10*6/uL Hct 50.9 H (39.6-50.0) % MCHC 31.0 L (32.0-37.0) g/dL RDW 15.3 H (11.5-14.5) % BUN/Creatinine Ratio 21.57 H (12.00-20.00) Ratio Glucose 151 H (70-110) mg/dL POC Glucose (mg/dL) 213 H (70-110) mg/dL AST 54 H (14-35) U/L ALT 65 H (10-49) U/L Total Protein 5.7 L (6.2-8.2) g/dL Albumin 3.2 L (3.8-4.9) g/dL Albumin/Globulin Ratio 1.28 L (1.60-3.17) Ratio 04/14/23 Range/Units 05:44 WBC (4.50-10.00) X 10*3/uL RBC (4.40-5.60) X 10*6/uL Hct (39.6-50.0) % MCHC (32.0-37.0) g/dL RDW (11.5-14.5) % BUN/Creatinine Ratio (12.00-20.00) Ratio Glucose (70-110) mg/dL POC Glucose (mg/dL) 133 H (70-110) mg/dL AST (14-35) U/L ALT (10-49) U/L Total Protein (6.2-8.2) g/dL Albumin (3.8-4.9) g/dL Albumin/Globulin Ratio (1.60-3.17) Ratio Microbiology - Last 24 Hours (Table) 04/11/23 23:20 Gram Stain - Final Sputum Sputum Culture - Final 04/11/23 17:25 Blood Culture - Preliminary Blood 04/11/23 17:25 Blood Culture - Preliminary Blood Assessment and Plan Plan: Acute hypoxemic respiratory failure secondary to suspected chronic obstructive pulmonary disease exacerbation in addition to an early pneumonia. Procalcitonin 0.11. Viral screen negative, clinical improving and he has no worsening in the breathing Acute COPD exacerbation Former smoker Hypertension Hyperlipidemia Coronary disease with previous stent placement Chronic Richardson catheter Plan: Clinically improving, we'll continue to same treatment for now Procalcitonin 0.11 Continue antibiotics for now Continue bronchodilators, steroids and the patient remains on IV Solu-Medrol We will add Flonase We will add Afrin Titrate down the FiO2 as tolerated Increase his activity as tolerated We'll continue to follow and make further recommendations based on his clinical status
[2023-04-14 11:53] LABS: Glucose,Whole Blood 126 mg/dL (70-110)
[2023-04-14] MEDS: OXYMETAZOLINE 0.05% NASL SPRAY 1 SPRAY BOTTLE NASAL SCH ×2 (12:48→21:46)
[2023-04-14 13:51] VITALS: BMI 18.6
[2023-04-14] MEDS ORDERED: ZINC OXIDE PASTE (Z-GUARD) 1 APPLIC APPLIC TOPICAL PRN (15:57)
--- NOTE | 2023-04-14 16:10 | P.PN ---
Subjective Progress Note Date: 04/14/23 Hospital course: Patient is a very pleasant 77-year-old male with a past medical history of CAD with stents, hypertension, hyperlipidemia, congestive heart failure, type II [id number] diabetes mellitus, BPH, and COPD not on home oxygen dependent. He presented to the emergency department on 04/11/23 secondary to reports of difficulty breathing. Patient reports progressively worsening shortness of breath 1 week associated with worsening of his nonproductive chronic cough, fevers, and chills. He underwent full evaluation in the emergency department. Upon arrival vital signs show patient to be tachycardic with heart rate in the 125, temp 100.4, respiratory rate 26, blood pressure 122/64, and SpO2 of 93% on room air. EKG completed showing sinus tachycardia at 124 bpm. Chest x-ray completed in radiology report reviewed showing mild cardiomegaly with mild pulmonary vascular congestion, mildly prominent interstitial lung markings concerning for pulmonary edema versus pneumonitis, and aphasic patch of opacity suggested over the right upper lobe and hazy opacity of the left lung base concerning for emerging infiltrates suspect infectious or inflammatory process. Labs completed and reviewed. CBC showing leukocytosis with WBC count of 13.6 and polycythemia with elevated hemoglobin of 17.9. Coagulation profile normal findings. BMP showing mild hypochloremia with chloride of 96 otherwise normal findings. Glucose slightly elevated at 208. Initial lactic acid 3.1. Liver profile normal findings. Influenza A, influenza B, RSV, Covid PCR negative. Patient was provided with IV fluids, antibiotics with azithromycin and Rocephin, steroids and nebulizer treatments. Patient admitted under our services with consultation to pulmonology. Physical exam: Patient seen and fully evaluated at bedside this morning. He was in bed and reports having a nosebleed because everything is so dry and states this mucus so sick. Patient unable to clear nasal passages and having a difficult time brin ging up any sputum resulting in extensive coughing fits. Patient denies having any dizziness, lightheadedness, chest pain, palpitations, or any other complaints at this time. Vital signs reviewed and stable. General: Nontoxic, no distress and appears stated age. Derm: Skin warm and dry, normal coloration for ethnicity. Head: Atraumatic, normocephalic and symmetric. Eyes: EOMs intact, no lid lag, and anicteric sclera Mouth: no lip lesions, mucus membranes moist Cardiovascular: regular rate and rhythm with normal S1S2, systolic murmur, positive posterior tibial pulses bilaterally, and cap refill < 2 seconds. Lungs: Respirations even, regular, and unlabored. Lungs diminished with diffuse expiratory wheezes bilaterally. No accessory muscle usage. Abdominal: soft, nontender to palpation, no guarding, no appreciable organomegaly Ext: ROM intact. No gross muscle atrophy, no edema, no contractures Neuro: Speech clear, face symmetrical and CN II-XII grossly intact with no noted focal neuro deficits Psych: Alert and oriented to person, place, time, and situation. Appropriate and pleasant affect. Assessment and Plan of Care: Multifocal pneumonia COPD with acute exacerbation secondary to community-acquired pneumonia Severe sepsis secondary to above -Pulmonary following, reviewed documentation in chart. -Oxygenation to be administered and titrated as needed to maintain SPO2 equal to or greater than 92% -Telemetry monitoring. -Monitor Pulse-oximetry -Duonebs scheduled four times daily and as needed for SOB and/or wheezing -Incentive Spirometry and encourage use 10-15 times hourly -Order placed for flutter valve -Order placed for Flonase and Afrin -Steroids: Solu-Medrol 60 mg IVP every 6 hours -Antibiotics: Azithromycin 500 mg daily and Rocephin 2 g IVPB daily -Sputum culture pending. -Blood cultures showing no growth to date. -Legionella antigen is negative. Type 2 diabetes mellitus with hyperglycemia Morning glucose 133. Continue to Jardiance and continue with glycemic protocol with NovoLog sliding scale. History of CAD with stents Hypertension Hyperlipidemia Congestive heart failure Continue daily medication regimen with aspirin 81 mg daily, atorvastatin 80 mg nightly, isosorbide mononitrate 30 mg daily, lisinopril 5 mg twice daily, and metoprolol 25 mg twice daily. BPH Continue Flomax 0.4 mg daily. Data and imaging reviewed: Vital signs reviewed. Blood pressure 156/86, heart rate 91, respiratory rate 19, temp 97.5F, and SpO2 of 92% on 2 L O2. Labs completed and reviewed. CBC showing leukocytosis with WBC count of 17.13. BMP unremarkable. Liver profile showing slight elevation of AST at 54 and ALT 65. CODE STATUS: Full code DVT prophylaxis: Lovenox Anticipated discharge date: Clinical course to determine Anticipated discharge place: Clinical course to determine Patient was seen independently by Nurse Pracitioner. This document was prepared using Dragon dictation software. Please allow for errors in supervisor capacitor processing, while rare they do occur. Javi Espinosa NP rendered care for this patient independently, reviewed the findings and plan as documented in the note above. I did not physically speak with or examine the patient on this date. Objective - Vital Signs Vital signs: Vital Signs Temp 97.6 F 04/14/23 01:33 Pulse 80 04/14/23 08:07 Resp 20 04/14/23 01:33 BP 123/74 04/14/23 01:33 Pulse Ox 92 L 04/14/23 07:48 FiO2 Intake & Output 04/13/23 04/14/23 04/14/23 18:59 06:59 18:59 Output Total 900 1550 Balance -900 -1550 Output: Urine 900 1550 Other: Voiding Method Indwelling Catheter Indwelling Catheter - Labs CBC & Chem 7: 04/14/23 05:37 04/14/23 05:37 Labs: Abnormal Lab Results - Last 24 Hours (Table) 04/11/23 04/13/23 04/13/23 Range/Units 17:25 11:26 20:56 POC Glucose (mg/dL) 276 H 213 H (70-110) mg/dL Hemoglobin A1c 7.2 H (<=6.0) % 04/14/23 Range/Units 05:44 POC Glucose (mg/dL) 133 H (70-110) mg/dL Hemoglobin A1c (<=6.0) % Microbiology - Last 24 Hours (Table) 04/11/23 17:25 Blood Culture - Preliminary Blood 04/11/23 17:25 Blood Culture - Preliminary Blood 04/11/23 23:20 Gram Stain - Preliminary Sputum
[2023-04-14 17:07] LABS: Glucose,Whole Blood 176 mg/dL (70-110)
[2023-04-14 20:45] LABS: Glucose,Whole Blood 179 mg/dL (70-110)
[2023-04-14] MEDS: LORATADINE 10 MG TAB PO SCH (21:45)
[2023-04-14] MEDS: ATORVASTATIN 80 MG TAB PO SCH (21:45)
[2023-04-14] MEDS: ASPIRIN 81 MG PO SCH (21:46)
[2023-04-15] MEDS: methylPREDNISolone SOD SUCCI 125 MG/2 ML VIAL IV SCH ×3 (05:50→21:53)
[2023-04-15 06:05] LABS: Glucose,Whole Blood 133 mg/dL (70-110)
[2023-04-15] MEDS: INSULIN ASPART (NovoLOG) 100 UNIT/ML VIAL SQ SCH ×4 (06:15→21:54)
[2023-04-15] MEDS: SODIUM CHLORIDE 0.9% 1,000 ML IV SCH ×2 (06:19→17:45)
[2023-04-15] MEDS: IPRATROPIUM-ALBUTEROL 3 ML NEB INHALATION SCH ×4 (08:46→21:23)
[2023-04-15] MEDS: SYMBICORT 80-4.5 MCG INHALER INHALATION SCH ×2 (08:46→21:23)
--- NOTE | 2023-04-15 08:49 | XR ---
EXAMINATION TYPE: XR chest 1V portable DATE OF EXAM: 04/15/2023 COMPARISON: 04/12/2023 HISTORY: Follow-up abnormal x-ray TECHNIQUE: Single frontal view of the chest is obtained. FINDINGS: There is marked interval progression of consolidation left lung base with small bilateral effusions. Right basilar subsegmental elevation. Stable 8 mm nodule right midlung. Patchy intrauterine gestation . Underlying COPD suspected. Heart is enlarged. Limited inspiration. Arthropathy of the shoulders wit h diffuse osteopenia postsurgical change overlying the cervical spine. Degenerative changes of the ve rtebral canal. IMPRESSION: 1. Interval left lower lobe consolidation and small bilateral effusions correlate for pneumonia. 2. Ill-defined patchy infiltrate right upper lobe. Neoplasm is not excluded.
[2023-04-15] MEDS: THIAMINE 100 MG TAB PO SCH (09:53)
[2023-04-15] MEDS: ISOSORBIDE MONONITRATE ER 30 MG TAB.ER.24H PO SCH (09:53)
[2023-04-15] MEDS: FOLIC ACID 1 MG TAB PO SCH (09:53)
[2023-04-15] MEDS: FLUTICASONE 50MCG/SPRAY NASAL 16GM EA NOSTRIL PRN (09:53)
[2023-04-15] MEDS: methocarbamoL 750 MG TAB PO SCH ×4 (09:53→21:53)
[2023-04-15] MEDS: lisinopriL 5 MG TAB PO SCH ×2 (09:53→21:54)
[2023-04-15] MEDS: TAMSULOSIN 0.4 MG CAP.ER.24H PO SCH (09:53)
[2023-04-15] MEDS: METOPROLOL SUCCINATE (ER) 25 MG TAB.ER.24H PO SCH ×2 (09:53→21:54)
[2023-04-15] MEDS: ENOXAPARIN 40 MG/0.4 ML SYRINGE SQ SCH (09:53)
[2023-04-15] MEDS: LIDOCAINE 4% PATCH TOPICAL SCH (09:54)
[2023-04-15] MEDS: OXYMETAZOLINE 0.05% NASL SPRAY 1 SPRAY BOTTLE NASAL SCH ×2 (09:55→21:54)
[2023-04-15 11:59] LABS: Glucose,Whole Blood 219 mg/dL (70-110)
--- NOTE | 2023-04-15 14:36 | P.PN ---
Subjective Progress Note Date: 04/15/23 Hospital course: Patient is a very pleasant 77-year-old male with a past medical history of CAD with stents, hypertension, hyperlipidemia, congestive heart failure, type II sav-rpmfbkh-ynspsgnwa diabetes mellitus, BPH, and COPD not on home oxygen dependent. He presented to the emergency department on 04/11/23 secondary to reports of difficulty breathing. Patient reports progressively worsening shortness of breath 1 week associated with worsening of his nonproductive chronic cough, fevers, and chills. He underwent full evaluation in the emergency department. Upon arrival vital signs show patient to be tachycardic with heart rate in the 125, temp 100.4, respiratory rate 26, blood pressure 122/64, and SpO2 of 93% on room air. EKG completed showing sinus tachycardia at 124 bpm. Chest x-ray completed in radiology report reviewed showing mild cardiomegaly with mild pulmonary vascular congestion, mildly prominent interstitial lung markings concerning for pulmonary edema versus pneumonitis, and aphasic patch of opacity suggested over the right upper lobe and hazy opacity of the left lung base concerning for emerging infiltrates suspect infectious or inflammatory process. Labs completed and reviewed. CBC showing leukocytosis with WBC count of 13.6 and polycythemia with elevated hemoglobin of 17.9. Coagulation profile normal findings. BMP showing mild hypochloremia with chloride of 96 otherwise normal findings. Glucose slightly elevated at 208. Initial lactic acid 3.1. Liver profile normal findings. Influenza A, influenza B, RSV, Covid PCR negative. Patient was provided with IV fluids, antibiotics with azithromycin and Rocephin, steroids and nebulizer treatments. Patient admitted under our services with consultation to pulmonology. Physical exam: Patient seen and fully evaluated at bedside this morning. He was in bed and reports having a nosebleed because everything is so dry and states this mucus so sick. Patient unable to clear nasal passages and having a difficult time brin ging up any sputum resulting in extensive coughing fits. Patient denies having any dizziness, lightheadedness, chest pain, palpitations, or any other complaints at this time. Vital signs reviewed and stable. General: Nontoxic, no distress and appears stated age. Derm: Skin warm and dry, normal coloration for ethnicity. Head: Atraumatic, normocephalic and symmetric. Eyes: EOMs intact, no lid lag, and anicteric sclera Mouth: no lip lesions, mucus membranes moist Cardiovascular: regular rate and rhythm with normal S1S2, systolic murmur, positive posterior tibial pulses bilaterally, and cap refill < 2 seconds. Lungs: Respirations even, regular, and unlabored. Lungs diminished with diffuse expiratory wheezes bilaterally. No accessory muscle usage. Abdominal: soft, nontender to palpation, no guarding, no appreciable organomegaly Ext: ROM intact. No gross muscle atrophy, no edema, no contractures Neuro: Speech clear, face symmetrical and CN II-XII grossly intact with no noted focal neuro deficits Psych: Alert and oriented to person, place, time, and situation. Appropriate and pleasant affect. Assessment and Plan of Care: Multifocal pneumonia Advanced COPD with acute exacerbation secondary to community-acquired pneumonia Severe sepsis secondary to above -Pulmonary following, reviewed documentation in chart. -Oxygenation to be administered and titrated as needed to maintain SPO2 equal to or greater than 92% -Telemetry monitoring. -Monitor Pulse-oximetry -Duonebs scheduled four times daily and as needed for SOB and/or wheezing -Incentive Spirometry and encourage use 10-15 times hourly -Continue use of flutter valve -Continue Flonase and Afrin -Steroids: Solu-Medrol dose decreased to 60 mg every 12 hours and plan to transition to oral prednisone tomorrow morning. -Antibiotics: Completed three-day course of Azithromycin 500 mg daily and is on Rocephin 2 g IVPB daily day 09/12. -Sputum culture negative showing few normal respiratory joselin with no Staphylococcus aureus or pseudomonas aeruginosa reported. -Blood cultures showing no growth to date. -Legionella antigen is negative. Type 2 diabetes mellitus with hyperglycemia Morning glucose 133. Continue to Jardiance and continue with glycemic protocol with NovoLog sliding scale. History of CAD with stents Hypertension Hyperlipidemia Congestive heart failure Continue daily medication regimen with aspirin 81 mg daily, atorvastatin 80 mg nightly, isosorbide mononitrate 30 mg daily, lisinopril 5 mg twice daily, and metoprolol 25 mg twice daily. BPH Continue Flomax 0.4 mg daily. Data and imaging reviewed: Vital signs reviewed. Blood pressure 163/96, heart rate 72, respiratory rate 17, temp 97.8F, and SpO2 of 90% on 2 L. Home oxygen evaluation was completed. Patient 86% on room air at rest desaturating down to 84% with ambulation. Secondary to patient's advanced COPD he will require discharge home on continuous home oxygen. CODE STATUS: Full code DVT prophylaxis: Lovenox Anticipated discharge date: Likely tomorrow morning Anticipated discharge place: Home with COPD Navigator and palliative care Patient was seen independently by Nurse Pracitioner. This document was prepared using [employer] dictation software. Please allow for errors in community center director, while rare they do occur. Javi Espinosa MANAGER [employer] rendered care for this patient independently, reviewed the findings and plan as documented in the note above. I did not physically speak with or examine the patient on this date. Objective - Vital Signs Vital signs: Vital Signs Temp 97.8 F 04/15/23 07:11 Pulse 72 04/15/23 07:11 Resp 17 04/15/23 07:11 BP 163/96 04/15/23 07:11 Pulse Ox 90 L 04/15/23 07:11 FiO2 Intake & Output 04/14/23 04/15/23 04/15/23 18:59 06:59 18:59 Output Total 1100 1250 Balance -1100 -1250 Weight 58.967 kg Output: Urine 1100 1250 Other: Voiding Method Indwelling Catheter Indwelling Catheter - Labs CBC & Chem 7: 04/16/23 06:48 04/16/23 06:48 Labs: Abnormal Lab Results - Last 24 Hours (Table) 04/14/23 04/14/23 04/14/23 Range/Units 05:37 05:37 11:52 WBC 17.13 H (4.50-10.00) X 10*3/uL RBC 5.69 H (4.40-5.60) X 10*6/uL Hct 50.9 H (39.6-50.0) % MCHC 31.0 L (32.0-37.0) g/dL RDW 15.3 H (11.5-14.5) % BUN/Creatinine Ratio 21.57 H (12.00-20.00) Ratio Glucose 151 H (70-110) mg/dL POC Glucose (mg/dL) 126 H (70-110) mg/dL AST 54 H (14-35) U/L ALT 65 H (10-49) U/L Total Protein 5.7 L (6.2-8.2) g/dL Albumin 3.2 L (3.8-4.9) g/dL Albumin/Globulin Ratio 1.28 L (1.60-3.17) Ratio 04/14/23 04/14/23 04/15/23 Range/Units 17:06 20:44 06:04 WBC (4.50-10.00) X 10*3/uL RBC (4.40-5.60) X 10*6/uL Hct (39.6-50.0) % MCHC (32.0-37.0) g/dL RDW (11.5-14.5) % BUN/Creatinine Ratio (12.00-20.00) Ratio Glucose (70-110) mg/dL POC Glucose (mg/dL) 176 H 179 H 133 H (70-110) mg/dL AST (14-35) U/L ALT (10-49) U/L Total Protein (6.2-8.2) g/dL Albumin (3.8-4.9) g/dL Albumin/Globulin Ratio (1.60-3.17) Ratio Microbiology - Last 24 Hours (Table) 04/11/23 17:25 Blood Culture - Preliminary Blood 04/11/23 17:25 Blood Culture - Preliminary Blood 04/11/23 23:20 Gram Stain - Final Sputum Sputum Culture - Final
[2023-04-15 16:53] LABS: Glucose,Whole Blood 152 mg/dL (70-110)
--- NOTE | 2023-04-15 17:50 | P.PN ---
Subjective Progress Note Date: 04/15/23 This is a very pleasant 77-year-old male patient who follows with the [facility] as for his primary care needs. He has a history of COPD, hypertension, chronic catheter, coronary disease with previous stent placement, former smoker and quit back in 1979. No home oxygen. He presented here to the emergency room yesterday with complaints of increasing shortness of breath, cough and congestion. His x-ray revealed mild cardiomegaly with mild pulmonary vascular congestion. Vague patchy opacity in the right upper lobe and hazy opacity in the left lung base. Count 13.6. Hemoglobin 17.9. Platelets 261. Sodium 139. Potassium 4.1. Bicarb 28. BUN 14. Creatinine 0.68. Glucose 171. Lactic acid 0.7. Pro-calcitonin 0.11. Viral screen negative. [facility] He is currently sitting up in bed. Awake and alert in no acute distress. He is breathing a bit easier today compared to yesterday. He is maintaining good O2 saturations in the mid 90s on 2 L/m per nasal cannula. He is afebrile. Hemodynamically stable. He has been initiated and DuoNeb inhalations, Symbicort, Solu-Medrol. Antibiotics in the form of ceftriaxone and azithromycin. Normal saline at 100 ML's per hour. On today's evaluation of 04/13/2023, the patient is feeling slightly improved compared to yesterday. The patient is oxygenating is currently on 4 L nasal cannula. Doing well. No specific complaints. His copd, CAD, previous coronary intervention and stenting and hypertension. He has a chronic indwelling Richardson catheter in place. His chest x-ray showed some increased pulmonary vascular marking in a vague infiltrate in the right upper lobe and left lung base.The patient remains on IV Rocephin and Zithromax. The patient is on Symbicort. The patient on IV Solu-Medrol 60 mg every 6 hours. He is also on DuoNeb updrafts. Echocardiogram showed an ejection fraction of 40-45%. on 04/14/2023, slightly improved compared to yesterday. No new complaints. He is having nasal congestion and he was started on Flonase and Afrin nasal spray. He remains on O2 at 2 L per minute nasal cannula. He remains on Rocephin and Zithromax. He remains on bronchodilators. He remains on steroids.Labs from today showed a white cell count of 17, hemoglobin of 15.8 and a platelet count of 219, sodium is at 143, BUN is at 60 with a creatinine of 0.7. UA was negative. The viral screen was negative. AST is at 54, ALTs at 65, alkaline phosphatase is 103. Normal coagulation profile. Normal urinalysis. On 04/15/2023, the patient is being seen for a follow-up. No new complaints. Less short of breath. Nasal congestion is improved. Continues to receive treatment for an acute COPD exacerbation. He is on DuoNeb updrafts. He is also on IV Solu-Medrol 60 mg every 12 hours. No new labs from today. Blood sugars under adequate control for the time being. He is being evaluated for home O2. Objective - Vital Signs Vital signs: Vital Signs Temp 97.8 F 04/15/23 13:15 Pulse 87 04/15/23 13:15 Resp 19 04/15/23 13:15 BP 144/78 04/15/23 13:15 Pulse Ox 86 L 04/15/23 14:51 FiO2 Intake & Output 04/14/23 04/15/23 04/15/23 18:59 06:59 18:59 Output Total 1100 1250 1100 Balance -1100 -1250 -1100 Weight 58.967 kg Output: Urine 1100 1250 1100 Other: Voiding Method Indwelling Catheter Indwelling Catheter Indwelling Catheter - Exam GENERAL EXAM: Alert, pleasant 77-year-old male patient, on 2 L nasal cannula, comfortable in no apparent distress. HEAD: Normocephalic. EYES: Normal reaction of pupils, equal size. NOSE: Clear with pink turbinates. THROAT: No erythema or exudates. NECK: No masses, no JVD. CHEST: No chest wall deformity. LUNGS: Equal air entry with faint end extremely wheeze, few scattered rhonchi. CVS: S1 and S2 normal with no audible murmur, regular rhythm. ABDOMEN: No hepatosplenomegaly, normal bowel sounds, no guarding or rigidity. SPINE: No scoliosis or deformity SKIN: No rashes CENTRAL NERVOUS SYSTEM: No focal deficits, tone is normal in all 4 extremities. EXTREMITIES: There is no peripheral edema. No clubbing, no cyanosis. Peripheral pulses are intact. - Labs CBC & Chem 7: 04/14/23 05:37 04/14/23 05:37 Labs: Abnormal Lab Results - Last 24 Hours (Table) 04/14/23 04/14/23 04/15/23 Range/Units 17:06 20:44 06:04 POC Glucose (mg/dL) 176 H 179 H 133 H (70-110) mg/dL 04/15/23 Range/Units 11:57 POC Glucose (mg/dL) 219 H (70-110) mg/dL Microbiology - Last 24 Hours (Table) 04/11/23 17:25 Blood Culture - Preliminary Blood 04/11/23 17:25 Blood Culture - Preliminary Blood Assessment and Plan Plan: Acute hypoxemic respiratory failure secondary to suspected chronic obstructive pulmonary disease exacerbation in addition to an early pneumonia. Procalcitonin 0.11. Viral screen negative, clinical improving and he has no worsening in the breathing and the patient's overall condition is stable Acute hypoxic respiratory failure currently on 3 L O2 nasal cannula Acute COPD exacerbation with secondary shortness of breath and hypoxemia Former smoker Hypertension Hyperlipidemia Coronary disease with previous stent placement Chronic Richardson catheter Plan: Clinically improving, we'll continue to same treatment for now Evaluate for home O2 Procalcitonin 0.11 Continue IV Solu-Medrol 60 mg every 12 hours Continue bronchodilators, steroids and the patient remains on IV Solu-Medrol Flonase and Afrin for nasal congestion Titrate down the FiO2 as tolerated Increase his activity as tolerated We'll continue to follow and make further recommendations based on his clinical status
[2023-04-15 20:40] LABS: Glucose,Whole Blood 189 mg/dL (70-110)
[2023-04-15] MEDS: ATORVASTATIN 80 MG TAB PO SCH (21:53)
[2023-04-15] MEDS: ASPIRIN 81 MG PO SCH (21:53)
[2023-04-15] MEDS: LORATADINE 10 MG TAB PO SCH (21:53)
[2023-04-16] MEDS: SODIUM CHLORIDE 0.9% 1,000 ML IV SCH (03:32)
[2023-04-16 06:20] LABS: Glucose,Whole Blood 153 mg/dL (70-110)
[2023-04-16] MEDS: INSULIN ASPART (NovoLOG) 100 UNIT/ML VIAL SQ SCH ×2 (06:48→12:33)
[2023-04-16] MEDS: SYMBICORT 80-4.5 MCG INHALER INHALATION SCH (08:16)
[2023-04-16] MEDS: IPRATROPIUM-ALBUTEROL 3 ML NEB INHALATION SCH ×2 (08:16→11:24)
[2023-04-16 08:37] VITALS: BP 137/85; RESP 19; TEMP 97.6
[2023-04-16] MEDS: OXYMETAZOLINE 0.05% NASL SPRAY 1 SPRAY BOTTLE NASAL SCH (09:19)
[2023-04-16] MEDS: TAMSULOSIN 0.4 MG CAP.ER.24H PO SCH (09:20)
[2023-04-16] MEDS: methylPREDNISolone SOD SUCCI 125 MG/2 ML VIAL IV SCH (09:20)
[2023-04-16] MEDS: methocarbamoL 750 MG TAB PO SCH ×2 (09:20→12:33)
[2023-04-16] MEDS: FOLIC ACID 1 MG TAB PO SCH (09:20)
[2023-04-16] MEDS: THIAMINE 100 MG TAB PO SCH (09:21)
[2023-04-16] MEDS: METOPROLOL SUCCINATE (ER) 25 MG TAB.ER.24H PO SCH (09:21)
[2023-04-16] MEDS: lisinopriL 5 MG TAB PO SCH (09:21)
[2023-04-16] MEDS: ENOXAPARIN 40 MG/0.4 ML SYRINGE SQ SCH (09:21)
[2023-04-16] MEDS: ISOSORBIDE MONONITRATE ER 30 MG TAB.ER.24H PO SCH (09:21)
[2023-04-16] MEDS: FLUTICASONE 50MCG/SPRAY NASAL 16GM EA NOSTRIL PRN (09:25)
[2023-04-16] MEDS: LIDOCAINE 4% PATCH TOPICAL SCH (09:26)
[2023-04-16 11:08] LABS: HCT 54.1 % (39.6-50.0); HGB 16.8 g/dL (13.0-17.0); MCH 27.7 pg (27.0-32.0); MCHC 31.1 g/dL (32.0-37.0); MCV 89.3 FL (80.0-97.0); Mean Platelet Volume 11.6 FL (9.5-12.2); NRBC Per 100 WBC 0 X 10*3/uL (0.00-0.01); Platelet Count 256 X 10*3/uL (140-440); RBC 6.06 X 10*6/uL (4.40-5.60); RDW 15.8 % (11.5-14.5)
[2023-04-16 11:51] VITALS: PULSE 85
[2023-04-16 11:51] LABS: Glucose,Whole Blood 161 mg/dL (70-110)
--- NOTE | 2023-04-16 11:59 | P.DS ---
Providers Date of admission: 04/11/23 20:42 Expected date of discharge: 04/16/23 Attending physician: Kristel Marie MD Consults: 04/11/23 20:40 Consult Physician Routine Consulting Provider: Claude Elena Consult Reason/Comments: copd, sepsis Do you want consulting provider notified?: Yes Primary care physician: [facility] Hospital Course: Discharge Diagnosis: Multifocal pneumonia. Completed three-day course of azithromycin 500 mg daily followed by 5 day course of Rocephin 2 g IVPB daily. Advanced COPD with acute exacerbation secondary to community-acquired pneumonia. Home oxygen evaluation was completed. Patient 86% on room air at rest desaturating down to 84% with ambulation. Secondary to patient's advanced COPD he required discharge home on continuous home oxygen at 2 L O2 via nasal cannula. Patient also discharged home with prednisone taper and being discharged home with palliative care secondary to advanced COPD and home oxygen dependence. Patient to follow up outpatient with brancher in 1 week. Severe sepsis secondary to above. Resolved. Blood cultures remain negative to date. Type 2 diabetes mellitus with hyperglycemia. Continue to Jardiance 10 mg daily. History of CAD with stents. Continue daily medication regimen with aspirin 81 mg daily, atorvastatin 80 mg nightly, isosorbide mononitrate 30 mg daily, lisinopril 5 mg twice daily, and metoprolol 25 mg twice daily. Hypertension. Continue daily medication regimen with aspirin 81 mg daily, atorvastatin 80 mg nightly, isosorbide mononitrate 30 mg daily, lisinopril 5 mg twice daily, and metoprolol 25 mg twice daily. Hyperlipidemia. Continue daily medication regimen with aspirin 81 mg daily, atorvastatin 80 mg nightly, isosorbide mononitrate 30 mg daily, lisinopril 5 mg twice daily, and metoprolol 25 mg twice daily. Congestive heart failure. Continue daily medication regimen with aspirin 81 mg daily, atorvastatin 80 mg nightly, isosorbide mononitrate 30 mg daily, lisinopril 5 mg twice daily, and metoprolol 25 mg twice daily. BPH. Continue Flomax 0.4 mg daily. Hospital Course: Patient is a very pleasant 77-year-old male with a past medical history of CAD with stents, hypertension, hyperlipidemia, congestive heart failure, type II ccc-gyzdewn-fkiwzmvam diabetes mellitus, BPH, and COPD not on home oxygen dependent. He presented to the emergency department on 04/11/23 secondary to reports of difficulty breathing. Patient reports progressively worsening shortness of breath 1 week associated with worsening of his nonproductive chronic cough, fevers, and chills. He underwent full evaluation in the emergency department. Upon arrival vital signs show patient to be tachycardic with heart rate in the 125, temp 100.4, respiratory rate 26, blood pressure 122/64, and SpO2 of 93% on room air. EKG completed showing sinus tachycardia at 124 bpm. Chest x-ray completed in radiology report reviewed showing mild cardiomegaly with mild pulmonary vascular congestion, mildly prominent interstitial lung markings concerning for pulmonary edema versus pneumonitis, and aphasic patch of opacity suggested over the right upper lobe and hazy opacity of the left lung base concerning for emerging infiltrates suspect infectious or inflammatory process. Labs completed and reviewed. CBC showing leukocytosis with WBC count of 13.6 and polycythemia with elevated hemoglobin of 17.9. Coagulation profile normal findings. BMP showing mild hypochloremia with chloride of 96 otherwise normal findings. Glucose slightly elevated at 208. Initial lactic acid 3.1. Liver profile normal findings. Influenza A, influenza B, RSV, Covid PCR negative. Patient was provided with IV fluids, antibiotics with azithromycin and Rocephin, steroids and nebulizer treatments. Patient admitted under our services with consultation to pulmonology. Patient completed three-day course of azithromycin 500 mg daily followed by 5 day course of Rocephin 2 g IVPB daily. He was evaluated by pulmonology. Home oxygen evaluation was completed. Patient 86% on room air at rest desaturating down to 84% with ambulation. Secondary to patient's advanced COPD he required discharge home on continuous home oxygen at 2 L O2 via nasal cannula. Patient also discharged home with prednisone taper and being discharged home with palliative care secondary to advanced COPD and home oxygen dependence. Patient to follow up outpatient with PCP in 1-2 days and brancher in 1 week. Physical exam: Vital signs reviewed and stable. General: Nontoxic, no distress and appears stated age. Derm: Skin warm and dry, normal coloration for ethnicity. Head: Atraumatic, normocephalic and symmetric. Eyes: EOMs intact, no lid lag, and anicteric sclera Mouth: no lip lesions, mucus membranes moist Cardiovascular: regular rate and rhythm with normal S1S2, systolic murmur, positive posterior tibial pulses bilaterally, and cap refill < 2 seconds. Lungs: Respirations even, regular, and unlabored. Lungs diminished with diffuse expiratory wheezes bilaterally. No accessory muscle usage. Abdominal: soft, nontender to palpation, no guarding, no appreciable organomegaly Ext: ROM intact. No gross muscle atrophy, no edema, no contractures Neuro: Speech clear, face symmetrical and CN II-XII grossly intact with no noted focal neuro deficits Psych: Alert and oriented to person, place, time, and situation. Appropriate and pleasant affect. A total of 39 minutes of time were spent preparing this complex discharge summary. Pt was discharged on 04/16/23 at 9:57 AM. Patient was seen independently by Nurse Practitioner. This document was prepared using [employer] dictation software. Please allow for errors in sports manager while rare they do occur. Javi Espinosa NP rendered care for this patient independently, reviewed the findings and plan as documented in the note above. I did not physically speak with or examine the patient on this date. Patient Condition at Discharge: Stable Plan - Discharge Summary Discharge Rx Participant: Yes New Discharge Prescriptions: New predniSONE See Taper PO DIRECTED 12 Days #30 tab Continue Albuterol Nebulized [Ventolin Nebulized] 2.5 mg INHALATION RT-QID Lidocaine 5% Patch [Lidoderm 5% Patch] 1 patch TRANSDERM DAILY Diclofenac Sodium Gel [Voltaren 1% Gel] 1 applic TOPICAL DAILY Tamsulosin [Flomax] 0.4 mg PO DAILY #30 capsule Folic Acid 1 mg PO DAILY Thiamine [Vitamin B-1] 100 mg PO DAILY Furosemide [Lasix] 20 mg PO BID@0900,1300 Aspirin 81 mg PO HS methocarbamoL [Robaxin-750] 750 mg PO QID Albuterol Inhaler [Ventolin Hfa Inhaler] 2 puff INHALATION RT-QID Cetirizine HCl [Zyrtec] 10 mg PO HS Fluticasone Nasal [place] [Flonase Nasal [place]] 1 spr EA NOSTRIL DAILY lisinopriL [Zestril] 5 mg PO BID Atorvastatin [Lipitor] 80 mg PO HS Metoprolol Succinate (ER) [Toprol XL] 25 mg PO BID Isosorbide Mononitrate ER [Imdur] 30 mg PO DAILY 30 Days #30 tab Fluticasone Propion/Salmeterol [Wixela 250-50 Inhub] 1 puff INHALATION RT-BID Acetaminophen Tab [Tylenol] 1,000 mg PO Q6H PRN PRN Reason: Pain Empagliflozin [Jardiance] 10 mg PO DAILY Ketoconazole 2% Shampoo [Nizoral] 1 applic TOPICAL DAILY Triamcinolone 0.1% Cream [Kenalog 0.1% Cream] 1 applic TOPICAL DAILY Discharge Medication List Albuterol Inhaler [Ventolin Hfa Inhaler] 2 puff INHALATION RT-QID 04/25/21 [History] Albuterol Nebulized [Ventolin Nebulized] 2.5 mg INHALATION RT-QID 04/25/21 [History] Cetirizine HCl [Zyrtec] 10 mg PO HS 04/25/21 [History] Fluticasone Nasal [place] [Flonase Nasal [place]] 1 spr EA NOSTRIL DAILY 04/25/21 [History] Lidocaine 5% Patch [Lidoderm 5% Patch] 1 patch TRANSDERM DAILY 04/25/21 [History ] Diclofenac Sodium Gel [Voltaren 1% Gel] 1 applic TOPICAL DAILY 05/09/21 [History] Tamsulosin [Flomax] 0.4 mg PO DAILY #30 capsule 05/12/21 [Rx] Atorvastatin [Lipitor] 80 mg PO HS 02/03/22 [History] Folic Acid 1 mg PO DAILY 02/03/22 [History] Metoprolol Succinate (ER) [Toprol XL] 25 mg PO BID 02/03/22 [History] Thiamine [Vitamin B-1] 100 mg PO DAILY 02/03/22 [History] lisinopriL [Zestril] 5 mg PO BID 02/03/22 [History] Isosorbide Mononitrate ER [Imdur] 30 mg PO DAILY 30 Days #30 tab 02/04/22 [Rx] Aspirin 81 mg PO HS 08/25/22 [History] Furosemide [Lasix] 20 mg PO BID@0900,1300 08/25/22 [History] Fluticasone Propion/Salmeterol [Wixela 250-50 Inhub] 1 puff INHALATION RT-BID 10/18/22 [History] Acetaminophen Tab [Tylenol] 1,000 mg PO Q6H PRN 04/11/23 [History] Empagliflozin [Jardiance] 10 mg PO DAILY 04/11/23 [History] Ketoconazole 2% Shampoo [Nizoral] 1 applic TOPICAL DAILY 04/11/23 [History] Triamcinolone 0.1% Cream [Kenalog 0.1% Cream] 1 applic TOPICAL DAILY 04/11/23 [History] methocarbamoL [Robaxin-750] 750 mg PO QID 04/11/23 [History] predniSONE See Taper PO DIRECTED 12 Days #30 tab 04/16/23 [Rx] Follow up Appointment(s)/Referral(s): [facility],Home Care [NON-STAFF] - As Needed Claude Elena DO [Doctor of Osteopathic Medicine] - 1 Week [facility] [Primary Care Provider] - 1-2 days (Office closed when attempting to make appointment, please call and schedule an appointment) Ambulatory/Diagnostic Orders: Basic Metabolic Panel [LAB.AMB] Location: None Selected Complete Blood Count w/diff [LAB.AMB] Location: None Selected Patient Instructions/Handouts: COPD (Chronic Obstructive Pulmonary Disease) (DC), Chronic Lung Disease and Infection Prevention (DC) Activity/Diet/Wound Care/Special Instructions: Oxygen ordered through [facility]: #[phone] Activity: As tolerated. Take breaks as needed. Diet: Heart healthy and carb consistent diet. Avoid salts, or foods with hidden salts such as canned or boxed foods and frozen dinners. Extra salt makes your heart work harder and traps the fluid in your body for longer. Special Instructions: Take all of your medications as directed and remember to keep all of your doctor's appointments and follow-up as needed. You are being discharged home with continuous oxygen, please wear at all times including while at rest, sleeping, and while showering. In addition you are also being discharged home with home in palliative care secondary to year advanced COPD. Thank you for allowing us to participate in your care, it was truly a pleasure having you for our patient!!! Discharge Disposition: HOME WITH HOME HEALTH SERVICES
[2023-04-16 13:31] LABS: ALT 96 U/L (10-49); AST 45 U/L (14-35); Albumin 3.1 g/dL (3.8-4.9); Albumin/Globulin Ratio 1.24 Ratio (1.60-3.17); Alkaline Phosphatase 96 U/L (41-126); BUN/Creat Ratio 28.86 Ratio (12.00-20.00); Blood Urea Nitrogen 20.2 mg/dL (9.0-27.0); Calcium 8.8 mg/dL (8.7-10.3); Carbon Dioxide 28.8 mmol/L (21.6-31.8); Chloride 103 mmol/L (96-109); Globulin 2.5 g/dL (1.6-3.3); Glucose 170 mg/dL (70-110); Magnesium 2.4 mg/dL (1.5-2.4); Potassium 5.1 mmol/L (3.5-5.5); Sodium 139 mmol/L (135-145); Total Bilirubin 0.3 mg/dL (0.3-1.2); Total Protein 5.6 g/dL (6.2-8.2)
== END 2023-04-16 14:11 | disposition home health service (06) | DRG 871 ==
LOC: EC 15:40 → 4SSUR 20:42
PROVIDERS: ADMIT Internal Medicine; ATTEND Internal Medicine
DX: A41.9 Sepsis, unspecified organism (principal); J18.9 Pneumonia, unspecified organism; J96.01 Acute respiratory failure with hypoxia; J44.1 Chronic obstructive pulmonary disease with (acute) exacerbation; J44.0 Chronic obstructive pulmonary disease with (acute) lower respiratory infection; I11.0 Hypertensive heart disease with heart failure; I50.9 Heart failure, unspecified; E87.8 Other disorders of electrolyte and fluid balance, not elsewhere classified; E11.65 Type 2 diabetes mellitus with hyperglycemia; E78.5 Hyperlipidemia, unspecified; Z20.822 Contact with and (suspected) exposure to COVID-19; N40.0 Benign prostatic hyperplasia without lower urinary tract symptoms; I25.10 Atherosclerotic heart disease of native coronary artery without angina pectoris; Z95.5 Presence of coronary angioplasty implant and graft; D75.1 Secondary polycythemia; I25.2 Old myocardial infarction; Z79.02 Long term (current) use of antithrombotics/antiplatelets; Z79.84 Long term (current) use of oral hypoglycemic drugs; R65.20 Severe sepsis without septic shock; J44.9 Chronic obstructive pulmonary disease, unspecified; Z51.5 Encounter for palliative care; Z79.82 Long term (current) use of aspirin; Z79.899 Other long term (current) drug therapy; Z99.81 Dependence on supplemental oxygen
CPT/HCPCS: 36415; 71045; 71046; 80053; 81003; 83036; 83605; 83735; 84145; 85025; 85027; 85610; 85730; 87040; 87070; 87205; 87449; 87636; 93005; 94640; 94667; 94760; 96361; 96365; 96366; 96367; 96375; 99291

== ENCOUNTER 2023-07-16 12:53 | Inpatient (IN) | payer OTHER, MEDICARE ==
--- NOTE | 2023-07-16 13:43 | ED ---
General Adult HPI - General Chief complaint: Nausea/Vomiting/Diarrhea Stated complaint: Diarrhea/Nausea Time Seen by Provider: 07/16/23 13:10 Source: patient, RN notes reviewed, old records reviewed Mode of arrival: ambulatory Limitations: no limitations - History of Present Illness Initial comments: This is an 78-year-old male presents emergency department stating that for the last 9 days he has been having diarrhea at least twice a day. Patient states he has had no abdominal pain but he has been nauseous. Patient states he tried to drink a lot of water but he feels dehydrated. Patient states he has not vomited. Patient denies any fever or chills. Patient Nuys any back pain. Patient denies any dysuria hematuria urinary frequency. Patient denies any blood in the stool or dark black stools. Patient denies chest pain difficulty breathing or shortness of breath - Related Data Home Medications Medication Instructions Recorded Confirmed Albuterol Inhaler [Ventolin Hfa 2 puff INHALATION RT-QID 04/25/21 04/11/23 Inhaler] Albuterol Nebulized [Ventolin 2.5 mg INHALATION RT-QID 04/25/21 04/11/23 Nebulized] Cetirizine HCl [Zyrtec] 10 mg PO HS 04/25/21 04/11/23 Fluticasone Nasal [place] [Flonase 1 spr EA NOSTRIL DAILY 04/25/21 04/11/23 Nasal [place]] Lidocaine 5% Patch [Lidoderm 5% 1 patch TRANSDERM DAILY 04/25/21 04/11/23 Patch] Diclofenac Sodium Gel [Voltaren 1% 1 applic TOPICAL DAILY 05/09/21 04/11/23 Gel] Atorvastatin [Lipitor] 80 mg PO HS 02/03/22 04/11/23 Folic Acid 1 mg PO DAILY 02/03/22 04/11/23 Metoprolol Succinate (ER) [Toprol 25 mg PO BID 02/03/22 04/11/23 XL] Thiamine [Vitamin B-1] 100 mg PO DAILY 02/03/22 04/11/23 lisinopriL [Zestril] 5 mg PO BID 02/03/22 04/11/23 Aspirin 81 mg PO HS 08/25/22 04/11/23 Furosemide [Lasix] 20 mg PO BID@0900,1300 08/25/22 04/11/23 Fluticasone Propion/Salmeterol 1 puff INHALATION RT-BID 10/18/22 04/11/23 [Wixela 250-50 Inhub] Acetaminophen Tab [Tylenol] 1,000 mg PO Q6H PRN 04/11/23 04/11/23 Empagliflozin [Jardiance] 10 mg PO DAILY 04/11/23 04/11/23 Ketoconazole 2% Shampoo [Nizoral] 1 applic TOPICAL DAILY 04/11/23 04/11/23 Triamcinolone 0.1% Cream [Kenalog 1 applic TOPICAL DAILY 04/11/23 04/11/23 0.1% Cream] methocarbamoL [Robaxin-750] 750 mg PO QID 04/11/23 04/11/23 Previous Rx's Medication Instructions Recorded Tamsulosin [Flomax] 0.4 mg PO DAILY #30 capsule 05/12/21 Isosorbide Mononitrate ER [Imdur] 30 mg PO DAILY 30 Days #30 tab 02/04/22 predniSONE See Taper PO DIRECTED 12 Days 04/16/23 #30 tab Allergies Allergy/AdvReac Type Severity Reaction Status Date / Time Influenza Virus Vaccines Allergy Anaphylaxis Verified 07/16/23 13:02 tomato Allergy Anaphylaxis Verified 07/16/23 13:02 /Hives Review of Systems ROS Statement: Those systems with pertinent positive or pertinent negative responses have been documented in the HPI. ROS Other: All systems not noted in ROS Statement are negative. 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 Last Myocardial Infarction Date:: 05/09/2021 History of Any Multi-Drug Resistant Organisms: None Reported Past Surgical History: Appendectomy, Back Surgery, Heart Catheterization With Stent, Tonsillectomy Additional Past Surgical History / Comment(s): cervical, 3 heart stents Past Anesthesia/Blood Transfusion Reactions: No Reported Reaction Additional Past Anesthesia/Blood Transfusion Reaction / Comment(s): Pt is clausterphobic. Date of Last Stent Placement:: 05/09/21 Past Psychological History: No Psychological Hx Reported Smoking Status: Former smoker Past Alcohol Use History: None Reported Past Drug Use History: None Reported - Past Family History Mother Family Medical History: No Reported History Additional Family Medical History / Comment(s): Mother was healthy and lived to be 92 yrs old. Father History Unknown: Yes Additional Family Medical History / Comment(s): Father at the age of 68yrs, pt unable to say from what. General Exam - General Exam Comments Initial Comments: GENERAL: Patient is well-developed and well-nourished. Patient is nontoxic and well- hydrated and is in mild distress. ENT: Neck is soft and supple. No significant lymphadenopathy is noted. Oropharynx is clear. Dry mucous membranes. Neck has full range of motion without eliciting any pain. EYES: The sclera were anicteric and conjunctiva were pink and moist. Extraocular movements were intact and pupils were equal round and reactive to light. Eyelids were unremarkable. PULMONARY: Unlabored respirations. Good breath sounds bilaterally. No audible rales rhonchi or wheezing was noted. CARDIOVASCULAR: There is a regular rate and rhythm without any murmurs gallops or rubs. ABDOMEN: Soft and nontender with normal bowel sounds. SKIN: Skin is clear with no lesions or rashes and otherwise unremarkable. NEUROLOGIC: Patient is alert and oriented x3. Cranial nerves II through XII are grossly intact. Motor and sensory are also intact. Normal speech, volume and content. Symmetrical smile. MUSCULOSKELETAL: Normal extremities with adequate strength and full range of motion. No lower extremity swelling or edema. No calf tenderness. LYMPHATICS: No significant lymphadenopathy is noted PSYCHIATRIC: Normal psychiatric evaluation. Limitations: no limitations Course Vital Signs 07/16/23 07/16/23 07/16/23 12:58 13:38 15:45 Temperature 97.6 F 98.6 F Pulse Rate 91 95 Respiratory 18 20 Rate Blood Pressure 86/49 101/59 O2 Sat by Pulse 95 79 L Oximetry 07/16/23 07/16/23 07/16/23 16:30 16:55 17:03 Temperature Pulse Rate 86 89 Respiratory Rate Blood Pressure O2 Sat by Pulse 96 Oximetry Medical Decision Making - Medical Decision Making Was pt. sent in by a medical professional or institution (, PA, PUBLIC HEALTH NURSE, urgent care, hospital, or fci...) When possible be specific @ -No Did you speak to anyone other than the patient for history (EMS, parent, family, police, friend...)? What history was obtained from this source @ -No Did you review nursing and triage notes (agree or disagree)? Why? @ -I reviewed and agree with nursing and triage notes Were old charts reviewed (outside hosp., previous admission, EMS record, old EKG, old radiological studies, urgent care reports/EKG's, fci records)? Report findings @ -No old charts were reviewed Differential Diagnosis (chest pain, altered mental status, abdominal pain women, abdominal pain men, vaginal bleeding, weakness, fever, dyspnea, syncope, headache, dizziness, GI bleed, back pain, seizure, CVA, palpatations, mental health, musculoskeletal)? @ -Differential Abdominal Pain Men: Appendicitis, cholecystitis, diverticulosis, ischemic bowel, pancreatitis, hepatitis, UTI, gastroenteritis, AAA, incarcerated hernia, bowel obstruction, constipation, inflammatory bowel, hepatitis, peptic ulcer disease, splenic infarction, perforated viscus, testicular torsion, this is not meant to be an all-inclusive list EKG interpreted by me (3pts min.). @ -As above X-rays interpreted by me (1pt min.). @ -None done CT interpreted by me (1pt min.). @ -Patient CT of the chest shows some patchy infiltrates consistent with COVID U/S interpreted by me (1pt. min.). @ -None done What testing was considered but not performed or refused? (CT, X-rays, U/S, labs)? Why? @ -None What meds were considered but not given or refused? Why? @ -None Did you discuss the management of the patient with other professionals (professionals i.e. , PA, PUBLIC HEALTH NURSE, lab, RT, psych nurse, social work supervisor, state superintendent of schools, teacher, audit officer, case technician)? Give summary @ -I spoke with sound physicians they agreed to admit the patient Was smoking cessation discussed for >3mins.? @ -No Was critical care preformed (if so, how long)? @ -No Were there social determinants of health that impacted care today? How? (Homelessness, low income, unemployed, alcoholism, drug addiction, transportatio n, low edu. Level, literacy, decrease access to med. care, senior care, rehab)? @ -No Was there de-escalation of care discussed even if they declined (Discuss DNR or withdrawal of care, Hospice)? DNR status @ -No What co-morbidities impacted this encounter? (DM, HTN, Smoking, COPD, CAD, Cancer, CVA, ARF, Chemo, Hep., AIDS, mental health diagnosis, sleep apnea, morbid obesity)? @ -None Was patient admitted / discharged? Hospital course, mention meds given and route, prescriptions, significant lab abnormalities, going to OR and other pertinent info. @ -Patient was given Zofran and he stated that helped his nausea. Patient was given Lomotil while in the emergency department and a liter and a half of normal saline. Patient stated he had no more diarrhea at this time patient was comfortable going home lab work was within normal range. We initially were going to send the patient home however when we did discharge vitals patient's pulse ox was in the 70 we ran COVID testing and the patient was COVID-positive. Chest x-ray shows no acute normality. Patient was started on Decadron. Spoke with sound physicians they agreed to admit the patient admit the patient was admitting orders Undiagnosed new problem with uncertain prognosis? @ -No Drug Therapy requiring intensive monitoring for toxicity (Heparin, Nitro, Insulin, Cardizem)? @ -No Were any procedures done? @ -No Diagnosis/symptom? @ -Diarrhea Acute, or Chronic, or Acute on Chronic? @ -Acute Uncomplicated (without systemic symptoms) or Complicated (systemic symptoms)? @ -Complicated Side effects of treatment? @ -No Exacerbation, Progression, or Severe Exacerbation? @ -No Poses a threat to life or bodily function? How? (Chest pain, [place], RI, pneumonia, PE, COPD, DKA, ARF, appy, cholecystitis, CVA, Diverticulitis, Homicidal, Suicidal, threat to staff... and all critical care pts) @ -No - Lab Data Result diagrams: 07/16/23 13:58 07/16/23 13:58 Lab Results 07/16/23 07/16/23 07/16/23 Range/Units 13:58 13:58 15:53 WBC 7.3 (3.8-10.6) k/uL RBC 5.97 H (4.30-5.90) m/uL Hgb 17.2 (13.0-17.5) gm/dL Hct 53.0 (39.0-53.0) % MCV 88.8 (80.0-100.0) fL MCH 28.7 (25.0-35.0) pg MCHC 32.4 (31.0-37.0) g/dL RDW 14.8 (11.5-15.5) % Plt Count 170 (150-450) k/uL MPV 8.9 Neutrophils % 84 % Lymphocytes % 5 % Monocytes % 8 % Eosinophils % 2 % Basophils % 0 % Neutrophils # 6.2 (1.3-7.7) k/uL Lymphocytes # 0.4 L (1.0-4.8) k/uL Monocytes # 0.6 (0-1.0) k/uL Eosinophils # 0.1 (0-0.7) k/uL Basophils # 0.0 (0-0.2) k/uL D-Dimer (<0.60) mg/L FEU Sample Site Right Radial ABG pH 7.33 L (7.35-7.45) ABG pCO2 63 H (35-45) mmHg ABG pO2 39 L* (83-108) mmHg ABG HCO3 33 H (21-25) mmol/L ABG Total CO2 35 H (19-24) mmol/L ABG O2 Saturation 70.4 L (94-97) % ABG Base Excess 7.1 mmol/L Keith Test Yes VBG pH (7.31-7.41) VBG pCO2 (37-51) mmHg VBG HCO3 (24-28) mmol/L FiO2 21 % Sodium 141 (137-145) mmol/L Potassium 3.4 L (3.5-5.1) mmol/L Chloride 103 (98-107) mmol/L Carbon Dioxide 34 H (22-30) mmol/L Anion Gap 4 mmol/L BUN 13 (9-20) mg/dL Creatinine 0.59 L (0.66-1.25) mg/dL Est GFR (CKD-EPI)AfAm >90 (>60 ml/min/1.73 sqM) Est GFR (CKD-EPI)NonAf >90 (>60 ml/min/1.73 sqM) Glucose 107 H (74-99) mg/dL Calcium 8.4 (8.4-10.2) mg/dL Magnesium 1.8 (1.6-2.3) mg/dL Total Bilirubin 1.6 H (0.2-1.3) mg/dL AST 36 (17-59) U/L ALT 22 (4-49) U/L Alkaline Phosphatase 85 (38-126) U/L Total Protein 6.4 (6.3-8.2) g/dL Albumin 3.5 (3.5-5.0) g/dL Influenza Type A (PCR) (Not Detectd) Influenza Type B (PCR) (Not Detectd) RSV (PCR) (Not Detectd) SARS-CoV-2 (PCR) (Not Detectd) 07/16/23 07/16/23 07/16/23 Range/Units 16:17 16:54 16:54 WBC (3.8-10.6) k/uL RBC (4.30-5.90) m/uL Hgb (13.0-17.5) gm/dL Hct (39.0-53.0) % MCV (80.0-100.0) fL MCH (25.0-35.0) pg MCHC (31.0-37.0) g/dL RDW (11.5-15.5) % Plt Count (150-450) k/uL MPV Neutrophils % % Lymphocytes % % Monocytes % % Eosinophils % % Basophils % % Neutrophils # (1.3-7.7) k/uL Lymphocytes # (1.0-4.8) k/uL Monocytes # (0-1.0) k/uL Eosinophils # (0-0.7) k/uL Basophils # (0-0.2) k/uL D-Dimer 1.01 H (<0.60) mg/L FEU Sample Site Right Radial ABG pH 7.31 L (7.35-7.45) ABG pCO2 67 H (35-45) mmHg ABG pO2 42 L* (83-108) mmHg ABG HCO3 34 H (21-25) mmol/L ABG Total CO2 (19-24) mmol/L ABG O2 Saturation 75.3 L (94-97) % ABG Base Excess 5.0 mmol/L Keith Test VBG pH (7.31-7.41) VBG pCO2 (37-51) mmHg VBG HCO3 (24-28) mmol/L FiO2 21 % Sodium (137-145) mmol/L Potassium (3.5-5.1) mmol/L Chloride (98-107) mmol/L Carbon Dioxide (22-30) mmol/L Anion Gap mmol/L BUN (9-20) mg/dL Creatinine (0.66-1.25) mg/dL Est GFR (CKD-EPI)AfAm (>60 ml/min/1.73 sqM) Est GFR (CKD-EPI)NonAf (>60 ml/min/1.73 sqM) Glucose (74-99) mg/dL Calcium (8.4-10.2) mg/dL Magnesium (1.6-2.3) mg/dL Total Bilirubin (0.2-1.3) mg/dL AST (17-59) U/L ALT (4-49) U/L Alkaline Phosphatase (38-126) U/L Total Protein (6.3-8.2) g/dL Albumin (3.5-5.0) g/dL Influenza Type A (PCR) Not Detected (Not Detectd) Influenza Type B (PCR) Not Detected (Not Detectd) RSV (PCR) Not Detected (Not Detectd) SARS-CoV-2 (PCR) Detected A (Not Detectd) 07/16/23 Range/Units 16:55 WBC (3.8-10.6) k/uL RBC (4.30-5.90) m/uL Hgb (13.0-17.5) gm/dL Hct (39.0-53.0) % MCV (80.0-100.0) fL MCH (25.0-35.0) pg MCHC (31.0-37.0) g/dL RDW (11.5-15.5) % Plt Count (150-450) k/uL MPV Neutrophils % % Lymphocytes % % Monocytes % % Eosinophils % % Basophils % % Neutrophils # (1.3-7.7) k/uL Lymphocytes # (1.0-4.8) k/uL Monocytes # (0-1.0) k/uL Eosinophils # (0-0.7) k/uL Basophils # (0-0.2) k/uL D-Dimer (<0.60) mg/L FEU Sample Site ABG pH (7.35-7.45) ABG pCO2 (35-45) mmHg ABG pO2 (83-108) mmHg ABG HCO3 (21-25) mmol/L ABG Total CO2 (19-24) mmol/L ABG O2 Saturation (94-97) % ABG Base Excess mmol/L Keith Test VBG pH 7.29 L (7.31-7.41) VBG pCO2 70 H* (37-51) mmHg VBG HCO3 34 H (24-28) mmol/L FiO2 % Sodium (137-145) mmol/L Potassium (3.5-5.1) mmol/L Chloride (98-107) mmol/L Carbon Dioxide (22-30) mmol/L Anion Gap mmol/L BUN (9-20) mg/dL Creatinine (0.66-1.25) mg/dL Est GFR (CKD-EPI)AfAm (>60 ml/min/1.73 sqM) Est GFR (CKD-EPI)NonAf (>60 ml/min/1.73 sqM) Glucose (74-99) mg/dL Calcium (8.4-10.2) mg/dL Magnesium (1.6-2.3) mg/dL Total Bilirubin (0.2-1.3) mg/dL AST (17-59) U/L ALT (4-49) U/L Alkaline Phosphatase (38-126) U/L Total Protein (6.3-8.2) g/dL Albumin (3.5-5.0) g/dL Influenza Type A (PCR) (Not Detectd) Influenza Type B (PCR) (Not Detectd) RSV (PCR) (Not Detectd) SARS-CoV-2 (PCR) (Not Detectd) Disposition Clinical Impression: Acute diarrhea, COVID-19 Disposition: ADMITTED IP TO THIS HOSP Referrals: [facility],Clinic [Primary Care Provider] - 1-2 days Time of Disposition: 15:14
[2023-07-16] MEDS: SODIUM CHLORIDE 0.9% 1,000 ML IV ONE ×2 (14:07→19:01)
[2023-07-16] MEDS: ONDANSETRON 4 MG/2 ML VIAL IVP STA (14:08)
[2023-07-16 14:11] LABS: Basophils % (A) 0 %; Eosinophils # (A) 0.1 k/uL (0-0.7); Eosinophils % (A) 2 %; HGB 17.2 gm/dL (13.0-17.5); Lymphocytes # (A) 0.4 k/uL (1.0-4.8); Lymphocytes % (A) 5 %; MCH 28.7 pg (25.0-35.0); MCHC 32.4 g/dL (31.0-37.0); MCV 88.8 fL (80.0-100.0); Mean Platelet Volume 8.9; Monocytes # (A) 0.6 k/uL (0-1.0); Monocytes % (A) 8 %; Neutrophils # (A) 6.2 k/uL (1.3-7.7); Neutrophils % (A) 84 %; Platelet Count 170 k/uL (150-450); RBC 5.97 m/uL (4.30-5.90); RDW 14.8 % (11.5-15.5); WBC 7.3 k/uL (3.8-10.6)
[2023-07-16] MEDS: DIPHENOX-ATROP 2.5-0.025 MG 1 EACH TAB PO STA (14:12)
[2023-07-16] MEDS: SODIUM CHLORIDE 0.9% 500 ML 500 ML IV ONE (14:12)
[2023-07-16 14:30] LABS: ALT 22 U/L (4-49); AST 36 U/L (17-59); African American GFR (CKD) >90 (>60 ml/min/1.73 sqM); Albumin 3.5 g/dL (3.5-5.0); Alkaline Phosphatase 85 U/L (38-126); Anion Gap 4 mmol/L; Blood Urea Nitrogen 13 mg/dL (9-20); Calcium 8.4 mg/dL (8.4-10.2); Carbon Dioxide 34 mmol/L (22-30); Chloride 103 mmol/L (98-107); Glucose 107 mg/dL (74-99); Magnesium 1.8 mg/dL (1.6-2.3); Non-African American GFR(CKD) >90 (>60 ml/min/1.73 sqM); Potassium 3.4 mmol/L (3.5-5.1); Sodium 141 mmol/L (137-145); Total Bilirubin 1.6 mg/dL (0.2-1.3); Total Protein 6.4 g/dL (6.3-8.2)
[2023-07-16] MEDS: DIPHENOX-ATROP STARTER PACK 8 TAB BTL PO STA (15:24)
[2023-07-16] MEDS: ONDANSETRON 4 MG ODT STARTER PACK 2 TAB BTL PO STA (15:24)
[2023-07-16 15:56] LABS: ABG Base Excess 7.1 mmol/L; ABG HCO3 33 mmol/L (21-25); ABG PCO2 63 mmHg (35-45); ABG PH 7.33 (7.35-7.45); ABG TCO2 35 mmol/L (19-24); Allen Test Performed? Yes
[2023-07-16 16:00] LABS: ABG PO2 39 mmHg (83-108)
[2023-07-16 16:01] LABS: ABG Oxygen Saturation 70.4 % (94-97)
[2023-07-16 16:21] LABS: ABG HCO3 34 mmol/L (21-25); ABG Oxygen Saturation 75.3 % (94-97); ABG PCO2 67 mmHg (35-45); ABG PH 7.31 (7.35-7.45); Allen Test Performed? Yes
[2023-07-16 16:28] LABS: ABG PO2 42 mmHg (83-108)
[2023-07-16] MEDS: IPRATROPIUM-ALBUTEROL 3 ML NEB INHALATION STA (16:55)
[2023-07-16 17:01] LABS: VBG PH 7.29 (7.31-7.41)
--- NOTE | 2023-07-16 17:27 | XR ---
EXAMINATION: XR chest 2V: 07/16/2023 4:38 PM CLINICAL INDICATION: Difficulty breathing TECHNIQUE: AP and lateral views COMPARISON: 04/15/2023 FINDINGS: There are no large areas of atelectasis or lung consolidation. However, there are bilateral multifoca l ill-defined added opacities throughout the lungs, seen particularly well in the lung bases on the l ateral view, consistent with a clinical diagnosis of multifocal bronchopneumonia. The pleural spaces are negative. The cardiac silhouette appears borderline enlarged, stable. The skeletal structures and soft tissues are negative for acute findings. IMPRESSION: Suspect developing multifocal bronchopneumonia.
--- NOTE | 2023-07-16 18:49 | CT ---
EXAMINATION TYPE: CT chest angio for PE DATE OF EXAM: 07/16/2023 COMPARISON: None HISTORY: SOB CT DLP: 301.5 mGycm. Automated Exposure Control for Dose Reduction was Utilized. CONTRAST: CTA scan of the thorax is performed with IV Contrast, patient injected with 100 ml mL of Is ovue 300. MIP Images are created on CT scanner and reviewed. 3D reconstructed images are created on an independent workstation and reviewed. FINDINGS: LUNGS: There is no major atelectasis or focal lung consolidation. However, there is prominent and dif fuse bilateral bronchial wall thickening and small scattered ill-defined opacities in the periphery w hich can correlate with a clinical diagnosis of developing multifocal consistent with developing pneu monia. Pleural spaces are negative. MEDIASTINUM: There is satisfactory enhancement of the pulmonary artery and its branches; there is no CT evidence for pulmonary embolism. No acute aortic process. Prominent coronary calcifications noted . There is mild cardiomegaly. No pericardial effusion. There are no greater than 1 cm hilar or mediastinal lymph nodes. Within the soft tissues are unremark able. OTHER: No additional significant abnormality is seen. IMPRESSION: Negative for pulmonary embolism. Prominent coronary calcifications. Airway/pulmonary findings as noted
[2023-07-16] MEDS: dexAMETHasone 2 MG TAB PO STA (18:54)
[2023-07-17] MEDS ORDERED: DEXTROSE 50% SYRINGE 50 ML IVP PRN ×2 (05:42)
--- NOTE | 2023-07-17 05:58 | P.HPIM ---
History of Present Illness H&P Date: 07/16/23 Chief Complaint: Diarrhea 78-year-old male with multiple comorbidities Patient coming in due to 10-day history of diarrhea denies any GI bleeding denies any nausea vomiting patient reports all his family was sick with upper respiratory infection last month. He started having diarrhea 10 days ago at least twice a day watery diarrhea without any abdominal pain no GI bleeding. He denies any fevers or chills he denies any trouble breathing denies any coughing denies any chest pain. However over the past day he was having increased large- volume diarrhea for which she decided to come into the hospital for evaluation Patient was found positive for COVID. He has history of COPD and asthma not on home oxygen. However while in the ED he was found to be hypoxic for which she was admitted for further care Patient does admit to cardiac history with stents he denies any tobacco smoking illicit drugs or heavy alcohol review of systems Pertinent positives as noted in HPI. All other systems were reviewed and are negative on exam Constitutional: No acute distress, conversant, pleasant Eyes: Anicteric sclerae, moist conjunctiva, Pupils equal round reactive to light ENMT: NC/AT Oropharynx clear, no erythema, or exudates Neck: Supple, no masses, or JVD No carotid bruits No thyromegaly Lungs: Clear to auscultation Clear to percussion Normal respiratory effort, no accessory muscle use Cardiovascular: Heart regular in rate and rhythm, No murmurs, gallops, or rubs No peripheral edema Abdominal: Soft Nontender, no guarding, rebound or rigidity Abdomen moving with respiration Normoactive bowel sounds Extremities: No digital cyanosis No clubbing Pedal pulses intact and symmetrical Radial pulses intact and symmetrical No calf tenderness Psychiatric: Alert and oriented to person, place and time Appropriate affect fair judgement Neuro Muscles Strength 5/5 in all 4 extremities Sensation to light touch grossly present throughout Cranial nerves II-XII grossly intact Past Medical History Past Medical History: Asthma, COPD, Hypertension, Myocardial Infarction (IA), Pneumonia, Prostate Disorder Additional Past Medical History / Comment(s): allergies, "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 Last Myocardial Infarction Date:: 05/09/2021 History of Any Multi-Drug Resistant Organisms: None Reported Past Surgical History: Appendectomy, Back Surgery, Heart Catheterization With Stent, Tonsillectomy Additional Past Surgical History / Comment(s): cervical, 3 heart stents Past Anesthesia/Blood Transfusion Reactions: No Reported Reaction Additional Past Anesthesia/Blood Transfusion Reaction / Comment(s): Pt is clausterphobic. Date of Last Stent Placement:: 05/09/21 Past Psychological History: No Psychological Hx Reported Smoking Status: Former smoker Past Alcohol Use History: None Reported Past Drug Use History: None Reported - Past Family History Mother Family Medical History: No Reported History Additional Family Medical History / Comment(s): Mother was healthy and lived to be 92 yrs old. Father History Unknown: Yes Additional Family Medical History / Comment(s): Father at the age of 68yrs, pt unable to say from what. Medications and Allergies Home Medications Medication Instructions Recorded Confirmed Type Albuterol Inhaler [Ventolin Hfa 2 puff INHALATION RT-QID PRN 04/25/21 07/16/23 History Inhaler] Albuterol Nebulized [Ventolin 2.5 mg INHALATION RT-Q4H PRN 04/25/21 07/16/23 History Nebulized] Cetirizine HCl [Zyrtec] 10 mg PO DAILY PRN 04/25/21 07/16/23 History Fluticasone Nasal [place] [Flonase 1 spr EA NOSTRIL DAILY 04/25/21 07/16/23 History Nasal [place]] Lidocaine 5% Patch [Lidoderm 5% 1 patch TRANSDERM DAILY 04/25/21 07/16/23 History Patch] Tamsulosin [Flomax] 0.4 mg PO DAILY #30 capsule 05/12/21 07/16/23 Rx Atorvastatin [Lipitor] 80 mg PO HS 02/03/22 07/16/23 History Folic Acid 1 mg PO DAILY 02/03/22 07/16/23 History Metoprolol Succinate (ER) [Toprol 25 mg PO BID 02/03/22 07/16/23 History XL] Thiamine [Vitamin B-1] 100 mg PO DAILY 02/03/22 07/16/23 History lisinopriL [Zestril] 5 mg PO BID 02/03/22 07/16/23 History Isosorbide Mononitrate ER [Imdur] 30 mg PO DAILY 30 Days #30 tab 02/04/22 07/16/23 Rx Aspirin 81 mg PO DAILY 08/25/22 07/16/23 History Furosemide [Lasix] 20 mg PO BID@0900,1300 08/25/22 07/16/23 History Fluticasone Propion/Salmeterol 1 puff INHALATION RT-BID 10/18/22 07/16/23 History [Wixela 250-50 Inhub] Acetaminophen Tab [Tylenol] 1,000 mg PO Q6H PRN 04/11/23 07/16/23 History Empagliflozin [Jardiance] 10 mg PO DAILY 04/11/23 07/16/23 History Ketoconazole 2% Shampoo [Nizoral] 1 applic TOPICAL DAILY 04/11/23 07/16/23 History Triamcinolone 0.1% Cream [Kenalog 1 applic TOPICAL DAILY PRN 04/11/23 07/16/23 History 0.1% Cream] Nitroglycerin Sl Tabs [Nitrostat] 0.4 mg SUBLINGUAL Q5M PRN 07/16/23 07/16/23 History Allergies Allergy/AdvReac Type Severity Reaction Status Date / Time Influenza Virus Vaccines Allergy Anaphylaxis Verified 07/16/23 13:02 tomato Allergy Anaphylaxis Verified 07/16/23 13:02 /Hives Physical Exam Vitals: Vital Signs Temp Pulse Pulse Resp BP BP Pulse Ox 07/16/23 20:00 97 16 101/68 97 07/16/23 19:03 84 20 115/66 93 L 07/16/23 17:03 89 07/16/23 16:55 86 07/16/23 16:30 96 07/16/23 15:45 95 20 101/59 79 L 07/16/23 13:38 98.6 F 07/16/23 12:58 97.6 F 91 18 86/49 95 Intake and Output 07/16/23 07/16/23 07/16/23 06:59 14:59 22:59 Output Total 1000 Balance -1000 Output: Urine 1000 Uretheral (Richardson) 1000 Other: Weight 58.967 kg Results CBC & Chem 7: 07/16/23 13:58 07/16/23 13:58 Labs: Abnormal Lab Results - Last 24 Hours (Table) 07/16/23 07/16/23 07/16/23 Range/Units 13:58 13:58 15:53 RBC 5.97 H (4.30-5.90) m/uL Lymphocytes # 0.4 L (1.0-4.8) k/uL D-Dimer (<0.60) mg/L FEU ABG pH 7.33 L (7.35-7.45) ABG pCO2 63 H (35-45) mmHg ABG pO2 39 L* (83-108) mmHg ABG HCO3 33 H (21-25) mmol/L ABG Total CO2 35 H (19-24) mmol/L ABG O2 Saturation 70.4 L (94-97) % VBG pH (7.31-7.41) VBG pCO2 (37-51) mmHg VBG HCO3 (24-28) mmol/L Potassium 3.4 L (3.5-5.1) mmol/L Carbon Dioxide 34 H (22-30) mmol/L Creatinine 0.59 L (0.66-1.25) mg/dL Glucose 107 H (74-99) mg/dL Total Bilirubin 1.6 H (0.2-1.3) mg/dL SARS-CoV-2 (PCR) (Not Detectd) 07/16/23 07/16/23 07/16/23 Range/Units 16:17 16:54 16:54 RBC (4.30-5.90) m/uL Lymphocytes # (1.0-4.8) k/uL D-Dimer 1.01 H (<0.60) mg/L FEU ABG pH 7.31 L (7.35-7.45) ABG pCO2 67 H (35-45) mmHg ABG pO2 42 L* (83-108) mmHg ABG HCO3 34 H (21-25) mmol/L ABG Total CO2 (19-24) mmol/L ABG O2 Saturation 75.3 L (94-97) % VBG pH (7.31-7.41) VBG pCO2 (37-51) mmHg VBG HCO3 (24-28) mmol/L Potassium (3.5-5.1) mmol/L Carbon Dioxide (22-30) mmol/L Creatinine (0.66-1.25) mg/dL Glucose (74-99) mg/dL Total Bilirubin (0.2-1.3) mg/dL SARS-CoV-2 (PCR) Detected A (Not Detectd) 07/16/23 Range/Units 16:55 RBC (4.30-5.90) m/uL Lymphocytes # (1.0-4.8) k/uL D-Dimer (<0.60) mg/L FEU ABG pH (7.35-7.45) ABG pCO2 (35-45) mmHg ABG pO2 (83-108) mmHg ABG HCO3 (21-25) mmol/L ABG Total CO2 (19-24) mmol/L ABG O2 Saturation (94-97) % VBG pH 7.29 L (7.31-7.41) VBG pCO2 70 H* (37-51) mmHg VBG HCO3 34 H (24-28) mmol/L Potassium (3.5-5.1) mmol/L Carbon Dioxide (22-30) mmol/L Creatinine (0.66-1.25) mg/dL Glucose (74-99) mg/dL Total Bilirubin (0.2-1.3) mg/dL SARS-CoV-2 (PCR) (Not Detectd) Assessment and Plan Assessment: 78-year-old male with COPD not on home oxygen CVA/CAD status post stents coming in for worsening diarrhea over the past 10 days with positive sick contact with upper respiratory infection I discussed case with ED doctor and accepted the admission for COVID with hypoxemia and GI symptoms with anticipated length of stay more than 2 midnights Acute hypoxic respiratory failure patient dropped down to 79% on room air while in the ED CT angio of the chest negative for acute PE Chest x-ray showed some diffuse opacities suspicious for pneumonia COVID test positive Supplemental oxygen as needed Dexamethasone 6 mg p.o. daily DVT prophylaxis with Lovenox 40 mg subcu daily D-dimer +1.01, CT angio of the chest no acute PE Continue with home inhalers Supportive care Monitor vital signs White count unremarkable 7.3 Hemoglobin 17.2 unremarkable Symptomatic control of diarrhea with Imodium as needed Chronic conditions CAD status post stents Continue cardiac meds aspirin and atorvastatin Continue with Imdur 30 mg p.o. daily Hypertension, controlled Continue with metoprolol 25 mg twice daily Continue lisinopril 5 mg p.o. twice daily Renal function overall unremarkable sodium 141 potassium 3.4 BUN 13 creatinine 0 .59 Diabetes mellitus Insulin sliding scale Full code DVT prophylaxis Lovenox 40 mg subcu daily
[2023-07-17] MEDS ORDERED: LOPERAMIDE 2 MG CAP PO PRN (06:01)
[2023-07-17 06:16] LABS: Glucose,Whole Blood 101 mg/dL (70-110)
[2023-07-17] MEDS: INSULIN ASPART (NovoLOG) 100 UNIT/ML VIAL SQ SCH (06:18)
[2023-07-17] MEDS: SYMBICORT 80-4.5 MCG INHALER INHALATION SCH (09:31)
[2023-07-17] MEDS: ENOXAPARIN 40 MG/0.4 ML SYRINGE SQ SCH (09:45)
[2023-07-17] MEDS: dexAMETHasone 2 MG TAB PO SCH (09:45)
[2023-07-17] MEDS: TAMSULOSIN 0.4 MG CAP.ER.24H PO SCH (09:45)
[2023-07-17] MEDS: METOPROLOL SUCCINATE (ER) 25 MG TAB.ER.24H PO SCH (09:45)
[2023-07-17] MEDS: ISOSORBIDE MONONITRATE ER 30 MG TAB.ER.24H PO SCH (09:46)
[2023-07-17] MEDS: ASPIRIN 81 MG PO SCH (09:46)
[2023-07-17] MEDS: lisinopriL 5 MG TAB PO SCH (09:46)
--- NOTE | 2023-07-17 11:12 | P.PN ---
Subjective Progress Note Date: 07/17/23 No new complaints today. Breathing is improved per patient. Gen: In NAD, non-toxic HEENT: normocephalic, atraumatic, hearing acuity is intant, mucous membranes moist CVS: perfusing all extremities well, no pitting edema, Respiratory: symmetric chest expansion, no accessory muscle use, GI: soft, NTTP, ND, : no suprapubic tenderness, no CVA tenderness MSK/Derm: no rashes, cyanosis Neuro: CN II-XII intact, no motor weakness, Psych: cooperative, euthymic mood, judgment and insight is intact Hospital course: 78-year-old male with multiple comorbidities including COPD not on home oxygen CVA/CAD status post stents presented for worsening diarrhea over the past 10 days with positive sick contact with upper respiratory infection. White count unremarkable 7.3 Hemoglobin 17.2 unremarkable Renal function overall unremarkable sodium 141 potassium 3.4 BUN [address] angio of the chest negative for acute PE, did show some bronchial thickness concerning for developing pneumonia Chest x-ray showed some diffuse opacities suspicious for pneumonia COVID test positive Assessment/plan: Acute hypoxic respiratory failure patient dropped down to 79% on room air while in the ED COPD Exacerbation COVID-19 Pneumonia Dexamethasone 6 mg p.o. daily Continue with home inhalers Procalcitonin added Defer abx at this time Repeat CXR today Initiate azithromycin 500mg daily Diarrhea Imodium as needed s/p IVF: 2.5L total of NS bolus CAD status post stents Continue cardiac meds aspirin and atorvastatin Continue with Imdur 30 mg p.o. daily Hypertension, controlled Continue with metoprolol 25 mg twice daily Continue lisinopril 5 mg p.o. twice daily Diabetes mellitus Insulin sliding scale No code DVT prophylaxis Lovenox 40 mg subcu daily Objective - Vital Signs Vital signs: Vital Signs Temp 97.7 F 07/17/23 09:40 Pulse 81 07/17/23 09:40 Resp 16 07/17/23 09:40 BP 102/55 07/17/23 09:40 Pulse Ox 92 L 07/17/23 09:40 FiO2 Intake & Output 07/16/23 07/17/23 07/17/23 18:59 06:59 18:59 Intake Total 225 Output Total 1850 Balance -1849 225 Weight 58.967 kg 58.967 kg Intake: Oral 225 Output: Urine 1850 Uretheral (Richardson) 1000 Other: Voiding Method Indwelling Catheter - Labs CBC & Chem 7: 07/16/23 13:58 07/16/23 13:58 Labs: Abnormal Lab Results - Last 24 Hours (Table) 07/16/23 07/16/23 07/16/23 Range/Units 13:58 13:58 15:53 RBC 5.97 H (4.30-5.90) m/uL Lymphocytes # 0.4 L (1.0-4.8) k/uL D-Dimer (<0.60) mg/L FEU ABG pH 7.33 L (7.35-7.45) ABG pCO2 63 H (35-45) mmHg ABG pO2 39 L* (83-108) mmHg ABG HCO3 33 H (21-25) mmol/L ABG Total CO2 35 H (19-24) mmol/L ABG O2 Saturation 70.4 L (94-97) % VBG pH (7.31-7.41) VBG pCO2 (37-51) mmHg VBG HCO3 (24-28) mmol/L Potassium 3.4 L (3.5-5.1) mmol/L Carbon Dioxide 34 H (22-30) mmol/L Creatinine 0.59 L (0.66-1.25) mg/dL Glucose 107 H (74-99) mg/dL Total Bilirubin 1.6 H (0.2-1.3) mg/dL SARS-CoV-2 (PCR) (Not Detectd) 07/16/23 07/16/23 07/16/23 Range/Units 16:17 16:54 16:54 RBC (4.30-5.90) m/uL Lymphocytes # (1.0-4.8) k/uL D-Dimer 1.01 H (<0.60) mg/L FEU ABG pH 7.31 L (7.35-7.45) ABG pCO2 67 H (35-45) mmHg ABG pO2 42 L* (83-108) mmHg ABG HCO3 34 H (21-25) mmol/L ABG Total CO2 (19-24) mmol/L ABG O2 Saturation 75.3 L (94-97) % VBG pH (7.31-7.41) VBG pCO2 (37-51) mmHg VBG HCO3 (24-28) mmol/L Potassium (3.5-5.1) mmol/L Carbon Dioxide (22-30) mmol/L Creatinine (0.66-1.25) mg/dL Glucose (74-99) mg/dL Total Bilirubin (0.2-1.3) mg/dL SARS-CoV-2 (PCR) Detected A (Not Detectd) 07/16/23 Range/Units 16:55 RBC (4.30-5.90) m/uL Lymphocytes # (1.0-4.8) k/uL D-Dimer (<0.60) mg/L FEU ABG pH (7.35-7.45) ABG pCO2 (35-45) mmHg ABG pO2 (83-108) mmHg ABG HCO3 (21-25) mmol/L ABG Total CO2 (19-24) mmol/L ABG O2 Saturation (94-97) % VBG pH 7.29 L (7.31-7.41) VBG pCO2 70 H* (37-51) mmHg VBG HCO3 34 H (24-28) mmol/L Potassium (3.5-5.1) mmol/L Carbon Dioxide (22-30) mmol/L Creatinine (0.66-1.25) mg/dL Glucose (74-99) mg/dL Total Bilirubin (0.2-1.3) mg/dL SARS-CoV-2 (PCR) (Not Detectd)
[2023-07-17 11:45] LABS: Glucose,Whole Blood 135 mg/dL (70-110)
[2023-07-17] MEDS: AZITHROMYCIN 500 MG in SODIUM CHLORIDE 0.9% 250 ML IVPB SCH (12:29)
--- NOTE | 2023-07-17 16:14 | XR ---
EXAMINATION TYPE: XR chest 1V portable DATE OF EXAM: 07/17/2023 Comparison: 07/16/2023 Clinical History: 78-year-old male pneumonia Findings: ACDF hardware. Heart normal size. Mild diffuse interstitial density. Suggestion of trace effusions. P atchy left basilar retrocardiac opacity. Impression: Suggestion of trace pleural effusions. Patchy left basilar and retrocardiac opacity, possible pneumon ia.
[2023-07-17 16:43] LABS: Glucose,Whole Blood 156 mg/dL (70-110)
[2023-07-17 20:01] LABS: Glucose,Whole Blood 153 mg/dL (70-110)
[2023-07-17] MEDS: ATORVASTATIN 80 MG TAB PO SCH (20:07)
[2023-07-18 03:42] LABS: Glucose,Whole Blood 132 mg/dL (70-110)
[2023-07-18 06:00] LABS: Glucose,Whole Blood 127 mg/dL (70-110)
[2023-07-18] MEDS: ALBUTEROL HFA INHALER INHALATION PRN (07:49)
--- NOTE | 2023-07-18 10:27 | P.PN ---
Subjective Progress Note Date: 07/18/23 Pt described episode of coughing and aspiration as he was trying to drink water last night. O2 requirement increased to 6L. CXR personally interpreted today, appears to have increased diffuse reticulonodular opacities, and retrocardiac opacity. Gen: In NAD, non-toxic HEENT: normocephalic, atraumatic, hearing acuity is intant, mucous membranes moist CVS: perfusing all extremities well, no pitting edema, Respiratory: symmetric chest expansion, no accessory muscle use, crackles heard best in left lung field GI: soft, NTTP, ND, : no suprapubic tenderness, no CVA tenderness MSK/Derm: no rashes, cyanosis Neuro: CN II-XII intact, no motor weakness, Psych: cooperative, euthymic mood, judgment and insight is intact Hospital course: 78-year-old male with multiple comorbidities including COPD not on home oxygen CVA/CAD status post stents presented for worsening diarrhea over the past 10 days with positive sick contact with upper respiratory infection. White count unremarkable 7.3 Hemoglobin 17.2 unremarkable Renal function overall unremarkable sodium 141 potassium 3.4 BUN [address] angio of the chest negative for acute PE, did show some bronchial thickness concerning for developing pneumonia Chest x-ray showed some diffuse opacities suspicious for pneumonia COVID test positive Assessment/plan: Acute hypoxic respiratory failure patient dropped down to 79% on room air while in the ED COPD Exacerbation COVID-19 Pneumonia Dexamethasone 6 mg p.o. daily Continue with home inhalers Procalcitonin added, and low Initiated ceftriaxone due to aspiration event and worsening hypoxia Repeat CXR today, interpreted above Initiate azithromycin 500mg daily for COPD exacerbation Pulmonology consulted Diarrhea Imodium as needed s/p IVF: 2.5L total of NS bolus CAD status post stents Continue cardiac meds aspirin and atorvastatin Continue with Imdur 30 mg p.o. daily Hypertension, controlled Continue with metoprolol 25 mg twice daily Continue lisinopril 5 mg p.o. twice daily Diabetes mellitus Insulin sliding scale No code DVT prophylaxis Lovenox 40 mg subcu daily Objective - Vital Signs Vital signs: Vital Signs Temp 98.2 F 07/18/23 03:15 Pulse 91 07/18/23 03:58 Resp 24 07/18/23 03:58 BP 130/61 03/09/24 03:58 Pulse Ox 90 L 07/18/23 03:58 FiO2 44 07/18/23 04:55 Intake & Output 07/17/23 07/18/23 07/18/23 18:59 06:59 18:59 Intake Total 1175 118 Output Total 600 1100 375 Balance 575 -982 -375 Intake: Intake, IV Titration 250 Amount Azithromycin 500 mg In 250 Sodium Chloride 0.9% 250 ml @ 250 mls/hr IVPB DAILY [facility] Rx#:[id number] Oral 925 118 Output: Urine 600 1100 375 Other: Voiding Method Indwelling Catheter Indwelling Catheter - Labs CBC & Chem 7: 07/16/23 13:58 07/16/23 13:58 Labs: Abnormal Lab Results - Last 24 Hours (Table) 07/17/23 07/17/23 07/17/23 Range/Units 11:43 16:42 20:00 POC Glucose (mg/dL) 135 H 156 H 153 H (70-110) mg/dL 07/18/23 07/18/23 Range/Units 03:40 05:59 POC Glucose (mg/dL) 132 H 127 H (70-110) mg/dL
[2023-07-18 11:20] LABS: Glucose,Whole Blood 103 mg/dL (70-110)
[2023-07-18 12:01] LABS: Basophils % (A) 0 %; Eosinophils % (A) 0 %; HCT 52.4 % (39.0-53.0); HGB 16.2 gm/dL (13.0-17.5); Hypochromasia Marked; Lymphocytes # (A) 0.7 k/uL (1.0-4.8); Lymphocytes % (A) 6 %; MCH 28.9 pg (25.0-35.0); MCHC 30.9 g/dL (31.0-37.0); MCV 93.4 fL (80.0-100.0); Mean Platelet Volume 9.8; Monocytes # (A) 0.8 k/uL (0-1.0); Monocytes % (A) 7 %; Neutrophils # (A) 9.5 k/uL (1.3-7.7); Neutrophils % (A) 86 %; Platelet Count 160 k/uL (150-450); RBC 5.62 m/uL (4.30-5.90); RDW 14.8 % (11.5-15.5)
--- NOTE | 2023-07-18 13:10 | P.CNPUL ---
History of Present Illness Consult date: 07/18/23 Requesting physician: Georgette Salazar Reason for consult: other (Acute COVID-19 infection and COPD exacerbation) Chief complaint: Diarrhea History of present illness: This is an 78-year-old white male, known history of COPD, has been a smoker over the years, patient was brought into the ER on 07/16/2023, his chief complaint was mostly symptoms of diarrhea for the last 9 days. Patient had diarrhea episodes at least twice a day. And spite of trying to drink lots of water, patient felt dehydrated, he had no episodes of vomiting, no melena, no hematemesis. Patient had occasional cough, wheezing, and apparently multiple family members had symptoms of URI. What brought in the patient to the ER was mostly his GI symptoms not his pulmonary symptoms, nonetheless he was noted to have positive COVID-19 screening, and on CT of the chest showed evidence of scattered ill- defined opacities in the periphery of both lungs, consistent with multifocal pneumonia. Patient was admitted, and this consult was initiated patient is requiring oxygen he is now on 6 L nasal cannula and his O2 saturation is 100%. Blood pressure is marginal with 86/50 and mean arterial pressure of 63 in spite of his abnormal CT of the chest showing multifocal infiltrates, his procalcitonin level is normal 0.06. Patient is receiving albuterol, he is on Rocephin and Zithromax, patient is also on Decadron 6 mg daily, receiving IV fluids for his diarrhea and dehydration, patient is obviously out of the window for remdesivir at this point. Review of Systems CONSTITUTIONAL: Weakness fatigue, feels dehydrated EYES: Negative. ENT: Negative. CARDIAC: Negative. PULMONARY: Intermittent cough, no fever no chills no hemoptysis. Minimal shortness of breath GI: Diarrhea but no nausea no vomiting. GENITOURINARY: Negative. MUSCULOSKELETAL: Vague aches and pains SKIN: Negative. NEUROPSYCH: Negative. ENDOCRINE: Negative. HEMATOLOGIC: Negative. Past Medical History Past Medical History: Asthma, COPD, Hypertension, Myocardial Infarction ([place]), P neumonia, Prostate Disorder Additional Past Medical History / Comment(s): allergies, "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 Last Myocardial Infarction Date:: 05/09/2021 History of Any Multi-Drug Resistant Organisms: None Reported Past Surgical History: Appendectomy, Back Surgery, Heart Catheterization With Stent, Tonsillectomy Additional Past Surgical History / Comment(s): cervical, 3 heart stents Past Anesthesia/Blood Transfusion Reactions: No Reported Reaction Additional Past Anesthesia/Blood Transfusion Reaction / Comment(s): Pt is clausterphobic. Date of Last Stent Placement:: 05/09/21 Past Psychological History: No Psychological Hx Reported Smoking Status: Former smoker Past Alcohol Use History: None Reported Past Drug Use History: None Reported - Past Family History Mother Family Medical History: No Reported History Additional Family Medical History / Comment(s): Mother was healthy and lived to be 92 yrs old. Father History Unknown: Yes Additional Family Medical History / Comment(s): Father at the age of 68yrs, pt unable to say from what. Medications and Allergies Home Medications Medication Instructions Recorded Confirmed Type Albuterol Inhaler [Ventolin Hfa 2 puff INHALATION RT-QID PRN 04/25/21 07/16/23 History Inhaler] Albuterol Nebulized [Ventolin 2.5 mg INHALATION RT-Q4H PRN 04/25/21 07/16/23 History Nebulized] Cetirizine HCl [Zyrtec] 10 mg PO DAILY PRN 04/25/21 07/16/23 History Fluticasone Nasal [place] [Flonase 1 spr EA NOSTRIL DAILY 04/25/21 07/16/23 History Nasal [place]] Lidocaine 5% Patch [Lidoderm 5% 1 patch TRANSDERM DAILY 04/25/21 07/16/23 History Patch] Tamsulosin [Flomax] 0.4 mg PO DAILY #30 capsule 05/12/21 07/16/23 Rx Atorvastatin [Lipitor] 80 mg PO HS 02/03/22 07/16/23 History Folic Acid 1 mg PO DAILY 02/03/22 07/16/23 History Metoprolol Succinate (ER) [Toprol 25 mg PO BID 02/03/22 07/16/23 History XL] Thiamine [Vitamin B-1] 100 mg PO DAILY 02/03/22 07/16/23 History lisinopriL [Zestril] 5 mg PO BID 02/03/22 07/16/23 History Isosorbide Mononitrate ER [Imdur] 30 mg PO DAILY 30 Days #30 tab 02/04/22 07/16/23 Rx Aspirin 81 mg PO DAILY 08/25/22 07/16/23 History Furosemide [Lasix] 20 mg PO BID@0900,1300 08/25/22 07/16/23 History Fluticasone Propion/Salmeterol 1 puff INHALATION RT-BID 10/18/22 07/16/23 History [Wixela 250-50 Inhub] Acetaminophen Tab [Tylenol] 1,000 mg PO Q6H PRN 04/11/23 07/16/23 History Empagliflozin [Jardiance] 10 mg PO DAILY 04/11/23 07/16/23 History Ketoconazole 2% Shampoo [Nizoral] 1 applic TOPICAL DAILY 04/11/23 07/16/23 History Triamcinolone 0.1% Cream [Kenalog 1 applic TOPICAL DAILY PRN 04/11/23 07/16/23 History 0.1% Cream] Nitroglycerin Sl Tabs [Nitrostat] 0.4 mg SUBLINGUAL Q5M PRN 07/16/23 07/16/23 History Allergies Allergy/AdvReac Type Severity Reaction Status Date / Time Influenza Virus Vaccines Allergy Anaphylaxis Verified 07/16/23 13:02 tomato Allergy Anaphylaxis Verified 07/16/23 13:02 /Hives Physical Exam Vitals: Vital Signs Temp Pulse Resp BP BP Pulse Ox FiO2 07/18/23 11:45 67 20 81/54 86/50 100 07/18/23 09:45 66 20 115/59 94 L 07/18/23 04:55 44 07/18/23 03:58 91 24 130/61 90 L 07/18/23 03:15 98.2 F 69 19 101/58 97 07/17/23 23:54 98.1 F 68 20 99/53 97 07/17/23 20:00 98.2 F 78 19 113/58 94 L 07/17/23 17:30 62 18 101/55 96 Intake and Output 07/17/23 07/18/23 07/18/23 22:59 06:59 14:59 Intake Total 958 Output Total 600 1100 375 Balance 358 -1100 -375 Intake: Intake, IV Titration 250 Amount Azithromycin 500 mg In 250 Sodium Chloride 0.9% 250 ml @ 250 mls/hr IVPB DAILY [facility] Rx#:[id number] Oral 708 Output: Urine 600 1100 375 Other: Voiding Method Indwelling Catheter Indwelling Catheter Indwelling Catheter General: Revealed a very pleasant 78-year-old white male in no distress, on 6 L nasal cannula Skin: Skin is warm and dry and no rashes or lesions are noted. Eye: Pupils are equal, round and reactive to light, extra-ocular movements are intact; there is normal conjunctiva bilaterally. Ears, nose, mouth and throat: There are moist mucous membranes and no oral lesions. Neck: The neck is supple, there is no tenderness or JVD. Cardiovascular: Normal S1-S2, no S3 gallop. Respiratory: Scattered rhonchi and wheezing noted bilaterally Gastrointestinal: Soft, non-distended, non-tender abdomen without masses or organomegaly noted. There is no rebound or guarding present. Bowel sounds are unremarkable. Musculoskeletal: Normal ROM, no tenderness, There is no pedal edema. There is no calf tenderness or swelling. No cords were appreciated. Neurological: CN II-XII intact, Cranial nerves III through XII are intact. There are no obvious motor or sensory deficits. Coordination appears grossly intact. Speech is normal. Psychiatric: Cooperative, appropriate mood & affect, normal judgment. Results - Laboratory Findings CBC and BMP: 07/18/23 08:40 07/16/23 13:58 ABG ABG pH 7.31 (7.35-7.45) L 07/16/23 16:17 ABG pCO2 67 mmHg (35-45) H 07/16/23 16:17 ABG pO2 42 mmHg (83-108) L* 07/16/23 16:17 ABG O2 Saturation 75.3 % (94-97) L 07/16/23 16:17 PT/INR, D-dimer D-Dimer 1.01 mg/L FEU (<0.60) H 07/16/23 16:54 Abnormal lab findings: Abnormal Labs 07/16/23 07/16/23 07/16/23 13:58 13:58 15:53 WBC RBC 5.97 H MCHC Neutrophils # Lymphocytes # 0.4 L D-Dimer ABG pH 7.33 L ABG pCO2 63 H ABG pO2 39 L* ABG HCO3 33 H ABG Total CO2 35 H ABG O2 Saturation 70.4 L VBG pH VBG pCO2 VBG HCO3 Potassium 3.4 L Carbon Dioxide 34 H Creatinine 0.59 L Glucose 107 H POC Glucose (mg/dL) Total Bilirubin 1.6 H SARS-CoV-2 (PCR) 07/16/23 07/16/23 07/16/23 16:17 16:54 16:54 WBC RBC MCHC Neutrophils # Lymphocytes # D-Dimer 1.01 H ABG pH 7.31 L ABG pCO2 67 H ABG pO2 42 L* ABG HCO3 34 H ABG Total CO2 ABG O2 Saturation 75.3 L VBG pH VBG pCO2 VBG HCO3 Potassium Carbon Dioxide Creatinine Glucose POC Glucose (mg/dL) Total Bilirubin SARS-CoV-2 (PCR) Detected A 07/16/23 07/17/23 07/17/23 16:55 11:43 16:42 WBC RBC MCHC Neutrophils # Lymphocytes # D-Dimer ABG pH ABG pCO2 ABG pO2 ABG HCO3 ABG Total CO2 ABG O2 Saturation VBG pH 7.29 L VBG pCO2 70 H* VBG HCO3 34 H Potassium Carbon Dioxide Creatinine Glucose POC Glucose (mg/dL) 135 H 156 H Total Bilirubin SARS-CoV-2 (PCR) 07/17/23 07/18/23 07/18/23 20:00 03:40 05:59 WBC RBC MCHC Neutrophils # Lymphocytes # D-Dimer ABG pH ABG pCO2 ABG pO2 ABG HCO3 ABG Total CO2 ABG O2 Saturation VBG pH VBG pCO2 VBG HCO3 Potassium Carbon Dioxide Creatinine Glucose POC Glucose (mg/dL) 153 H 132 H 127 H Total Bilirubin SARS-CoV-2 (PCR) 07/18/23 08:40 WBC 11.0 H RBC MCHC 30.9 L Neutrophils # 9.5 H Lymphocytes # 0.7 L D-Dimer ABG pH ABG pCO2 ABG pO2 ABG HCO3 ABG Total CO2 ABG O2 Saturation VBG pH VBG pCO2 VBG HCO3 Potassium Carbon Dioxide Creatinine Glucose POC Glucose (mg/dL) Total Bilirubin SARS-CoV-2 (PCR) - Diagnostic Findings Chest x-ray: image reviewed CT scan - chest: image reviewed (As noted in HPI) Assessment and Plan Assessment: Impression: Acute hypoxic respiratory failure Acute COVID-19 pneumonia, doubt bacterial pneumonia with normal procalcitonin level Acute exacerbation of COPD Acute gastroenteritis, likely viral in nature related to COVID-19 infection Acute dehydration Recommendation: Continue present treatment plan including antibiotics, bronchodilators, steroids, Patient is out of the window for remdesivir. Hold blood pressure medications since his blood pressure is marginal Titrate oxygen accordingly Close monitoring for worsening bilateral peripheral infiltrates as noted on the CT of the chest but not clearly seen on chest x-ray Continue albuterol, Change Symbicort to 160/4.52 puffs twice daily Consider stopping antibiotics Will continue to follow
[2023-07-18 13:34] LABS: African American GFR (CKD) >90 (>60 ml/min/1.73 sqM); Anion Gap 1 mmol/L; Blood Urea Nitrogen 18 mg/dL (9-20); Calcium 8.1 mg/dL (8.4-10.2); Carbon Dioxide 35 mmol/L (22-30); Chloride 106 mmol/L (98-107); Glucose 115 mg/dL (74-99); Magnesium 2.1 mg/dL (1.6-2.3); Non-African American GFR(CKD) 88 (>60 ml/min/1.73 sqM); Potassium 4.2 mmol/L (3.5-5.1); Sodium 142 mmol/L (137-145)
[2023-07-18 15:47] LABS: Glucose,Whole Blood 152 mg/dL (70-110)
[2023-07-18] MEDS ORDERED: NITROGLYCERIN SL TABS 0.4 MG TAB SUBLINGUAL PRN (18:32)
[2023-07-18] MEDS ORDERED: LORATADINE 10 MG TAB PO PRN (18:32)
[2023-07-18] MEDS ORDERED: ALBUTEROL NEBULIZED 2.5 MG/3 ML INHALATION PRN (18:32)
[2023-07-18] MEDS: FLUTICASONE 50MCG/SPRAY NASAL 16GM EA NOSTRIL SCH (18:45)
[2023-07-18 20:21] LABS: Glucose,Whole Blood 147 mg/dL (70-110)
[2023-07-18] MEDS: SYMBICORT 160-4.5 MCG INHALER INHALATION SCH (20:35)
[2023-07-18] MEDS: dexAMETHasone 2 MG TAB PO SCH (20:44)
[2023-07-19 06:03] LABS: Glucose,Whole Blood 135 mg/dL (70-110)
[2023-07-19] MEDS: FUROSEMIDE 20 MG TAB PO SCH (07:51)
[2023-07-19] MEDS: METOPROLOL SUCCINATE (ER) 25 MG TAB.ER.24H PO SCH (07:52)
[2023-07-19] MEDS: THIAMINE 100 MG TAB PO SCH (07:52)
[2023-07-19] MEDS: LIDOCAINE 4% PATCH TOPICAL SCH (07:52)
[2023-07-19] MEDS: FOLIC ACID 1 MG TAB PO SCH (07:52)
[2023-07-19 08:30] LABS: Basophils % (A) 0 %; Eosinophils % (A) 0 %; HCT 52.6 % (39.0-53.0); HGB 16.3 gm/dL (13.0-17.5); Hypochromasia Slight; Lymphocytes # (A) 0.5 k/uL (1.0-4.8); Lymphocytes % (A) 5 %; MCV 90.3 fL (80.0-100.0); Mean Platelet Volume 9.3; Monocytes # (A) 0.7 k/uL (0-1.0); Monocytes % (A) 7 %; Neutrophils # (A) 8.5 k/uL (1.3-7.7); Neutrophils % (A) 87 %; Platelet Count 181 k/uL (150-450); RBC 5.83 m/uL (4.30-5.90); RDW 14.6 % (11.5-15.5); WBC 9.8 k/uL (3.8-10.6)
[2023-07-19] MEDS ORDERED: AZITHROMYCIN 500 MG TAB PO SCH (09:00)
[2023-07-19] MEDS ORDERED: lisinopriL 5 MG TAB PO SCH (09:00)
[2023-07-19 09:02] LABS: African American GFR (CKD) >90 (>60 ml/min/1.73 sqM); Anion Gap 5 mmol/L; Blood Urea Nitrogen 18 mg/dL (9-20); Calcium 8.8 mg/dL (8.4-10.2); Carbon Dioxide 30 mmol/L (22-30); Chloride 108 mmol/L (98-107); Glucose 177 mg/dL (74-99); Magnesium 2.2 mg/dL (1.6-2.3); Non-African American GFR(CKD) >90 (>60 ml/min/1.73 sqM); Sodium 143 mmol/L (137-145)
[2023-07-19 11:11] LABS: Glucose,Whole Blood 152 mg/dL (70-110)
--- NOTE | 2023-07-19 11:41 | P.PN ---
Subjective Progress Note Date: 07/19/23 Pts o2 requirement improved from yesterday. On abx, bronchodilators, steroids. Pulmonology input appreciated Gen: In NAD, non-toxic HEENT: normocephalic, atraumatic, hearing acuity is intant, mucous membranes moist CVS: perfusing all extremities well, no pitting edema, Respiratory: symmetric chest expansion, no accessory muscle use, crackles heard best in left lung field GI: soft, NTTP, ND, : no suprapubic tenderness, no CVA tenderness MSK/Derm: no rashes, cyanosis Neuro: CN II-XII intact, no motor weakness, Psych: cooperative, euthymic mood, judgment and insight is intact Hospital course: 78-year-old male with multiple comorbidities including COPD not on home oxygen CVA/CAD status post stents presented for worsening diarrhea over the past 10 days with positive sick contact with upper respiratory infection. White count unremarkable 7.3 Hemoglobin 17.2 unremarkable Renal function overall unremarkable sodium 141 potassium 3.4 BUN [address] angio of the chest negative for acute PE, did show some bronchial thickness concerning for developing pneumonia Chest x-ray showed some diffuse opacities suspicious for pneumonia COVID test positive Assessment/plan: Acute hypoxic respiratory failure patient dropped down to 79% on room air while in the ED COPD Exacerbation COVID-19 Pneumonia Dexamethasone 6 mg p.o. daily Continue with home inhalers Procalcitonin added, and low Initiated ceftriaxone due to aspiration event and worsening hypoxia Repeat CXR today, interpreted above Initiate azithromycin 500mg daily for COPD exacerbation Pulmonology consulted Diarrhea Imodium as needed s/p IVF: 2.5L total of NS bolus CAD status post stents Continue cardiac meds aspirin and atorvastatin Continue with Imdur 30 mg p.o. daily Hypertension, controlled Continue with metoprolol 25 mg twice daily Continue lisinopril 5 mg p.o. twice daily Diabetes mellitus Insulin sliding scale No code DVT prophylaxis Lovenox 40 mg subcu daily Objective - Vital Signs Vital signs: Vital Signs Temp 96.7 F L 07/19/23 07:39 Pulse 92 07/19/23 07:39 Resp 18 07/19/23 07:39 BP 171/82 07/19/23 07:39 Pulse Ox 92 L 07/19/23 07:39 FiO2 44 07/18/23 04:55 Intake & Output 07/18/23 07/19/23 07/19/23 17:59 06:59 18:59 Intake Total Output Total 1100 Balance -1100 Intake: Oral Output: Urine 1100 Other: Voiding Method Indwelling Catheter - Labs CBC & Chem 7: 07/19/23 08:05 07/19/23 08:05 Labs: Abnormal Lab Results - Last 24 Hours (Table) 07/18/23 07/18/23 07/18/23 Range/Units 08:40 08:40 12:31 WBC 11.0 H (3.8-10.6) k/uL MCHC 30.9 L (31.0-37.0) g/dL Neutrophils # 9.5 H (1.3-7.7) k/uL Lymphocytes # 0.7 L (1.0-4.8) k/uL Chloride (98-107) mmol/L Carbon Dioxide 35 H (22-30) mmol/L Creatinine (0.66-1.25) mg/dL Glucose 115 H (74-99) mg/dL POC Glucose (mg/dL) (70-110) mg/dL Hemoglobin A1c 7.2 H (<=6.0) % Calcium 8.1 L (8.4-10.2) mg/dL 07/18/23 07/18/23 07/19/23 Range/Units 15:45 20:20 06:01 WBC (3.8-10.6) k/uL MCHC (31.0-37.0) g/dL Neutrophils # (1.3-7.7) k/uL Lymphocytes # (1.0-4.8) k/uL Chloride (98-107) mmol/L Carbon Dioxide (22-30) mmol/L Creatinine (0.66-1.25) mg/dL Glucose (74-99) mg/dL POC Glucose (mg/dL) 152 H 147 H 135 H (70-110) mg/dL Hemoglobin A1c (<=6.0) % Calcium (8.4-10.2) mg/dL 07/19/23 07/19/23 07/19/23 Range/Units 08:05 08:05 11:09 WBC (3.8-10.6) k/uL MCHC (31.0-37.0) g/dL Neutrophils # 8.5 H (1.3-7.7) k/uL Lymphocytes # 0.5 L (1.0-4.8) k/uL Chloride 108 H (98-107) mmol/L Carbon Dioxide (22-30) mmol/L Creatinine 0.62 L (0.66-1.25) mg/dL Glucose 177 H (74-99) mg/dL POC Glucose (mg/dL) 152 H (70-110) mg/dL Hemoglobin A1c (<=6.0) % Calcium (8.4-10.2) mg/dL
--- NOTE | 2023-07-19 13:54 | P.PN ---
Subjective Progress Note Date: 07/19/23 Principal diagnosis: Acute hypoxic respiratory failure and acute COVID-19 pneumonia This is an 78-year-old white male, known history of COPD, has been a smoker over the years, patient was brought into the ER on 07/16/2023, his chief complaint was mostly symptoms of diarrhea for the last 9 days. Patient had diarrhea episodes at least twice a day. And spite of trying to drink lots of water, patient felt dehydrated, he had no episodes of vomiting, no melena, no hematemesis. Patient had occasional cough, wheezing, and apparently multiple family members had symptoms of URI. What brought in the patient to the ER was mostly his GI symptoms not his pulmonary symptoms, nonetheless he was noted to have positive COVID-19 screening, and on CT of the chest showed evidence of scattered ill- defined opacities in the periphery of both lungs, consistent with multifocal pneumonia. Patient was admitted, and this consult was initiated patient is requiring oxygen he is now on 6 L nasal cannula and his O2 saturation is 100%. Blood pressure is marginal with 86/50 and mean arterial pressure of 63 in spite of his abnormal CT of the chest showing multifocal infiltrates, his procalci tonin level is normal 0.06. Patient is receiving albuterol, he is on Rocephin and Zithromax, patient is also on Decadron 6 mg daily, receiving IV fluids for his diarrhea and dehydration, patient is obviously out of the window for remdesivir at this point. Seen today on 07/19/2023, patient was seen yesterday in consultation, and today he seems to be doing better, breathing easier, less cough less wheezing less shortness of breath.Patient remains on oxygen at 2 L, O2 sats is 92%. Labs today are basically unremarkable including a CBC and a complete metabolic profile. Renal profile is also normal procalcitonin level was normal on admission 0.06 Objective - Vital Signs Vital signs: Vital Signs Temp 96.7 F L 07/19/23 07:39 Pulse 90 07/19/23 11:50 Resp 18 07/19/23 11:50 BP 166/81 07/19/23 11:50 Pulse Ox 92 L 07/19/23 11:50 FiO2 44 07/18/23 04:55 Intake & Output 07/18/23 07/19/23 07/19/23 17:59 06:59 18:59 Intake Total 118 Output Total 1100 Balance -982 Intake: Oral 118 Output: Urine 1100 Other: Voiding Method Indwelling Catheter - Exam General: Revealed a very pleasant 78-year-old white male in no distress, on 2 L nasal cannula Skin: Skin is warm and dry and no rashes or lesions are noted. Eye: Pupils are equal, round and reactive to light, extra-ocular movements are intact; there is normal conjunctiva bilaterally. Ears, nose, mouth and throat: There are moist mucous membranes and no oral le sions. Neck: The neck is supple, there is no tenderness or JVD. Cardiovascular: Normal S1-S2, no S3 gallop. Respiratory: Wheezing on forced expiratory maneuver with rhonchi. Much improved compared to yesterday Gastrointestinal: Soft, non-distended, non-tender abdomen without masses or organomegaly noted. There is no rebound or guarding present. Bowel sounds are unremarkable. Musculoskeletal: Normal ROM, no tenderness, There is no pedal edema. There is no calf tenderness or swelling. No cords were appreciated. Neurological: CN II-XII intact, Cranial nerves III through XII are intact. There are no obvious motor or sensory deficits. Coordination appears grossly intact. Speech is normal. Psychiatric: Cooperative, appropriate mood & affect, normal judgment. - Labs CBC & Chem 7: 07/19/23 08:05 07/19/23 08:05 Labs: Abnormal Lab Results - Last 24 Hours (Table) 07/18/23 07/18/23 07/18/23 Range/Units 08:40 12:31 15:45 Neutrophils # (1.3-7.7) k/uL Lymphocytes # (1.0-4.8) k/uL Chloride (98-107) mmol/L Carbon Dioxide 35 H (22-30) mmol/L Creatinine (0.66-1.25) mg/dL Glucose 115 H (74-99) mg/dL POC Glucose (mg/dL) 152 H (70-110) mg/dL Hemoglobin A1c 7.2 H (<=6.0) % Calcium 8.1 L (8.4-10.2) mg/dL 07/18/23 07/19/23 07/19/23 Range/Units 20:20 06:01 08:05 Neutrophils # 8.5 H (1.3-7.7) k/uL Lymphocytes # 0.5 L (1.0-4.8) k/uL Chloride (98-107) mmol/L Carbon Dioxide (22-30) mmol/L Creatinine (0.66-1.25) mg/dL Glucose (74-99) mg/dL POC Glucose (mg/dL) 147 H 135 H (70-110) mg/dL Hemoglobin A1c (<=6.0) % Calcium (8.4-10.2) mg/dL 07/19/23 07/19/23 Range/Units 08:05 11:09 Neutrophils # (1.3-7.7) k/uL Lymphocytes # (1.0-4.8) k/uL Chloride 108 H (98-107) mmol/L Carbon Dioxide (22-30) mmol/L Creatinine 0.62 L (0.66-1.25) mg/dL Glucose 177 H (74-99) mg/dL POC Glucose (mg/dL) 152 H (70-110) mg/dL Hemoglobin A1c (<=6.0) % Calcium (8.4-10.2) mg/dL Assessment and Plan Assessment: Impression: Acute hypoxic respiratory failure Acute COVID-19 pneumonia, doubt bacterial pneumonia with normal procalcitonin level Acute exacerbation of COPD Acute gastroenteritis, likely viral in nature related to COVID-19 infection Acute dehydration Recommendation: Continue present , bronchodilators, steroids, Patient is out of the window for remdesivir. Titrate oxygen accordingly Continue albuterol, Continue Symbicort Restart lisinopril 10 mg daily for elevated blood pressure Consider stopping antibiotics Will continue to follow Time with Patient: Less than 30
[2023-07-19] MEDS: lisinopriL 10 MG TAB PO SCH (15:11)
[2023-07-19 15:45] LABS: Glucose,Whole Blood 185 mg/dL (70-110)
[2023-07-19 20:54] LABS: Glucose,Whole Blood 137 mg/dL (70-110)
[2023-07-19] MEDS: hydrALAZINE HCL 25 MG TAB PO STA (21:28)
[2023-07-20 06:27] LABS: Glucose,Whole Blood 135 mg/dL (70-110)
[2023-07-20 08:49] VITALS: TEMP 97.8
[2023-07-20 11:46] VITALS: RESP 18
[2023-07-20 11:46] LABS: Glucose,Whole Blood 179 mg/dL (70-110)
--- NOTE | 2023-07-20 12:59 | P.PN ---
Subjective Progress Note Date: 07/20/23 Principal diagnosis: Coronavirus infection. This is an 78-year-old white male, known history of COPD, has been a smoker over the years, patient was brought into the ER on 07/16/2023, his chief complaint was mostly symptoms of diarrhea for the last 9 days. Patient had diarrhea episodes at least twice a day. And spite of trying to drink lots of water, patient felt dehydrated, he had no episodes of vomiting, no melena, no hematemesis. Patient had occasional cough, wheezing, and apparently multiple family members had symptoms of URI. What brought in the patient to the ER was mostly his GI symptoms not his pulmonary symptoms, nonetheless he was noted to have positive COVID-19 screening, and on CT of the chest showed evidence of scattered ill- defined opacities in the periphery of both lungs, consistent with multifocal pneumonia. Patient was admitted, and this consult was initiated patient is requiring oxygen he is now on 6 L nasal cannula and his O2 saturation is 100%. Blood pressure is marginal with 86/50 and mean arterial pressure of 63 in spite of his abnormal CT of the chest showing multifocal infiltrates, his procalcitonin level is normal 0.06. Patient is receiving albuterol, he is on Rocephin and Zithromax, patient is also on Decadron 6 mg daily, receiving IV fluids for his diarrhea and dehydration, patient is obviously out of the window for remdesivir at this point. Seen today on 07/19/2023, patient was seen yesterday in consultation, and today he seems to be doing better, breathing easier, less cough less wheezing less shortness of breath.Patient remains on oxygen at 2 L, O2 sats is 92%. Labs today are basically unremarkable including a CBC and a complete metabolic profile. Renal profile is also normal procalcitonin level was normal on adm ission 0.06 Progress note dated July 20, 2023. The patient is seen today in room 359. Currently he is on 3 L of oxygen. He is not receiving any IV fluids. The patient was seen in consultation a couple days ago, with complaints of mostly diarrhea for about 9 days. The patient's respiratory status is improved. He is much less short of breath, and has less wheezing. He continues on 3 L of oxygen. No new labs today other than a glucose of 179. Chest x-ray from a few days ago shows trace pleural effusions, and patchy left basilar and retrocardiac infiltrates or atelectasis. Objective - Vital Signs Vital signs: Vital Signs Temp 97.8 F 07/20/23 08:20 Pulse 87 07/20/23 11:19 Resp 18 07/20/23 11:19 BP 157/84 07/20/23 11:19 Pulse Ox 95 07/20/23 11:19 FiO2 44 07/18/23 04:55 Intake & Output 07/19/23 07/20/23 07/20/23 18:59 06:59 18:59 Intake Total 118 Output Total 2700 2125 900 Balance -6710 -8 -914 Intake: Oral 118 Output: Urine 2700 2125 900 Other: Voiding Method Indwelling Catheter Indwelling Catheter Indwelling Catheter - Exam No acute distress, confused, currently on 3 L of oxygen. HEENT examination is grossly unremarkable. Mucous membranes are moist. No oral lesions. Neck supple. Full range of motion. No adenopathy thyromegaly or neck vein distention. Cardiovascular examination reveals regular rhythm rate. S1-S2 normal. No S3 or S4. No discernible murmur noted. Heart rate is 87 bpm. Lungs reveal clear sleep clear breath sounds. Scattered rhonchi. No wheezes or crackles. Breath sounds are equal bilaterally. 3 L saturation is 95%. Room air saturation was only 81%. Abdomen soft bowel sounds are heard. No masses or tenderness. Extremities are intact. No cyanosis clubbing or edema. Skin is without rash or lesion. Neurologic examination feels this patient to be confused. He is very agitated as well. - Labs CBC & Chem 7: 07/19/23 08:05 07/19/23 08:05 Labs: Abnormal Lab Results - Last 24 Hours (Table) 07/19/23 07/19/23 07/20/23 Range/Units 15:43 20:35 06:18 POC Glucose (mg/dL) 185 H 137 H 135 H (70-110) mg/dL 07/20/23 Range/Units 11:44 POC Glucose (mg/dL) 179 H (70-110) mg/dL Assessment and Plan Assessment: Acute hypoxemic respiratory failure. Acute coronavirus associated pneumonia, doubt bacterial pneumonia, with a normal procalcitonin level. Acute exacerbation of chronic obstructive pulmonary disease. Acute gastroenteritis with diarrhea, secondary to coronavirus infection. Acute dehydration. Plan: Plan dated July 20, 2023. The patient was very confused and agitated, we went into the room. He actually told us to leave the room. He was wearing oxygen at 3 L. The patient continues on appropriate medications. He was outside the window for remdesivir. The patient continues on oxygen at 3 L. He also continues on albuterol inhaler, and Symbicort. Additional recommendations and suggestions are forthcoming. Labs, x-rays, and medications are reviewed. The patient is currently on Rocephin, but it should be discontinued, in lieu of the normal procalcitonin level. We will continue to follow and make recommendations along the way. Time with Patient: Less than 30
--- NOTE | 2023-07-20 14:50 | P.DS ---
Providers Date of admission: 07/16/23 18:11 Expected date of discharge: 07/20/23 Attending physician: Bautista Myrick MD Consults: 07/18/23 08:19 Consult Physician Routine Consulting Provider: Leanna Castro Consult Reason/Comments: pneumonia Do you want consulting provider notified?: Yes Primary care physician: [facility] Hospital Course: Acute hypoxic respiratory failure patient dropped down to 79% on room air while in the ED COPD Exacerbation COVID-19 Pneumonia Diarrhea CAD status post stents Hypertension, controlled Diabetes mellitus Gen: In NAD, non-toxic HEENT: normocephalic, atraumatic, hearing acuity is intant, mucous membranes moist CVS: perfusing all extremities well, no pitting edema, Respiratory: symmetric chest expansion, no accessory muscle use, crackles heard best in left lung field GI: soft, NTTP, ND, : no suprapubic tenderness, no CVA tenderness MSK/Derm: no rashes, cyanosis Neuro: CN II-XII intact, no motor weakness, Psych: cooperative, euthymic mood, judgment and insight is intact Hospital course: 78-year-old male with multiple comorbidities including COPD not on home oxygen CVA/CAD status post stents presented for worsening diarrhea over the past 10 days with positive sick contact with upper respiratory infection. White count unremarkable 7.3 Hemoglobin 17.2 unremarkable Renal function overall unremarkable sodium 141 potassium 3.4 BUN [address] angio of the chest negative for acute PE, did show some bronchial thickness concerning for developing pneumonia Chest x-ray showed some diffuse opacities suspicious for pneumonia COVID test positive Pt was treated for COPD exacerbation and COVID pneumonia with steroids, inhalers. Pt did have an aspiration event while hospitalized and required abx briefly. Pt felt ready enough to be discharged, but was still requiring oxygen. He [place] amb[place] through the [place] and was discharged with 6 more days of decadron. Pt should f/u with his PCP and pulmonology. I spent 40 minutes coordinating this discharge on 07/19 Plan - Discharge Summary Discharge Rx Participant: Yes New Discharge Prescriptions: New dexAMETHasone ORAL [Hexadrol] 6 mg PO BID 6 Days #18 tab Cefdinir [Omnicef] 300 mg PO Q12HR #6 capsule Budesonide-Formot 160-4.5 Mcg [Symbicort 160-4.5 Mcg Inhaler] 2 puff INHALATION RT-BID #1 each Continue Albuterol Nebulized [Ventolin Nebulized] 2.5 mg INHALATION RT-Q4H PRN PRN Reason: Shortness Of Breath Lidocaine 5% Patch [Lidoderm 5% Patch] 1 patch TRANSDERM DAILY Tamsulosin [Flomax] 0.4 mg PO DAILY #30 capsule Folic Acid 1 mg PO DAILY Thiamine [Vitamin B-1] 100 mg PO DAILY Furosemide [Lasix] 20 mg PO BID@0900,1300 Aspirin 81 mg PO DAILY Albuterol Inhaler [Ventolin Hfa Inhaler] 2 puff INHALATION RT-QID PRN PRN Reason: Shortness Of Breath Cetirizine HCl [Zyrtec] 10 mg PO DAILY PRN PRN Reason: Allergy Symptoms Fluticasone Nasal [place] [Flonase Nasal [place]] 1 spr EA NOSTRIL DAILY lisinopriL [Zestril] 5 mg PO BID Atorvastatin [Lipitor] 80 mg PO HS Fluticasone Propion/Salmeterol [Wixela 250-50 Inhub] 1 puff INHALATION RT-BID Acetaminophen Tab [Tylenol] 1,000 mg PO Q6H PRN PRN Reason: Pain Empagliflozin [Jardiance] 10 mg PO DAILY Ketoconazole 2% Shampoo [Nizoral] 1 applic TOPICAL DAILY Triamcinolone 0.1% Cream [Kenalog 0.1% Cream] 1 applic TOPICAL DAILY PRN PRN Reason: Rash Nitroglycerin Sl Tabs [Nitrostat] 0.4 mg SUBLINGUAL Q5M PRN PRN Reason: Chest Pain Changed Metoprolol Succinate (ER) [Toprol XL] 25 mg PO DAILY #0 Discontinued Isosorbide Mononitrate ER [Imdur] 30 mg PO DAILY 30 Days #30 tab Discharge Medication List Albuterol Inhaler [Ventolin Hfa Inhaler] 2 puff INHALATION RT-QID PRN 04/25/21 [History] Albuterol Nebulized [Ventolin Nebulized] 2.5 mg INHALATION RT-Q4H PRN 04/25/21 [History] Cetirizine HCl [Zyrtec] 10 mg PO DAILY PRN 04/25/21 [History] Fluticasone Nasal [place] [Flonase Nasal [place]] 1 spr EA NOSTRIL DAILY 04/25/21 [History] Lidocaine 5% Patch [Lidoderm 5% Patch] 1 patch TRANSDERM DAILY 04/25/21 [History] Tamsulosin [Flomax] 0.4 mg PO DAILY #30 capsule 05/12/21 [Rx] Atorvastatin [Lipitor] 80 mg PO HS 02/03/22 [History] Folic Acid 1 mg PO DAILY 02/03/22 [History] Thiamine [Vitamin B-1] 100 mg PO DAILY 02/03/22 [History] lisinopriL [Zestril] 5 mg PO BID 02/03/22 [History] Aspirin 81 mg PO DAILY 08/25/22 [History] Furosemide [Lasix] 20 mg PO BID@0900,1300 08/25/22 [History] Fluticasone Propion/Salmeterol [Wixela 250-50 Inhub] 1 puff INHALATION RT-BID 10/18/22 [History] Acetaminophen Tab [Tylenol] 1,000 mg PO Q6H PRN 04/11/23 [History] Empagliflozin [Jardiance] 10 mg PO DAILY 04/11/23 [History] Ketoconazole 2% Shampoo [Nizoral] 1 applic TOPICAL DAILY 04/11/23 [History] Triamcinolone 0.1% Cream [Kenalog 0.1% Cream] 1 applic TOPICAL DAILY PRN 04/11/23 [History] Nitroglycerin Sl Tabs [Nitrostat] 0.4 mg SUBLINGUAL Q5M PRN 07/16/23 [History] Budesonide-Formot 160-4.5 Mcg [Symbicort 160-4.5 Mcg Inhaler] 2 puff INHALATION RT-BID #1 each 07/20/23 [Rx] Cefdinir [Omnicef] 300 mg PO Q12HR #6 capsule 07/20/23 [Rx] Metoprolol Succinate (ER) [Toprol XL] 25 mg PO DAILY #0 07/20/23 [Rx] dexAMETHasone ORAL [Hexadrol] 6 mg PO BID 6 Days #18 tab 07/20/23 [Rx] Follow up Appointment(s)/Referral(s): Carmen Link,Home Care [NON-STAFF] - [facility],Clinic [Primary Care Provider] - 1-2 days () Patient Instructions/Handouts: COVID-19 (Coronavirus Disease 2019) (DC) Discharge Disposition: HOME WITH HOME HEALTH SERVICES
[2023-07-20 16:21] VITALS: BP 142/94; PULSE 94
[2023-07-20 16:56] LABS: Glucose,Whole Blood 142 mg/dL (70-110)
== END 2023-07-20 18:55 | disposition home health service (06) | DRG 177 ==
LOC: EC 12:53 → 3SCARD 18:11
PROVIDERS: ADMIT Internal Medicine; ATTEND Internal Medicine
PROC: 5A09357 Assistance with Respiratory Ventilation, Less than 24 Consecutive Hours, Continuous Positive Airway Pressure (ICD-10-PCS; principal; 2023-07-18)
DX: U07.1 COVID-19 (principal); J12.82 Pneumonia due to coronavirus disease 2019; J96.01 Acute respiratory failure with hypoxia; A08.39 Other viral enteritis; J44.1 Chronic obstructive pulmonary disease with (acute) exacerbation; J44.0 Chronic obstructive pulmonary disease with (acute) lower respiratory infection; I10 Essential (primary) hypertension; Z66 Do not resuscitate; Z28.310 Unvaccinated for COVID-19; I25.10 Atherosclerotic heart disease of native coronary artery without angina pectoris; I25.2 Old myocardial infarction; N42.9 Disorder of prostate, unspecified; E86.0 Dehydration; Z79.82 Long term (current) use of aspirin; Z79.84 Long term (current) use of oral hypoglycemic drugs; Z79.899 Other long term (current) drug therapy; Z85.46 Personal history of malignant neoplasm of prostate; Z87.01 Personal history of pneumonia (recurrent); Z95.5 Presence of coronary angioplasty implant and graft; Z98.1 Arthrodesis status; Z86.73 Personal history of transient ischemic attack (TIA), and cerebral infarction without residual deficits; Z88.7 Allergy status to serum and vaccine
CPT/HCPCS: 36415; 36600; 71045; 71046; 71275; 80048; 80053; 82803; 82805; 83036; 83735; 84145; 85025; 85379; 87636; 94640; 94660; 96361; 96374; 99285

== ENCOUNTER 2023-09-09 11:07 | Inpatient (IN) | payer OTHER, MEDICARE ==
--- NOTE | 2023-09-09 12:05 | ED ---
General Adult HPI - General Chief complaint: Shortness of Breath Stated complaint: SOB Time Seen by Provider: 09/09/23 11:10 Source: patient, RN notes reviewed, old records reviewed Mode of arrival: wheelchair Limitations: no limitations - History of Present Illness Initial comments: This is an 78-year-old male who presents to the emergency department complaining of shortness of breath over the last couple of days. Patient states he has a history of 3 stent placements and this COPD. Patient denies any fever or chills. Patient has any chest pain or palpitations today. Patient denies any significant cough. Patient states he just feels more short of breath and his home nurse told him yesterday he was wheezing significantly. Patient denies any abdominal pain patient has any nausea vomiting. - Related Data Home Medications Medication Instructions Recorded Confirmed Albuterol Inhaler [Ventolin Hfa 2 puff INHALATION RT-QID PRN 04/25/21 09/09/23 Inhaler] Albuterol Nebulized [Ventolin 2.5 mg INHALATION RT-Q4H PRN 04/25/21 09/09/23 Nebulized] Cetirizine HCl [Zyrtec] 10 mg PO DAILY PRN 04/25/21 09/09/23 Fluticasone Nasal [place] [Flonase 1 spr EA NOSTRIL DAILY 04/25/21 09/09/23 Nasal [place]] Lidocaine 5% Patch [Lidoderm 5% 1 patch TRANSDERM DAILY PRN 04/25/21 09/09/23 Patch] Atorvastatin [Lipitor] 80 mg PO HS 02/03/22 09/09/23 Folic Acid 1 mg PO DAILY 02/03/22 09/09/23 Thiamine [Vitamin B-1] 100 mg PO DAILY 02/03/22 09/09/23 lisinopriL [Zestril] 5 mg PO BID 02/03/22 09/09/23 Aspirin 81 mg PO DAILY 08/25/22 09/09/23 Furosemide [Lasix] 20 mg PO BID@0900,1300 08/25/22 09/09/23 Fluticasone Propion/Salmeterol 1 puff INHALATION RT-BID 10/18/22 09/09/23 [Wixela 250-50 Inhub] Acetaminophen Tab [Tylenol] 1,000 mg PO Q6H PRN 04/11/23 09/09/23 Empagliflozin [Jardiance] 10 mg PO DAILY 04/11/23 09/09/23 Ketoconazole 2% Shampoo [Nizoral] 1 applic TOPICAL DAILY PRN 04/11/23 09/09/23 Triamcinolone 0.1% Cream [Kenalog 1 applic TOPICAL DAILY PRN 04/11/23 09/09/23 0.1% Cream] Nitroglycerin Sl Tabs [Nitrostat] 0.4 mg SUBLINGUAL Q5M PRN 07/16/23 09/09/23 Cholecalciferol [Vitamin D3 (25 25 mcg PO DAILY 09/09/23 09/09/23 Mcg = 1000 Iu)] Metoprolol Succinate (ER) [Toprol 25 mg PO DAILY 09/09/23 09/09/23 XL] Previous Rx's Medication Instructions Recorded Tamsulosin [Flomax] 0.4 mg PO DAILY #30 capsule 05/12/21 Budesonide-Formot 160-4.5 Mcg 2 puff INHALATION RT-BID #1 each 07/20/23 [Symbicort 160-4.5 Mcg Inhaler] Allergies Allergy/AdvReac Type Severity Reaction Status Date / Time Influenza Virus Vaccines Allergy Anaphylaxis Verified 09/09/23 12:27 tomato Allergy Anaphylaxis Verified 09/09/23 12:27 /Daxa Review of Systems ROS Statement: Those systems with pertinent positive or pertinent negative responses have been documented in the HPI. ROS Other: All systems not noted in ROS Statement are negative. Past Medical History Past Medical History: Asthma, COPD, Hypertension, Myocardial Infarction ([place]), Pneumonia, Prostate Disorder Additional Past Medical History / Comment(s): allergies, "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 Last Myocardial Infarction Date:: 05/09/2021 History of Any Multi-Drug Resistant Organisms: None Reported Past Surgical History: Appendectomy, Back Surgery, Heart Catheterization With Stent, Tonsillectomy Additional Past Surgical History / Comment(s): cervical, 3 heart stents Past Anesthesia/Blood Transfusion Reactions: No Reported Reaction Additional Past Anesthesia/Blood Transfusion Reaction / Comment(s): Pt is claust erphobic. Date of Last Stent Placement:: 05/09/21 Past Psychological History: No Psychological Hx Reported Smoking Status: Former smoker Past Alcohol Use History: None Reported Past Drug Use History: None Reported - Past Family History Mother Family Medical History: No Reported History Additional Family Medical History / Comment(s): Mother was healthy and lived to be 92 yrs old. Father History Unknown: Yes Additional Family Medical History / Comment(s): Father at the age of 68yrs, pt unable to say from what. General Exam - General Exam Comments Initial Comments: GENERAL: Patient is well-developed and well-nourished. Patient is nontoxic and well- hydrated and is in mild distress. ENT: Neck is soft and supple. No significant lymphadenopathy is noted. Oropharynx is clear. Moist mucous membranes. Neck has full range of motion without eliciting any pain. EYES: The sclera were anicteric and conjunctiva were pink and moist. Extraocular movements were intact and pupils were equal round and reactive to light. Eyelids were unremarkable. PULMONARY: Patient has expiratory wheezing CARDIOVASCULAR: There is a regular rate and rhythm without any murmurs gallops or rubs. ABDOMEN: Soft and nontender with normal bowel sounds. SKIN: Skin is clear with no lesions or rashes and otherwise unremarkable. NEUROLOGIC: Patient is alert and oriented x3. Cranial nerves II through XII are grossly intact. Motor and sensory are also intact. Normal speech, volume and content. Symmetrical smile. MUSCULOSKELETAL: Normal extremities with adequate strength and full range of motion. No lower extremity swelling or edema. No calf tenderness. LYMPHATICS: No significant lymphadenopathy is noted PSYCHIATRIC: Normal psychiatric evaluation. Limitations: no limitations Course Vital Signs 09/09/23 09/09/23 09/09/23 11:08 12:38 12:45 Temperature 98.1 F Pulse Rate 102 H 88 91 Respiratory 20 20 20 Rate Blood Pressure 114/65 O2 Sat by Pulse 95 Oximetry 09/09/23 09/09/23 12:58 13:01 Temperature Pulse Rate 91 90 Respiratory Rate Blood Pressure O2 Sat by Pulse Oximetry Medical Decision Making - Medical Decision Making EKG is interpreted by myself. EKG shows a sinus tachycardia at 106 bpm parables 154 QRS is 88 QT interval 303 QTc is 365. Patient's EKG shows no ST segment ovation or depression. Was pt. sent in by a medical professional or institution (, PA, CARE MANAGEMENT SPECIALIST, urgent care, hospital, or fdc...) When possible be specific @ -No Did you speak to anyone other than the patient for history (EMS, parent, family, police, friend...)? What history was obtained from this source @ -No Did you review nursing and triage notes (agree or disagree)? Why? @ -I reviewed and agree with nursing and triage notes Were old charts reviewed (outside hosp., previous admission, EMS record, old EKG, old radiological studies, urgent care reports/EKG's, fdc records)? Report findings @ -No old charts were reviewed Differential Diagnosis (chest pain, altered mental status, abdominal pain women, abdominal pain men, vaginal bleeding, weakness, fever, dyspnea, syncope, headache, dizziness, GI bleed, back pain, seizure, CVA, palpatations, mental health, musculoskeletal)? @ -Differential Dyspnea: Coronary syndrome, arrhythmia, tamponade, asthma, COPD, pulmonary embolism, pneumonia, pneumothorax, pulmonary effusion, anaphylaxis, diabetic ketoacidosis, flailed chest, pulmonary contusion, diaphragmatic rupture, anemia, neuromuscular, this is not meant to be an all-inclusive list. EKG interpreted by me (3pts min.). @ -As above X-rays interpreted by me (1pt min.). @ -Chest x-ray shows possible right upper lobe pneumonia CT interpreted by me (1pt min.). @ -None done U/S interpreted by me (1pt. min.). @ -None done What testing was considered but not performed or refused? (CT, X-rays, U/S, labs)? Why? @ -None What meds were considered but not given or refused? Why? @ -None Did you discuss the management of the patient with other professionals (pr ofessionals i.e. , PA, CARE MANAGEMENT SPECIALIST, lab, RT, psych nurse, director of social work, instructional technology specialist, teacher, traffic maintenance officer, corrections caseworker)? Give summary @ -I spoke with Dr. Heredia she agreed to admit the patient admit the patient wrote admitting orders Was smoking cessation discussed for >3mins.? @ -No Was critical care preformed (if so, how long)? @ -No Were there social determinants of health that impacted care today? How? (Homelessness, low income, unemployed, alcoholism, drug addiction, transportation, low edu. Level, literacy, decrease access to med. care, long-term, rehab)? @ -No Was there de-escalation of care discussed even if they declined (Discuss DNR or withdrawal of care, Hospice)? DNR status @ -No What co-morbidities impacted this encounter? (DM, HTN, Smoking, COPD, CAD, Cancer, CVA, ARF, Chemo, Hep., AIDS, mental health diagnosis, sleep apnea, morbid obesity)? @ -None Was patient admitted / discharged? Hospital course, mention meds given and route, prescriptions, significant lab abnormalities, going to OR and other pertinent info. @ -Patient has expiratory wheezing on arrival was given breathing treatment and steroids as well as antibiotics. Patient was reevaluated by myself he was feeling considerably better but still not good enough to be discharged. I spoke with Dr. Heredia she agreed admit the patient admit the patient wrote admitting orders Undiagnosed new problem with uncertain prognosis? @ -No Drug Therapy requiring intensive monitoring for toxicity (Heparin, Nitro, Insulin, Cardizem)? @ -No Were any procedures done? @ -No Diagnosis/symptom? @ -Exacerbation of COPD Acute, or Chronic, or Acute on Chronic? @ -Acute Uncomplicated (without systemic symptoms) or Complicated (systemic symptoms)? @ -Complicated Side effects of treatment? @ -No Exacerbation, Progression, or Severe Exacerbation? @ -Severe exacerbation Poses a threat to life or bodily function? How? (Chest pain, [place], [place], pneumonia, PE, COPD, DKA, ARF, appy, cholecystitis, CVA, Diverticulitis, Homicidal, Suicidal, threat to staff... and all critical care pts) @ -Yes this can lead to hypoxia and then end organ dysfunction - Lab Data Result diagrams: 09/09/23 12:08 09/09/23 12:08 Lab Results 09/09/23 09/09/23 09/09/23 Range/Units 12:08 12:08 12:08 WBC 7.2 (3.8-10.6) k/uL RBC 5.58 (4.30-5.90) m/uL Hgb 15.6 (13.0-17.5) gm/dL Hct 50.3 (39.0-53.0) % MCV 90.1 (80.0-100.0) fL MCH 27.9 (25.0-35.0) pg MCHC 31.0 (31.0-37.0) g/dL RDW 14.4 (11.5-15.5) % Plt Count 200 (150-450) k/uL MPV 8.8 Neutrophils % 73 % Lymphocytes % 7 % Monocytes % 10 % Eosinophils % 6 % Basophils % 1 % Neutrophils # 5.2 (1.3-7.7) k/uL Lymphocytes # 0.5 L (1.0-4.8) k/uL Monocytes # 0.7 (0-1.0) k/uL Eosinophils # 0.4 (0-0.7) k/uL Basophils # 0.1 (0-0.2) k/uL PT 11.3 (10.0-12.5) sec INR 1.0 (<1.2) APTT 23.5 (22.0-30.0) sec Sodium 139 (137-145) mmol/L Potassium 4.4 (3.5-5.1) mmol/L Chloride 98 (98-107) mmol/L Carbon Dioxide 37 H (22-30) mmol/L Anion Gap 4 mmol/L BUN 12 (9-20) mg/dL Creatinine 0.62 L (0.66-1.25) mg/dL Est GFR (CKD-EPI)AfAm >90 (>60 ml/min/1.73 sqM) Est GFR (CKD-EPI)NonAf >90 (>60 ml/min/1.73 sqM) Glucose 125 H (74-99) mg/dL Plasma Lactic Acid Mello (0.7-2.0) mmol/L Calcium 9.0 (8.4-10.2) mg/dL Magnesium 2.0 (1.6-2.3) mg/dL Total Bilirubin 1.3 (0.2-1.3) mg/dL AST 42 (17-59) U/L ALT 29 (4-49) U/L Alkaline Phosphatase 77 (38-126) U/L Troponin I (0.000-0.034) ng/mL NT-Pro-B Natriuret Pep 427 pg/mL Total Protein 6.4 (6.3-8.2) g/dL Albumin 3.6 (3.5-5.0) g/dL 09/09/23 09/09/23 Range/Units 12:08 12:08 WBC (3.8-10.6) k/uL RBC (4.30-5.90) m/uL Hgb (13.0-17.5) gm/dL Hct (39.0-53.0) % MCV (80.0-100.0) fL MCH (25.0-35.0) pg MCHC (31.0-37.0) g/dL RDW (11.5-15.5) % Plt Count (150-450) k/uL MPV Neutrophils % % Lymphocytes % % Monocytes % % Eosinophils % % Basophils % % Neutrophils # (1.3-7.7) k/uL Lymphocytes # (1.0-4.8) k/uL Monocytes # (0-1.0) k/uL Eosinophils # (0-0.7) k/uL Basophils # (0-0.2) k/uL PT (10.0-12.5) sec INR (<1.2) APTT (22.0-30.0) sec Sodium (137-145) mmol/L Potassium (3.5-5.1) mmol/L Chloride (98-107) mmol/L Carbon Dioxide (22-30) mmol/L Anion Gap mmol/L BUN (9-20) mg/dL Creatinine (0.66-1.25) mg/dL Est GFR (CKD-EPI)AfAm (>60 ml/min/1.73 sqM) Est GFR (CKD-EPI)NonAf (>60 ml/min/1.73 sqM) Glucose (74-99) mg/dL Plasma Lactic Acid Mello 3.1 H* (0.7-2.0) mmol/L Calcium (8.4-10.2) mg/dL Magnesium (1.6-2.3) mg/dL Total Bilirubin (0.2-1.3) mg/dL AST (17-59) U/L ALT (4-49) U/L Alkaline Phosphatase (38-126) U/L Troponin I <0.012 (0.000-0.034) ng/mL NT-Pro-B Natriuret Pep pg/mL Total Protein (6.3-8.2) g/dL Albumin (3.5-5.0) g/dL Disposition Clinical Impression: COPD exacerbation Disposition: ADMITTED IP TO THIS HOSP Referrals: [facility],Clinic [Primary Care Provider] - 1-2 days Time of Disposition: 13:38
[2023-09-09] MEDS: SODIUM CHLORIDE 0.9% 500 ML 500 ML IV STA (12:15)
[2023-09-09] MEDS: methylPREDNISolone SOD SUCCI 125 MG/2 ML VIAL IV STA (12:15)
[2023-09-09 12:29] LABS: Basophils # (A) 0.1 k/uL (0-0.2); Basophils % (A) 1 %; Eosinophils # (A) 0.4 k/uL (0-0.7); Eosinophils % (A) 6 %; HCT 50.3 % (39.0-53.0); HGB 15.6 gm/dL (13.0-17.5); Lymphocytes # (A) 0.5 k/uL (1.0-4.8); Lymphocytes % (A) 7 %; MCH 27.9 pg (25.0-35.0); MCV 90.1 fL (80.0-100.0); Mean Platelet Volume 8.8; Monocytes # (A) 0.7 k/uL (0-1.0); Monocytes % (A) 10 %; Neutrophils # (A) 5.2 k/uL (1.3-7.7); Neutrophils % (A) 73 %; Platelet Count 200 k/uL (150-450); RBC 5.58 m/uL (4.30-5.90); RDW 14.4 % (11.5-15.5); WBC 7.2 k/uL (3.8-10.6)
[2023-09-09] MEDS: IPRATROPIUM 0.5 MG/2.5 ML NEBU INHALATION STA (12:37)
[2023-09-09] MEDS: ALBUTEROL NEBULIZED 2.5 MG/3 ML INHALATION STA (12:37)
[2023-09-09 12:39] LABS: Partial Thromboplastin Time 23.5 sec (22.0-30.0); Prothrombin Time 11.3 sec (10.0-12.5)
--- NOTE | 2023-09-09 12:40 | XR ---
EXAMINATION TYPE: XR chest 2V DATE OF EXAM: 09/09/2023 COMPARISON: 07/17/2023 TECHNIQUE: PA and lateral views submitted. HISTORY: Shortness of breath FINDINGS: Right-sided perihilar and lower lobe consolidation. There is vague infiltrate in the right upper lobe with a 8 mm nodule. Left lung clear. Postsurgical changes cervical spine. Arthropathy of the shoulde rs. No pneumothorax or pleural effusion. Heart size normal and no overt failure. Osseous structures d emonstrate hypertrophic and degenerative changes of the spine. Subsegmental changes at the right lung base. IMPRESSION: 1. Patchy right upper lobe infiltrates with adjacent 8 mm nodule correlate for early pneumonia.
[2023-09-09 12:47] LABS: ALT 29 U/L (4-49); African American GFR (CKD) >90 (>60 ml/min/1.73 sqM); Albumin 3.6 g/dL (3.5-5.0); Anion Gap 4 mmol/L; Blood Urea Nitrogen 12 mg/dL (9-20); Carbon Dioxide 37 mmol/L (22-30); Chloride 98 mmol/L (98-107); Glucose 125 mg/dL (74-99); Non-African American GFR(CKD) >90 (>60 ml/min/1.73 sqM); Potassium 4.4 mmol/L (3.5-5.1); Sodium 139 mmol/L (137-145); Total Bilirubin 1.3 mg/dL (0.2-1.3); Total Protein 6.4 g/dL (6.3-8.2)
[2023-09-09 12:48] LABS: AST 42 U/L (17-59); Alkaline Phosphatase 77 U/L (38-126)
[2023-09-09 12:55] LABS: NT-Pro-B-Type Natriuretic Pept 427 pg/mL
[2023-09-09] MEDS: SODIUM CHLORIDE 0.9% 1,000 ML IV ONE ×2 (13:19→21:21)
[2023-09-09] MEDS ORDERED: IPRATROPIUM-ALBUTEROL 3 ML NEB INHALATION PRN (13:38)
[2023-09-09] MEDS ORDERED: NALOXONE 0.4 MG/ML 1 ML VIAL IVP PRN (13:38)
[2023-09-09] MEDS ORDERED: LORATADINE 10 MG TAB PO PRN (13:41)
[2023-09-09] MEDS ORDERED: ACETAMINOPHEN TAB 325 MG TAB PO PRN (15:04)
[2023-09-09] MEDS ORDERED: HYDROcodone/APAP 5-325MG 1 EACH TAB PO PRN (15:04)
[2023-09-09] MEDS ORDERED: ONDANSETRON 4 MG/2 ML VIAL IVP PRN (15:04)
[2023-09-09] MEDS ORDERED: BENZONATATE 100 MG CAP PO PRN (15:04)
--- NOTE | 2023-09-09 15:17 | P.HPIM ---
History of Present Illness H&P Date: 09/09/23 Patient is a 78-year-old male with a history of COPD, recent COVID-19 pneumonia in July 2023, chronic hypoxic respiratory failure on 3 L, chronic indwelling Richardson, and coronary artery disease who presented to the hospital with complaints of worsening shortness of breath. On arrival to the emergency department the patient was tachycardic with a pulse of 102. Laboratory analysis included CBC, coags, CMP, and troponin which were unremarkable for lactic acid of 3.1. Chest x-ray demonstrated patchy right upper lobe infiltrate with possible adjacent 8 mm nodule. In the ER he was given Solu-Medrol, bronchodilators, and ceftriaxone. Arrangements were made for admission. Patient seen and examined at bedside. He reports that for the last 2 days he has had worsening sitting shortness of breath. Worse with exertion better with rest. It has been unresponsive to his albuterol inhaler and his nebulizer. He has a chronic cough which is unchanged. He denies any unusual chest discomfort. No fevers or chills. He follows with Dr. Ram out of pulmonary. He quit smoking in the . He follows with Dr. Plascencia and has a chronic Richardson catheter which has no problems or issues. No other complaints currently. Vital signs reviewed General: nontoxic, no distress, appears at stated age Derm: warm, dry Eyes: EOMI, no lid lag, anicteric sclera, pupils equal round reactive to light ENT: Nose and ears atraumatic Cardiovascular: S1S2 reg, no murmur, 1+ edema b/l LE Lungs: Diffuse wheeze bilateral, 3 word conversational dyspnea Abdominal: soft, nontender to palpation, no guarding Ext: no gross muscle atrophy, no contractures Neuro: CN II-XII grossly intact, No focal neuro deficits Psych: Alert, oriented, appropriate affect Assessment/Plan: Acute exacerbation of COPD Chronic hypoxic respiratory failure Possible Pneumonia vs residual change form COVID -Admit to general medical -Solu-Medrol 40 mg IV every 8 hours -DuoNeb 4 times daily scheduled and every 2 hours as needed -Budesonide 1 mg twice daily, piriformis 20 mcg twice daily -Augmentin 875 mg BID, monitor fever profile and recheck CXR in AM if infiltrate improved would consider early stopping of ABX as patient does not report change in sputum/coough -Consult pulmonary Chronic systolic congestive heart failure with ejection fraction 40 to 45% Hypertension Dyslipidemia Coronary artery disease -Lisinopril 5 mg twice daily, Toprol 25 mg daily, Lasix 20 mg twice daily, Jardiance 10 mg daily, patient is not chronically on a mineralocorticoid -Lipitor 80 mg Chronic Richardson catheter Imaging: As per HPI Data Review: As per HPI The patient is admitted with an anticipated greater than 2 midnight stay for evaluation of acute exacerbation of COPD. Surrogate decision-maker: Daughter CODE STATUS: DO NOT RESUSCITATE DVT prophylaxis: Lovenox Anticipated discharge date: 24 to [address]: Home This dictation was prepared using [employer] voice recognition software. Though every attempt is made to correct errors during dictation some may still exist. Past Medical History Past Medical History: Asthma, COPD, Hypertension, Myocardial Infarction ([place]), Pneumonia, Prostate Disorder Additional Past Medical History / Comment(s): allergies, "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 Last Myocardial Infarction Date:: 05/09/2021 History of Any Multi-Drug Resistant Organisms: None Reported Past Surgical History: Appendectomy, Back Surgery, Heart Catheterization With Stent, Tonsillectomy Additional Past Surgical History / Comment(s): cervical, 3 heart stents Past Anesthesia/Blood Transfusion Reactions: No Reported Reaction Additional Past Anesthesia/Blood Transfusion Reaction / Comment(s): Pt is clausterphobic. Date of Last Stent Placement:: 05/09/21 Past Psychological History: No Psychological Hx Reported Smoking Status: Former smoker Past Alcohol Use History: None Reported Past Drug Use History: None Reported - Past Family History Mother Family Medical History: No Reported History Additional Family Medical History / Comment(s): Mother was healthy and lived to be 92 yrs old. Father History Unknown: Yes Additional Family Medical History / Comment(s): Father at the age of 68yrs, pt unable to say from what. Medications and Allergies Home Medications Medication Instructions Recorded Confirmed Type Albuterol Inhaler [Ventolin Hfa 2 puff INHALATION RT-QID PRN 04/25/21 09/09/23 History Inhaler] Albuterol Nebulized [Ventolin 2.5 mg INHALATION RT-Q4H PRN 04/25/21 09/09/23 History Nebulized] Cetirizine HCl [Zyrtec] 10 mg PO DAILY PRN 04/25/21 09/09/23 History Fluticasone Nasal [place] [Flonase 1 spr EA NOSTRIL DAILY 04/25/21 09/09/23 History Nasal [place]] Lidocaine 5% Patch [Lidoderm 5% 1 patch TRANSDERM DAILY PRN 04/25/21 09/09/23 History Patch] Tamsulosin [Flomax] 0.4 mg PO DAILY #30 capsule 05/12/21 09/09/23 Rx Atorvastatin [Lipitor] 80 mg PO HS 02/03/22 09/09/23 History Folic Acid 1 mg PO DAILY 02/03/22 09/09/23 History Thiamine [Vitamin B-1] 100 mg PO DAILY 02/03/22 09/09/23 History lisinopriL [Zestril] 5 mg PO BID 02/03/22 09/09/23 History Aspirin 81 mg PO DAILY 08/25/22 09/09/23 History Furosemide [Lasix] 20 mg PO BID@0900,1300 08/25/22 09/09/23 History Fluticasone Propion/Salmeterol 1 puff INHALATION RT-BID 10/18/22 09/09/23 History [Wixela 250-50 Inhub] Acetaminophen Tab [Tylenol] 1,000 mg PO Q6H PRN 04/11/23 09/09/23 History Empagliflozin [Jardiance] 10 mg PO DAILY 04/11/23 09/09/23 History Ketoconazole 2% Shampoo [Nizoral] 1 applic TOPICAL DAILY PRN 04/11/23 09/09/23 History Triamcinolone 0.1% Cream [Kenalog 1 applic TOPICAL DAILY PRN 04/11/23 09/09/23 History 0.1% Cream] Nitroglycerin Sl Tabs [Nitrostat] 0.4 mg SUBLINGUAL Q5M PRN 07/16/23 09/09/23 History Budesonide-Formot 160-4.5 Mcg 2 puff INHALATION RT-BID #1 each 07/20/23 09/09/23 Rx [Symbicort 160-4.5 Mcg Inhaler] Cholecalciferol [Vitamin D3 (25 25 mcg PO DAILY 09/09/23 09/09/23 History Mcg = 1000 Iu)] Metoprolol Succinate (ER) [Toprol 25 mg PO DAILY 09/09/23 09/09/23 History XL] Allergies Allergy/AdvReac Type Severity Reaction Status Date / Time Influenza Virus Vaccines Allergy Anaphylaxis Verified 09/09/23 12:27 tomato Allergy Anaphylaxis Verified 09/09/23 12:27 /Hives Physical Exam Osteopathic Statement: *. No significant issues noted on an osteopathic structural exam other than those noted in the History and Physical/Consult. Vitals: Vital Signs Temp Pulse Resp BP Pulse Ox 09/09/23 14:34 95 20 105/58 100 09/09/23 13:01 90 09/09/23 12:58 91 09/09/23 12:45 91 20 09/09/23 12:38 88 20 09/09/23 11:08 98.1 F 102 H 20 114/65 95 Intake and Output 09/09/23 09/09/23 09/09/23 06:59 14:59 22:59 Other: Weight 56.699 kg Results CBC & Chem 7: 09/09/23 12:08 09/09/23 12:08 Labs: Abnormal Lab Results - Last 24 Hours (Table) 09/09/23 09/09/23 09/09/23 Range/Units 12:08 12:08 12:08 Lymphocytes # 0.5 L (1.0-4.8) k/uL Carbon Dioxide 37 H (22-30) mmol/L Creatinine 0.62 L (0.66-1.25) mg/dL Glucose 125 H (74-99) mg/dL Plasma Lactic Acid Mello 3.1 H* (0.7-2.0) mmol/L
[2023-09-09] MEDS: IPRATROPIUM-ALBUTEROL 3 ML NEB INHALATION SCH (15:29)
[2023-09-09] MEDS: methylPREDNISolone SOD SUCCI 125 MG/2 ML VIAL IV SCH (17:41)
[2023-09-09] MEDS ORDERED: SYMBICORT 160-4.5 MCG INHALER INHALATION SCH (20:00)
[2023-09-09] MEDS: guaiFENesin 600 MG TABLET.ER PO SCH (20:14)
[2023-09-09] MEDS: ATORVASTATIN 80 MG TAB PO SCH (20:14)
[2023-09-09] MEDS: lisinopriL 5 MG TAB PO SCH (20:14)
[2023-09-09] MEDS: AMOXIC-POT CLAV 875-125MG 1 EACH TAB PO SCH (20:14)
[2023-09-09] MEDS: MELATONIN 3 MG TABLET PO SCH (20:14)
[2023-09-09] MEDS: FORMOTEROL FUMARATE 20 MCG/2 ML NEBU INHALATION SCH (20:39)
[2023-09-09] MEDS: BUDESONIDE 1 MG/2 ML NEBU INHALATION SCH (20:39)
[2023-09-09] MEDS: SODIUM CHLORIDE 0.9% 1,000 ML IV SCH (21:27)
--- NOTE | 2023-09-10 07:48 | XR ---
EXAMINATION TYPE: XR chest 2V DATE OF EXAM: 09/10/2023 COMPARISON: 09/09/2023 TECHNIQUE: PA and lateral views submitted. HISTORY: Shortness of breath FINDINGS: Right upper lobe area of consolidation. 8 mm nodule right upper lobe. Correlate for pneumonia. Underl ranulfo neoplasm is not excluded. Prominence the right hilum stable. Bibasilar consolidation and small e ffusion is more prominent. No sizable pneumothorax. Postsurgical change cervical spine. Arthropathy o f the shoulders. IMPRESSION: 1. Bilateral consolidation most noted in the right upper lobe with small pleural effusion. Correlate for underlying pneumonia. There is a small 8 mm nodule adjacent to the right upper lobe consolidation .
[2023-09-10 08:45] LABS: HCT 48.4 % (39.6-50.0); MCH 27.4 pg (27.0-32.0); MCV 88.3 FL (80.0-97.0); Mean Platelet Volume 11.6 FL (9.5-12.2); NRBC Per 100 WBC 0 X 10*3/uL (0.00-0.01); Platelet Count 190 X 10*3/uL (140-440); RBC 5.48 X 10*6/uL (4.40-5.60); WBC 5.36 X 10*3/uL (4.50-10.00)
[2023-09-10 09:00] LABS: ALT 33 U/L (10-49); AST 42 U/L (14-35); Albumin 3.6 g/dL (3.8-4.9); Albumin/Globulin Ratio 1.57 Ratio (1.60-3.17); Alkaline Phosphatase 89 U/L (41-126); BUN/Creat Ratio 22.33 Ratio (12.00-20.00); Blood Urea Nitrogen 13.4 mg/dL (9.0-27.0); Calcium 8.9 mg/dL (8.7-10.3); Carbon Dioxide 30.1 mmol/L (21.6-31.8); Chloride 103 mmol/L (96-109); Globulin 2.3 g/dL (1.6-3.3); Glucose 178 mg/dL (70-110); Potassium 4.5 mmol/L (3.5-5.5); Sodium 141 mmol/L (135-145); Total Bilirubin 0.7 mg/dL (0.3-1.2); Total Protein 5.9 g/dL (6.2-8.2)
[2023-09-10] MEDS: ASPIRIN 81 MG PO SCH (10:37)
[2023-09-10] MEDS: FUROSEMIDE 20 MG TAB PO SCH (10:37)
[2023-09-10] MEDS: ENOXAPARIN 40 MG/0.4 ML SYRINGE SQ SCH (10:37)
[2023-09-10] MEDS: TAMSULOSIN 0.4 MG CAP.ER.24H PO SCH (10:38)
[2023-09-10] MEDS: FLUTICASONE 50MCG/SPRAY NASAL 16GM EA NOSTRIL SCH (10:38)
[2023-09-10] MEDS: DAPAGLIFLOZIN PROPANEDIOL 10 MG TABLET PO SCH (10:38)
[2023-09-10] MEDS: METOPROLOL SUCCINATE (ER) 25 MG TAB.ER.24H PO SCH (10:38)
--- NOTE | 2023-09-10 11:56 | P.CNPUL ---
History of Present Illness Consult date: 09/10/23 Reason for consult: dyspnea, cough, COPD, hypoxemia Chief complaint: Shortness of breath History of present illness: Patient is a pleasant 78-year-old from my office he has end-stage COPD with oxygen dependent and nebulizer dependent and intermittently has been on steroids. He is on chronic oxygen 3 L nasal cannula, he has a history of coronary artery disease, prior acute COPD exacerbation several weeks ago requiring hospitalization. Came into the hospital with 2 to 3-day history of increasing shortness of breath and cough which is light yellow sputum production, chest x-ray right upper lobe consolidation and small pleural effusion suggesting underlying pneumonia along with 8 mm nodule in the right upper lobe. Currently patient is on bronchodilator along with oral antibiotics IV steroids and bronchodilators and continuation of home medication lactic acid is 2.4 came down to 1.7, white cell count 5.3 Review of Systems All systems: negative Past Medical History Past Medical History: Asthma, COPD, Hypertension, Myocardial Infarction (CT), Pneumonia, Prostate Disorder Additional Past Medical History / Comment(s): allergies, "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 Last Myocardial Infarction Date:: 05/09/2021 History of Any Multi-Drug Resistant Organisms: None Reported Past Surgical History: Appendectomy, Back Surgery, Heart Catheterization With Stent, Tonsillectomy Additional Past Surgical History / Comment(s): cervical, 3 heart stents Past Anesthesia/Blood Transfusion Reactions: No Reported Reaction Additional Past Anesthesia/Blood Transfusion Reaction / Comment(s): Pt is clausterphobic. Date of Last Stent Placement:: 05/09/21 Past Psychological History: No Psychological Hx Reported Additional Psychological History / Comment(s): Pt resides with his daughter and her spouse and her children. Pt uses a cane or walker to ambulate. He does not drive, but states getting rides is not a problem for him. He is otherwise independent. Pt served in the [employer]. Smoking Status: Former smoker Past Alcohol Use History: None Reported Additional Past Alcohol Use History / Comment(s): Pt started smoking in 1964 and quit in 1979. Past Drug Use History: None Reported - Past Family History Mother Family Medical History: No Reported History Additional Family Medical History / Comment(s): Mother was healthy and lived to be 92 yrs old. Father History Unknown: Yes Additional Family Medical History / Comment(s): Father at the age of 68yrs, pt unable to say from what. Medications and Allergies Home Medications Medication Instructions Recorded Confirmed Type Albuterol Inhaler [Ventolin Hfa 2 puff INHALATION RT-QID PRN 04/25/21 09/09/23 History Inhaler] Albuterol Nebulized [Ventolin 2.5 mg INHALATION RT-Q4H PRN 04/25/21 09/09/23 History Nebulized] Cetirizine HCl [Zyrtec] 10 mg PO DAILY PRN 04/25/21 09/09/23 History Fluticasone Nasal [place] [Flonase 1 spr EA NOSTRIL DAILY 04/25/21 09/09/23 History Nasal [place]] Lidocaine 5% Patch [Lidoderm 5% 1 patch TRANSDERM DAILY PRN 04/25/21 09/09/23 History Patch] Tamsulosin [Flomax] 0.4 mg PO DAILY #30 capsule 05/12/21 09/09/23 Rx Atorvastatin [Lipitor] 80 mg PO HS 02/03/22 09/09/23 History Folic Acid 1 mg PO DAILY 02/03/22 09/09/23 History Thiamine [Vitamin B-1] 100 mg PO DAILY 02/03/22 09/09/23 History lisinopriL [Zestril] 5 mg PO BID 02/03/22 09/09/23 History Aspirin 81 mg PO DAILY 08/25/22 09/09/23 History Furosemide [Lasix] 20 mg PO BID@0900,1300 08/25/22 09/09/23 History Fluticasone Propion/Salmeterol 1 puff INHALATION RT-BID 10/18/22 09/09/23 H istory [Wixela 250-50 Inhub] Acetaminophen Tab [Tylenol] 1,000 mg PO Q6H PRN 04/11/23 09/09/23 History Empagliflozin [Jardiance] 10 mg PO DAILY 04/11/23 09/09/23 History Ketoconazole 2% Shampoo [Nizoral] 1 applic TOPICAL DAILY PRN 04/11/23 09/09/23 History Triamcinolone 0.1% Cream [Kenalog 1 applic TOPICAL DAILY PRN 04/11/23 09/09/23 History 0.1% Cream] Nitroglycerin Sl Tabs [Nitrostat] 0.4 mg SUBLINGUAL Q5M PRN 07/16/23 09/09/23 History Budesonide-Formot 160-4.5 Mcg 2 puff INHALATION RT-BID #1 each 07/20/23 09/09/23 Rx [Symbicort 160-4.5 Mcg Inhaler] Cholecalciferol [Vitamin D3 (25 25 mcg PO DAILY 09/09/23 09/09/23 History Mcg = 1000 Iu)] Metoprolol Succinate (ER) [Toprol 25 mg PO DAILY 09/09/23 09/09/23 History XL] Allergies Allergy/AdvReac Type Severity Reaction Status Date / Time Influenza Virus Vaccines Allergy Anaphylaxis Verified 09/09/23 12:27 tomato Allergy Anaphylaxis Verified 09/09/23 12:27 /Hives Physical Exam Vitals: Vital Signs Temp Pulse Pulse Resp BP BP Pulse Ox 09/10/23 09:13 88 18 09/10/23 09:01 84 18 09/10/23 08:50 84 18 93 L 09/10/23 07:00 97.5 F L 86 18 128/66 92 L 09/10/23 05:16 79 16 123/78 95 09/10/23 03:31 83 16 123/68 96 09/10/23 02:21 85 16 134/78 97 09/10/23 00:12 87 16 122/73 95 09/09/23 23:15 91 20 114/68 96 09/09/23 22:36 98 16 117/68 95 09/09/23 22:05 89 18 106/63 96 09/09/23 20:59 97 09/09/23 20:50 97 09/09/23 20:49 96 09/09/23 20:39 86 09/09/23 20:13 90 18 115/62 96 09/09/23 15:48 90 09/09/23 15:32 96 96 09/09/23 14:34 95 20 105/58 100 09/09/23 13:01 90 09/09/23 12:58 91 09/09/23 12:45 91 20 09/09/23 12:38 88 20 Intake and Output 09/09/23 09/10/23 09/10/23 22:59 06:59 14:59 Intake Total 118 Output Total 1525 1180 Balance -1524 -1062 Intake: Oral 118 Output: Urine 1525 1180 Other: Voiding Method Indwelling Catheter Weight 56.699 kg - Constitutional General appearance: average body habitus, disheveled, mild distress - EENT Eyes: EOMI, PERRLA ENT: normal oropharynx Ears: bilateral: normal - Neck Neck: normal ROM Carotids: bilateral: upstroke normal Thyroid: bilateral: normal size - Respiratory Respiratory: bilateral: diminished, wheezing - Cardiovascular Heart sounds: normal: S1, S2 - Gastrointestinal General gastrointestinal: normal bowel sounds, soft - Integumentary Integumentary: normal, normal turgor - Neurologic Neurologic: CNII-XII intact - Musculoskeletal Musculoskeletal: gait normal, generalized weakness, strength equal bilaterally - Psychiatric Psychiatric: A&O x's 3, appropriate affect, intact judgment & insight Results - Laboratory Findings CBC and BMP: 09/10/23 05:07 09/10/23 05:07 PT/INR, D-dimer PT 11.3 sec (10.0-12.5) 09/09/23 12:08 INR 1.0 (<1.2) 09/09/23 12:08 Abnormal lab findings: Abnormal Labs 09/09/23 09/09/23 09/09/23 12:08 12:08 12:08 MCHC RDW Lymphocytes # 0.5 L Carbon Dioxide 37 H Creatinine 0.62 L BUN/Creatinine Ratio Glucose 125 H Plasma Lactic Acid Mello 3.1 H* AST Total Protein Albumin Albumin/Globulin Ratio 09/09/23 09/09/23 09/09/23 14:56 18:55 21:42 MCHC RDW Lymphocytes # Carbon Dioxide Creatinine BUN/Creatinine Ratio Glucose Plasma Lactic Acid Mello 2.2 H* 4.5 H* 2.4 H* AST Total Protein Albumin Albumin/Globulin Ratio 09/10/23 09/10/23 05:07 05:07 MCHC 31.0 L RDW 15.0 H Lymphocytes # Carbon Dioxide Creatinine BUN/Creatinine Ratio 22.33 H Glucose 178 H Plasma Lactic Acid Mello AST 42 H Total Protein 5.9 L Albumin 3.6 L Albumin/Globulin Ratio 1.57 L - Diagnostic Findings Chest x-ray: report reviewed, image reviewed (Finding as above) Assessment and Plan Assessment: Right upper lobe pneumonia Acute on chronic hypoxic respiratory failure Acute COPD exacerbation Right-sided lung nodule Hypertension hypertensive cardiovascular disease Coronary artery disease and ischemic cardiomyopathy related to Plan: Continue antibiotics and bronchodilators and IV steroids Will order CT scan of the chest without IV contrast to assess right upper lobe pneumonia process and nodule Time with Patient: Greater than 30
[2023-09-10 12:13] LABS: Glucose,Whole Blood 136 mg/dL (70-110)
--- NOTE | 2023-09-10 12:39 | CT ---
EXAMINATION TYPE: CT chest wo con CT DLP: 468 mGycm, Automated exposure control for dose reduction was used. DATE OF EXAM: 09/10/2023 12:28 PM COMPARISON: Chest radiograph same day. CT chest 07/16/2023 CLINICAL INDICATION:Male, 78 years old with history of rule mass; PHH, chest mass TECHNIQUE: Multiple axial images were obtained through the chest. Sagittal and coronal reformats were created for review. Contrast used: mL of (None if empty) Oral contrast used: (None if empty) FINDINGS: LUNGS/ PLEURA: Consolidation changes within the right lung with calcified granuloma correlating with pulmonary nodule seen on same day radiographs. AIRWAY: Occlusion of the right middle lobe bronchus series 3 image 27. Additional area of narrowing o f the bronchus of the right upper lobe series 3 image 22. Postobstructive atelectasis of the supplied regions of the lung. HEART: Size within normal limits. Moderate coronary artery calcifications. MEDIASTINUM: No gross evidence of adenopathy. Scattered partially calcified lymph nodes throughout th e mediastinum. VASCULATURE: No aortic aneurysm. MUSCULOSKELETAL: No acute osseous abnormalities, partially visualized cervical fixation hardware is i ntact. SOFT TISSUES/LYMPH NODES: Unremarkable. LOWER NECK: No significant findings. UPPER ABDOMEN: Calcified splenic granulomas. IMPRESSION: 1. Calcified granuloma within the right midlung correlate with same day radiograph finding. 2. Occlusion of the right middle lobe bronchus with suspected post obstructive Atelectasis changes o f the right middle lobe and in focal narrowing of the right right upper lobe bronchus. The right uppe r lung narrowing was present on prior on 07/16/2023. Right middle lobe consolidation was not demonstrat ed on prior. Findings within the right middle lobe favor postobstructive atelectasis from mucous plug ging well the right upper lobe demonstrate narrowing on prior exam. Bronchoscopy should be considered . Follow up recommendations for incidental pulmonary nodules, if there are any, are per [employer] [employer] or [employer]. https://radiopaedia.org/articles/eibmqlscir-[email or web address]?lang=us
[2023-09-10 15:18] VITALS: BMI 18.4
--- NOTE | 2023-09-10 17:10 | P.PN ---
Subjective Progress Note Date: 09/10/23 Patient is a 78-year-old male with a history of COPD, recent COVID-19 pneumonia in July 2023, chronic hypoxic respiratory failure on 3 L, chronic indwelling Richardson, and coronary artery disease who presented to the hospital with complaints of worsening shortness of breath. On arrival to the emergency department the patient was tachycardic with a pulse of 102. Laboratory analysis included CBC, coags, CMP, and troponin which were unremarkable for lactic acid of 3.1. Chest x-ray demonstrated patchy right upper lobe infiltrate with possible adjacent 8 mm nodule. In the ER he was given Solu-Medrol, bronchodilators, and ceftriaxone. Arrangements were made for admission. Started on bronchodilators, SoluMedrol and Augmentin. 09/09 Patient was seen and examined. Currently on 7L NC. Feeling short of breath. Pulmonary consulted, CT chest ordered. CBC MCHC 31 RDW 15. CMP BUN/Cr 22.33, glu 178, AST 42, alb 3.6. General: Nontoxic, no distress, appears at stated age Derm: Warm, dry Head: Atraumatic, normocephalic, symmetric Eyes: EOMI, no lid lag, anicteric sclera Mouth: No lip lesion, mucus membranes moist Cardiovascular: S1S2 reg, systolic murmur Lungs: Expiratory wheezing bilateral, no rhonchi, no rales, no accessory muscle use, supplemental oxygen Ext: No gross muscle atrophy, no edema, no contractures Neuro: no focal neuro deficits Psych: Alert, oriented, appropriate affect Acute exacerbation of COPD: DuoNeb QID and Q2H PRN for SOB/wheezing. Pulmicort 1 mg INH BID. Performist 20 mcg INH BID. Mucinex 600 mg PO BID. SoluMedrol 60 mg IV Q6H. Pulmonary following. Acute on chronic hypoxic respiratory failure Possible Pneumonia vs residual change form COVID: Augmentin 1 tab PO BID. Chronic systolic congestive heart failure with ejection fraction 40 to 45%: Metoprolol 25 mg PO QD. Lisinopril 5 mg PO BID. Lasix 20 mg PO BID. Farxiga 5 mg PO QD. Hypertension Dyslipidemia Coronary artery disease: ASA 81 mg PO QD. Lipitor 80 mg PO QHS. CODE STATUS: FULL CODE DVT Prophylaxis: Lovenox SQ GI Prophylaxis: Designated medical POA if patient is not able to make medical decisions for themselves: I have reviewed the following risk consultant notes: Pulmonary I have reviewed the results of the following tests: CBC, CMP. I have ordered the following tests: I have discussed the care of this patient with the following independent historian: I have independently interpreted the following test below: I have discussed the management of this patient with the following physician: Objective - Vital Signs Vital signs: Vital Signs Temp 98 F 09/10/23 14:04 Pulse 105 H 09/10/23 14:04 Resp 18 09/10/23 14:04 BP 123/64 09/10/23 14:04 Pulse Ox 94 L 09/10/23 14:04 FiO2 Intake & Output 09/09/23 09/10/23 09/10/23 18:59 06:59 18:59 Intake Total 118 Output Total 1525 1430 Balance -1525 -1312 Weight 56.699 kg 56.699 kg Intake: Oral 118 Output: Urine 1525 1430 Other: Voiding Method Indwelling Catheter - Labs CBC & Chem 7: 09/10/23 05:07 09/10/23 05:07 Labs: Abnormal Lab Results - Last 24 Hours (Table) 09/09/23 09/09/23 09/10/23 Range/Units 18:55 21:42 05:07 MCHC 31.0 L (32.0-37.0) g/dL RDW 15.0 H (11.5-14.5) % BUN/Creatinine Ratio (12.00-20.00) Ratio Glucose (70-110) mg/dL POC Glucose (mg/dL) (70-110) mg/dL Plasma Lactic Acid Mello 4.5 H* 2.4 H* (0.7-2.0) mmol/L AST (14-35) U/L Total Protein (6.2-8.2) g/dL Albumin (3.8-4.9) g/dL Albumin/Globulin Ratio (1.60-3.17) Ratio 09/10/23 09/10/23 Range/Units 05:07 12:12 MCHC (32.0-37.0) g/dL RDW (11.5-14.5) % BUN/Creatinine Ratio 22.33 H (12.00-20.00) Ratio Glucose 178 H (70-110) mg/dL POC Glucose (mg/dL) 136 H (70-110) mg/dL Plasma Lactic Acid Mello (0.7-2.0) mmol/L AST 42 H (14-35) U/L Total Protein 5.9 L (6.2-8.2) g/dL Albumin 3.6 L (3.8-4.9) g/dL Albumin/Globulin Ratio 1.57 L (1.60-3.17) Ratio
[2023-09-10 17:19] LABS: Glucose,Whole Blood 167 mg/dL (70-110)
[2023-09-10 20:28] LABS: Glucose,Whole Blood 192 mg/dL (70-110)
[2023-09-11] MEDS: ACETAMINOPHEN TAB 500 MG TAB PO PRN (11:37)
[2023-09-11 12:14] LABS: Glucose,Whole Blood 243 mg/dL (70-110)
--- NOTE | 2023-09-11 12:55 | P.PN ---
Subjective Progress Note Date: 09/11/23 Patient is a 78-year-old male with a history of COPD, recent COVID-19 pneumonia in July 2023, chronic hypoxic respiratory failure on 3 L, chronic indwelling Richardson, and coronary artery disease who presented to the hospital with complaints of worsening shortness of breath. On arrival to the emergency department the patient was tachycardic with a pulse of 102. Laboratory analysis included CBC, coags, CMP, and troponin which were unremarkable for lactic acid of 3.1. Chest x-ray demonstrated patchy right upper lobe infiltrate with possible adjacent 8 mm nodule. In the ER he was given Solu-Medrol, bronchodilators, and ceftriaxone. Arrangements were made for admission. Started on bronchodilators, SoluMedrol and Augmentin. 09/09 Patient was seen and examined. Currently on 7L NC. Feeling short of breath. Pulmonary consulted, CT chest ordered. CBC MCHC 31 RDW 15. CMP BUN/Cr 22.33, glu 178, AST 42, alb 3.6. 09/10 Patient was seen and examined. Still feeling quite short of breath. CT chest shows calcified R midlung granuloma, occlusion R middle lobe bronchus suspect post obstructive atelectasis from mucus plugging, bronchoscopy should be considered. Awaiting Pulmonary recommendations. General: Nontoxic, no distress, appears at stated age Derm: Warm, dry Head: Atraumatic, normocephalic, symmetric Eyes: EOMI, no lid lag, anicteric sclera Mouth: No lip lesion, mucus membranes moist Cardiovascular: S1S2 reg, systolic murmur Lungs: Expiratory wheezing bilateral, no rhonchi, no rales, no accessory muscle use, supplemental oxygen Ext: No gross muscle atrophy, no edema, no contractures Neuro: no focal neuro deficits Psych: Alert, oriented, appropriate affect Acute exacerbation of COPD witth mucus plugging: DuoNeb QID and Q2H PRN for SOB/wheezing. Pulmicort 1 mg INH BID. Performist 20 mcg INH BID. Mucinex 600 mg PO BID. SoluMedrol 60 mg IV Q6H. May benefit from bronchoscopy. Pulmonary f ollowing. Acute on chronic hypoxic respiratory failure Possible Pneumonia vs residual change form COVID: Augmentin 1 tab PO BID. Chronic systolic congestive heart failure with ejection fraction 40 to 45%: Metoprolol 25 mg PO QD. Lisinopril 5 mg PO BID. Lasix 20 mg PO BID. Farxiga 5 mg PO QD. Hypertension Dyslipidemia Coronary artery disease: ASA 81 mg PO QD. Lipitor 80 mg PO QHS. CODE STATUS: FULL CODE DVT Prophylaxis: Lovenox SQ GI Prophylaxis: Designated medical POA if patient is not able to make medical decisions for themselves: I have reviewed the following analysis consultant notes: Pulmonary I have reviewed the results of the following tests: CT chest I have ordered the following tests: I have discussed the care of this patient with the following independent historian: I have independently interpreted the following test below: I have discussed the management of this patient with the following physician: Objective - Vital Signs Vital signs: Vital Signs Temp 97.8 F 09/11/23 07:20 Pulse 88 09/11/23 11:48 Resp 17 09/11/23 09:01 BP 138/67 09/11/23 07:20 Pulse Ox 92 L 09/11/23 09:01 FiO2 Intake & Output 09/10/23 09/11/23 09/11/23 18:59 06:59 18:59 Intake Total 358 118 Output Total 0 800 900 Balance -1692 -800 -782 Weight 56.699 kg Intake: Oral 358 118 Output: Urine 0 800 900 Other: Voiding Method Indwelling Catheter Indwelling Catheter Indwelling Catheter - Labs CBC & Chem 7: 09/10/23 05:07 09/10/23 05:07 Labs: Abnormal Lab Results - Last 24 Hours (Table) 09/10/23 09/10/23 09/11/23 Range/Units 17:18 20:27 12:13 POC Glucose (mg/dL) 167 H 192 H 243 H (70-110) mg/dL
--- NOTE | 2023-09-11 15:00 | P.PN ---
Subjective Progress Note Date: 09/11/23 Principal diagnosis: Right upper lobe pneumonia Acute on chronic hypoxic respiratory failure Acute COPD exacerbation Right-sided lung nodule Hypertension hypertensive cardiovascular disease Coronary artery disease and ischemic cardiomyopathy related to 08/12/2023, patient seen eval examined during rounds labs reviewed medications and care plan discussed, patient underwent computed tomography scan of the chest yesterday reviewed, today patient feels congested ongoing cough is present along with wheezing.patient is afebrile slightly tachycardic with heart rate of 105 saturation is the 92% on 2 L supplemental oxygen down from 3 L, blood pressure is stable 110/50.the x-ray revealed consolidation in the right lung. Calcified granuloma which correlates with the nodule. Right middle lobe occluded maybe related to mucous plug would recommend to start broad-spectrum IV antibiotics rather than by mouth may need bronchoscopy once clinical condition slightly i mproved. Patient complaining of neck pain which is chronic along with a history of C-spine surgery will arrange c-collar to stabilize neck and pain relief. 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 He is on chronic oxygen 3 L nasal cannula, he has a history of coronary artery disease, prior acute COPD exacerbation several weeks ago requiring hospitalization. Came into the hospital with 2 to 3-day history of increasing shortness of breath and cough which is light yellow sputum production, chest x-ray right upper lobe consolidation and small pleural effusion suggesting underlying pneumonia along with 8 mm nodule in the right upper lobe. Currently patient is on bronchodilator along with oral antibiotics IV steroids and bronchodilators and continuation of home medication lactic acid is 2.4 came down to 1.7, white cell count 5.3 Objective - Vital Signs Vital signs: Vital Signs Temp 97.4 F L 09/11/23 14:15 Pulse 105 H 09/11/23 14:15 Resp 16 09/11/23 14:15 BP 112/49 09/11/23 14:15 Pulse Ox 92 L 09/11/23 14:15 FiO2 Intake & Output 09/10/23 09/11/23 09/11/23 18:59 06:59 18:59 Intake Total 358 908 Output Total 2049 800 900 Balance -1692 -800 8 Weight 56.699 kg Intake: Oral 358 908 Output: Urine 2049 900 Other: Voiding Method Indwelling Catheter Indwelling Catheter Indwelling Catheter - Exam - Constitutional General appearance: average body habitus, disheveled, mild distress - EENT Eyes: EOMI, PERRLA ENT: normal oropharynx Ears: bilateral: normal - Neck Neck: normal ROM Carotids: bilateral: upstroke normal Thyroid: bilateral: normal size - Respiratory Respiratory: bilateral: diminished, wheezing - Cardiovascular Heart sounds: normal: S1, S2 - Gastrointestinal General gastrointestinal: normal bowel sounds, soft - Integumentary Integumentary: normal, normal turgor - Neurologic Neurologic: CNII-XII intact - Musculoskeletal Musculoskeletal: gait normal, generalized weakness, strength equal bilaterally - Psychiatric Psychiatric: A&O x's 3, appropriate affect, intact judgment & insight - Labs CBC & Chem 7: 09/10/23 05:07 09/10/23 05:07 Labs: Abnormal Lab Results - Last 24 Hours (Table) 09/10/23 09/10/23 09/11/23 Range/Units 17:18 20:27 12:13 POC Glucose (mg/dL) 167 H 192 H 243 H (70-110) mg/dL Assessment and Plan Assessment: Right upper lobe pneumonia, likely mixed bacterial gram-positive and/or or gram- negative related right middle lobe atelectasis/narrowing likely mucous plug or endobronchial growth Acute on chronic hypoxic respiratory failure Acute COPD exacerbation Right-sided lung nodule chronic neck pain Hypertension hypertensive cardiovascular disease Coronary artery disease and ischemic cardiomyopathy related to Plan: Continue antibiotics and bronchodilators and IV steroids, consider IV antibiot ics, send sputum for culture reviewed computed tomography scan right upper lobe dense consolidation with right middle lobe atelectatic changes and narrowing suggestive of post obstructive process extrinsic versus intrinsic,may need bronchoscopic evaluation once clinically stable Time with Patient: Greater than 30
[2023-09-11 17:23] LABS: Glucose,Whole Blood 226 mg/dL (70-110)
[2023-09-11] MEDS ORDERED: DEXTROSE 50% SYRINGE 50 ML IVP PRN ×2 (19:51)
[2023-09-11 20:23] LABS: Glucose,Whole Blood 244 mg/dL (70-110)
[2023-09-11] MEDS: INSULIN ASPART (NovoLOG) 100 UNIT/ML VIAL SQ SCH (21:09)
[2023-09-12 06:08] LABS: Glucose,Whole Blood 160 mg/dL (70-110)
[2023-09-12 11:01] LABS: Glucose,Whole Blood 299 mg/dL (70-110)
--- NOTE | 2023-09-12 15:37 | P.PN ---
Subjective Progress Note Date: 09/12/23 Hospital Course: Patient is a 78-year-old male with a history of COPD, recent COVID-19 pneumonia in July 2023, chronic hypoxic respiratory failure on 3 L, chronic indwelling Richardson, and coronary artery disease who presented to the hospital with complaints of worsening shortness of breath. On arrival to the emergency department the patient was tachycardic with a pulse of 102. Laboratory analysis included CBC, coags, CMP, and troponin which were unremarkable for lactic acid of 3.1. Chest x-ray demonstrated patchy right upper lobe infiltrate with possible adjacent 8 mm nodule. In the ER he was given Solu-Medrol, bronchodilators, and ceftriaxone. Pulmonology consulted. CT chest shows calcified R midlung granuloma, occlusion R middle lobe bronchus suspect post obstructive atelectasis from mucus plugging, bronchoscopy should be considered. Subjective: Patient seen and examined at bedside. No acute events overnight. Continues to have shortness of breath, cough, occasional wheezing, unable to bring up sputum. Pertinent positives and negatives as discussed above, a complete review of systems was performed and all other systems are negative. Vitals Signs Reviewed. General: Nontoxic, no distress, appears at stated age Derm: Warm, dry Head: Atraumatic, normocephalic, symmetric Eyes: EOMI, no lid lag, anicteric sclera Mouth: No lip lesion, mucus membranes moist Cardiovascular: S1S2 reg, systolic murmur Lungs: Expiratory wheezing bilateral, no rhonchi, no rales, no accessory muscle use, supplemental oxygen Ext: No gross muscle atrophy, no edema, no contractures Neuro: no focal neuro deficits Psych: Alert, oriented, appropriate affect Data Reviewed Today: Pertinent Labs: Blood glucose range between 1 62-299 Imaging: No new imaging Assessment and Plan: Patient is severely ill, needs close monitoring, prognosis guarded. Acute exacerbation of COPD witth mucus plugging Acute on chronic hypoxic respiratory failure Possible bacterial pneumonia -DuoNeb QID and Q2H PRN for SOB/wheezing. Pulmicort 1 mg INH BID. Performist 20 mcg INH BID. Mucinex 600 mg PO BID. SoluMedrol 60 mg IV Q6H - May benefit from bronchoscopy -Pulmonary following -On ceftriaxone 1 g IV every 24 hours T2DM -On sliding scale insulin, monitor for hypoglycemia -On Farxiga increased to 10 mg daily Chronic systolic congestive heart failure with ejection fraction 40 to 45%, not in exacerbation Hypertension Dyslipidemia History of coronary artery disease -Metoprolol 25 mg PO QD. Lisinopril 5 mg PO BID. Lasix 20 mg PO BID. Farxiga 5 mg PO QD. ASA 81 mg PO QD. Lipitor 80 mg PO QHS. DVT ppx: Lovenox Code status: No code Anticipated discharge place: Pending clinical course Anticipated discharge time: Pending clinical course Objective - Vital Signs Vital signs: Vital Signs Temp 97.6 F 09/12/23 14:00 Pulse 92 09/12/23 15:29 Resp 16 09/12/23 14:00 BP 130/77 09/12/23 14:00 Pulse Ox 94 L 09/12/23 14:00 FiO2 Intake & Output 09/11/23 09/12/23 09/12/23 18:59 06:59 18:59 Intake Total 1026 118 Output Total 1800 1050 700 Balance -774 -1050 -582 Intake: Oral 1026 118 Output: Urine 1800 1050 700 Other: Voiding Method Indwelling Catheter Indwelling Catheter Indwelling Catheter - Labs CBC & Chem 7: 09/10/23 05:07 09/10/23 05:07 Labs: Abnormal Lab Results - Last 24 Hours (Table) 09/09/23 09/11/23 09/11/23 Range/Units 12:08 17:21 20:21 POC Glucose (mg/dL) 226 H 244 H (70-110) mg/dL Hemoglobin A1c 7.3 H (<=6.0) % 09/12/23 09/12/23 Range/Units 06:07 10:59 POC Glucose (mg/dL) 160 H 299 H (70-110) mg/dL Hemoglobin A1c (<=6.0) %
[2023-09-12] MEDS: DAPAGLIFLOZIN PROPANEDIOL 5 MG TABLET PO STA (16:45)
[2023-09-12 17:04] LABS: Glucose,Whole Blood 263 mg/dL (70-110)
[2023-09-12 19:55] LABS: Glucose,Whole Blood 193 mg/dL (70-110)
[2023-09-12] MEDS: FLUTICASONE 50MCG/SPRAY NASAL 16GM EA NOSTRIL SCH (19:59)
[2023-09-13 06:23] LABS: Glucose,Whole Blood 163 mg/dL (70-110)
[2023-09-13] MEDS: THIAMINE 100 MG TAB PO SCH (08:38)
[2023-09-13] MEDS: FOLIC ACID 1 MG TAB PO SCH (08:39)
[2023-09-13] MEDS: DAPAGLIFLOZIN PROPANEDIOL 10 MG TABLET PO SCH (08:39)
--- NOTE | 2023-09-13 09:07 | P.PN ---
Subjective Progress Note Date: 09/12/23 Principal diagnosis: Right upper lobe pneumonia Acute on chronic hypoxic respiratory failure Acute COPD exacerbation Right-sided lung nodule Hypertension hypertensive cardiovascular disease Coronary artery disease and ischemic cardiomyopathy related to 08/13/2023, patient seen eval examined during rounds labs reviewed medications reviewed care plan discussed, findings on computed tomography scan discussed with patient at length greatly, patient is DO NOT RESUSCITATE, at this point time patient wants to recover from pneumonia and think about bronchoscopy as an outpatient. Patient has been started on IV antibiotics tolerating well along with IV steroids bronchodilator cough congestion is improved but is still get short of breath on minimal activity and exertion and intermittent wheezing and nighttime as well. Patient remains afebrile with stable hemodynamics oxygen saturation stable on 2-3 L oxygen on 2 L 98%.culture results are pending unable to obtain a sputum for Gram stain and culture, patient remains on home medicine along with bronchodilators and IV steroids and broad-spectrum IV antibiotics tolerating well 08/12/2023, patient seen eval examined during rounds labs reviewed medications and care plan discussed, patient underwent computed tomography scan of the chest yesterday reviewed, today patient feels congested ongoing cough is present along with wheezing.patient is afebrile slightly tachycardic with heart rate of 105 saturation is the 92% on 2 L supplemental oxygen down from 3 L, blood pressure is stable 110/50.the x-ray revealed consolidation in the right lung. Calcified granuloma which correlates with the nodule. Right middle lobe occluded maybe related to mucous plug would recommend to start broad-spectrum IV antibiotics rather than by mouth may need bronchoscopy once clinical condition slightly improved. Patient complaining of neck pain which is chronic along with a history of C-spine surgery will arrange c-collar to stabilize neck and pain relief. 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 He is on chronic oxygen 3 L nasal cannula, he has a history of coronary artery disease, prior acute COPD exacerbation several weeks ago requiring hospitalization. Came into the hospital with 2 to 3-day history of increasing shortness of breath and cough which is light yellow sputum production, chest x- ray right upper lobe consolidation and small pleural effusion suggesting underlying pneumonia along with 8 mm nodule in the right upper lobe. Currently patient is on bronchodilator along with oral antibiotics IV steroids and bronchodilators and continuation of home medication lactic acid is 2.4 came down to 1.7, white cell count 5.3 Objective - Vital Signs Vital signs: Vital Signs Temp 97.5 F L 09/12/23 08:00 Pulse 92 09/12/23 09:02 Resp 16 09/12/23 08:00 BP 131/77 09/12/23 08:00 Pulse Ox 93 L 09/12/23 08:39 FiO2 Intake & Output 09/11/23 09/12/23 09/12/23 18:59 06:59 18:59 Intake Total 1026 Output Total 1800 1050 Balance -774 -1050 Intake: Oral 1026 Output: Urine 1800 1050 Other: Voiding Method Indwelling Catheter Indwelling Catheter - Exam - Constitutional General appearance: average body habitus, disheveled, mild distress - EENT Eyes: EOMI, PERRLA ENT: normal oropharynx Ears: bilateral: normal - Neck Neck: normal ROM Carotids: bilateral: upstroke normal Thyroid: bilateral: normal size - Respiratory Respiratory: bilateral: diminished, wheezing - Cardiovascular Heart sounds: normal: S1, S2 - Gastrointestinal General gastrointestinal: normal bowel sounds, soft - Integumentary Integumentary: normal, normal turgor - Neurologic Neurologic: CNII-XII intact - Musculoskeletal Musculoskeletal: gait normal, generalized weakness, strength equal bilaterally - Psychiatric Psychiatric: A&O x's 3, appropriate affect, intact judgment & insight - Labs CBC & Chem 7: 09/10/23 05:07 09/10/23 05:07 Labs: Abnormal Lab Results - Last 24 Hours (Table) 09/09/23 09/11/23 09/11/23 Range/Units 12:08 12:13 17:21 POC Glucose (mg/dL) 243 H 226 H (70-110) mg/dL Hemoglobin A1c 7.3 H (<=6.0) % 09/11/23 09/12/23 Range/Units 20:21 06:07 POC Glucose (mg/dL) 244 H 160 H (70-110) mg/dL Hemoglobin A1c (<=6.0) % Assessment and Plan Assessment: Right upper lobe pneumonia, likely mixed bacterial gram-positive and/or or gram- negative related right middle lobe atelectasis/narrowing likely mucous plug or endobronchial growth Acute on chronic hypoxic respiratory failure Acute COPD exacerbation Right-sided lung nodule chronic neck pain Hypertension hypertensive cardiovascular disease Coronary artery disease and ischemic cardiomyopathy related to Plan: Continue antibiotics and bronchodilators and IV steroids, continueIV antibiotics, send sputum for cultureif possible reviewed computed tomography scan right upper lobe dense consolidation with right middle lobe atelectatic changes and narrowing suggestive of post obstructive process extrinsic versus intrinsic,may need bronchoscopic evaluation once clinically stable, these finding discussed with the patient at length at this point time patient wants to hold on doing a bronchoscopy he wants to concentrate on recovery from pneumonia then outpatient we'll decide Patient wants to be DO NOT RESUSCITATE and not to be placed on the respirator specifically, Time with Patient: Greater than 30
--- NOTE | 2023-09-13 09:09 | P.PN ---
Subjective Progress Note Date: 09/13/23 Principal diagnosis: Right upper lobe pneumonia Right middle lobe atelectasis with a differential diagnoses of mucous plug versus endobronchial growth versus extrinsic compression of right middle lobe bronchus Acute on chronic hypoxic respiratory failure Acute COPD exacerbation Right-sided lung nodule Hypertension hypertensive cardiovascular disease Coronary artery disease and ischemic cardiomyopathy related to 08/13/2023, patient seen eval examined during rounds labs reviewed medications reviewed care plan discussed, findings on computed tomography scan discussed with patient at length greatly, patient is DO NOT RESUSCITATE, at this point time patient wants to recover from pneumonia and think about bronchoscopy as an outpatient. Patient has been started on IV antibiotics tolerating well along with IV steroids bronchodilator cough congestion is improved but is still get short of breath on minimal activity and exertion and intermittent wheezing and nighttime as well. Patient remains afebrile with stable hemodynamics oxygen saturation stable on 2-3 L oxygen on 2 L 98%.culture results are pending unable to obtain a sputum for Gram stain and culture, patient remains on home medicine along with bronchodilators and IV steroids and broad-spectrum IV antibiotics tolerating well 08/12/2023, patient seen eval examined during rounds labs reviewed medications and care plan discussed, patient underwent computed tomography scan of the chest yesterday reviewed, today patient feels congested ongoing cough is present along with wheezing.patient is afebrile slightly tachycardic with heart rate of 105 saturation is the 92% on 2 L supplemental oxygen down from 3 L, blood pressure is stable 110/50.the x-ray revealed consolidation in the right lung. Calcified granuloma which correlates with the nodule. Right middle lobe occluded maybe related to mucous plug would recommend to start broad-spectrum IV antibiotics rather than by mouth may need bronchoscopy once clinical condition slightly improved. Patient complaining of neck pain which is chronic along with a history of C-spine surgery will arrange c-collar to stabilize neck and pain relief. 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 He is on chronic oxygen 3 L nasal cannula, he has a history of coronary artery disease, prior acute COPD exacerbation several weeks ago requiring hospitalization. Came into the hospital with 2 to 3-day history of increasing shortness of breath and cough which is light yellow sputum production, chest x-ray right upper lobe consolidation and small pleural effusion suggesting underlying pneumonia along with 8 mm nodule in the right upper lobe. Currently patient is on bronchodilator along with oral antibiotics IV steroids and bronchodilators and continuation of home medication lactic acid is 2.4 came down to 1.7, white cell count 5.3 Objective - Vital Signs Vital signs: Vital Signs Temp 97.4 F L 09/13/23 08:00 Pulse 95 09/13/23 08:00 Resp 16 09/13/23 08:00 BP 136/85 09/13/23 08:00 Pulse Ox 95 09/13/23 08:00 FiO2 Intake & Output 09/12/23 09/13/23 09/13/23 18:59 06:59 18:59 Intake Total 236 Output Total 1250 1550 Balance -1014 -1550 Intake: Oral 236 Output: Urine 1250 1550 Other: Voiding Method Indwelling Catheter Indwelling Catheter - Exam - Constitutional General appearance: average body habitus, disheveled, mild distress - EENT Eyes: EOMI, PERRLA ENT: normal oropharynx Ears: bilateral: normal - Neck Neck: normal ROM Carotids: bilateral: upstroke normal Thyroid: bilateral: normal size - Respiratory Respiratory: bilateral: diminished, wheezing - Cardiovascular Heart sounds: normal: S1, S2 - Gastrointestinal General gastrointestinal: normal bowel sounds, soft - Integumentary Integumentary: normal, normal turgor - Neurologic Neurologic: CNII-XII intact - Musculoskeletal Musculoskeletal: gait normal, generalized weakness, strength equal bilaterally - Psychiatric Psychiatric: A&O x's 3, appropriate affect, intact judgment & insight - Labs CBC & Chem 7: 09/10/23 05:07 09/10/23 05:07 Labs: Abnormal Lab Results - Last 24 Hours (Table) 09/09/23 09/12/23 09/12/23 Range/Units 12:08 10:59 17:02 POC Glucose (mg/dL) 299 H 263 H (70-110) mg/dL Hemoglobin A1c 7.3 H (<=6.0) % 09/12/23 09/13/23 Range/Units 19:53 06:22 POC Glucose (mg/dL) 193 H 163 H (70-110) mg/dL Hemoglobin A1c (<=6.0) % Assessment and Plan Assessment: Right upper lobe pneumonia, likely mixed bacterial gram-positive and/or or gram- negative related right middle lobe atelectasis/narrowing likely mucous plug or endobronchial livan wth Acute on chronic hypoxic respiratory failure Acute COPD exacerbation Right-sided lung nodule chronic neck pain Hypertension hypertensive cardiovascular disease Coronary artery disease and ischemic cardiomyopathy related to Plan: Continue antibiotics and bronchodilators and IV steroids, continueIV antibiotics, send sputum for cultureif possible reviewed computed tomography scan right upper lobe dense consolidation with right middle lobe atelectatic changes and narrowing suggestive of post obstructive process extrinsic versus intrinsic,may need bronchoscopic evaluation once clinically stable, these finding discussed with the patient at length at this point time patient wants to hold on doing a bronchoscopy he wants to concentrate on recovery from pneumonia then outpatient, then he will decide Patient wants to be DO NOT RESUSCITATE and not to be placed on the respirator specifically,discussed with RN Patient also wants to be discharged home rather than rehab he expresses good family support Time with Patient: Greater than 30
[2023-09-13 11:09] LABS: Glucose,Whole Blood 248 mg/dL (70-110)
--- NOTE | 2023-09-13 15:33 | P.PN ---
Subjective Progress Note Date: 09/13/23 Patient is a 78-year-old male with a history of COPD, recent COVID-19 pneumonia in July 2023, chronic hypoxic respiratory failure on 3 L, chronic indwelling Richardson, and coronary artery disease who presented to the hospital with complaints of worsening shortness of breath. On arrival to the emergency department the patient was tachycardic with a pulse of 102. Laboratory analysis included CBC, coags, CMP, and troponin which were unremarkable for lactic acid of 3.1. Chest x-ray demonstrated patchy right upper lobe infiltrate with possible adjacent 8 mm nodule. In the ER he was given Solu-Medrol, bronchodilators, and ceftriaxone. Arrangements were made for admission. He was continued on steroids and bronchodilators. He was seen by pulmonary who did suggest possible bronchoscopy however patient declined at this time. Patient seen and examined at bedside. Continues to feel very tired and worn out as well as short of breath. Poor appetite. Vital signs reviewed General: Nontoxic, no distress, appears at stated age Cardiovascular: S1S2 reg, no murmur Lungs: Coarse breath sounds bilateral , no accessory muscle use Abdominal: Soft, nontender to palpation, no guarding Ext: No gross muscle atrophy, no edema b/l lower extremities, no contractures Neuro: CN II-XI grossly intact, no focal neuro deficits Psych: Alert, oriented, appropriate affect Assessment/Plan: Acute exacerbation of COPD Chronic hypoxic respiratory failure Bacterial Pneumonia, possible gram negative -Solu-Medrol 60 mg IV every 6 hours -DuoNeb 4 times daily scheduled and every 2 hours as needed -Budesonide 1 mg twice daily, piriformis 20 mcg twice daily -Rocephin 1 g every 24 hours day #3 will increase this to 2 g as it has been used to treat pneumonia -CT chest reviewed from 09/09 which demonstrates occlusion of the right middle lobe bronchus with suspected postobstructive atelectasis and focal narrowing of the right upper lobe bronchus -Pulmonary note reviewed: Patient is requesting to delay bronchoscopy out patient setting. Chronic systolic congestive heart failure with ejection fraction 40 to 45% Hypertension Dyslipidemia Coronary artery disease -Lisinopril 5 mg twice daily, Toprol 25 mg daily, Lasix 20 mg twice daily, Farxiga 10 mg daily, patient is not chronically on a mineralocorticoid -Lipitor 80 mg Chronic Richardson catheter Imaging: As per HPI Data Review: As per HPI Imaging: None new Data Review: None new DVT prophylaxis: Lovenox 40 mg daily Anticipated discharge date: 24 to [address]: Home with home health care This dictation was prepared using [employer]abi voice recognition software. Though every attempt is made to correct errors during dictation some may still exist. Objective - Vital Signs Vital signs: Vital Signs Temp 97.8 F 09/13/23 14:00 Pulse 97 09/13/23 14:00 Resp 16 09/13/23 14:00 BP 116/69 09/13/23 14:00 Pulse Ox 100 09/13/23 14:00 FiO2 Intake & Output 09/12/23 09/13/23 09/13/23 18:59 06:59 18:59 Intake Total 236 118 Output Total 1250 1550 350 Balance -1014 -1550 -232 Intake: Oral 236 118 Output: Urine 1250 1550 350 Other: Voiding Method Indwelling Catheter Indwelling Catheter Indwelling Catheter # Bowel Movements 1 - Labs CBC & Chem 7: 09/10/23 05:07 09/10/23 05:07 Labs: Abnormal Lab Results - Last 24 Hours (Table) 09/12/23 09/12/23 09/13/23 Range/Units 17:02 19:53 06:22 POC Glucose (mg/dL) 263 H 193 H 163 H (70-110) mg/dL 09/13/23 Range/Units 11:07 POC Glucose (mg/dL) 248 H (70-110) mg/dL
[2023-09-13 16:41] LABS: Glucose,Whole Blood 316 mg/dL (70-110)
[2023-09-13 20:38] LABS: Glucose,Whole Blood 282 mg/dL (70-110)
[2023-09-14 06:09] LABS: Glucose,Whole Blood 168 mg/dL (70-110)
[2023-09-14 11:02] LABS: HCT 49.8 % (39.6-50.0); HGB 15.8 g/dL (13.0-17.0); MCHC 31.7 g/dL (32.0-37.0); MCV 88.3 FL (80.0-97.0); Mean Platelet Volume 11.8 FL (9.5-12.2); NRBC Per 100 WBC 0 X 10*3/uL (0.00-0.01); Platelet Count 212 X 10*3/uL (140-440); RBC 5.64 X 10*6/uL (4.40-5.60); RDW 15.3 % (11.5-14.5); WBC 12.52 X 10*3/uL (4.50-10.00)
[2023-09-14 11:27] LABS: BUN/Creat Ratio 48.33 Ratio (12.00-20.00); Calcium 8.6 mg/dL (8.7-10.3); Chloride 103 mmol/L (96-109); Glucose 193 mg/dL (70-110); Potassium 4.3 mmol/L (3.5-5.5); Sodium 145 mmol/L (135-145)
[2023-09-14 11:44] LABS: Glucose,Whole Blood 265 mg/dL (70-110)
--- NOTE | 2023-09-14 13:52 | P.PN ---
Subjective Progress Note Date: 09/14/23 Patient is a 78-year-old male with a history of COPD, recent COVID-19 pneumonia in July 2023, chronic hypoxic respiratory failure on 3 L, chronic indwelling Richardson, and coronary artery disease who presented to the hospital with complaints of worsening shortness of breath. On arrival to the emergency department the patient was tachycardic with a pulse of 102. Laboratory analysis included CBC, coags, CMP, and troponin which were unremarkable for lactic acid of 3.1. Chest x-ray demonstrated patchy right upper lobe infiltrate with possible adjacent 8 mm nodule. In the ER he was given Solu-Medrol, bronchodilators, and ceftriaxone. Arrangements were made for admission. He was continued on steroids and bronchodilators. He was seen by pulmonary who did suggest possible bronchoscopy however patient declined at that time. However he is not considering bronchoscopy. Pending further recommendations by pulmonology. Patient seen and examined at bedside. Denies any new complaints. Vital signs reviewed General: Nontoxic, no distress, appears at stated age Cardiovascular: S1S2 reg, no murmur Lungs: Coarse breath sounds bilateral , no accessory muscle use, supplemental oxygen Abdominal: Soft, nontender to palpation, no guarding Ext: No gross muscle atrophy, no edema b/l lower extremities, no contractures Neuro: CN II-XI grossly intact, no focal neuro deficits Psych: Alert, oriented, appropriate affect Assessment/Plan: Acute exacerbation of COPD Chronic hypoxic respiratory failure Bacterial Pneumonia, possible gram negative Leukocytosis, likely steroid-induced -Solu-Medrol 60 mg IV every 6 hours -DuoNeb 4 times daily scheduled and every 2 hours as needed -Budesonide 1 mg twice daily, piriformis 20 mcg twice daily -Rocephin 2 g IV every 24 hours -CT chest from 09/09 which demonstrates occlusion of the right middle lobe bronchus with suspected postobstructive atelectasis and focal narrowing of the right upper lobe bronchus -Pulmonology following Chronic systolic congestive heart failure with ejection fraction 40 to 45% Hypertension Dyslipidemia Coronary artery disease -Lisinopril 5 mg twice daily, Toprol 25 mg daily, Lasix 20 mg twice daily, Farxiga 10 mg daily, patient is not chronically on a mineralocorticoid -Lipitor 80 mg T2DM -On sliding scale insulin, monitor for hypoglycemia -On Farxiga increased to 10 mg daily Chronic Richardson catheter Imaging: None new Data Review: WBC 12.5, hemoglobin 15.8, creatinine 0.6, blood sugars range between 1 93-2 82 DVT prophylaxis: Lovenox 40 mg daily Anticipated discharge date: 24 to [address]: Home with home health care Objective - Vital Signs Vital signs: Vital Signs Temp 97.5 F L 09/14/23 07:41 Pulse 78 09/14/23 11:58 Resp 16 09/14/23 07:41 BP 140/74 09/14/23 07:41 Pulse Ox 96 09/14/23 08:47 FiO2 Intake & Output 09/13/23 09/14/23 09/14/23 18:59 06:59 18:59 Intake Total 118 118 Output Total 1550 1100 Balance -1432 -1100 118 Intake: Oral 118 118 Output: Urine 1550 1100 Other: Voiding Method Indwelling Catheter Indwelling Catheter Indwelling Catheter # Bowel Movements 1 - Labs CBC & Chem 7: 09/14/23 06:37 09/14/23 06:37 Labs: Abnormal Lab Results - Last 24 Hours (Table) 09/13/23 09/13/23 09/14/23 Range/Units 16:37 20:36 06:08 WBC (4.50-10.00) X 10*3/uL RBC (4.40-5.60) X 10*6/uL MCHC (32.0-37.0) g/dL RDW (11.5-14.5) % Carbon Dioxide (21.6-31.8) mmol/L BUN (9.0-27.0) mg/dL BUN/Creatinine Ratio (12.00-20.00) Ratio Glucose (70-110) mg/dL POC Glucose (mg/dL) 316 H 282 H 168 H (70-110) mg/dL Calcium (8.7-10.3) mg/dL 09/14/23 09/14/23 09/14/23 Range/Units 06:37 06:37 11:42 WBC 12.52 H (4.50-10.00) X 10*3/uL RBC 5.64 H (4.40-5.60) X 10*6/uL MCHC 31.7 L (32.0-37.0) g/dL RDW 15.3 H (11.5-14.5) % Carbon Dioxide 35.0 H (21.6-31.8) mmol/L BUN 29.0 H (9.0-27.0) mg/dL BUN/Creatinine Ratio 48.33 H (12.00-20.00) Ratio Glucose 193 H (70-110) mg/dL POC Glucose (mg/dL) 265 H (70-110) mg/dL Calcium 8.6 L (8.7-10.3) mg/dL
[2023-09-14 17:06] LABS: Glucose,Whole Blood 254 mg/dL (70-110)
--- NOTE | 2023-09-14 18:17 | P.PN ---
Subjective Progress Note Date: 09/14/23 Principal diagnosis: Right upper lobe pneumonia Right middle lobe atelectasis with a differential diagnoses of mucous plug versus endobronchial growth versus extrinsic compression of right middle lobe bronchus Acute on chronic hypoxic respiratory failure Acute COPD exacerbation Right-sided lung nodule Hypertension hypertensive cardiovascular disease Coronary artery disease and ischemic cardiomyopathy related to September 14, 2023, patient seen and examined during rounds and detailed discussions happened about bronchoscopy CODE STATUS and future planning, patient would like to proceed with bronchoscopy as he feels more rattling on the right side and he agreed to discontinue DNR CODE STATUS and changed to full code however he would like to DNR initiated back again after procedure when accomplished. Discussed with endoscopy patient will be scheduled for bronchoscopy biopsy and lavage for tomorrow however exact times we do not know until tomorrow. Labs are not done today, sugars are 254, patient remains on bronchodilators inhaled aerosolized steroids as well as IV Rocephin, Solu-Medrol 60 mg IV every 6 hourly and continuation of his home medications 09/13/2023, patient seen eval examined during rounds labs reviewed medications reviewed care plan discussed, respiratory status is still marginal ongoing cough congestion and wheezing is present, patient remains on IV steroids 60 every 6 and broad-spectrum antibiotics with IV Rocephin, patient has been getting bronchodilators as well, reexplored idea about bronchoscopy patient feels that he wants to recover from pneumonia and then think about it as outpatient patient specifically has not to placed on life support, otherwise afebrile temperature is 97.4, blood pressure is 136/85 saturation 95% theater oxygen, 08/13/2023, patient seen eval examined during rounds labs reviewed medications reviewed care plan discussed, findings on computed tomography scan discussed with patient at length greatly, patient is DO NOT RESUSCITATE, at this point time patient wants to recover from pneumonia and think about bronchoscopy as an outpatient. Patient has been started on IV antibiotics tolerating well along with IV steroids bronchodilator cough congestion is improved but is still get short of breath on minimal activity and exertion and intermittent wheezing and nighttime as well. Patient remains afebrile with stable hemodynamics oxygen saturation stable on 2-3 L oxygen on 2 L 98%.culture results are pending unable to obtain a sputum for Gram stain and culture, patient remains on home medicine along with bronchodilators and IV steroids and broad-spectrum IV antibiotics to lerating well 08/12/2023, patient seen eval examined during rounds labs reviewed medications and care plan discussed, patient underwent computed tomography scan of the chest yesterday reviewed, today patient feels congested ongoing cough is present along with wheezing.patient is afebrile slightly tachycardic with heart rate of 105 saturation is the 92% on 2 L supplemental oxygen down from 3 L, blood pressure is stable 110/50.the x-ray revealed consolidation in the right lung. Calcified granuloma which correlates with the nodule. Right middle lobe occluded maybe related to mucous plug would recommend to start broad-spectrum IV antibiotics rather than by mouth may need bronchoscopy once clinical condition slightly improved. Patient complaining of neck pain which is chronic along with a h istory of C-spine surgery will arrange c-collar to stabilize neck and pain relief. 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 He is on chronic oxygen 3 L nasal cannula, he has a history of coronary artery disease, prior acute COPD exacerbation several weeks ago requiring hospitalization. Came into the hospital with 2 to 3-day history of increasing shortness of breath and cough which is light yellow sputum production, chest x-ray right upper lobe consolidation and small pleural effusion suggesting underlying pneumonia along with 8 mm nodule in the right upper lobe. Currently patient is on bronchodilator along with oral antibiotics IV steroids and bronchodilators and continuation of home medication lactic acid is 2.4 came down to 1.7, white cell count 5.3 Objective - Vital Signs Vital signs: Vital Signs Temp 97.5 F L 09/14/23 14:27 Pulse 76 09/14/23 16:01 Resp 18 09/14/23 14:27 BP 146/66 09/14/23 14:27 Pulse Ox 96 09/14/23 14:27 FiO2 Intake & Output 09/13/23 09/14/23 09/14/23 18:59 06:59 18:59 Intake Total 118 236 Output Total 1550 1100 1850 Balance -4613 -4439 -8580 Intake: Oral 118 236 Output: Urine 1550 1100 1850 Other: Voiding Method Indwelling Catheter Indwelling Catheter Indwelling Catheter # Bowel Movements 1 - Exam - Constitutional General appearance: average body habitus, disheveled, mild distress - EENT Eyes: EOMI, PERRLA ENT: normal oropharynx Ears: bilateral: normal - Neck Neck: normal ROM Carotids: bilateral: upstroke normal Thyroid: bilateral: normal size - Respiratory Respiratory: bilateral: diminished, wheezing, More on the right side compared to the left - Cardiovascular Heart sounds: normal: S1, S2 - Gastrointestinal General gastrointestinal: normal bowel sounds, soft - Integumentary Integumentary: normal, normal turgor - Neurologic Neurologic: CNII-XII intact - Musculoskeletal Musculoskeletal: gait normal, generalized weakness, strength equal bilaterally - Psychiatric Psychiatric: A&O x's 3, appropriate affect, intact judgment & insight - Labs CBC & Chem 7: 09/14/23 06:37 09/14/23 06:37 Labs: Abnormal Lab Results - Last 24 Hours (Table) 09/13/23 09/14/23 09/14/23 Range/Units 20:36 06:08 06:37 WBC 12.52 H (4.50-10.00) X 10*3/uL RBC 5.64 H (4.40-5.60) X 10*6/uL MCHC 31.7 L (32.0-37.0) g/dL RDW 15.3 H (11.5-14.5) % Carbon Dioxide (21.6-31.8) mmol/L BUN (9.0-27.0) mg/dL BUN/Creatinine Ratio (12.00-20.00) Ratio Glucose (70-110) mg/dL POC Glucose (mg/dL) 282 H 168 H (70-110) mg/dL Calcium (8.7-10.3) mg/dL 09/14/23 09/14/23 09/14/23 Range/Units 06:37 11:42 17:04 WBC (4.50-10.00) X 10*3/uL RBC (4.40-5.60) X 10*6/uL MCHC (32.0-37.0) g/dL RDW (11.5-14.5) % Carbon Dioxide 35.0 H (21.6-31.8) mmol/L BUN 29.0 H (9.0-27.0) mg/dL BUN/Creatinine Ratio 48.33 H (12.00-20.00) Ratio Glucose 193 H (70-110) mg/dL POC Glucose (mg/dL) 265 H 254 H (70-110) mg/dL Calcium 8.6 L (8.7-10.3) mg/dL Assessment and Plan Assessment: Right upper lobe pneumonia, likely mixed bacterial gram-positive and/or or gram- negative related right middle lobe atelectasis/narrowing likely mucous plug or endobronchial growth Acute on chronic hypoxic respiratory failure Acute COPD exacerbation Right-sided lung nodule chronic neck pain Hypertension hypertensive cardiovascular disease Coronary artery disease and ischemic cardiomyopathy related to Plan: Continue antibiotics and bronchodilators and IV steroids, IV antibiotics, send sputum for culture if possible , A sample has been obtained and is being processed reviewed computed tomography scan right upper lobe dense consolidation with right middle lobe atelectatic changes and narrowing suggestive of post obstructive process extrinsic versus intrinsic, Patient now considering bronchoscopy pros and cons and complication including side effect and requirement for ventilator I expressed to the patient and also need for changing no CODE STATUS to full code, patient now agreed and would like to proceed Patient wants to be Full code now for the procedure however afterwards can be switched to DNR as per his wishes Tentatively patient is being scheduled for bronchoscopy biopsy and lavage for tomorrow awaiting further advice from endoscopy Patient also wants to be discharged home rather than rehab he expresses good family support Time with Patient: Greater than 30
[2023-09-14 21:05] LABS: Glucose,Whole Blood 251 mg/dL (70-110)
[2023-09-15 06:17] LABS: Glucose,Whole Blood 163 mg/dL (70-110)
[2023-09-15 07:02] LABS: Basophils % (A) 0 %; Eosinophils % (A) 0 %; HCT 51.8 % (39.0-53.0); HGB 16.3 gm/dL (13.0-17.5); Lymphocytes # (A) 0.2 k/uL (1.0-4.8); Lymphocytes % (A) 2 %; MCH 28.3 pg (25.0-35.0); MCHC 31.4 g/dL (31.0-37.0); MCV 90.1 fL (80.0-100.0); Mean Platelet Volume 9.1; Monocytes # (A) 0.5 k/uL (0-1.0); Monocytes % (A) 4 %; Neutrophils # (A) 12.6 k/uL (1.3-7.7); Neutrophils % (A) 93 %; Platelet Count 224 k/uL (150-450); RBC 5.74 m/uL (4.30-5.90); RDW 14.5 % (11.5-15.5); WBC 13.5 k/uL (3.8-10.6)
[2023-09-15 07:16] LABS: African American GFR (CKD) >90 (>60 ml/min/1.73 sqM); Anion Gap 4 mmol/L; Blood Urea Nitrogen 29 mg/dL (9-20); Calcium 8.6 mg/dL (8.4-10.2); Carbon Dioxide 36 mmol/L (22-30); Chloride 100 mmol/L (98-107); Glucose 178 mg/dL (74-99); Non-African American GFR(CKD) >90 (>60 ml/min/1.73 sqM); Potassium 4.4 mmol/L (3.5-5.1); Sodium 140 mmol/L (137-145)
[2023-09-15] MEDS ORDERED: LIDOCAINE 1% INJ 10MG/ML (20 ML MDV) ONE (09:30)
[2023-09-15] MEDS ORDERED: PROPOFOL 10 MG/ML 20 ML VIAL IV ONE (09:30)
[2023-09-15] MEDS: IV FLUID CONTINUATION 1,000 ML IV ONE (09:30)
[2023-09-15] MEDS: LIDOCAINE 2% GLYDO JELLY 6 ML APPL TOPICAL ONE ×2 (09:42→09:52)
[2023-09-15] MEDS: LIDOCAINE 2% INJ 20 MG/ML INTRATRACH ONE (09:53)
--- NOTE | 2023-09-15 10:21 | P.PN ---
Subjective Progress Note Date: 09/15/23 Principal diagnosis: Right upper lobe pneumonia Right middle lobe atelectasis with a differential diagnoses of mucous plug versus endobronchial growth versus extrinsic compression of right middle lobe bronchus Acute on chronic hypoxic respiratory failure Acute COPD exacerbation Right-sided lung nodule Hypertension hypertensive cardiovascular disease Coronary artery disease and ischemic cardiomyopathy related to September 15, 2023, patient seen and examined labs reviewed medications reviewed care plan discussed, patient has been counseled and educated about procedure bronchoscopy patient completed and understood and wants to proceed with that. Still ongoing cough is present shortness of breath and wheezing slightly improved compared to the time of admission vitals are stable patient remains on supplemental oxygen with saturation mid 90s hemodynamic status stable as planned will proceed with with bronchoscopy September 14, 2023, patient seen and examined during rounds and detailed discussions happened about bronchoscopy CODE STATUS and future planning, patient would like to proceed with bronchoscopy as he feels more rattling on the right side and he agreed to discontinue DNR CODE STATUS and changed to full code however he would like to DNR initiated back again after procedure when accomplished. Discussed with endoscopy patient will be scheduled for bronchoscopy biopsy and lavage for tomorrow however exact times we do not know until tomorrow. Labs are not done today, sugars are 254, patient remains on bronchodilators inhaled aerosolized steroids as well as IV Rocephin, Solu-Medrol 60 mg IV every 6 hourly and continuation of his home medications 09/13/2023, patient seen eval examined during rounds labs reviewed medications r eviewed care plan discussed, respiratory status is still marginal ongoing cough congestion and wheezing is present, patient remains on IV steroids 60 every 6 and broad-spectrum antibiotics with IV Rocephin, patient has been getting bronchodilators as well, reexplored idea about bronchoscopy patient feels that he wants to recover from pneumonia and then think about it as outpatient patient specifically has not to placed on life support, otherwise afebrile temperature is 97.4, blood pressure is 136/85 saturation 95% theater oxygen, 08/13/2023, patient seen eval examined during rounds labs reviewed medications reviewed care plan discussed, findings on computed tomography scan discussed with patient at length greatly, patient is DO NOT RESUSCITATE, at this point time patient wants to recover from pneumonia and think about bronchoscopy as an outpatient. Patient has been started on IV antibiotics tolerating well along with IV steroids bronchodilator cough congestion is improved but is still get short of breath on minimal activity and exertion and intermittent wheezing and nighttime as well. Patient remains afebrile with stable hemodynamics oxygen saturation stable on 2-3 L oxygen on 2 L 98%.culture results are pending unable to obtain a sputum for Gram stain and culture, patient remains on home medicine along with bronchodilators and IV steroids and broad-spectrum IV antibiotics t rodger well 08/12/2023, patient seen eval examined during rounds labs reviewed medications and care plan discussed, patient underwent computed tomography scan of the chest yesterday reviewed, today patient feels congested ongoing cough is present along with wheezing.patient is afebrile slightly tachycardic with heart rate of 105 saturation is the 92% on 2 L supplemental oxygen down from 3 L, blood pressure is stable 110/50.the x-ray revealed consolidation in the right lung. Calcified granuloma which correlates with the nodule. Right middle lobe occluded maybe related to mucous plug would recommend to start broad-spectrum IV antibiotics rather than by mouth may need bronchoscopy once clinical condition slightly improved. Patient complaining of neck pain which is chronic along with a history of C-spine surgery will arrange c-collar to stabilize neck and pain relief. 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 He is on chronic oxygen 3 L nasal cannula, he has a history of coronary artery disease, prior acute COPD exacerbation several weeks ago requiring hospitalization. Came into the hospital with 2 to 3-day history of increasing shortness of breath and cough which is light yellow sputum production, chest x-ray right upper lobe consolidation and small pleural effusion suggesting underlying pneumonia along with 8 mm nodule in the right upper lobe. Currently patient is on bronchodilator along with oral antibiotics IV steroids and bronchodilators and continuation of home medication lactic acid is 2.4 came down to 1.7, white cell count 5.3 Objective - Vital Signs Vital signs: Vital Signs Temp 97.8 F 09/15/23 07:15 Pulse 90 09/15/23 08:15 Resp 17 09/15/23 07:15 BP 134/72 09/15/23 07:15 Pulse Ox 96 09/15/23 07:52 FiO2 Intake & Output 09/14/23 09/15/23 09/15/23 18:59 06:59 18:59 Intake Total 236 Output Total 1850 1200 Balance -1614 -1200 Intake: Oral 236 Output: Urine 1849 1200 Other: Voiding Method Indwelling Catheter Indwelling Catheter Indwelling Catheter # Bowel Movements 1 - Exam - Constitutional General appearance: average body habitus, disheveled, mild distress - EENT Eyes: EOMI, PERRLA ENT: normal oropharynx Ears: bilateral: normal - Neck Neck: normal ROM Carotids: bilateral: upstroke normal Thyroid: bilateral: normal size - Respiratory Respiratory: bilateral: diminished, wheezing, More on the right side compared to the left - Cardiovascular Heart sounds: normal: S1, S2 - Gastrointestinal General gastrointestinal: normal bowel sounds, soft - Integumentary Integumentary: normal, normal turgor - Neurologic Neurologic: CNII-XII intact - Musculoskeletal Musculoskeletal: gait normal, generalized weakness, strength equal bilaterally - Psychiatric Psychiatric: A&O x's 3, appropriate affect, intact judgment & insight - Labs CBC & Chem 7: 09/15/23 06:28 09/15/23 06:28 Labs: Abnormal Lab Results - Last 24 Hours (Table) 09/14/23 09/14/23 09/14/23 Range/Units 06:37 06:37 11:42 WBC 12.52 H (4.50-10.00) X 10*3/uL RBC 5.64 H (4.40-5.60) X 10*6/uL MCHC 31.7 L (32.0-37.0) g/dL RDW 15.3 H (11.5-14.5) % Neutrophils # (1.3-7.7) k/uL Lymphocytes # (1.0-4.8) k/uL Carbon Dioxide 35.0 H (21.6-31.8) mmol/L BUN 29.0 H (9.0-27.0) mg/dL Creatinine (0.66-1.25) mg/dL BUN/Creatinine Ratio 48.33 H (12.00-20.00) Ratio Glucose 193 H (70-110) mg/dL POC Glucose (mg/dL) 265 H (70-110) mg/dL Calcium 8.6 L (8.7-10.3) mg/dL 09/14/23 09/14/23 09/15/23 Range/Units 17:04 21:03 06:16 WBC (4.50-10.00) X 10*3/uL RBC (4.40-5.60) X 10*6/uL MCHC (32.0-37.0) g/dL RDW (11.5-14.5) % Neutrophils # (1.3-7.7) k/uL Lymphocytes # (1.0-4.8) k/uL Carbon Dioxide (21.6-31.8) mmol/L BUN (9.0-27.0) mg/dL Creatinine (0.66-1.25) mg/dL BUN/Creatinine Ratio (12.00-20.00) Ratio Glucose (70-110) mg/dL POC Glucose (mg/dL) 254 H 251 H 163 H (70-110) mg/dL Calcium (8.7-10.3) mg/dL 09/15/23 09/15/23 Range/Units 06:28 06:28 WBC 13.5 H (4.50-10.00) X 10*3/uL RBC (4.40-5.60) X 10*6/uL MCHC (32.0-37.0) g/dL RDW (11.5-14.5) % Neutrophils # 12.6 H (1.3-7.7) k/uL Lymphocytes # 0.2 L (1.0-4.8) k/uL Carbon Dioxide 36 H (21.6-31.8) mmol/L BUN 29 H (9.0-27.0) mg/dL Creatinine 0.60 L (0.66-1.25) mg/dL BUN/Creatinine Ratio (12.00-20.00) Ratio Glucose 178 H (70-110) mg/dL POC Glucose (mg/dL) (70-110) mg/dL Calcium (8.7-10.3) mg/dL Assessment and Plan Assessment: Right upper lobe pneumonia, likely mixed bacterial gram-positive and/or or gram- negative related right middle/Upper lobe atelectasis/narrowing likely mucous plug or endobronchial growth Acute on chronic hypoxic respiratory failure Acute COPD exacerbation Right-sided lung nodule chronic neck pain Hypertension hypertensive cardiovascular disease Coronary artery disease and ischemic cardiomyopathy related to Plan: Continue antibiotics and bronchodilators and IV steroids, IV antibiotics, send sputum for culture if possible , A sample has been obtained and is being processed, Proceed with bronchoscopy as planned. Bronchial wash reviewed computed tomography scan right upper lobe dense consolidation with right middle lobe atelectatic changes and narrowing suggestive of post obstructive process extrinsic versus intrinsic, CODE STATUS to full code, patient now agreed and would like to proceed Patient also wants to be discharged home rather than rehab he expresses good family support Time with Patient: Greater than 30
--- NOTE | 2023-09-15 10:26 | P.PCN ---
Date of Procedure: 09/15/23 Anesthesia: MAC Surgeon: Yon Ram Estimated Blood Loss (ml): 5 Pathology: other Condition: stable Disposition: floor Indications for Procedure: Right upper lobe and middle lobe atelectasis with mucous plugging Operative Findings: Patient prepared and draped in the usual fashion, bronchoscope passed through the left nares as right nares were extremely obstructed, able to get into the laryngeal area vocal cords normal in structure and function moving bilaterally, tip of the scope was passed beyond the vocal cords into the trachea extensive degree of mucous plugging was seen more so on the right side compared to left side. After cleaning the mucous plug found out that single opening of right upper lobe seen right middle lobe bronchus not seen right lower lobe all 4 bronchus intact left side was normal except bilateral mucosal erythema edema was present. In order to loosen mucous plugging 20% Mucomyst 30 cc mixed with normal saline was installed, aggressive pulmonary toilet was done. Patient tolerated the procedure well no complication noted in addition to BAL from right upper lobe right lower lobe bronchial brushing from the right upper lobe done patient tolerated procedure well no complication noted Description of Procedure: As above
[2023-09-15 12:11] LABS: Glucose,Whole Blood 203 mg/dL (70-110)
--- NOTE | 2023-09-15 12:38 | XR ---
EXAMINATION TYPE: XR chest 1V portable DATE OF EXAM: 09/15/2023 COMPARISON: 09/10/2023 HISTORY: Postop bronchoscopy TECHNIQUE: Single frontal view of the chest is obtained. FINDINGS: Increasing consolidation bilateral lung bases with small bilateral pleural effusion. There is a 7 mm nodule in the right upper lobe possibly related to granuloma. Underlying COPD. Heart size normal. No pneumothorax. Osseous structures stable. Stable right perihilar area of subsegmental conso lidation. IMPRESSION: 1. Increasing consolidation bilateral lower lobe with small bilateral effusions correlate for mild CH F versus pneumonia.
[2023-09-15] MEDS: FUROSEMIDE 10 MG/ML 2 ML VIAL IV ONE (13:42)
--- NOTE | 2023-09-15 13:45 | P.PN ---
Subjective Progress Note Date: 09/15/23 Patient is a 78-year-old male with a history of COPD, recent COVID-19 pneumonia in July 2023, chronic hypoxic respiratory failure on 3 L, chronic indwelling Richardson, and coronary artery disease who presented to the hospital with complaints of worsening shortness of breath. On arrival to the emergency department the patient was tachycardic with a pulse of 102. Laboratory analysis included CBC, coags, CMP, and troponin which were unremarkable for lactic acid of 3.1. Chest x-ray demonstrated patchy right upper lobe infiltrate with possible adjacent 8 mm nodule. In the ER he was given Solu-Medrol, bronchodilators, and ceftriaxone. Arrangements were made for admission. He was continued on steroids and bronchodilators. Bronchoscopy completed, shows extremely obstructive right Neer's, extensive degree of mucous plugging noted in the trachea more on the right side, bilateral mucosal erythema and edema noted, aggressive pulmonary toileting was done, BAL done involving right upper lobe, right lower lobe bronchial brushing. Patient seen and examined at bedside. Denies any new complaints. Vital signs reviewed General: Nontoxic, no distress, appears at stated age Cardiovascular: S1S2 reg, no murmur Lungs: Coarse breath sounds bilateral , no accessory muscle use, supplemental oxygen Abdominal: Soft, nontender to palpation, no guarding Ext: No gross muscle atrophy, no edema b/l lower extremities, no contractures Neuro: CN II-XI grossly intact, no focal neuro deficits Psych: Alert, oriented, appropriate affect Assessment/Plan: Acute exacerbation of COPD Acute on Chronic hypoxic respiratory failure Bacterial Pneumonia, possible gram negative Leukocytosis, likely steroid-induced -Solu-Medrol 60 mg IV every 6 hours -DuoNeb 4 times daily scheduled and every 2 hours as needed -Budesonide 1 mg twice daily, piriformis 20 mcg twice daily -Rocephin 2 g IV every 24 hours -Pulmonology note reviewed, continue current therapy, procedure note reviewed -Wean oxygen Chronic systolic congestive heart failure with ejection fraction 40 to 45% Hypertension Dyslipidemia Coronary artery disease -Lisinopril 5 mg twice daily, Toprol 25 mg daily, Lasix 20 mg twice daily, Farxiga 10 mg daily, patient is not chronically on a mineralocorticoid -Lipitor 80 mg T2DM -On sliding scale insulin, monitor for hypoglycemia -On Farxiga increased to 10 mg daily Chronic Richardson catheter Imaging: Chest x-ray independently interpreted, shows bilateral interstitial opacities Data Review: WBC 13.5, potassium 4.4, creatinine 0.6, blood sugars range between 1 63-2 51 DVT prophylaxis: Lovenox 40 mg daily Anticipated discharge date: 24 to [address]: Home with home health care Objective - Vital Signs Vital signs: Vital Signs Temp 97.8 F 09/15/23 07:15 Pulse 113 H 09/15/23 13:30 Resp 14 09/15/23 13:30 BP 135/77 09/15/23 13:30 Pulse Ox 92 L 09/15/23 13:30 FiO2 Intake & Output 09/14/23 09/15/23 09/15/23 18:59 06:59 18:59 Intake Total 236 50 Output Total 1850 1200 Balance -1614 -1200 50 Intake: IV 50 Oral 236 Output: Urine 1850 1200 Other: Voiding Method Indwelling Catheter Indwelling Catheter Indwelling Catheter # Bowel Movements 1 - Labs CBC & Chem 7: 09/15/23 06:28 09/15/23 06:28 Labs: Abnormal Lab Results - Last 24 Hours (Table) 09/14/23 09/14/23 09/15/23 Range/Units 17:04 21:03 06:16 WBC (3.8-10.6) k/uL Neutrophils # (1.3-7.7) k/uL Lymphocytes # (1.0-4.8) k/uL Carbon Dioxide (22-30) mmol/L BUN (9-20) mg/dL Creatinine (0.66-1.25) mg/dL Glucose (74-99) mg/dL POC Glucose (mg/dL) 254 H 251 H 163 H (70-110) mg/dL 09/15/23 09/15/23 09/15/23 Range/Units 06:28 06:28 12:10 WBC 13.5 H (3.8-10.6) k/uL Neutrophils # 12.6 H (1.3-7.7) k/uL Lymphocytes # 0.2 L (1.0-4.8) k/uL Carbon Dioxide 36 H (22-30) mmol/L BUN 29 H (9-20) mg/dL Creatinine 0.60 L (0.66-1.25) mg/dL Glucose 178 H (74-99) mg/dL POC Glucose (mg/dL) 203 H (70-110) mg/dL
--- NOTE | 2023-09-15 15:22 | P.EN ---
patient seen eval reexamined after bronchoscopy. Critical care time spent 30 minutes. Patient developed increasing respiratory distress after bronchoscopy sats drop down into 80s requiring 10 L high flow oxygen, discussed with patient he insist of keeping DO NOT RESUSCITATE CODE STATUS. 20 mg of Lasix by mouth and IV was given, asked the respiratory to give a stat nebulizer treatment, chest x-ray performed reviewed and compared with the prior one increasing infiltrates in which actually is due to normal saline installed during bronchoscopy for bronchoalveolar lavage, cytology Gram stain and culture is pending. Patient put out clear urine able to decrease his oxygen to 5 L nasal cannula oxygen saturation mid 90s discussed with respiratory as well as the RN for further go down as tolerated back to baseline 3 L nasal cannula
[2023-09-15 17:12] LABS: Glucose,Whole Blood 232 mg/dL (70-110)
[2023-09-15 20:42] LABS: Glucose,Whole Blood 164 mg/dL (70-110)
[2023-09-16 06:22] LABS: Glucose,Whole Blood 150 mg/dL (70-110)
[2023-09-16 08:16] VITALS: BP 151/87; RESP 16; TEMP 98
[2023-09-16 08:50] LABS: Basophils % (A) 0 %; Eosinophils % (A) 0 %; HCT 51.7 % (39.0-53.0); HGB 16.5 gm/dL (13.0-17.5); Lymphocytes # (A) 0.2 k/uL (1.0-4.8); Lymphocytes % (A) 1 %; MCH 28.7 pg (25.0-35.0); MCV 89.5 fL (80.0-100.0); Monocytes # (A) 0.7 k/uL (0-1.0); Monocytes % (A) 4 %; Neutrophils # (A) 18.1 k/uL (1.3-7.7); Neutrophils % (A) 95 %; Platelet Count 222 k/uL (150-450); RBC 5.77 m/uL (4.30-5.90); RDW 14.6 % (11.5-15.5); WBC 19.2 k/uL (3.8-10.6)
[2023-09-16 09:14] LABS: African American GFR (CKD) >90 (>60 ml/min/1.73 sqM); Blood Urea Nitrogen 31 mg/dL (9-20); Calcium 8.7 mg/dL (8.4-10.2); Chloride 96 mmol/L (98-107); Glucose 152 mg/dL (74-99); Non-African American GFR(CKD) >90 (>60 ml/min/1.73 sqM); Potassium 4.3 mmol/L (3.5-5.1); Sodium 138 mmol/L (137-145)
[2023-09-16 09:21] LABS: Anion Gap 5 mmol/L
[2023-09-16 09:23] LABS: Carbon Dioxide 37 mmol/L (22-30)
[2023-09-16 11:36] LABS: Glucose,Whole Blood 300 mg/dL (70-110)
[2023-09-16 12:09] VITALS: PULSE 86
--- NOTE | 2023-09-16 13:22 | P.DS ---
Providers Date of admission: 09/09/23 13:40 Expected date of discharge: 09/16/23 Attending physician: Silvana De Jesus DO Consults: 09/09/23 14:59 Consult Physician Routine Consulting Provider: Yon Ram Consult Reason/Comments: COPD exacerbation Do you want consulting provider notified?: Yes Primary care physician: [facility] Course: Discharge Diagnosis: Acute exacerbation of COPD Acute on Chronic hypoxic respiratory failure Bacterial Pneumonia Leukocytosis, likely steroid-induced Chronic systolic congestive heart failure with ejection fraction 40 to 45% Hypertension Dyslipidemia Coronary artery disease T2DM Chronic Richardson catheter Hospital Course: Patient is a 78-year-old male with a history of COPD, recent COVID-19 pneumonia in July 2023, chronic hypoxic respiratory failure on 3 L, chronic indwelling Richardson, and coronary artery disease who presented to the hospital with complaints of worsening shortness of breath. On arrival to the emergency department the patient was tachycardic with a pulse of 102. Laboratory analysis included CBC, coags, CMP, and troponin which were unremarkable for lactic acid of 3.1. Chest x-ray demonstrated patchy right upper lobe infiltrate with possible adjacent 8 mm nodule. In the ER he was given Solu-Medrol, bronchodilators, and ceftriaxone. Arrangements were made for admission. He was continued on steroids and bronchodilators, antibiotics. Bronchoscopy completed, shows extremely obstructive right nares, extensive degree of mucous plugging noted in the trachea more on the right side, bilateral mucosal erythema and edema noted, aggressive pulmonary toileting was done, BAL done involving right upper lobe, right lower lobe bronchial brushing. Patient back on 3 L. Follow up patient with pulmonology. Patient seen and examined at bedside. Vital signs reviewed and stable. General: Nontoxic, no distress, appears at stated age Cardiovascular: S1S2 reg, no murmur Lungs: Coarse breath sounds bilateral , no accessory muscle use, supplemental oxygen Abdominal: Soft, nontender to palpation, no guarding Ext: No gross muscle atrophy, no edema b/l lower extremities, no contractures Neuro: CN II-XI grossly intact, no focal neuro deficits Psych: Alert, oriented, appropriate affect A total of 33 Minutes of time were spent preparing this complex discharge summary. Patient was discharged on 09/16/2023 at 1217. Patient Condition at Discharge: Stable Plan - Discharge Summary New Discharge Prescriptions: New Cefdinir 300 mg PO Q12HR #4 cap Continue Albuterol Nebulized [Ventolin Nebulized] 2.5 mg INHALATION RT-Q4H PRN PRN Reason: Shortness Of Breath Lidocaine 5% Patch [Lidoderm 5% Patch] 1 patch TRANSDERM DAILY PRN PRN Reason: Pain Tamsulosin [Flomax] 0.4 mg PO DAILY #30 capsule Folic Acid 1 mg PO DAILY Thiamine [Vitamin B-1] 100 mg PO DAILY Furosemide [Lasix] 20 mg PO BID@0900,1300 Aspirin 81 mg PO DAILY Metoprolol Succinate (ER) [Toprol XL] 25 mg PO DAILY Cholecalciferol [Vitamin D3 (25 Mcg = 1000 Iu)] 25 mcg PO DAILY Albuterol Inhaler [Ventolin Hfa Inhaler] 2 puff INHALATION RT-QID PRN PRN Reason: Shortness Of Breath Cetirizine HCl [Zyrtec] 10 mg PO DAILY PRN PRN Reason: Allergy Symptoms Fluticasone Nasal [place] [Flonase Nasal [place]] 1 spr EA NOSTRIL DAILY lisinopriL [Zestril] 5 mg PO BID Atorvastatin [Lipitor] 80 mg PO HS Fluticasone Propion/Salmeterol [Wixela 250-50 Inhub] 1 puff INHALATION RT-BID Acetaminophen Tab [Tylenol] 1,000 mg PO Q6H PRN PRN Reason: Pain Empagliflozin [Jardiance] 10 mg PO DAILY Ketoconazole 2% Shampoo [Nizoral] 1 applic TOPICAL DAILY PRN PRN Reason: shower Triamcinolone 0.1% Cream [Kenalog 0.1% Cream] 1 applic TOPICAL DAILY PRN PRN Reason: Rash Nitroglycerin Sl Tabs [Nitrostat] 0.4 mg SUBLINGUAL Q5M PRN PRN Reason: Chest Pain Budesonide-Formot 160-4.5 Mcg [Symbicort 160-4.5 Mcg Inhaler] 2 puff INHALATION RT-BID #1 each Discharge Medication List Albuterol Inhaler [Ventolin Hfa Inhaler] 2 puff INHALATION RT-QID PRN 04/25/21 [History] Albuterol Nebulized [Ventolin Nebulized] 2.5 mg INHALATION RT-Q4H PRN 04/25/21 [History] Cetirizine HCl [Zyrtec] 10 mg PO DAILY PRN 04/25/21 [History] Fluticasone Nasal [place] [Flonase Nasal [place]] 1 spr EA NOSTRIL DAILY 04/25/21 [History] Lidocaine 5% Patch [Lidoderm 5% Patch] 1 patch TRANSDERM DAILY PRN 04/25/21 [History] Tamsulosin [Flomax] 0.4 mg PO DAILY #30 capsule 05/12/21 [Rx] Atorvastatin [Lipitor] 80 mg PO HS 02/03/22 [History] Folic Acid 1 mg PO DAILY 02/03/22 [History] Thiamine [Vitamin B-1] 100 mg PO DAILY 02/03/22 [History] lisinopriL [Zestril] 5 mg PO BID 02/03/22 [History] Aspirin 81 mg PO DAILY 08/25/22 [History] Furosemide [Lasix] 20 mg PO BID@0900,1300 08/25/22 [History] Fluticasone Propion/Salmeterol [Wixela 250-50 Inhub] 1 puff INHALATION RT-BID 10/18/22 [History] Acetaminophen Tab [Tylenol] 1,000 mg PO Q6H PRN 04/11/23 [History] Empagliflozin [Jardiance] 10 mg PO DAILY 04/11/23 [History] Ketoconazole 2% Shampoo [Nizoral] 1 applic TOPICAL DAILY PRN 04/11/23 [History] Triamcinolone 0.1% Cream [Kenalog 0.1% Cream] 1 applic TOPICAL DAILY PRN 04/11/23 [History] Nitroglycerin Sl Tabs [Nitrostat] 0.4 mg SUBLINGUAL Q5M PRN 07/16/23 [History] Budesonide-Formot 160-4.5 Mcg [Symbicort 160-4.5 Mcg Inhaler] 2 puff INHALATION RT-BID #1 each 07/20/23 [Rx] Cholecalciferol [Vitamin D3 (25 Mcg = 1000 Iu)] 25 mcg PO DAILY 09/09/23 [History] Metoprolol Succinate (ER) [Toprol XL] 25 mg PO DAILY 09/09/23 [History] Cefdinir 300 mg PO Q12HR #4 cap 09/16/23 [Rx] Follow up Appointment(s)/Referral(s): [facility] [NON-STAFF] - 1 Week Yon Ram MD [STAFF PHYSICIAN] - 2 Weeks (office hours are Thursday. please call to make follow up appointment ) [facility],Clinic [Primary Care Provider] - 1-2 days Patient Instructions/Handouts: COPD (Chronic Obstructive Pulmonary Disease) (DC), Community Acquired Pneumonia (DC) Activity/Diet/Wound Care/Special Instructions: Please see your PCP and office support. Bronchoscopy completed 09/15/23 Discharge Disposition: HOME WITH HOME HEALTH SERVICES
== END 2023-09-16 13:15 | disposition home health service (06) | DRG 177 ==
LOC: EC 11:07 → OBSVTOIN 13:40 → 6NMEDSUR 13:40
PROVIDERS: ADMIT Internal Medicine; ATTEND Internal Medicine
PROC: 0B9C8ZX Drainage of Right Upper Lung Lobe, Via Natural or Artificial Opening Endoscopic, Diagnostic (ICD-10-PCS; principal; 2023-09-15 08:00)
DX: J15.69 Pneumonia due to other Gram-negative bacteria (principal); J96.21 Acute and chronic respiratory failure with hypoxia; J44.0 Chronic obstructive pulmonary disease with (acute) lower respiratory infection; J44.1 Chronic obstructive pulmonary disease with (acute) exacerbation; I50.22 Chronic systolic (congestive) heart failure; J98.11 Atelectasis; T17.890A Other foreign object in other parts of respiratory tract causing asphyxiation, initial encounter; M54.2 Cervicalgia; T38.0X5A Adverse effect of glucocorticoids and synthetic analogues, initial encounter; I11.0 Hypertensive heart disease with heart failure; E11.9 Type 2 diabetes mellitus without complications; F40.240 Claustrophobia; D72.829 Elevated white blood cell count, unspecified; R00.0 Tachycardia, unspecified; I25.5 Ischemic cardiomyopathy; G89.29 Other chronic pain; I25.2 Old myocardial infarction; N42.9 Disorder of prostate, unspecified; Z99.81 Dependence on supplemental oxygen; I25.10 Atherosclerotic heart disease of native coronary artery without angina pectoris; Z87.891 Personal history of nicotine dependence; Z71.3 Dietary counseling and surveillance; Z66 Do not resuscitate; R91.1 Solitary pulmonary nodule; Z95.5 Presence of coronary angioplasty implant and graft; Z88.7 Allergy status to serum and vaccine; Z79.51 Long term (current) use of inhaled steroids; Z79.899 Other long term (current) drug therapy; Z79.82 Long term (current) use of aspirin; Z86.16 Personal history of COVID-19; Z87.01 Personal history of pneumonia (recurrent); Z79.84 Long term (current) use of oral hypoglycemic drugs
CPT/HCPCS: 31623; 31624; 31645; 36415; 71045; 71046; 71250; 80048; 80053; 83036; 83605; 83735; 83880; 84484; 85025; 85027; 85610; 85730; 87070; 87102; 87116; 87205; 87206; 88104; 88108; 88305; 93005; 94640; 94760; 96361; 96365; 96375; 96376; 99285

== ENCOUNTER 2023-12-28 16:13 | Emergency (ER) | payer OTHER ==
[2023-12-28] MEDS ORDERED: DIPH,PERTUS(ACELL)TETVAC-LF 0.5 ML VIAL IM ONE (18:03)
[2023-12-28] MEDS ORDERED: ACETAMINOPHEN TAB 325 MG TAB ONE (18:03)
== END 2023-12-28 20:59 | disposition home or self-care (01) ==
LOC: EC 16:13
DX: T83.098A Other mechanical complication of other urinary catheter, initial encounter (principal)
CPT/HCPCS: 87086; 90715; 96372; 99283